=== PATIENT | male | born 1960 | race Caucasian/White ===

== ENCOUNTER 2016-07-12 14:30 | Outpatient (CLI) | payer MEDICARE, MEDICAID | END 2016-07-12 14:31 | disposition home or self-care (01) | DX: I10 Essential (primary) hypertension (principal); I69.354 Hemiplegia and hemiparesis following cerebral infarction affecting left non-dominant side; R56.1 Post traumatic seizures ==

== ENCOUNTER 2016-12-29 08:01 | Outpatient (CLI) | payer MEDICARE, MEDICAID ==
[2016-12-29 13:57] LABS: CHOLESTEROL 194 mg/dL; HDL CHOLESTEROL 48 mg/dL; LDL/HDL RATIO 2.7 (<3.6); TRIGLYCERIDES 75 mg/dL; VLDL CHOLESTEROL 15 mg/dL
[2016-12-29 14:02] LABS: HEMOGLOBIN A1C 0.51 g/dL
== END 2016-12-29 08:02 | disposition home or self-care (01) ==
LOC: LAB.N 08:01
PROVIDERS: ATTEND Psychiatry & Neurology Neurology
DX: I69.354 Hemiplegia and hemiparesis following cerebral infarction affecting left non-dominant side (principal); R56.1 Post traumatic seizures; R73.09 Other abnormal glucose
CPT/HCPCS: 36415; 80061; 80177; 83036

== ENCOUNTER 2017-05-02 08:00 | Outpatient (CLI) | payer MEDICARE, MEDICAID ==
[2017-05-02 13:00] LABS: HB2 TOTAL 12.8 g/dL; HEMOGLOBIN A1C 0.55 g/dL; HEMOGLOBIN A1C % 6.1 % (4.6-6.2)
[2017-05-02 13:09] LABS: ALBUMIN 3.9 g/dL (3.2-5.5); ALBUMIN/GLOBULIN RATIO 1.1 (1.0-2.2); ALKALINE PHOSPHATASE 72 IU/L (42-121); ALT ALANINE AMINOTRANSFERASE 30 IU/L (10-60); AST ASPARTATE AMINOTRANSFERASE 27 IU/L (10-42); BILIRUBIN,TOTAL 0.3 mg/dL (0.2-1.0); BUN - BLOOD UREA NITROGEN 20 mg/dL (6-20); CALCIUM 9.2 mg/dL (8.5-10.3); CARBON DIOXIDE - CO2 28 mmol/L (21-32); CHLORIDE 100 mmol/L (101-111); CHOLESTEROL 147 mg/dL; CREATININE 0.9 mg/dL (0.6-1.2); GFR - MDRD 88 (>89); GLUCOSE 87 mg/dL (70-100); HDL CHOLESTEROL 49 mg/dL; LDL CHOLESTEROL,CALCULATED 86 mg/dL; LDL/HDL RATIO 1.8 (<3.6); SODIUM 138 mmol/L (135-145); TOTAL PROTEIN 7.5 g/dL (6.7-8.2); VLDL CHOLESTEROL 12 mg/dL
== END 2017-05-02 08:01 | disposition home or self-care (01) ==
LOC: LAB.N 08:00
PROVIDERS: ATTEND Internal Medicine
DX: I10 Essential (primary) hypertension (principal); R73.09 Other abnormal glucose; E78.4 Other hyperlipidemia
CPT/HCPCS: 36415; 80053; 80061; 83036

== ENCOUNTER 2017-10-24 08:16 | Outpatient (CLI) | payer MEDICARE, MEDICAID ==
[2017-10-24 12:48] LABS: CALCIUM 9.2 mg/dL (8.5-10.3); CREATININE 1.1 mg/dL (0.6-1.2)
[2017-10-24 13:10] LABS: HB2 TOTAL 12.8 g/dL; HEMOGLOBIN A1C 0.52 g/dL; HEMOGLOBIN A1C % 5.9 % (4.6-6.2)
== END 2017-10-24 08:17 | disposition home or self-care (01) ==
LOC: LAB.N 08:16
PROVIDERS: ATTEND Internal Medicine
DX: I10 Essential (primary) hypertension (principal); R73.02 Impaired glucose tolerance (oral)
CPT/HCPCS: 36415; 80048; 83036

== ENCOUNTER 2018-04-22 08:50 | Emergency (ER) | payer MEDICARE, MEDICAID ==
[2018-04-22 09:03] VITALS: BP 138/97
--- NOTE | 2018-04-22 09:18 | ED Physician Documentation ---
PD HPI SKIN - Stated complaint Stated Complaint: SWOLLEN HAND - Chief complaint Chief Complaint: Wound - History obtained from History obtained from: Patient - History of Present Illness Timing - onset: How many weeks ago (1) Timing - duration: Weeks (1) Timing - details: Gradual onset Pain level max: 0 Pain level now: 0 Location: Other (hands) Quality / character: Swelling, Other (Rash). 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 Patient denies any pain, itching, numbness, fever. Patient had been on trampoline for his eczema. A week ago he was started on Clobeta Terazole 0.05% twice a day.He stated his PABLITO sent him here to make sure that there is no infection going on from his rash. Patient denies any exposure to allergen such as gloves, new food, lotion, soap.Denies any insect or animal bites. Review of Systems Ten Systems: 10 systems reviewed and negative Constitutional: denies: Fever, Chills, Myalgias Eyes: reports: Loss of vision (Left-sided chronic) Throat: denies: Sore throat Cardiac: denies: Chest pain / pressure Respiratory: denies: Dyspnea, Cough GI: denies: Abdominal Pain Skin: reports: Rash. denies: Bite / sting Musculoskeletal: reports: Extremity swelling. denies: Extremity pain, Joint pain, Joint swelling Neurologic: reports: Focal weakness (Chronic left-sided weakness from CVA), Difficulty speaking (Mildly slurred, chronic from CVA). denies: Generalized weakness PD PAST MEDICAL HISTORY - Past Medical History Cardiovascular: Hypertension Respiratory: None Endocrine/Autoimmune: None GI: None : None HEENT: Chronic vision loss Psych: Anxiety Musculoskeletal: Osteoarthritis Derm: None - Past Surgical History Past Surgical History: No Neuro: Craniotomy - Present Medications Home Medications: Ambulatory Orders Medication Instructions Recorded Confirmed Acetaminophen [Pain Reliever] 650 mg PO Q8HR PRN 08/25/12 04/22/18 Amlodipine Besylate 10 mg PO BID 08/25/12 04/22/18 Baclofen 10 mg PO TID 08/25/12 04/22/18 Cholecalciferol (Vitamin D3) 1,000 mg PO DAILY 08/25/12 04/22/18 [Vitamin D-3] Docusate Sodium 250 mg PO DAILY 08/25/12 04/22/18 Doxepin [SINEquan] 30 mg PO HS 08/25/12 04/22/18 Lisinopril 40 mg PO DAILY 08/25/12 04/22/18 Metoprolol Succinate 100 mg PO BID 08/25/12 04/22/18 Omeprazole [PriLOSEC] 20 mg PO DAILY 08/25/12 04/22/18 Phenytoin [Dilantin] 200 mg PO QAM 08/25/12 04/22/18 Phenytoin [Dilantin] 300 mg PO QPM 08/25/12 03/17/15 Potassium 10 meq PO BID 08/25/12 04/22/18 hydroCHLOROthiazide [Hydrodiuril] 25 mg PO DAILY 08/25/12 04/22/18 Sertraline [Zoloft] 150 mg PO DAILY 12/11/12 04/22/18 hydrOXYzine PAMOATE [Vistaril] 25 mg PO Q6H PRN #20 capsule 07/14/13 04/22/18 levETIRAcetam [Keppra] 750 mg PO BID 03/17/15 04/22/18 Clobetasol Propionate 15 gm TP 04/22/18 Triamcinolone 0.1% Oint [Kenalog 15 gm TOP 04/22/18 04/22/18 0.1% Oint] - Allergies Allergies/Adverse Reactions: Allergies Allergy/AdvReac Type Severity Reaction Status Date / Time ceftriaxone sodium * Allergy Intermediate Hives Verified 03/20/15 09:53 [From Rocephin] - Social History Does the pt smoke?: No Smoking Status: Never smoker Does the pt drink ETOH?: No Does the pt have substance abuse?: No - Immunizations Immunizations are current?: Yes - POLST Patient has POLST: Yes POLST Status: Full Code PD ED PE NORMAL - Vitals Vital signs reviewed: Yes - General General: Alert and oriented X 3, No acute distress, Well developed/nourished - HEENT HEENT: EOMI, Moist mucous membranes, Pharynx benign - Neck Neck: Supple, no meningeal sign - Cardiac Cardiac: RRR, No murmur - Respiratory Respiratory: Clear bilaterally - Abdomen Abdomen: Normal bowel sounds, Soft, Non tender, Non distended - Back Back: No CVA TTP - Derm Derm: Normal color, Warm and dry, Other (Both hands with maculopapular rash, nonvesicular, nontender, nonpruritic. Rash located more on the dorsal area and not on the palmar area.No other similar rash noted on patient's body) - Extremities Extremities: No deformity - Neuro Neuro: Alert and oriented X 3, Other (Mild dysarthria but able to comprehend patient. Left-sided weakness.) - Psych Psych: Normal mood, Normal affect Results - Vitals Vitals: Vital Signs - 24 hr 04/22/18 08:59 Temperature 36.8 C Heart Rate 64 Respiratory 16 Rate Blood Pressure 138/97 H O2 Saturation 97 Oxygen O2 Source Room air - Labs Labs: Laboratory Tests 04/22/18 04/22/18 04/22/18 09:30 09:30 09:30 WBC 6.2 RBC 4.51 L Hgb 11.8 L Hct 36.4 L MCV 80.8 MCH 26.1 L MCHC 32.3 RDW 16.7 H Plt Count 257 MPV 7.4 Neut # (Auto) 4.5 Lymph # (Auto) 1.0 L [place] # (Auto) 0.5 Eos # (Auto) 0.1 Baso # (Auto) 0.0 Absolute Nucleated RBC 0.00 Nucleated RBC % 0.1 ESR 57 H Sodium 137 Potassium 3.6 Chloride 101 Carbon Dioxide 30 Anion Gap 6.0 BUN 18 Creatinine 0.8 Estimated GFR (MDRD) 100 Glucose 97 Calcium 9.2 Total Bilirubin 0.4 AST 21 ALT 22 Alkaline Phosphatase 81 C-React Prot High Sens Total Protein 7.7 Albumin 4.1 Globulin 3.6 Albumin/Globulin Ratio 1.1 Lipase 31 04/22/18 09:30 WBC RBC Hgb Hct MCV MCH MCHC RDW Plt Count MPV Neut # (Auto) Lymph # (Auto) [place] # (Auto) Eos # (Auto) Baso # (Auto) Absolute Nucleated RBC Nucleated RBC % ESR Sodium Potassium Chloride Carbon Dioxide Anion Gap BUN Creatinine Estimated GFR (MDRD) Glucose Calcium Total Bilirubin AST ALT Alkaline Phosphatase C-React Prot High Sens 7.4 Total Protein Albumin Globulin Albumin/Globulin Ratio Lipase PD MEDICAL DECISION MAKING - ED course Complexity details: reviewed results, re-evaluated patient, considered differential (Eczema, reaction from steroid cream, dermatitis, MRSA.), d/w patient ED course: 1055 patient in no acute distress and nontoxic appearing. Tolerated food and took his medications for this morning. He was inform of test results including x-ray. He was instructed to stop the cream medication that he is on and to get a dermatology consult to reevaluate the rash on his hands.NURSING HOME form filled. Departure - Departure Disposition: 01 Home, Self Care Clinical Impression: Rash and nonspecific skin eruption, Eczema of both hands Condition: Stable Instructions: ED Dermatitis Non Specific Rash, ED Dermatitis Atopic Eczema Comments: Stop Stop applying the steroid cream on your hands. Call your primary doctor for reevaluation and referral to a project surveyor. Culture of your skin rash had been sent to the labs. You will be called if the bacteria is growing in it. If worse return to the emergency room.
[2018-04-22 09:38] LABS: BASOPHILS % (AUTO) 0.6 %; EOSINOPHILS # (AUTO) 0.1 10^3/uL (0.0-0.7); EOSINOPHILS % (AUTO) 2.3 %; HGB - HEMOGLOBIN 11.8 g/dL (14.0-18.0); LYMPHOCYTES % (AUTO) 15.9 %; MEAN CORPUSCULAR HEMOGLOBIN 26.1 pg (27.0-31.0); MEAN CORPUSCULAR HGB CONC 32.3 g/dL (32.0-36.0); MEAN CORPUSCULAR VOLUME 80.8 fL (80.0-94.0); MEAN PLATELET VOLUME 7.4 fL (7.4-11.4); MONOCYTES # (AUTO) 0.5 10^3/uL (0.0-1.0); NEUTROPHILS # (AUTO) 4.5 10^3/uL (1.5-6.6); NEUTROPHILS % (AUTO) 73.2 %; PLT - PLATELET COUNT 257 10^3/uL (130-450); RED BLOOD COUNT 4.51 10^6/uL (4.70-6.10); RED CELL DISTRIBUTION WIDTH 16.7 % (12.0-15.0); WHITE BLOOD COUNT 6.2 x10^3/uL (4.8-10.8)
[2018-04-22 10:07] LABS: ALBUMIN 4.1 g/dL (3.2-5.5); ALBUMIN/GLOBULIN RATIO 1.1 (1.0-2.2); BILIRUBIN,TOTAL 0.4 mg/dL (0.2-1.0); CALCIUM 9.2 mg/dL (8.5-10.3); CREATININE 0.8 mg/dL (0.6-1.2); TOTAL PROTEIN 7.7 g/dL (6.7-8.2)
--- NOTE | 2018-04-22 10:31 | XRAY Report ---
Reason: swollen Procedure Date: 04/22/2018 Accession Number: [id number] / [id number] Procedure: XR - Hand 3 View BILAT CPT Code: FULL RESULT: EXAMS: 1. Right Hand Radiography 2. Left Hand Radiography EXAM DATE: 04/22/2018 09:58 AM. CLINICAL HISTORY: Swollen. COMPARISON: None. TECHNIQUE: 3 views each hand. FINDINGS: Right: Bones: Normal. No fractures or bone lesions. Joints: Normal. No subluxations. Soft Tissues: Normal. No soft tissue swelling. Left: Bones: Normal. No fractures or bone lesions. Joints: Normal. No subluxations. Soft Tissues: Normal. No soft tissue swelling. IMPRESSION: No fracture or significant degenerative changes or periarticular erosions. RADIA
[2018-04-22] MEDS ORDERED: PROMETHAZINE 25 MG/1 ML VIAL IM STA (10:56)
[2018-04-22] MEDS ORDERED: LORazepam 2 MG/ML VIAL IVP STA (10:56)
[2018-04-22] MEDS ORDERED: THIAMINE IV STA ×5 (10:57)
[2018-04-22] MEDS ORDERED: [UNRECOGNIZED DRUG - OTHER] IV STA ×5 (10:57)
[2018-04-22] MEDS ORDERED: FOLIC ACID IV STA ×5 (10:57)
[2018-04-22] MEDS ORDERED: MAGNESIUM SULFATE IV STA ×5 (10:57)
== END 2018-04-22 11:13 | disposition home or self-care (01) ==
LOC: ED 08:50
DX: R21 Rash and other nonspecific skin eruption (principal); L30.9 Dermatitis, unspecified; I10 Essential (primary) hypertension; I69.954 Hemiplegia and hemiparesis following unspecified cerebrovascular disease affecting left non-dominant side
CPT/HCPCS: 36415; 73130; 80053; 83690; 85025; 85651; 86141; 99283; J3411

== ENCOUNTER 2018-06-08 07:41 | Outpatient (CLI) | payer MEDICARE, MEDICAID ==
[2018-06-08 13:20] LABS: ALBUMIN 3.9 g/dL (3.2-5.5); ALKALINE PHOSPHATASE 76 IU/L (42-121); ALT ALANINE AMINOTRANSFERASE 25 IU/L (10-60); AST ASPARTATE AMINOTRANSFERASE 25 IU/L (10-42); BILIRUBIN,TOTAL 0.5 mg/dL (0.2-1.0); BUN - BLOOD UREA NITROGEN 16 mg/dL (6-20); CALCIUM 9.3 mg/dL (8.5-10.3); CARBON DIOXIDE - CO2 33 mmol/L (21-32); CHLORIDE 99 mmol/L (101-111); CHOL/HDL RATIO 2.9 (<5.0); CHOLESTEROL 157 mg/dL; CREATININE 0.8 mg/dL (0.6-1.2); GFR - MDRD 100 (>89); GLUCOSE 93 mg/dL (70-100); HDL CHOLESTEROL 55 mg/dL; LDL CHOLESTEROL,CALCULATED 88 mg/dL; LDL/HDL RATIO 1.6 (<3.6); SODIUM 138 mmol/L (135-145); TOTAL PROTEIN 7.7 g/dL (6.7-8.2); VLDL CHOLESTEROL 14 mg/dL
[2018-06-08 13:27] LABS: THYROID STIMULATING HORMONE 2.51 uIU/mL (0.34-5.60)
[2018-06-08 13:38] LABS: FOLATE 15.74 ng/mL (5.90 - >24.8)
[2018-06-08 19:50] LABS: BASOPHILS % (AUTO) 0.5 %; EOSINOPHILS # (AUTO) 0.1 10^3/uL (0.0-0.7); EOSINOPHILS % (AUTO) 2.2 %; HGB - HEMOGLOBIN 12.1 g/dL (14.0-18.0); MEAN CORPUSCULAR HEMOGLOBIN 27.1 pg (27.0-31.0); MEAN CORPUSCULAR HGB CONC 32.3 g/dL (32.0-36.0); MEAN CORPUSCULAR VOLUME 83.7 fL (80.0-94.0); MONOCYTES # (AUTO) 0.4 10^3/uL (0.0-1.0); MONOCYTES % (AUTO) 9.3 %; NEUTROPHILS # (AUTO) 3.2 10^3/uL (1.5-6.6); PLT - PLATELET COUNT 234 10^3/uL (130-450); RED BLOOD COUNT 4.45 10^6/uL (4.70-6.10); RED CELL DISTRIBUTION WIDTH 17.5 % (12.0-15.0); WHITE BLOOD COUNT 4.7 x10^3/uL (4.8-10.8)
== END 2018-06-08 23:59 | disposition home or self-care (01) ==
LOC: LAB.N 07:41
PROVIDERS: ATTEND Nurse Practitioner
DX: I10 Essential (primary) hypertension (principal); E55.9 Vitamin D deficiency, unspecified; R53.83 Other fatigue
CPT/HCPCS: 36415; 80053; 80061; 82306; 82607; 82746; 83721; 84443; 85025

== ENCOUNTER 2018-06-09 14:34 | Outpatient (CLI) | payer MEDICARE, MEDICAID ==
[2018-06-09 20:34] LABS: % IRON SATURATION 7 % (20-50); IRON 27 ug/dL (45-182); TOTAL IRON BINDING CAPACITY 370 ug/dL (250-450); TRANSFERRIN 264 mg/dL (180-329)
== END 2018-06-09 23:59 | disposition home or self-care (01) ==
LOC: LAB.N 14:34
PROVIDERS: ATTEND Nurse Practitioner
DX: D64.9 Anemia, unspecified (principal); D72.819 Decreased white blood cell count, unspecified
CPT/HCPCS: 36415; 82728; 83540; 84466

== ENCOUNTER 2018-06-25 15:54 | Emergency (ER) | payer MEDICARE, MEDICAID ==
[2018-06-25 16:01] VITALS: BP 135/81
--- NOTE | 2018-06-25 16:10 | ED Physician Documentation ---
PD HPI SKIN - Stated complaint Stated Complaint: RASH - Chief complaint Chief Complaint: General - History obtained from History obtained from: Patient - History of Present Illness Timing - onset: How many days ago (5-6) Timing - duration: Days (5-6) Timing - details: Gradual onset (initially on legs with spotty red rash, which has increased and is now bodywide.) Location: Bodywide (he has had the red spotty rash develop on legs then spread bodywide. Concurrently is having some increased swelling of prior psoriatic/eczema area of hands, and also redness/weeping of left hand skin.) Quality / character: Painful, Burning Associated symptoms: No: Fever Contributing factors: Exposed to medication (started new iron tablet this past week, and he is not sure if the leg rash started prior to the new med or just after starting it. He also was Rx Baclofen as new medication 2 weeks ago.) Similar symptoms before: Has not had sx before (not had the spotty red rash in the past, but has had psoriasis of the hands previously/recurrently.) Review of Systems Constitutional: denies: Fever, Chills Nose: denies: Rhinorrhea / runny nose, Congestion Throat: denies: Sore throat Respiratory: denies: Cough GI: denies: Nausea, Vomiting, Diarrhea Skin: reports: Lesions (psoriasis of hands particularly, recurrent) Musculoskeletal: reports: Back pain (chronic) Neurologic: denies: Generalized weakness, Near syncope PD PAST MEDICAL HISTORY - Past Medical History Cardiovascular: Hypertension Respiratory: None Neuro: CVA Endocrine/Autoimmune: None GI: None : None HEENT: Chronic vision loss Psych: Anxiety Musculoskeletal: Osteoarthritis Derm: None - Past Surgical History Past Surgical History: No Neuro: Craniotomy - Present Medications Home Medications: Ambulatory Orders Medication Instructions Recorded Confirmed Acetaminophen [Pain Reliever] 650 mg PO Q8HR PRN 08/25/12 04/22/18 Amlodipine Besylate 10 mg PO BID 08/25/12 04/22/18 Baclofen 10 mg PO TID 08/25/12 06/25/18 Cholecalciferol (Vitamin D3) 1,000 mg PO DAILY 08/25/12 04/22/18 [Vitamin D-3] Docusate Sodium 250 mg PO DAILY 08/25/12 04/22/18 Doxepin [SINEquan] 30 mg PO HS 08/25/12 04/22/18 Lisinopril 40 mg PO DAILY 08/25/12 04/22/18 Metoprolol Succinate 100 mg PO BID 08/25/12 04/22/18 Omeprazole [PriLOSEC] 20 mg PO DAILY 08/25/12 04/22/18 Potassium 10 meq PO BID 08/25/12 04/22/18 hydroCHLOROthiazide [Hydrodiuril] 25 mg PO DAILY 08/25/12 04/22/18 Sertraline [Zoloft] 150 mg PO DAILY 12/11/12 04/22/18 hydrOXYzine PAMOATE [Vistaril] 25 mg PO Q6H PRN #20 capsule 07/14/13 04/22/18 levETIRAcetam [Keppra] 750 mg PO BID 03/17/15 04/22/18 Clobetasol Propionate 15 gm TP 04/22/18 Triamcinolone 0.1% Oint [Kenalog 15 gm TOP 04/22/18 04/22/18 0.1% Oint] Betamethasone Valerate 1 applic TP BID #15 cream..g. 06/25/18 Calcium Carbonate [Antacid] 200 mg PO 06/25/18 06/25/18 Dexamethasone [Decadron] 4 mg PO DAILY #5 tablet 06/25/18 Doxycycline Hyclate 100 mg PO BID #14 capsule 06/25/18 Ferrous Gluconate [Iron] 240 mg PO 06/25/18 06/25/18 Mupirocin 1 applic TP TID #15 g 06/25/18 - Allergies Allergies/Adverse Reactions: Allergies Allergy/AdvReac Type Severity Reaction Status Date / Time ceftriaxone sodium * Allergy Intermediate Hives Verified 03/20/15 09:53 [From Rocephin] - Social History Does the pt smoke?: No Smoking Status: Never smoker Does the pt drink ETOH?: No Does the pt have substance abuse?: No - Immunizations Immunizations are current?: Yes - POLST Patient has POLST: Yes POLST Status: Full Code PD ED PE NORMAL - Vitals Vital signs reviewed: Yes - General General: Alert and oriented X 3, No acute distress, Well developed/nourished - HEENT HEENT: Pharynx benign - Neck Neck: Supple, no meningeal sign, No adenopathy - Cardiac Cardiac: RRR, No murmur - Respiratory Respiratory: Clear bilaterally - Abdomen Abdomen: Soft, Non tender - Derm Derm: Normal color, Warm and dry, Other (both hands with some thickened skin with demarcated edges, mostly dorsal hand/wrist c/w eczema/psoriasis changes. Left hand dorsally also with some uniform redness, swelling and clear weeping of stretched area of skin c/w cellulitic infection. No purulence. Then there is red spotty rash diffusely, without induration nor vesicles. These are most concentrated on legs and leads to confluent redness on anterior lower legs. ) - Neuro Neuro: Alert and oriented X 3, No motor deficit, Normal speech Results - Vitals Vitals: Oxygen O2 Source Room air - Labs Labs: Laboratory Tests 06/25/18 06/25/18 06/25/18 16:58 16:58 16:58 WBC 11.0 H RBC 4.65 L Hgb 12.3 L Hct 38.2 L MCV 82.1 MCH 26.3 L MCHC 32.1 RDW 17.7 H Plt Count 241 MPV 7.4 Neut # (Auto) 8.9 H Lymph # (Auto) 0.9 L [place] # (Auto) 0.8 Eos # (Auto) 0.3 Baso # (Auto) 0.0 Absolute Nucleated RBC 0.01 Nucleated RBC % 0.1 ESR 44 H Sodium 134 L Potassium 3.6 Chloride 97 L Carbon Dioxide 27 Anion Gap 10.0 BUN 21 H Creatinine 0.9 Estimated GFR (MDRD) 88 L Glucose 128 H Calcium 9.4 Total Bilirubin 0.3 AST 22 ALT 22 Alkaline Phosphatase 80 Total Protein 8.0 Albumin 4.0 Globulin 4.0 Albumin/Globulin Ratio 1.0 Lipase 36 PD MEDICAL DECISION MAKING - ED course Complexity details: reviewed results, considered differential (thickened skin of hands, mostly right c/w some eczema/psoriasis as he has had previously. but there is left hand swelling and red c/w cellulitis as well, presume secondary. Then with spotty red rash diffusely, particularly clustered/confluent on legs. Almost appearing like vasculitis, but without induration/firmness, though ESR is elevated (granted, is nonspecific), and also appearing c/w drug allergy. So I think he has 2 processes, a drug allergy/allergic reaction, and then some cellulitis in area of eczema of left hand. ), d/w patient Departure - Departure Disposition: Home, Self Care Clinical Impression: Cellulitis of hand Allergic reaction Qualifiers: Encounter type: initial encounter Qualified Code(s): T78.40XA - Allergy, unspecified, initial encounter Eczema Qualifiers: Eczema type: unspecified Qualified Code(s): L30.9 - Dermatitis, unspecified Condition: Stable Record reviewed to determine appropriate education?: Yes Prescriptions: Betamethasone Valerate 1 applic TP BID #15 cream..g. Dexamethasone [Decadron] 4 mg PO DAILY #5 tablet Doxycycline Hyclate 100 mg PO BID #14 capsule Mupirocin 1 applic TP TID #15 g Comments: I don't really think the iron tablets are causing a reaction like this but given the timing of them recently I would hold your iron tablets for now. The other recent medicine was the baclofen from just 2 weeks ago and so I would hold that one for now as well. We always think of medications as possible causes for allergic reactions like this. You can use some betamethasone steroid on the hand eczema or psoriasis rash. However the general rash looks mild allergic reaction and then on your left hand looks like an infection imposed on it. Would have you take Decadron steroid orally for 5 days. use mupirocin antibiotic ointment on the weeping part of the left hand twice daily and take doxycycline oral antibiotic twice daily for a week. Follow-up with your primary care in the next several days, call tomorrow for an appoin tment. Your platelet count and blood count are okay. An inflammation marker called the ESR is elevated so I think this is more of an immune reaction. Discharge Date/Time: 06/25/18 18:15
[2018-06-25] MEDS ORDERED: A & D OINTMENT 5 GM PACKET TOP STA (16:39)
[2018-06-25] MEDS ORDERED: MUPIROCIN 2% OINT 1 GM TOP STA (16:40)
[2018-06-25] MEDS ORDERED: DEXAMETHASONE 10 MG/ML VIAL PO STA (16:40)
[2018-06-25] MEDS ORDERED: DOXYCYCLINE 100 MG TABLET PO STA (16:40)
[2018-06-25] MEDS ORDERED: diphenhydrAMINE 25 MG CAPSULE PO STA (16:41)
[2018-06-25 17:16] LABS: BASOPHILS % (AUTO) 0.2 %; EOSINOPHILS # (AUTO) 0.3 10^3/uL (0.0-0.7); HGB - HEMOGLOBIN 12.3 g/dL (14.0-18.0); LYMPHOCYTES # (AUTO) 0.9 10^3/uL (1.5-3.5); LYMPHOCYTES % (AUTO) 8.1 %; MEAN CORPUSCULAR HEMOGLOBIN 26.3 pg (27.0-31.0); MEAN CORPUSCULAR HGB CONC 32.1 g/dL (32.0-36.0); MEAN CORPUSCULAR VOLUME 82.1 fL (80.0-94.0); MEAN PLATELET VOLUME 7.4 fL (7.4-11.4); MONOCYTES # (AUTO) 0.8 10^3/uL (0.0-1.0); MONOCYTES % (AUTO) 7.3 %; NEUTROPHILS # (AUTO) 8.9 10^3/uL (1.5-6.6); NEUTROPHILS % (AUTO) 81.4 %; PLT - PLATELET COUNT 241 10^3/uL (130-450); RED BLOOD COUNT 4.65 10^6/uL (4.70-6.10); RED CELL DISTRIBUTION WIDTH 17.7 % (12.0-15.0)
[2018-06-25 17:26] LABS: BILIRUBIN,TOTAL 0.3 mg/dL (0.2-1.0); CALCIUM 9.4 mg/dL (8.5-10.3); CREATININE 0.9 mg/dL (0.6-1.2)
== END 2018-06-25 18:15 | disposition home or self-care (01) ==
LOC: ED 15:54
DX: L03.114 Cellulitis of left upper limb (principal); L30.9 Dermatitis, unspecified; L27.0 Generalized skin eruption due to drugs and medicaments taken internally; T50.905A Adverse effect of unspecified drugs, medicaments and biological substances, initial encounter; I10 Essential (primary) hypertension
CPT/HCPCS: 36415; 80053; 83690; 85025; 85651; 99283; A9270

== ENCOUNTER 2019-03-30 10:16 | Outpatient (CLI) | payer MEDICARE, MEDICAID ==
[2019-03-30 12:05] LABS: BASOPHILS % (AUTO) 0.4 %; EOSINOPHILS # (AUTO) 0.1 10^3/uL (0.0-0.7); EOSINOPHILS % (AUTO) 2.2 %; HGB - HEMOGLOBIN 14.6 g/dL (14.0-18.0); LYMPHOCYTES # (AUTO) 0.8 10^3/uL (1.5-3.5); LYMPHOCYTES % (AUTO) 16.5 %; MEAN CORPUSCULAR HEMOGLOBIN 33.6 pg (27.0-31.0); MEAN CORPUSCULAR HGB CONC 33.6 g/dL (32.0-36.0); MEAN CORPUSCULAR VOLUME 100.2 fL (80.0-94.0); MEAN PLATELET VOLUME 9.6 fL (7.4-11.4); MONOCYTES # (AUTO) 0.3 10^3/uL (0.0-1.0); MONOCYTES % (AUTO) 7.3 %; NEUTROPHILS # (AUTO) 3.3 10^3/uL (1.5-6.6); NEUTROPHILS % (AUTO) 73.4 %; PLT - PLATELET COUNT 153 10^3/uL (130-450); RED BLOOD COUNT 4.34 10^6/uL (4.70-6.10); RED CELL DISTRIBUTION WIDTH 13.4 % (12.0-15.0); WHITE BLOOD COUNT 4.5 x10^3/uL (4.8-10.8)
[2019-03-30 12:21] LABS: CALCIUM 9.4 mg/dL (8.5-10.3); CREATININE 0.9 mg/dL (0.6-1.2)
[2019-03-30 13:45] LABS: ALBUMIN/GLOBULIN RATIO 1.3 (1.0-2.2); BILIRUBIN,TOTAL 0.6 mg/dL (0.2-1.0); TOTAL PROTEIN 7.2 g/dL (6.7-8.2)
== END 2019-03-30 23:59 | disposition home or self-care (01) ==
LOC: LAB.N 10:16
PROVIDERS: ATTEND Family Medicine
DX: E87.6 Hypokalemia (principal); D64.9 Anemia, unspecified
CPT/HCPCS: 36415; 80053; 85025

== ENCOUNTER 2020-03-20 11:18 | Outpatient (CLI) | payer OTHER | END 2020-03-20 11:19 | disposition critical access hospital (66) | LOC: EMS 11:18 | PROVIDERS: ATTEND Surgery | DX: M79.672 Pain in left foot (principal); S99.922A Unspecified injury of left foot, initial encounter; W20.1XXA Struck by object due to collapse of building, initial encounter; Y92.002 Bathroom of unspecified non-institutional (private) residence as the place of occurrence of the external cause | CPT/HCPCS: A0425; A0429 ==

== ENCOUNTER 2020-03-20 11:37 | Emergency (ER) | payer OTHER ==
--- NOTE | 2020-03-20 12:24 | ED Physician Documentation ---
PD HPI LOWER EXT INJURY - Stated complaint Stated Complaint: FOOT PX - Chief complaint Chief Complaint: Ext Problem - History obtained from History obtained from: Patient - History of Present Illness PD HPI LOW EXT INJURY LOCATION: Left, Foot Type of injury: Blunt / blow Where injury occurred: Home Timing - onset: Today Timing - duration: Minutes Timing - details: Abrupt onset, Still present Improved by: Rest, Immobilization Worsened by: Moving, Palpating Associated symptoms: Swelling, Discolored. No: Weakness, Numbness, Tingling Contributing factors: No: Anticoagulated Similar symptoms before: Has not had sx before Recently seen: Not recently seen - Additional information Additional information: 59-year-old male who is a resident at [facility] and has disability related to CVA with left sided deficit was in the shower today when he struck his left foot against the shower itself and he now has pain in the fifth digit and across the dorsum of the foot. He is not able to bear weight. Review of Systems Constitutional: denies: Fever Eyes: denies: Decreased vision Ears: denies: Ear pain Nose: denies: Congestion Cardiac: denies: Chest pain / pressure Respiratory: denies: Dyspnea, Cough GI: denies: Abdominal Pain, Nausea, Vomiting, Constipation, Diarrhea Skin: denies: Rash Musculoskeletal: reports: Extremity pain, Pain with weight bearing Neurologic: reports: Focal weakness (related to stroke). denies: Generalized weakness, Numbness PD PAST MEDICAL HISTORY - Past Medical History Cardiovascular: Hypertension Respiratory: None Neuro: CVA Endocrine/Autoimmune: None GI: None : None HEENT: Chronic vision loss Psych: Anxiety Musculoskeletal: Osteoarthritis Derm: None - Past Surgical History Past Surgical History: No Neuro: Craniotomy - Present Medications Home Medications: Ambulatory Orders Medication Instructions Recorded Confirmed Acetaminophen [Pain Reliever] 650 mg PO Q8HR PRN 08/25/12 04/22/18 Amlodipine Besylate 10 mg PO BID 08/25/12 04/22/18 Baclofen 10 mg PO TID 08/25/12 06/25/18 Cholecalciferol (Vitamin D3) 1,000 mg PO DAILY 08/25/12 04/22/18 [Vitamin D-3] Docusate Sodium 250 mg PO DAILY 08/25/12 04/22/18 Doxepin [SINEquan] 30 mg PO HS 08/25/12 04/22/18 Metoprolol Succinate 100 mg PO BID 08/25/12 04/22/18 Omeprazole [PriLOSEC] 20 mg PO DAILY 08/25/12 04/22/18 Potassium 10 meq PO BID 08/25/12 04/22/18 hydroCHLOROthiazide [Hydrodiuril] 25 mg PO DAILY 08/25/12 04/22/18 lisinopriL [Lisinopril] 40 mg PO DAILY 08/25/12 04/22/18 Sertraline [Zoloft] 150 mg PO DAILY 12/11/12 04/22/18 hydrOXYzine PAMOATE [Vistaril] 25 mg PO Q6H PRN #20 capsule 07/14/13 04/22/18 levETIRAcetam [Keppra] 750 mg PO BID 03/17/15 04/22/18 Clobetasol Propionate 15 gm TP 04/22/18 Triamcinolone 0.1% Oint [Kenalog 15 gm TOP 04/22/18 04/22/18 0.1% Oint] Betamethasone Valerate 1 applic TP BID #15 cream..g. 06/25/18 Calcium Carbonate [Antacid] 200 mg PO 06/25/18 06/25/18 Doxycycline Hyclate 100 mg PO BID #14 capsule 06/25/18 Ferrous Gluconate [Iron] 240 mg PO 06/25/18 06/25/18 Mupirocin 1 applic TP TID #15 g 06/25/18 dexAMETHasone [Decadron] 4 mg PO DAILY #5 tablet 06/25/18 - Allergies Allergies/Adverse Reactions: Allergies Allergy/AdvReac Type Severity Reaction Status Date / Time ceftriaxone sodium * Allergy Intermediate Hives Verified 03/20/20 11:45 [From Rocephin] - Social History Does the pt smoke?: No Smoking Status: Never smoker Does the pt drink ETOH?: No Does the pt have substance abuse?: No - Immunizations Immunizations are current?: Yes - POLST Patient has POLST: Yes POLST Status: Full Code PD ED PE NORMAL - General General: No acute distress, Well developed/nourished - HEENT HEENT: Atraumatic, PERRL, EOMI - Respiratory Respiratory: No respiratory distress - Derm Derm: Normal color, Warm and dry, No rash - Extremities Extremities: Other (There is tenderness to the dorsum of the left foot over the distal metatarsals and worst at the 5th. There is specific tenderness to the foot over the 5th MTP joint. ) - Neuro Neuro: Alert and oriented X 3, Normal speech Eye Opening: Spontaneous Motor: Obeys Commands Verbal: Oriented GCS Score: 15 - Psych Psych: Normal mood, Normal affect Results - Vitals Vitals: Vital Signs - 24 hr 03/20/20 03/20/20 11:36 13:31 Temperature 37.2 C Heart Rate 83 83 Respiratory 18 18 Rate Blood Pressure 117/82 H 138/90 H O2 Saturation 95 96 Oxygen O2 Source Room air - Rads (name of study) foot Radiology: Prelim report reviewed (Impression: Intra-articular fracture of the proximal aspect of the proximal phalanx of the fifth toe, with an acute appearance. Second through fifth metatarsal neck fractures, with a more chronic appearance. Please correlate with physical examination findings and patient history. If clinically ap), EMP read indepedently, See rad report PD MEDICAL DECISION MAKING - ED course Complexity details: reviewed old records, reviewed results, re-evaluated patient, considered differential, d/w patient ED course: 59 y/o male resident of [facility] has had a fall and has a broken foot. He is placed into a walking boot. Departure - Departure Disposition: 01 Home, Self Care Clinical Impression: Toe fracture, left Qualifiers: Encounter type: initial encounter Toe: lesser toe Fracture type: closed Phalanx: proximal Fracture alignment: nondisplaced Qualified Code(s): S92.515A - Nondisplaced fracture of proximal phalanx of left lesser toe(s), initial encounter for closed fracture Metatarsal fracture Qualifiers: Encounter type: initial encounter Metatarsal bone: unspecified metatarsal Fracture type: closed Fracture alignment: nondisplaced Laterality: left Qualified Code(s): S92.302A - Fracture of unspecified metatarsal bone(s), left foot, initial encounter for closed fracture Condition: Stable Instructions: ED Fx Foot Follow-Up: TIM ARAIZA ARNP [Physician No Access] - Discharge Date/Time: 03/20/20 15:25
--- NOTE | 2020-03-20 13:15 | XRAY Report ---
PROCEDURE: Foot 2 View LT INDICATIONS: 5TH DIGIT CONTUSION AND CAN'T BEAR WEIGHT TECHNIQUE: 2 views of the foot were acquired. COMPARISON: None FINDINGS: Bones: There is an apparent intra-articular fracture seen involving the proximal aspect of the proxi mal phalanx of the fifth toe. Fractures are also seen of the second through fifth metatarsal necks, w ith a subacute appearance. No dislocations. No suspicious bony lesions. Age-appropriate degenerative changes are seen. Soft tissues: No tibiotalar joint effusion. Achilles tendon appears normal. IMPRESSION: Intra-articular fracture of the proximal aspect of the proximal phalanx of the fifth toe, with an acu te appearance. Second through fifth metatarsal neck fractures, with a more chronic appearance. Please correlate with physical examination findings and patient history. If clinically appropriate, please consider a dedicated foot CT for further evaluation. Reviewed by: Victor Manuel Perez MD on 03/20/2020 12:14 PM [place] Approved by: Victor Manuel Perez MD on 03/20/2020 12:14 PM [facility] Station ID: [id number]
[2020-03-20 13:32] VITALS: BP 138/90
[2020-03-20] MEDS ORDERED: CARBIDOPA/LEVODOPA 25 MG/100 MG TABLET PO STA (15:03)
== END 2020-03-20 15:25 | disposition home or self-care (01) ==
LOC: EDUNIT# → ED 11:37
DX: S92.515A Nondisplaced fracture of proximal phalanx of left lesser toe(s), initial encounter for closed fracture (principal); W18.49XA Other slipping, tripping and stumbling without falling, initial encounter; Y93.F1 Activity, caregiving, bathing; Y92.121 Bathroom in nursing home as the place of occurrence of the external cause; I10 Essential (primary) hypertension
CPT/HCPCS: 73620; 99284; A9270

== ENCOUNTER 2020-04-04 06:50 | Outpatient (CLI) | payer OTHER | END 2020-04-04 06:51 | disposition critical access hospital (66) | LOC: EMS 06:50 | PROVIDERS: ATTEND Surgery | DX: M25.522 Pain in left elbow (principal) | CPT/HCPCS: A0425; A0429 ==

== ENCOUNTER 2020-04-04 07:06 | Emergency (ER) | payer OTHER ==
--- NOTE | 2020-04-04 07:14 | ED Physician Documentation ---
PD HPI UPPER EXT INJURY - Stated complaint Stated Complaint: FALL - History obtained from History obtained from: Patient - History of Present Illness Location: Left, Elbow Type of injury: Fall (he says he was getting up to go to the bathroom and stumbled. Did not have any lightheadedness, new weakness, nor dizziness. Fell to left arm and has pain in left elbow. Prior weakness left side from CVA.) Where injury occurred: Home ([place], where he lives in assisted living.) Timing - onset: How many hours ago (1), Today Timing - duration: Hours (1) Timing - details: Abrupt onset Improved by: Rest, Ice Worsened by: Moving, Palpating Associated symptoms: Weakness, Swelling. No: Numbness Contributing factors: No: Anticoagulated Similar symptoms before: Has not had sx before Review of Systems Constitutional: denies: Fever Nose: denies: Rhinorrhea / runny nose, Congestion Throat: denies: Sore throat Respiratory: denies: Cough GI: denies: Vomiting, Diarrhea Neurologic: reports: Focal weakness (ongoing left sided weakness from prior CVA) Psychiatric: reports: Depressed. denies: Suicidal PD PAST MEDICAL HISTORY - Past Medical History Cardiovascular: Hypertension Respiratory: None Neuro: CVA Endocrine/Autoimmune: None GI: None : None HEENT: Chronic vision loss Psych: Anxiety Musculoskeletal: Osteoarthritis Derm: None - Past Surgical History Past Surgical History: No Neuro: Craniotomy - Present Medications Home Medications: Ambulatory Orders Medication Instructions Recorded Confirmed Acetaminophen [Pain Reliever] 650 mg PO Q8HR PRN 08/25/12 04/22/18 Amlodipine Besylate 10 mg PO BID 08/25/12 04/22/18 Baclofen 10 mg PO TID 08/25/12 06/25/18 Cholecalciferol (Vitamin D3) 1,000 mg PO DAILY 08/25/12 04/22/18 [Vitamin D-3] Docusate Sodium 250 mg PO DAILY 08/25/12 04/22/18 Doxepin [SINEquan] 30 mg PO HS 08/25/12 04/22/18 Metoprolol Succinate 100 mg PO BID 08/25/12 04/22/18 Omeprazole [PriLOSEC] 20 mg PO DAILY 08/25/12 04/22/18 Potassium 10 meq PO BID 08/25/12 04/22/18 hydroCHLOROthiazide [Hydrodiuril] 25 mg PO DAILY 08/25/12 04/22/18 lisinopriL [Lisinopril] 40 mg PO DAILY 08/25/12 04/22/18 Sertraline [Zoloft] 150 mg PO DAILY 12/11/12 04/22/18 hydrOXYzine PAMOATE [Vistaril] 25 mg PO Q6H PRN #20 capsule 07/14/13 04/22/18 levETIRAcetam [Keppra] 750 mg PO BID 03/17/15 04/22/18 Clobetasol Propionate 15 gm TP 04/22/18 Triamcinolone 0.1% Oint [Kenalog 15 gm TOP 04/22/18 04/22/18 0.1% Oint] Betamethasone Valerate 1 applic TP BID #15 cream..g. 06/25/18 Calcium Carbonate [Antacid] 200 mg PO 06/25/18 06/25/18 Doxycycline Hyclate 100 mg PO BID #14 capsule 06/25/18 Ferrous Gluconate [Iron] 240 mg PO 06/25/18 06/25/18 Mupirocin 1 applic TP TID #15 g 06/25/18 dexAMETHasone [Decadron] 4 mg PO DAILY #5 tablet 06/25/18 HYDROcod/ACETAM 5/325 [[place] 5/325] 1 ea PO Q6H PRN #18 tablet 04/04/20 - Allergies Allergies/Adverse Reactions: Allergies Allergy/AdvReac Type Severity Reaction Status Date / Time ceftriaxone sodium * Allergy Intermediate Hives Verified 04/04/20 07:19 [From Rocephin] - Social History Does the pt smoke?: No Smoking Status: Never smoker Does the pt drink ETOH?: No Does the pt have substance abuse?: No - Immunizations Immunizations are current?: Yes - POLST Patient has POLST: Yes POLST Status: Full Code PD ED PE NORMAL - Vitals Vital signs reviewed: Yes - General General: Alert and oriented X 3, No acute distress, Well developed/nourished - HEENT HEENT: Atraumatic - Cardiac Cardiac: RRR, No murmur - Respiratory Respiratory: Clear bilaterally, Other (no chestwall tenderness) - Abdomen Abdomen: Soft, Non tender - Derm Derm: Normal color, Warm and dry - Extremities Extremities: Other (left elbow with pain on ROM, held at flexed position. Moderate to large effusion. No gross deformity. ) - Neuro Neuro: Alert and oriented X 3, No sensory deficit, Normal speech Results - Vitals Vitals: Vital Signs - 24 hr 04/04/20 04/04/20 04/04/20 07:15 08:17 10:06 Temperature 36.3 C L 36.8 C Heart Rate 63 62 55 L Respiratory 18 18 18 Rate Blood Pressure 126/85 H 136/92 H 155/80 H O2 Saturation 97 95 100 Oxygen O2 Source Room air - Rads (name of study) left elbow Radiology: Prelim report reviewed (proximal ulnar fracture, distracted, with effusion), See rad report Procedures - Splint (location) left elbow Splint applied by: Tech Type of splint: Fiberglass, Posterior Other: Patient tolerated well, No complications, Neurovascular intact, Sling provided PD MEDICAL DECISION MAKING - ED course Complexity details: reviewed results, re-evaluated patient (Patient has had a previous stroke and has a left foot recent fractures and uses a walker. This will make it more difficult for him not being able to use the left arm. Will contact Ortho regarding potential more timely intervention if surgery needed.), considered differential, d/w patient, d/w technology methodology consultant (Dr. Barrera - who will see patient in office next week. He did not feel surgical treatment needed urgently.) Departure - Departure Disposition: 01 Home, Self Care Clinical Impression: Fracture of left proximal ulna Qualifiers: Encounter type: initial encounter Fracture type: closed Fracture morphology: unspecified fracture morphology Qualified Code(s): S52.002A - Unspecified fracture of upper end of left ulna, initial encounter for closed fracture Fall from slip, trip, or stumble Qualifiers: Encounter type: initial encounter Qualified Code(s): W01.0XXA - Fall on same level from slipping, tripping and stumbling without subsequent striking against object, initial encounter Condition: Stable Record reviewed to determine appropriate education?: Yes Follow-Up: Gilles Barrera MD [Primary Care Provider] - Prescriptions: HYDROcod/ACETAM 5/325 [[place] 5/325] 1 ea PO Q6H PRN #18 tablet PRN Reason: Pain Comments: None for the elbow and have the arm in a sling. Is not clear at this point if this will need surgery so Dr. Allan wanted to give it some time for swelling to go down into next week. They will contact you for follow-up appointment. Continue usual medications. Add pain medicine if needed. Follow-up with orthopedics next week, call for an appointment. Discharge Date/Time: 04/04/20 10:06
--- NOTE | 2020-04-04 08:35 | XRAY Report ---
PROCEDURE: Elbow 3 View LT INDICATIONS: fall onto left elbow TECHNIQUE: 4 views of the elbow were acquired. COMPARISON: None. FINDINGS: Olecranon fracture with moderate displacement. Background elbow joint degenerative changes. Probable elbow joint effusion however suboptimal evaluation due to difficulties with patient position ing on the lateral view. IMPRESSION: Moderately displaced olecranon fracture Reviewed by: Brent Rosen MD on 04/04/2020 8:33 AM PST Approved by: Brent Rosen MD on 04/04/2020 8:33 AM PST Station ID: [id number]
[2020-04-04] MEDS ORDERED: KETOROLAC 30 MG/ML VIAL IM STA (09:14)
[2020-04-04] MEDS ORDERED: HYDROcod/ACETAM 5/325 MG TABLET PO STA (09:14)
[2020-04-04 10:09] VITALS: BP 155/80
== END 2020-04-04 10:06 | disposition home or self-care (01) ==
LOC: EDUNIT# → ED 07:06
DX: S52.002A Unspecified fracture of upper end of left ulna, initial encounter for closed fracture (principal); W01.0XXA Fall on same level from slipping, tripping and stumbling without subsequent striking against object, initial encounter; Y93.89 Activity, other specified; Y92.129 Unspecified place in nursing home as the place of occurrence of the external cause; I10 Essential (primary) hypertension
CPT/HCPCS: 29105; 73080; 96372; 99283; 99284; A9270

== ENCOUNTER 2020-04-05 10:24 | Outpatient (CLI) | payer OTHER | END 2020-04-05 10:25 | disposition home or self-care (01) | LOC: LAB.N 10:24 | PROVIDERS: ATTEND Orthopaedic Surgery | DX: Z01.812 Encounter for preprocedural laboratory examination (principal); Z20.828 Contact with and (suspected) exposure to other viral communicable diseases ==

== ENCOUNTER 2020-04-11 12:58 | Day surgery (SDC) | payer MEDICARE, OTHER ==
[~2020-04-11 12:58] MED LIST: ACETAMINOPHEN 1,000 MG/100 ML 100 ML IV ONE; CELECOXIB 100 MG CAPSULE PO ONE
[2020-04-11] MEDS ORDERED: DEXAMETHASONE 4 MG/ML VIAL IVP ONE (12:59)
[2020-04-11] MEDS ORDERED: CLINDAMYCIN 900 MG/50 ML 50 ML IV ONE (12:59)
[2020-04-11] MEDS ORDERED: LIDOCAINE-MPF 2% 5 ML VIAL IM ONE (12:59)
[2020-04-11] MEDS ORDERED: ePHEDrine 50 MG/ML VIAL IVP ONE (12:59)
[2020-04-11] MEDS ORDERED: MIDAZOLAM 2 MG/2 ML VIAL IVP ONE (12:59)
[2020-04-11] MEDS ORDERED: fentaNYL 100 MCG/2 ML VIAL IVP ONE (12:59)
[2020-04-11] MEDS ORDERED: BACITRACIN ZINC OINT 1 PACKET TOP ONE ×2 (12:59→15:15)
[2020-04-11] MEDS ORDERED: PROPOFOL 200 MG/20 ML VIAL IVP ONE (12:59)
[2020-04-11] MEDS ORDERED: ROPIVACAINE 0.5% PF 20 ML AMPULE EP ONE (12:59)
[2020-04-11] MEDS ORDERED: LACTATED RINGERS 1,000 ML IV ONE ×2 (13:38→16:44)
[2020-04-11] MEDS ORDERED: ePHEDrine 50 MG/ML VIAL IVP PRN (13:54)
[2020-04-11] MEDS ORDERED: MORPHINE 2 MG/ML CARPUJECT IVP PRN (13:54)
[2020-04-11] MEDS ORDERED: fentaNYL 100 MCG/2 ML VIAL IVP PRN (13:54)
[2020-04-11] MEDS ORDERED: NALOXONE 0.4 MG/ML VIAL IVP PRN (13:54)
[2020-04-11] MEDS ORDERED: HYDROmorphone 0.5 MG/0.5 ML SYRINGE IVP PRN (13:54)
[2020-04-11] MEDS ORDERED: ATROPINE ABBOJECT 1 MG/10 ML SYRINGE IVP PRN (13:54)
[2020-04-11] MEDS ORDERED: METOCLOPRAMIDE 10 MG/2 ML VIAL IVP PRN (13:54)
[2020-04-11] MEDS ORDERED: ONDANSETRON 4 MG/2 ML VIAL IVP PRN (13:54)
--- NOTE | 2020-04-11 13:54 | ANESTHESIA ---
Pre-Anesthesia VS, & Labs - Diagnosis left Olecranon FX - Procedure ORIF L Olecranon Vital Signs: Temp Pulse Resp BP Pulse Ox 36 C L 65 18 137/85 H 97 04/11/20 13:26 04/11/20 13:26 04/11/20 13:26 04/11/20 13:26 04/11/20 13:26 Height: 5 ft 10 in Weight (kg): 81 kg Body Mass Index: 25.6 BMI Classification: Overweight - NPO >8 hours - Lab Results Lab results reviewed: Yes Home Medications and Allergies Acetaminophen [Pain Reliever] 650 mg PO Q8HR PRN 08/25/12 Amlodipine Besylate 10 mg PO BID 08/25/12 Baclofen 10 mg PO TID 08/25/12 Cholecalciferol (Vitamin D3) [Vitamin D-3] 1,000 mg PO DAILY 08/25/12 Docusate Sodium 250 mg PO DAILY 08/25/12 Doxepin [SINEquan] 30 mg PO HS 08/25/12 Metoprolol Succinate 100 mg PO BID 08/25/12 Omeprazole [PriLOSEC] 20 mg PO DAILY 08/25/12 Potassium 10 meq PO BID 08/25/12 hydroCHLOROthiazide [Hydrodiuril] 25 mg PO DAILY 08/25/12 lisinopriL [Lisinopril] 40 mg PO DAILY 08/25/12 Sertraline [Zoloft] 150 mg PO DAILY 12/11/12 levETIRAcetam [Keppra] 750 mg PO BID 03/17/15 Clobetasol Propionate 15 gm TP ONCE 04/22/18 Triamcinolone 0.1% Oint [Kenalog 0.1% Oint] 15 gm TOP ONCE 04/22/18 Calcium Carbonate [Antacid] 200 mg PO PRN PRN 06/25/18 Ferrous Gluconate [Iron] 240 mg PO DAILY 06/25/18 Allergies/Adverse Reactions: Allergies Allergy/AdvReac Type Severity Reaction Status Date / Time ceftriaxone sodium * Allergy Intermediate Hives Verified 04/04/20 07:19 [From Rocephin] Anes History & Medical History - Anesthetic History Anesthesia Complications: reports: No previous complications Family history of Anesthesia Complications: Denies Family history of Malignant Hyperthermia: Denies - Medical History Cardiovascular: reports: Hypertension, High cholesterol Pulmonary: reports: None Gastrointestinal: reports: GERD (Denies) Urinary: reports: None Neuro: reports: CVA (Left sided weakness, walks with walker but drags foot) Musculoskeletal: reports: Osteoarthritis Endocrine/Autoimmune: reports: None Blood Disorders: reports: None Skin: reports: Psoriasis Smoking Status: Never smoker Psychosocial: reports: Depression, Anxiolytic - Surgical History Neurologic: Craniotomy Exam General: Alert, Oriented x3, Cooperative, No acute distress Dental: WNL Mouth Opening: Greater than 4 Fingerbreadths Neck Mobility: Normal Mallampati classification: I Thyromental Distance: 4-6 cm Respiratory: Lungs clear Cardiovascular: Regular rate Plan Anesthesia Type: General, Supraclavicular Block Consent for Procedure(s) Verified and Reviewed: Yes Code Status: Attempt Resuscitation ASA classification: 3-Severe systemic disease Is this case an emergency?: No (Discussed anesthesia plan, consent signed)
[2020-04-11] MEDS ORDERED: LACTATED RINGERS 1,000 ML IV SCH (14:00)
[2020-04-11] MEDS ORDERED: BUPIVACAINE 0.25% PF 30 ML VIAL SUBQ ONE ×2 (15:00→15:15)
[2020-04-11 15:38] LABS: C. PNEUMONIAE- RESP PCR PANEL NOT DETECTED
--- NOTE | 2020-04-11 16:25 | OPERATIVE REPORT ---
Operative Report - General Procedure Date: 04/11/20 Planned Procedure: Open reduction internal fixation left olecranon Pre-Op Diagnosis: Displaced left olecranon fracture Procedure Performed: Open reduction internal fixation left olecranon using a Lewis nephew locking olecranon plate Post Op Diagnosis: Same as preoperative diagnosis - Procedure Note Primary Surgeon: Gilles Barrera MD Secondary Surgeon: Shiraz Martinez MD Anesthesia Provider: Ana Cantu CRNA Anesthesia Technique: General ET tube, Regional block Estimated Blood Loss (mL): 15 Indications: 59-year-old gentleman with a history of left hemiplegia secondary to a cerebrovascular accident in the past. He has a fall history with a fracture to left foot that occurred approximately 2 weeks before the fall that led to a displaced olecranon fracture of left elbow. He does ambulate with a walker. He is being discharged to a long term. Findings: Transverse displaced left olecranon fracture without other elbow injury. Complications: None noted - Other Other Information/Narrative: The patient was placed supine on the operating room table with an arm extension table. A pneumatic tourniquet had been applied to the proximal left arm over cast padding and a U drape to secure the tourniquet from the prep. The left upper extremity was prepped and draped in a sterile manner in the usual fashion. A timeout procedure was performed by the entire operating room team and all were in agreement. The left arm was exsanguinated by elevation. The pneumatic tourniquet was elevated 200 mmHg. A curvilinear longitudinal incision was made about the left olecranon. The fracture was identified. The hematoma was removed with a curette and saline lavage. The fracture was reduced with a bone tenaculum to manipulate the proximal fragment. 2 K wires were then inserted to hold the reduction in place. The C arm image intensifier was used intermittently throughout the procedure for biplanar imaging. The [employer] olecranon plate was applied a shaft screw was inserted and then 2 screws through the olecranon were placed. One was a long intramedullary screw and the other was placed bicortically just below the subchondral bone. Additional shaft screws were inserted that were locking. One of the 2 olecranon screws was locking. 3 screws were placed in the proximal fragment. The C arm showed satisfactory alignment of the internal fixation and fracture. The elbow move fully with flexion and extension as well as rotation. There is no crepitus or sign of screw penetrating elbow joint. There is no motion at the fracture site. The wound was irrigated. The subcutaneous tissue was closed with 2-0 Vicryl. The skin was closed with a 3-0 subcuticular locking suture. Dermabond was applied. A well-padded long-arm fiberglass splint was applied with the elbow at about 90 degrees flexion. He received clindamycin 900 mg intravenously since he has an allergy to cephalosporin in the past. There was good return of circulation upon release of the tourniquet. The tourniquet was released prior to closure. A physician technical support assistant was utilized to help protect vital neurovascular structures and also to facilitate with reduction and alignment of fracture and plate fixationMs. C-arm image intensifier was used intermittently and final pictures were obtained
[2020-04-11] MEDS ORDERED: HYDROcod/ACETAM 5/325 MG TABLET PO PRN (16:31)
[2020-04-11] MEDS ORDERED: HYDROcod/ACETAM 10 MG/325 MG TABLET PO PRN (16:31)
[2020-04-11] MEDS ORDERED: KETOROLAC 15 MG/ML VIAL IVP ONE (16:31)
--- NOTE | 2020-04-11 17:19 | ANESTHESIA POST OP EVALUATION ---
Anesthesia Post Eval - Post Anesthesia Eval Vitals: Last Vital Signs Temp 37.4 C 04/11/20 17:07 Pulse 79 04/11/20 17:07 Resp 17 04/11/20 17:07 BP 142/91 H 04/11/20 17:07 Pulse Ox 94 04/11/20 17:07 CV Function Including HR & BP: positive: Stable Pain Control: positive: Satisfactory Nausea & Vomiting: positive: Negative Mental Status: positive: Baseline Respiratory Status: Airway Patent Hydration Status: Satisfactory (Awake, alert, taking PO. Denies pain or other complaints. Verbalizes is pleased with care.) Anesthesia Complications: positive: None
--- NOTE | 2020-04-11 17:21 | XRAY Report ---
PROCEDURE: OR C-Arm Procedure INDICATIONS: ORIF LEFT ELBOW TECHNIQUE: Single intraoperative view was obtained. COMPARISON: Elbow x-ray 04/04/2020. FINDINGS: Single intraoperative view of the elbow demonstrate ORIF of the proximal ulna and olecranon. There is good anatomic alignment and hardware appears intact. IMPRESSION: ORIF of the proximal ulna and olecranon. Reviewed by: Madeline Vickers MD on 04/11/2020 5:20 PM PST Approved by: Madeline Vickers MD on 04/11/2020 5:20 PM PST Station ID: [id number]
[2020-04-11 17:30] VITALS: BP 127/80
== END 2020-04-11 12:59 | disposition home or self-care (01) ==
LOC: SDS 12:58
PROVIDERS: ATTEND Orthopaedic Surgery
DX: S52.022A Displaced fracture of olecranon process without intraarticular extension of left ulna, initial encounter for closed fracture (principal); W19.XXXA Unspecified fall, initial encounter; Y92.009 Unspecified place in unspecified non-institutional (private) residence as the place of occurrence of the external cause; I69.952 Hemiplegia and hemiparesis following unspecified cerebrovascular disease affecting left dominant side; I10 Essential (primary) hypertension; K21.9 Gastro-esophageal reflux disease without esophagitis; G40.909 Epilepsy, unspecified, not intractable, without status epilepticus; F31.9 Bipolar disorder, unspecified; F41.9 Anxiety disorder, unspecified; D64.9 Anemia, unspecified; G47.00 Insomnia, unspecified; E78.5 Hyperlipidemia, unspecified; K59.00 Constipation, unspecified; Z91.81 History of falling; Z79.899 Other long term (current) drug therapy
CPT/HCPCS: 24685; 87631; A9270; C1713; J0131; J7120; 0202U

== ENCOUNTER 2020-04-22 06:30 | Outpatient (CLI) | payer MEDICARE, MEDICAID ==
[2020-04-22 07:42] LABS: ALBUMIN 3.4 g/dL (3.2-5.5); ALBUMIN/GLOBULIN RATIO 0.9 (1.0-2.2); BILIRUBIN,TOTAL 0.7 mg/dL (0.2-1.0); CALCIUM 9.1 mg/dL (8.5-10.3); CREATININE 0.8 mg/dL (0.6-1.2); POTASSIUM 3.2 mmol/L (3.5-5.0)
[2020-04-22 07:50] LABS: BASOPHILS % (AUTO) 0.3 %; EOSINOPHILS # (AUTO) 0.1 10^3/uL (0.0-0.7); EOSINOPHILS % (AUTO) 1.3 %; HCT - HEMATOCRIT 40.6 % (42.0-52.0); HGB - HEMOGLOBIN 13.7 g/dL (14.0-18.0); LYMPHOCYTES # (AUTO) 1.4 10^3/uL (1.5-3.5); LYMPHOCYTES % (AUTO) 21.1 %; MEAN CORPUSCULAR HEMOGLOBIN 32.8 pg (27.0-31.0); MEAN CORPUSCULAR HGB CONC 33.7 g/dL (32.0-36.0); MEAN CORPUSCULAR VOLUME 97.1 fL (80.0-94.0); MEAN PLATELET VOLUME 9.6 fL (7.4-11.4); MONOCYTES # (AUTO) 0.6 10^3/uL (0.0-1.0); MONOCYTES % (AUTO) 8.1 %; NEUTROPHILS # (AUTO) 4.7 10^3/uL (1.5-6.6); NEUTROPHILS % (AUTO) 68.8 %; PLT - PLATELET COUNT 208 10^3/uL (130-450); RED BLOOD COUNT 4.18 10^6/uL (4.70-6.10); WHITE BLOOD COUNT 6.8 x10^3/uL (4.8-10.8)
== END 2020-04-22 23:59 | disposition home or self-care (01) ==
LOC: LAB.R 06:30
PROVIDERS: ATTEND Family Medicine
DX: D64.9 Anemia, unspecified (principal); I10 Essential (primary) hypertension; R94.5 Abnormal results of liver function studies
CPT/HCPCS: 36415; 80053; 80076; 80177; 82728; 85025

== ENCOUNTER 2020-05-20 07:00 | Outpatient (CLI) | payer MEDICARE, MEDICAID ==
[2020-05-20 15:06] LABS: CALCIUM 9.9 mg/dL (8.5-10.3); CREATININE 0.9 mg/dL (0.6-1.2)
== END 2020-05-20 23:59 | disposition home or self-care (01) ==
LOC: LAB 07:00
DX: E87.6 Hypokalemia (principal)
CPT/HCPCS: 36415; 80048

== ENCOUNTER 2020-05-22 18:06 | Outpatient (CLI) | payer MEDICARE, MEDICAID ==
--- NOTE | 2020-05-22 16:39 | XRAY Report ---
PROCEDURE: Elbow 3 View LT INDICATIONS: FX OF PROXIMAL END OF L ULNA TECHNIQUE: 4 views of the elbow were acquired. COMPARISON: 04/04/2020 FINDINGS: Bones: Status post open reduction internal fixation of olecranon fracture. No evidence for hardware c omplication. Postoperative alignment is anatomic. There is a nondisplaced fracture of the coronoid pr ocess of the proximal ulna. Background degenerative changes of the left elbow. No suspicious bony le sions. Soft tissues: Small persistent elbow joint effusion. No suspicious soft tissue calcifications. IMPRESSION: Status post interval open reduction and internal fixation of left olecranon fracture without evidence for hardware complication. Reviewed by: Brad Tucker MD on 05/22/2020 4:38 PM PST Approved by: Brad Tucker MD on 05/22/2020 4:38 PM PST Station ID: [id number]
--- NOTE | 2020-05-22 17:01 | XRAY Report ---
PROCEDURE: Foot 3 View LT INDICATIONS: NONDISPLACED FRACTURE OF LEFT FOOT TECHNIQUE: 3 views of the foot were acquired. COMPARISON: 03/20/2020 FINDINGS: Bones: Diffuse osteopenia. There are healing fractures involving the head of the left second through fifth metatarsals with prominent callus formation at the fracture sites. Previously described intra- articular fracture involving the base of the left fifth toe proximal phalanx is not appreciated on to day's study. There are no reactive changes of fracture healing noted in the area. This may have repre sented summation artifact of overlapping structures. Prominent plantar calcaneal spur. Alignment is s table. No suspicious bony lesions. Soft tissues: No tibiotalar joint effusion. Achilles tendon appears normal. IMPRESSION: Healing distal left second through fifth metatarsal head fractures in stable alignment. Previously described intra-articular fracture at the base of the left fifth toe proximal phalanx is n ot appreciated. No reactive changes of subacute fracture healing noted. This may have represented sum mation artifact. Reviewed by: Brad Tucker MD on 05/22/2020 4:59 PM PST Approved by: Brad Tucker MD on 05/22/2020 4:59 PM PST Station ID: [id number]
== END 2020-05-22 23:59 | disposition home or self-care (01) ==
LOC: DI.N 18:06
PROVIDERS: ATTEND Orthopaedic Surgery
DX: S52.202D Unspecified fracture of shaft of left ulna, subsequent encounter for closed fracture with routine healing (principal); S92.352D Displaced fracture of fifth metatarsal bone, left foot, subsequent encounter for fracture with routine healing

== ENCOUNTER 2020-07-07 08:00 | Outpatient (CLI) | payer MEDICARE, MEDICAID ==
[2020-07-07 12:56] LABS: BASOPHILS % (AUTO) 0.4 %; EOSINOPHILS # (AUTO) 0.1 10^3/uL (0.0-0.7); HCT - HEMATOCRIT 44.6 % (42.0-52.0); HGB - HEMOGLOBIN 14.6 g/dL (14.0-18.0); LYMPHOCYTES # (AUTO) 1.1 10^3/uL (1.5-3.5); LYMPHOCYTES % (AUTO) 22.4 %; MEAN CORPUSCULAR HEMOGLOBIN 31.9 pg (27.0-31.0); MEAN CORPUSCULAR HGB CONC 32.7 g/dL (32.0-36.0); MEAN CORPUSCULAR VOLUME 97.4 fL (80.0-94.0); MEAN PLATELET VOLUME 9.4 fL (7.4-11.4); MONOCYTES # (AUTO) 0.5 10^3/uL (0.0-1.0); NEUTROPHILS # (AUTO) 3.3 10^3/uL (1.5-6.6); PLT - PLATELET COUNT 218 10^3/uL (130-450); RED BLOOD COUNT 4.58 10^6/uL (4.70-6.10); RED CELL DISTRIBUTION WIDTH 13.2 % (12.0-15.0); WHITE BLOOD COUNT 5.1 x10^3/uL (4.8-10.8)
[2020-07-07 14:03] LABS: % IRON SATURATION 24 % (20-50); ALBUMIN 3.8 g/dL (3.2-5.5); ALKALINE PHOSPHATASE 74 IU/L (42-121); ALT ALANINE AMINOTRANSFERASE 24 IU/L (10-60); AST ASPARTATE AMINOTRANSFERASE 22 IU/L (10-42); BILIRUBIN,TOTAL 0.5 mg/dL (0.2-1.0); BUN - BLOOD UREA NITROGEN 18 mg/dL (6-20); CALCIUM 9.4 mg/dL (8.5-10.3); CARBON DIOXIDE - CO2 32 mmol/L (21-32); CHLORIDE 95 mmol/L (101-111); CHOL/HDL RATIO 3.2 (<5.0); CHOLESTEROL 138 mg/dL; GFR - MDRD 77 (>89); GLUCOSE 82 mg/dL (70-100); HDL CHOLESTEROL 43 mg/dL; IRON 57 ug/dL (45-182); LDL CHOLESTEROL,CALCULATED 85 mg/dL; POTASSIUM 3.8 mmol/L (3.5-5.0); SODIUM 136 mmol/L (135-145); TOTAL IRON BINDING CAPACITY 235 ug/dL (250-450); TOTAL PROTEIN 7.6 g/dL (6.7-8.2); TRANSFERRIN 168 mg/dL (180-329); TRIGLYCERIDES 52 mg/dL; VLDL CHOLESTEROL 10 mg/dL
== END 2020-07-07 23:59 | disposition home or self-care (01) ==
LOC: LAB.WCP 08:00
PROVIDERS: ATTEND Family Medicine
DX: R94.5 Abnormal results of liver function studies (principal); E78.2 Mixed hyperlipidemia; D64.9 Anemia, unspecified; G40.909 Epilepsy, unspecified, not intractable, without status epilepticus
CPT/HCPCS: 36415; 80053; 80061; 80177; 81599; 82728; 83540; 83721; 84466; 85025

== ENCOUNTER 2020-09-17 05:48 | Outpatient (CLI) | payer MEDICARE, MEDICAID | END 2020-09-17 05:49 | disposition critical access hospital (66) | LOC: EMS 05:48 | DX: H53.8 Other visual disturbances (principal) | CPT/HCPCS: A0425; A0429 ==

== ENCOUNTER 2020-09-17 06:07 | Emergency (ER) | payer MEDICARE, MEDICAID ==
--- NOTE | 2020-09-17 06:21 | ED Physician Documentation ---
PD HPI FOCAL NEURO - Stated complaint Stated Complaint: L SIDE WEAKNESS - History obtained from History obtained from: Patient - Additional information Additional information: 59-year-old gentleman with history of stroke with left hemiparesis, seizures albeit not any recently, psoriasis presents with a week's worth of intermittent visual hallucinosis. He describes that at times he will see things move. He will note say an extension cord wiggling or feeling like his sheets are moving. No recent changes in medications. No headache. He is not a drinker. No auditory hallucinations. No SI or HI. Review of Systems Ten Systems: 10 systems reviewed and negative Constitutional: reports: Reviewed and negative Eyes: reports: Reviewed and negative Ears: reports: Reviewed and negative Nose: reports: Reviewed and negative PD PAST MEDICAL HISTORY - Past Medical History Cardiovascular: Hypertension, High cholesterol Respiratory: None Neuro: CVA (Left sided weakness, walks with walker but drags foot) Endocrine/Autoimmune: None GI: GERD (Denies) : None HEENT: Chronic vision loss Psych: Depression, Anxiety Musculoskeletal: Osteoarthritis Derm: Psoriasis - Past Surgical History Past Surgical History: No Neuro: Craniotomy - Present Medications Home Medications: Ambulatory Orders Medication Instructions Recorded Confirmed Acetaminophen [Pain Reliever] 650 mg PO Q8HR PRN 08/25/12 04/07/20 Amlodipine Besylate 10 mg PO BID 08/25/12 04/07/20 Baclofen 10 mg PO TID 08/25/12 04/07/20 Cholecalciferol (Vitamin D3) 1,000 mg PO DAILY 08/25/12 04/07/20 [Vitamin D-3] Docusate Sodium 250 mg PO DAILY 08/25/12 04/07/20 Doxepin [SINEquan] 30 mg PO HS 08/25/12 04/07/20 Metoprolol Succinate 100 mg PO BID 08/25/12 04/07/20 Omeprazole [PriLOSEC] 20 mg PO DAILY 08/25/12 04/07/20 Potassium 10 meq PO BID 08/25/12 04/07/20 hydroCHLOROthiazide [Hydrodiuril] 25 mg PO DAILY 08/25/12 04/07/20 lisinopriL [Lisinopril] 40 mg PO DAILY 08/25/12 04/07/20 Sertraline [Zoloft] 150 mg PO DAILY 12/11/12 04/07/20 hydrOXYzine PAMOATE [Vistaril] 25 mg PO Q6H PRN #20 capsule 07/14/13 04/07/20 levETIRAcetam [Keppra] 750 mg PO BID 03/17/15 04/07/20 Clobetasol Propionate 15 gm TP ONCE 04/22/18 04/07/20 Triamcinolone 0.1% Oint [Kenalog 15 gm TOP ONCE 04/22/18 04/07/20 0.1% Oint] Betamethasone Valerate 1 applic TP BID #15 cream..g. 06/25/18 04/07/20 Calcium Carbonate [Antacid] 200 mg PO PRN PRN 06/25/18 04/07/20 Doxycycline Hyclate 100 mg PO BID #14 capsule 06/25/18 04/07/20 Ferrous Gluconate [Iron] 240 mg PO DAILY 06/25/18 04/07/20 Mupirocin 1 applic TP TID #15 g 06/25/18 04/07/20 dexAMETHasone [Decadron] 4 mg PO DAILY #5 tablet 06/25/18 04/07/20 HYDROcod/ACETAM 5/325 [[place] 5/325] 1 ea PO Q6H PRN #18 tablet 04/04/20 04/07/20 Gabapentin [Neurontin] 100 mg PO TID #90 09/17/20 - Allergies Allergies/Adverse Reactions: Allergies Allergy/AdvReac Type Severity Reaction Status Date / Time ceftriaxone sodium * Allergy Intermediate Hives Verified 09/17/20 06:26 [From Rocephin] - Social History Does the pt smoke?: No Smoking Status: Never smoker Does the pt drink ETOH?: No Does the pt have substance abuse?: No - Immunizations Immunizations are current?: Yes - POLST Patient has POLST: Yes POLST Status: Full Code PD ED PE NORMAL - Vitals Vital signs reviewed: Yes - General General: Alert and oriented X 3, No acute distress - HEENT HEENT: PERRL, EOMI - Neck Neck: Supple, no meningeal sign, No bony TTP - Cardiac Cardiac: RRR, No murmur - Respiratory Respiratory: No respiratory distress, Clear bilaterally - Abdomen Abdomen: Normal bowel sounds, Soft, Non tender - Back Back: No CVA TTP, No spinal TTP - Derm Derm: Normal color, Warm and dry - Neuro Neuro: Alert and oriented X 3, Normal speech, Other (Mild right eye ptosis of unclear acuity. He does not notice it. He is weak in the left arm more than left leg of chronic acuity due to prior stroke.) Eye Opening: Spontaneous Motor: Obeys Commands Verbal: Oriented GCS Score: 15 Results - Vitals Vitals: Vital Signs - 24 hr 09/17/20 06:23 Temperature 36.1 C L Heart Rate 51 L Respiratory 17 Rate Blood Pressure 122/83 H O2 Saturation 97 Oxygen O2 Source Room air - Labs Labs: Laboratory Tests 09/17/20 09/17/20 06:46 06:46 WBC 5.9 RBC 4.79 Hgb 14.8 Hct 44.7 MCV 93.3 MCH 30.9 MCHC 33.1 RDW 12.8 Plt Count 171 MPV 9.3 Neut # (Auto) 4.0 Lymph # (Auto) 1.2 L [place] # (Auto) 0.6 Eos # (Auto) 0.1 Baso # (Auto) 0.0 Absolute Nucleated RBC 0.00 Nucleated RBC % 0.0 Sodium 144 Potassium 4.0 Chloride 104 Carbon Dioxide 34 H Anion Gap 6.0 BUN 19 Creatinine 1.1 Estimated GFR (MDRD) 69 L Glucose 100 Calcium 9.8 Phosphorus 3.8 Magnesium 2.1 Total Bilirubin 0.6 AST 21 ALT 26 Alkaline Phosphatase 82 Total Protein 7.8 Albumin 4.1 Globulin 3.7 Albumin/Globulin Ratio 1.1 Lipase 29 - Rads (name of study) ct Head Radiology: Prelim report reviewed, EMP read contemporaneously (Worsening of exvacuodilatation and cystic encephalomalacia in the right parietal region more pronounced than it was 6 years ago. Stable right temporal encephalomalacia. Craniectomy changes.) PD MEDICAL DECISION MAKING - ED course ED course: 59-year-old gentleman with prior stroke with left-sided paresis and homonymous hemianopsia presents with a weeks worth of visual hallucinations which are "nonformed" for the most part. Differential diagnosis includes Fawad Bonett syndrome, new onset psychosis, medication side effect, withdrawal. He gives no history of medication changes or alcohol use. Given his history of seizures I am hesitant to start antipsychotics, we will trial some low-dose gabapentin. He is to follow-up with his neurologist. I tried calling the twice, there was no answer. Departure - Departure Disposition: 01 Home, Self Care Clinical Impression: Visual hallucination Condition: Good Record reviewed to determine appropriate education?: Yes Prescriptions: Gabapentin [Neurontin] 100 mg PO TID #90 Comments: You were seen today for visual hallucinations. This could be from Fawad Alston syndrome, occipital seizures are less likely but also possible. Prescribing low-dose gabapentin for the symptoms. You should follow-up with your neurologist, next available appointment. Return if worse.
--- OUTSIDE RECORDS SUMMARY | 2020-09-17 06:53 | EXTERNAL MEDICAL SUMMARY RPT | Continuity of Care Document ---
:1960 Demographics Phone Unavailable Preferred Language Unknown Marital Status Unknown Religion Affiliation Unknown Race Unknown Ethnic Group Unknown Author Organization [facility] Address [address] [place] [address] Phone Allergies Encounters Medications Problems Results
[2020-09-17 06:59] LABS: BASOPHILS % (AUTO) 0.3 %; EOSINOPHILS # (AUTO) 0.1 10^3/uL (0.0-0.7); EOSINOPHILS % (AUTO) 1.5 %; HCT - HEMATOCRIT 44.7 % (42.0-52.0); HGB - HEMOGLOBIN 14.8 g/dL (14.0-18.0); LYMPHOCYTES # (AUTO) 1.2 10^3/uL (1.5-3.5); LYMPHOCYTES % (AUTO) 20.3 %; MEAN CORPUSCULAR HEMOGLOBIN 30.9 pg (27.0-31.0); MEAN CORPUSCULAR HGB CONC 33.1 g/dL (32.0-36.0); MEAN CORPUSCULAR VOLUME 93.3 fL (80.0-94.0); MEAN PLATELET VOLUME 9.3 fL (7.4-11.4); MONOCYTES # (AUTO) 0.6 10^3/uL (0.0-1.0); MONOCYTES % (AUTO) 10.2 %; NEUTROPHILS % (AUTO) 67.5 %; PLT - PLATELET COUNT 171 10^3/uL (130-450); RED BLOOD COUNT 4.79 10^6/uL (4.70-6.10); RED CELL DISTRIBUTION WIDTH 12.8 % (12.0-15.0); WHITE BLOOD COUNT 5.9 x10^3/uL (4.8-10.8)
[2020-09-17 07:02] LABS: ALBUMIN 4.1 g/dL (3.2-5.5); ALBUMIN/GLOBULIN RATIO 1.1 (1.0-2.2); BILIRUBIN,TOTAL 0.6 mg/dL (0.2-1.0); CALCIUM 9.8 mg/dL (8.5-10.3); CREATININE 1.1 mg/dL (0.6-1.2); MAGNESIUM 2.1 mg/dL (1.7-2.8); PHOSPHORUS 3.8 mg/dL (2.5-4.6); TOTAL PROTEIN 7.8 g/dL (6.7-8.2)
[2020-09-17] MEDS ORDERED: GABAPENTIN 100 MG CAPSULE PO STA (07:25)
--- NOTE | 2020-09-17 08:20 | CT Report ---
PROCEDURE: HEAD WO INDICATIONS: acute visual hallucinosis TECHNIQUE: Noncontrast 4.5 mm thick angled axial sections acquired from the foramen magnum to the vertex. For r adiation dose reduction, the following was used: automated exposure control, adjustment of mA and/or kV according to patient size. COMPARISON: CT brain 03/20/2015 FINDINGS: Image quality: Motion is present as well as metallic artifact overlying the right temporal parietal l obe limiting areas of fine detail evaluation. CSF spaces: Basal cisterns are patent. No extra-axial fluid collections. Ventricles are normal in size and shape. Brain: No midline shift. No intracranial masses or hemorrhage. Colon-white matter interface is norm al. Right temporoparietal encephalomalacia is present. There has been progressive ex vacuo dilation o f the posterior horn of the right lateral ventricle likely secondary to involving encephalomalacia. Skull and face: Postsurgical right craniotomy changes are present. Sinuses: Visualized sinuses and mastoids are clear. IMPRESSION: 1. No acute intracranial process. It is noted that portions of the exam contained significant motion which limits evaluation. 2. Previous infarction with subsequent encephalomalacia in the right temporal parietal lobe. The above findings are concordant with preliminary report. Reviewed by: Madeline Vickers MD on 09/17/2020 8:19 AM PDT Approved by: Madeline Vickers MD on 09/17/2020 8:19 AM PDT Station ID: [id number]
[2020-09-17 08:49] VITALS: BP 140/96
== END 2020-09-17 08:54 | disposition home or self-care (01) ==
LOC: EDUNIT# → ED 06:07
DX: R44.1 Visual hallucinations (principal); I69.354 Hemiplegia and hemiparesis following cerebral infarction affecting left non-dominant side; H53.469 Homonymous bilateral field defects, unspecified side; I10 Essential (primary) hypertension
CPT/HCPCS: 36415; 70450; 80053; 83690; 83735; 84100; 85025; 99284; A9270

== ENCOUNTER 2020-09-19 08:00 | Outpatient (CLI) | payer MEDICARE, MEDICAID ==
[2020-09-19 12:08] LABS: BASOPHILS % (AUTO) 0.2 %; EOSINOPHILS # (AUTO) 0.2 10^3/uL (0.0-0.7); EOSINOPHILS % (AUTO) 2.3 %; HCT - HEMATOCRIT 46.7 % (42.0-52.0); HGB - HEMOGLOBIN 15.3 g/dL (14.0-18.0); LYMPHOCYTES # (AUTO) 1.2 10^3/uL (1.5-3.5); MEAN CORPUSCULAR HGB CONC 32.8 g/dL (32.0-36.0); MEAN CORPUSCULAR VOLUME 94.7 fL (80.0-94.0); MEAN PLATELET VOLUME 9.6 fL (7.4-11.4); MONOCYTES # (AUTO) 0.6 10^3/uL (0.0-1.0); MONOCYTES % (AUTO) 9.8 %; NEUTROPHILS # (AUTO) 4.5 10^3/uL (1.5-6.6); NEUTROPHILS % (AUTO) 69.4 %; PLT - PLATELET COUNT 179 10^3/uL (130-450); RED BLOOD COUNT 4.93 10^6/uL (4.70-6.10); RED CELL DISTRIBUTION WIDTH 12.8 % (12.0-15.0); WHITE BLOOD COUNT 6.4 x10^3/uL (4.8-10.8)
[2020-09-19 12:27] LABS: ALBUMIN 4.1 g/dL (3.2-5.5); ALBUMIN/GLOBULIN RATIO 0.9 (1.0-2.2); ALKALINE PHOSPHATASE 85 IU/L (42-121); ALT ALANINE AMINOTRANSFERASE 28 IU/L (10-60); AST ASPARTATE AMINOTRANSFERASE 25 IU/L (10-42); BILIRUBIN,TOTAL 0.6 mg/dL (0.2-1.0); BUN - BLOOD UREA NITROGEN 22 mg/dL (6-20); CALCIUM 9.5 mg/dL (8.5-10.3); CARBON DIOXIDE - CO2 29 mmol/L (21-32); CHLORIDE 101 mmol/L (101-111); CHOL/HDL RATIO 3.3 (<5.0); CHOLESTEROL 173 mg/dL; CREATININE 0.8 mg/dL (0.6-1.2); GFR - MDRD 100 (>89); GLUCOSE 91 mg/dL (70-100); HDL CHOLESTEROL 53 mg/dL; LDL CHOLESTEROL,CALCULATED 107 mg/dL; SODIUM 139 mmol/L (135-145); TOTAL PROTEIN 8.5 g/dL (6.7-8.2); TRIGLYCERIDES 64 mg/dL; VLDL CHOLESTEROL 13 mg/dL
== END 2020-09-19 23:59 | disposition home or self-care (01) ==
LOC: LAB.WCP 08:00
PROVIDERS: ATTEND Family Medicine
DX: I10 Essential (primary) hypertension (principal)
CPT/HCPCS: 36415; 80053; 80061; 83721; 85025

== ENCOUNTER 2020-10-09 07:33 | Outpatient (CLI) | payer MEDICARE, MEDICAID | END 2020-10-09 07:34 | disposition critical access hospital (66) | LOC: EMS 07:33 | DX: R44.1 Visual hallucinations (principal); R20.2 Paresthesia of skin | CPT/HCPCS: A0425; A0429 ==

== ENCOUNTER 2020-10-09 07:51 | Emergency (ER) | payer MEDICARE, MEDICAID ==
[2020-10-09 08:07] VITALS: BP 132/85
--- NOTE | 2020-10-09 08:49 | ED Physician Documentation ---
History of Present Illness - Stated complaint Stated Complaint: TINGLING IN R HAND/HALLUCINATIONS - Chief complaint Chief Complaint: General - History obtained from History obtained from: Patient - Additonal information Additional information: Patient is brought to the emergency department by EMS for chief complaint of ongoing hallucinations/visual phenomena. Patient was seen here in later August for the same thing with a full work-up including labs and head CT which were unremarkable for acute findings. The patient states that the symptoms are more or less the same. He had been started on gabapentin at the time of his last visit and this does not seem to have affected his symptoms. Patient states that the phenomena come and go. He mostly Notices the appearance of movement or wavering in certain parts of his vision when he looks at various objects. He states it is hard when he looks at the floor, because the floor wavers and the patient does not feel safe getting up out of bed Because he is afraid he will fall. Patient states that sometimes at night, he thinks he is to use both a good the way does, and sometimes he sees creatures when he looks at his watch. However, all of the other incidences involve more of a movement sensation. The patient denies any worsening of his vision otherwise. No report from medics of change in behavior at the assisted living facility. No new medications other than the gabapentin which was started a few weeks ago. Patient denies auditory hallucinations or tactile hallucinations. No new weakness. The patient does note an intermittent sensation of numbness/tingling in his right hand/arm which is Dependent on position and change relieved by change of position. No fevers or chills. No dysuria. No nausea or vomiting. Patient is status post stroke and craniotomy about 10 years ago. He has lived in various assisted living facility since. No other complaints at this time. Review of Systems Ten Systems: 10 systems reviewed and negative Constitutional: reports: Reviewed and negative Eyes: reports: Reviewed and negative Ears: reports: Reviewed and negative Nose: reports: Reviewed and negative Throat: reports: Reviewed and negative Cardiac: reports: Reviewed and negative Respiratory: reports: Reviewed and negative GI: reports: Reviewed and negative : reports: Reviewed and negative Skin: reports: Reviewed and negative Musculoskeletal: reports: Reviewed and negative Neurologic: reports: Reviewed and negative Psychiatric: reports: Hallucinations Endocrine: reports: Reviewed and negative Immunocompromised: reports: Reviewed and negative PD PAST MEDICAL HISTORY - Past Medical History Past Medical History: Yes Cardiovascular: Hypertension, High cholesterol Respiratory: None Neuro: CVA Endocrine/Autoimmune: None GI: GERD : None HEENT: Chronic vision loss Psych: Depression, Anxiety Musculoskeletal: Osteoarthritis Derm: Psoriasis - Past Surgical History Past Surgical History: No Neuro: Craniotomy - Present Medications Home Medications: Ambulatory Orders Medication Instructions Recorded Confirmed Acetaminophen [Pain Reliever] 650 mg PO Q8HR PRN 08/25/12 10/09/20 Amlodipine Besylate 10 mg PO DAILY 08/25/12 10/09/20 Cholecalciferol (Vitamin D3) 2,000 unit PO DAILY 08/25/12 10/09/20 [Vitamin D-3] Docusate Sodium 250 mg PO DAILY 08/25/12 10/09/20 Metoprolol Succinate 200 mg PO BID 08/25/12 10/09/20 Omeprazole [PriLOSEC] 20 mg PO DAILY 08/25/12 10/09/20 Potassium 10 meq PO BID 08/25/12 10/09/20 hydroCHLOROthiazide [Hydrodiuril] 25 mg PO DAILY 08/25/12 10/09/20 lisinopriL [Lisinopril] 40 mg PO DAILY 08/25/12 10/09/20 Sertraline [Zoloft] 100 mg PO DAILY 12/11/12 10/09/20 hydrOXYzine PAMOATE [Vistaril] 25 mg PO Q6H PRN #20 capsule 07/14/13 10/09/20 levETIRAcetam [Keppra] 750 mg PO BID 03/17/15 10/09/20 Clobetasol Propionate 15 gm TP ONCE PRN 04/22/18 10/09/20 Calcium Carbonate [Antacid] 200 mg PO PRN PRN 06/25/18 10/09/20 Ferrous Gluconate [Iron] 240 mg PO DAILY 06/25/18 10/09/20 Folic Acid 1 mg PO DAILY 09/17/20 10/09/20 Magnesium 250 mg PO HS 09/17/20 10/09/20 Pravastatin [Pravachol] 40 mg PO HS 09/17/20 10/09/20 Donepezil [Aricept] 5 mg PO DAILY #30 tablet 10/09/20 - Allergies Allergies/Adverse Reactions: Allergies Allergy/AdvReac Type Severity Reaction Status Date / Time ceftriaxone sodium * Allergy Intermediate Hives Verified 10/09/20 08:03 [From Rocephin] - Social History Does the pt smoke?: No Smoking Status: Never smoker Does the pt drink ETOH?: No Does the pt have substance abuse?: No - Immunizations Immunizations are current?: Yes - POLST Patient has POLST: Yes POLST Status: Full Code PD ED PE NORMAL - Vitals Vital signs reviewed: Yes - General General: Alert and oriented X 3, No acute distress - HEENT HEENT: Atraumatic, PERRL, EOMI, Moist mucous membranes - Neck Neck: Supple, no meningeal sign - Cardiac Cardiac: RRR, No murmur, Strong equal pulses - Respiratory Respiratory: No respiratory distress, Clear bilaterally - Abdomen Abdomen: Soft, Non tender, Non distended - Derm Derm: Normal color, Warm and dry, No rash - Extremities Extremities: No deformity, No edema - Neuro Neuro: Alert and oriented X 3, Other (Chronic left-sided deficits, existing. Right facial droop which is existing.) - Psych Psych: Normal mood, Normal affect Results - Vitals Vitals: Vital Signs - 24 hr 10/09/20 10/09/20 07:57 08:06 Temperature 36.2 C L Heart Rate 47 L 47 L Respiratory 18 16 Rate Blood Pressure 138/100 H 132/85 H O2 Saturation 95 95 Oxygen O2 Source Room air PD MEDICAL DECISION MAKING - ED course Complexity details: reviewed old records, considered differential, d/w patient ED course: I reviewed the patient's history and records, and I did not feel that further work-up would provide any additional benefit today, given the ongoing and unchanged nature of pt's symptoms. I discussed with the patient that he really needs to see neurology, and patient states that he thinks his has made him an appointment but he is not sure when it is. I also feel this patient would benefit from visit with ophthalmology just to be sure there is not a retinal process potentially going on. We have discussed that potentially low-dose donepezil would be effective for his symptoms, but given his extensive list of other medications, I would like to try this by itself, rather than in addition To the gabapentin. Patient is agreeable to this plan. We have discussed the need for follow-up with primary care, as well as neurology and ophthalmology. We have discussed the usual indications for return. Departure - Departure Disposition: 01 Home, Self Care Clinical Impression: Hallucinations, Other visual distortions and entoptic phenomena Condition: Stable Follow-Up: Usman Osborne MD [Provider Admit Priv/Credential] - Miky Obrien MD [Provider Admit Priv/Credential] - Prescriptions: Donepezil [Aricept] 5 mg PO DAILY #30 tablet Comments: It is hard to say if your symptoms are due to a problem with the nerves of your eyes themselves, or if you are having actual hallucinations. The first option seems more likely. Since the symptoms are causing you distress, the main objective until You can see your neurologist is to help control your symptoms little better. Since the gabapentin, at least the current dose, does not seem to be providing adequate control, we will have you stop that and take the donepezil, which is being prescribed, and stag. It is very important that you make sure you have a follow-up appointment with neurology. It would also likely be helpful to see an intellectual property legal assistant to make sure that there is not a primary eye problem that is causing the wavering and movement sensation in your vision. Some options are listed below for potential follow-up.
== END 2020-10-09 09:50 | disposition home or self-care (01) ==
LOC: EDUNIT# → ED 07:51
DX: H53.10 Unspecified subjective visual disturbances (principal); I10 Essential (primary) hypertension
CPT/HCPCS: 99283

== ENCOUNTER 2021-04-12 15:24 | Outpatient (CLI) | payer MEDICARE, MEDICAID | END 2021-04-12 15:25 | disposition EMS.NT | LOC: EMS 15:24 | DX: R11.10 Vomiting, unspecified (principal); R19.7 Diarrhea, unspecified ==

== ENCOUNTER 2021-08-10 16:29 | Outpatient (CLI) | payer MEDICARE, MEDICAID | END 2021-08-10 16:30 | disposition critical access hospital (66) | LOC: EMS 16:29 | DX: R07.9 Chest pain, unspecified (principal); Z59.2 Discord with neighbors, lodgers and landlord | CPT/HCPCS: A0425; A0429 ==

== ENCOUNTER 2021-08-10 16:47 | Emergency (ER) | payer MEDICARE, MEDICAID ==
--- NOTE | 2021-08-10 17:05 | ED Physician Documentation ---
History of Present Illness - Stated complaint Stated Complaint: CP - History obtained from History obtained from: Patient, EMS - History of Present Illness Timing: Today Pain level max: 0 Pain level now: 0 - Additonal information Additional information: Patient is a 60-year-old male who lives [facility]. He states that he does not get along with his roommate and wants to move to a different room and will come home. He states he feels anxious. He does not have any chest pain or shortness of breath. No palpitations. He states that he used to live at a different facility and likes that facility better. He is not suicidal or homicidal. He states that he wants a different place to live. Nothing makes it better or worse. Review of Systems Ten Systems: 10 systems reviewed and negative Constitutional: denies: Fever, Chills Ears: denies: Ear pain Nose: denies: Rhinorrhea / runny nose, Congestion Throat: denies: Sore throat Cardiac: denies: Chest pain / pressure Respiratory: denies: Cough GI: denies: Nausea, Vomiting, Diarrhea Skin: denies: Rash Musculoskeletal: denies: Neck pain, Back pain Neurologic: denies: Headache Psychiatric: reports: Anxiety. denies: Depressed, Suicidal, Homicidal, Hallucinations, Delusions, Insomnia PD PAST MEDICAL HISTORY - Past Medical History Cardiovascular: Hypertension, High cholesterol Respiratory: None Neuro: CVA Endocrine/Autoimmune: None GI: GERD : None HEENT: Chronic vision loss Psych: Depression, Anxiety Musculoskeletal: Osteoarthritis Derm: Psoriasis - Past Surgical History Past Surgical History: No Neuro: Craniotomy - Present Medications Home Medications: Ambulatory Orders Medication Instructions Recorded Confirmed Acetaminophen [Pain Reliever] 650 mg PO Q8HR PRN 08/25/12 10/09/20 Amlodipine Besylate 10 mg PO DAILY 08/25/12 10/09/20 Cholecalciferol (Vitamin D3) 2,000 unit PO DAILY 08/25/12 10/09/20 [Vitamin D-3] Docusate Sodium 250 mg PO DAILY 08/25/12 10/09/20 Metoprolol Succinate 200 mg PO BID 08/25/12 10/09/20 Omeprazole [PriLOSEC] 20 mg PO DAILY 08/25/12 10/09/20 Potassium 10 meq PO BID 08/25/12 10/09/20 hydroCHLOROthiazide [Hydrodiuril] 25 mg PO DAILY 08/25/12 10/09/20 lisinopriL [Lisinopril] 40 mg PO DAILY 08/25/12 10/09/20 Sertraline [Zoloft] 100 mg PO DAILY 12/11/12 10/09/20 hydrOXYzine PAMOATE [Vistaril] 25 mg PO Q6H PRN #20 capsule 07/14/13 10/09/20 levETIRAcetam [Keppra] 750 mg PO BID 03/17/15 10/09/20 Clobetasol Propionate 15 gm TP ONCE PRN 04/22/18 10/09/20 Calcium Carbonate [Antacid] 200 mg PO PRN PRN 06/25/18 10/09/20 Ferrous Gluconate [Iron] 240 mg PO DAILY 06/25/18 10/09/20 Folic Acid 1 mg PO DAILY 09/17/20 10/09/20 Magnesium 250 mg PO HS 09/17/20 10/09/20 Pravastatin [Pravachol] 40 mg PO HS 09/17/20 10/09/20 Donepezil [Aricept] 5 mg PO DAILY #30 tablet 10/09/20 - Allergies Allergies/Adverse Reactions: Allergies Allergy/AdvReac Type Severity Reaction Status Date / Time ceftriaxone sodium * Allergy Intermediate Hives Verified 10/09/20 08:03 [From Rocephin] - Social History Does the pt smoke?: No Smoking Status: Never smoker Does the pt drink ETOH?: No Does the pt have substance abuse?: No - Immunizations Immunizations are current?: Yes - POLST Patient has POLST: Yes POLST Status: Full Code PD ED PE NORMAL - Vitals Vital signs reviewed: Yes - General General: Alert and oriented X 3, No acute distress, Well developed/nourished - HEENT HEENT: PERRL, Moist mucous membranes - Neck Neck: Supple, no meningeal sign - Cardiac Cardiac: RRR - Respiratory Respiratory: No respiratory distress, Clear bilaterally - Abdomen Abdomen: Soft, Non tender, Non distended - Derm Derm: Warm and dry - Extremities Extremities: No edema, No calf tenderness / cord - Neuro Neuro: Alert and oriented X 3 - Psych Psych: Normal mood, Normal affect Results - Vitals Vitals: Vital Signs - 24 hr 08/10/21 08/10/21 16:47 17:22 Temperature 36.6 C 36.7 C Heart Rate 100 75 Respiratory 18 18 Rate Blood Pressure 118/74 130/78 O2 Saturation 96 96 Oxygen O2 Source Room air - EKG (time done) 1654 Rate: Rate (enter#) (57) Rhythm: NSR [place]: Normal Intervals: Normal [place] QRS: Normal Ischemia: Normal ST segments PD MEDICAL DECISION MAKING - ED course Complexity details: reviewed results, re-evaluated patient, considered differential, d/w patient ED course: No emergency medical condition at this time. No acute findings on EKG. No indication for blood work. No chest pain. No shortness of breath. Informed t he patient that if he would like to go to a different room in the facility he needs to discuss that with the facility. Patient will be discharged to follow- up with his doctor. Patient counseled regarding signs and symptoms for which I believe and urgent re-evaluation would be necessary. Patient with good understanding of and agreement to plan and is comfortable going home at this time This document was made in part using voice recognition software. While efforts are made to proofread this document, sound alike and grammatical errors may occur. Departure - Departure Disposition: 01 Home, Self Care Clinical Impression: Anxiety Condition: Good Instructions: ED Stress React Follow-Up: your,doctor in 1 week [Other] Comments: You can discuss with your doctor finding alternative living arrangements. We do not have the ability to place you in a different living arrangement from the emergency department. Please follow-up with your doctor for further care. Discharge Date/Time: 08/10/21 17:54
[2021-08-10] MEDS ORDERED: LORazepam 0.5 MG TABLET PO STA (17:30)
[2021-08-10 17:46] VITALS: BP 130/78
== END 2021-08-10 17:54 | disposition home or self-care (01) ==
LOC: EDUNIT# → ED 16:47
DX: F41.9 Anxiety disorder, unspecified (principal); I10 Essential (primary) hypertension
CPT/HCPCS: 36415; 93005; 99283; A9270

== ENCOUNTER 2021-08-12 12:00 | Emergency (ER) | payer MEDICARE, MEDICAID ==
--- NOTE | 2021-08-12 13:00 | ED Physician Documentation ---
PD HPI MHE - Stated complaint Stated Complaint: ANXIETY - Chief complaint Chief Complaint: MHE - History obtained from History obtained from: Patient, Friend - Additional information Additional information: 60-year-old gentleman presents by private vehicle accompanied by a friend. He is currently in a SNF and having a lot of anxiety. Has a history of previous CVA and head bleed with craniotomy. He states that his anxiety revolves around a roommate and they are not getting along well. He was seen here 2 days ago for this and was also seen at urgent care. He was started on hydroxyzine but unc lear if he is getting it at the assisted living facility. No SI or HI. Review of Systems Ten Systems: 10 systems reviewed and negative Constitutional: reports: Reviewed and negative Ears: reports: Reviewed and negative PD PAST MEDICAL HISTORY - Past Medical History Cardiovascular: Hypertension, High cholesterol Respiratory: None Neuro: CVA Endocrine/Autoimmune: None GI: GERD : None HEENT: Chronic vision loss Psych: Depression, Anxiety Musculoskeletal: Osteoarthritis Derm: Psoriasis - Past Surgical History Past Surgical History: No Neuro: Craniotomy - Present Medications Home Medications: Ambulatory Orders Medication Instructions Recorded Confirmed Acetaminophen [Pain Reliever] 650 mg PO Q8HR PRN 08/25/12 10/09/20 Amlodipine Besylate 10 mg PO DAILY 08/25/12 10/09/20 Cholecalciferol (Vitamin D3) 2,000 unit PO DAILY 08/25/12 10/09/20 [Vitamin D-3] Docusate Sodium 250 mg PO DAILY 08/25/12 10/09/20 Metoprolol Succinate 200 mg PO BID 08/25/12 10/09/20 Omeprazole [PriLOSEC] 20 mg PO DAILY 08/25/12 10/09/20 Potassium 10 meq PO BID 08/25/12 10/09/20 hydroCHLOROthiazide [Hydrodiuril] 25 mg PO DAILY 08/25/12 10/09/20 lisinopriL [Lisinopril] 40 mg PO DAILY 08/25/12 10/09/20 Sertraline [Zoloft] 100 mg PO DAILY 12/11/12 10/09/20 hydrOXYzine PAMOATE [Vistaril] 25 mg PO Q6H PRN #20 capsule 07/14/13 10/09/20 levETIRAcetam [Keppra] 750 mg PO BID 03/17/15 10/09/20 Clobetasol Propionate 15 gm TP ONCE PRN 04/22/18 10/09/20 Calcium Carbonate [Antacid] 200 mg PO PRN PRN 06/25/18 10/09/20 Ferrous Gluconate [Iron] 240 mg PO DAILY 06/25/18 10/09/20 Folic Acid 1 mg PO DAILY 09/17/20 10/09/20 Magnesium 250 mg PO HS 09/17/20 10/09/20 Pravastatin [Pravachol] 40 mg PO HS 09/17/20 10/09/20 Donepezil [Aricept] 5 mg PO DAILY #30 tablet 10/09/20 LORazepam [Ativan] 1 mg PO TID PRN #20 tablet 08/12/21 - Allergies Allergies/Adverse Reactions: Allergies Allergy/AdvReac Type Severity Reaction Status Date / Time ceftriaxone sodium * Allergy Intermediate Hives Verified 10/09/20 08:03 [From Rocephin] - Social History Does the pt smoke?: No Smoking Status: Never smoker Does the pt drink ETOH?: No Does the pt have substance abuse?: No - Immunizations Immunizations are current?: Yes - POLST Patient has POLST: Yes POLST Status: Full Code PD ED PE NORMAL - Vitals Vital signs reviewed: Yes - General General: Alert and oriented X 3, No acute distress - HEENT HEENT: PERRL, EOMI, Other (Sequela of prior right craniotomy) - Neck Neck: Supple, no meningeal sign, No bony TTP - Cardiac Cardiac: RRR, No murmur - Respiratory Respiratory: No respiratory distress, Clear bilaterally - Abdomen Abdomen: Soft, Non tender - Back Back: No CVA TTP, No spinal TTP - Derm Derm: Normal color, Warm and dry - Extremities Extremities: No edema, No calf tenderness / cord - Neuro Neuro: Alert and oriented X 3, Normal speech Results - Vitals Vitals: Vital Signs - 24 hr 08/12/21 08/12/21 12:05 16:15 Temperature 36.1 C L Heart Rate 56 L 80 Respiratory 18 16 Rate Blood Pressure 120/74 122/68 O2 Saturation 97 100 Oxygen O2 Source Room air - Labs Labs: Laboratory Tests 08/12/21 08/12/21 08/12/21 13:04 13:06 13:18 WBC 5.7 RBC 4.66 L Hgb 15.2 Hct 44.5 MCV 95.5 H MCH 32.6 H MCHC 34.2 RDW 13.8 Plt Count 166 MPV 9.2 Neut # (Auto) 4.1 Lymph # (Auto) 0.9 L Mcmullen # (Auto) 0.5 Eos # (Auto) 0.2 Baso # (Auto) 0.0 Absolute Nucleated RBC 0.00 Nucleated RBC % 0.0 Sodium Potassium Chloride Carbon Dioxide Anion Gap BUN Creatinine Estimated GFR (MDRD) Glucose Calcium Total Bilirubin AST ALT Alkaline Phosphatase Total Protein Albumin Globulin Albumin/Globulin Ratio Lipase TSH Urine Color YELLOW Urine Clarity CLEAR Urine pH 6.0 Ur Specific [place] >=1.030 H Urine Protein NEGATIVE Urine Glucose (UA) NEGATIVE Urine Ketones NEGATIVE Urine Occult Blood NEGATIVE Urine Nitrite NEGATIVE Urine Bilirubin NEGATIVE Urine Urobilinogen 0.2 (NORMAL) Ur Leukocyte Esterase NEGATIVE Ur Microscopic Review NOT INDICATED Urine Culture Comments NOT INDICATED Salicylates Urine Opiates Screen NEGATIVE Ur Oxycodone Screen NEGATIVE Urine Methadone Screen NEGATIVE Ur Propoxyphene Screen NEGATIVE Acetaminophen Ur Barbiturates Screen NEGATIVE Ur Tricyclics Screen POSITIVE H Ur Phencyclidine Scrn NEGATIVE Ur Amphetamine Screen NEGATIVE U Methamphetamines Scrn NEGATIVE U Benzodiazepines Scrn NEGATIVE Urine Cocaine Screen NEGATIVE U Cannabinoids Screen NEGATIVE Ethyl Alcohol SARS-CoV-2 (PCR) DETECTED A 08/12/21 08/12/21 13:18 13:18 WBC RBC Hgb Hct MCV MCH MCHC RDW Plt Count MPV Neut # (Auto) Lymph # (Auto) [place] # (Auto) Eos # (Auto) Baso # (Auto) Absolute Nucleated RBC Nucleated RBC % Sodium 138 Potassium 3.1 L Chloride 98 L Carbon Dioxide 31 Anion Gap 9.0 BUN 29 H Creatinine 0.9 Estimated GFR (MDRD) 87 L Glucose 99 Calcium 9.5 Total Bilirubin 0.5 AST 23 ALT 34 Alkaline Phosphatase 67 Total Protein 7.4 Albumin 3.9 Globulin 3.5 Albumin/Globulin Ratio 1.1 Lipase 35 TSH 1.67 Urine Color Urine Clarity Urine pH Ur Specific [place] Urine Protein Urine Glucose (UA) Urine Ketones Urine Occult Blood Urine Nitrite Urine Bilirubin Urine Urobilinogen Ur Leukocyte Esterase Ur Microscopic Review Urine Culture Comments Salicylates < 6.0 Urine Opiates Screen Ur Oxycodone Screen Urine Methadone Screen Ur Propoxyphene Screen Acetaminophen < 10 L Ur Barbiturates Screen Ur Tricyclics Screen Ur Phencyclidine Scrn Ur Amphetamine Screen U Methamphetamines Scrn U Benzodiazepines Scrn Urine Cocaine Screen U Cannabinoids Screen Ethyl Alcohol < 5.0 SARS-CoV-2 (PCR) PD MEDICAL DECISION MAKING - ED course ED course: 60-year-old gentleman presents with a friend for voluntary mental health evaluation related to anxiety related to his living situation. Seen by social work, does not fit medical criteria for necessity for inpatient admission. He and his are agreeable to a prescription for Ativan. They were given the patient paper prescription for this since the pharmacy was not in the database to E prescribe to. He comes referred from his facility with a high rate of COVID and he is positive as well, asymptomatic. Departure - Departure Disposition: 01 Home, Self Care Clinical Impression: Anxiety Condition: Good Instructions: ED Stress React Prescriptions: LORazepam [Ativan] 1 mg PO TID PRN #20 tablet PRN Reason: Anxiety Comments: You are positive for COVID today, need to quarantine for the next 10 days. Return for new or worsening symptoms. Discharge Date/Time: 08/12/21 16:16
[2021-08-12 13:22] LABS: BASOPHILS % (AUTO) 0.2 %; EOSINOPHILS # (AUTO) 0.2 10^3/uL (0.0-0.7); HCT - HEMATOCRIT 44.5 % (42.0-52.0); HGB - HEMOGLOBIN 15.2 g/dL (14.0-18.0); LYMPHOCYTES # (AUTO) 0.9 10^3/uL (1.5-3.5); LYMPHOCYTES % (AUTO) 16.5 %; MEAN CORPUSCULAR HEMOGLOBIN 32.6 pg (27.0-31.0); MEAN CORPUSCULAR HGB CONC 34.2 g/dL (32.0-36.0); MEAN CORPUSCULAR VOLUME 95.5 fL (80.0-94.0); MEAN PLATELET VOLUME 9.2 fL (7.4-11.4); MONOCYTES # (AUTO) 0.5 10^3/uL (0.0-1.0); MONOCYTES % (AUTO) 8.3 %; NEUTROPHILS # (AUTO) 4.1 10^3/uL (1.5-6.6); NEUTROPHILS % (AUTO) 71.3 %; PLT - PLATELET COUNT 166 10^3/uL (130-450); RED BLOOD COUNT 4.66 10^6/uL (4.70-6.10); RED CELL DISTRIBUTION WIDTH 13.8 % (12.0-15.0); WHITE BLOOD COUNT 5.7 x10^3/uL (4.8-10.8)
[2021-08-12 13:25] LABS: BILIRUBIN,URINE NEGATIVE (NEGATIVE); GLUCOSE, URINE (UA) NEGATIVE (NEGATIVE); KETONES,URINE (UA) NEGATIVE (NEGATIVE); LEUKOCYTE ESTERASE, URINE NEGATIVE (NEGATIVE); MUDS CUTOFF CONCENTRATIONS CUTOFF CONC BELOW:; NITRITE,URINE NEGATIVE (NEGATIVE); OCCULT BLOOD,URINE NEGATIVE (NEGATIVE); PROTEIN,URINE NEGATIVE (NEGATIVE); UROBILINOGEN,URINE 0.2 (NORMAL) E.U./dL (NORMAL)
[2021-08-12 13:27] LABS: CLARITY,URINE CLEAR (CLEAR)
[2021-08-12 13:36] LABS: AMPHETAMINE SCREEN,URINE NEGATIVE (NEGATIVE); BARBITURATE SCREEN,UR NEGATIVE (NEGATIVE); BENZODIAZEPINES SCREEN, URINE NEGATIVE (NEGATIVE); COCAINE SCREEN URINE NEGATIVE (NEGATIVE); METHADONE SCREEN, URINE NEGATIVE (NEGATIVE); METHAMPHETAMINES SCREEN, URINE NEGATIVE (NEGATIVE); OPIATE SCREEN, URINE NEGATIVE (NEGATIVE); OXYCODONE SCREEN, URINE NEGATIVE (NEGATIVE); PROPOXYPHENE SCREEN, URINE NEGATIVE (NEGATIVE); THC CANNABINOID SCREEN, URINE NEGATIVE (NEGATIVE); TRICYCLIC ANTIDEPRESSANT,URINE POSITIVE (NEGATIVE)
[2021-08-12 13:39] LABS: ACETAMINOPHEN < 10 ug/mL (10-30); ALBUMIN 3.9 g/dL (3.2-5.5); ALBUMIN/GLOBULIN RATIO 1.1 (1.0-2.2); ALKALINE PHOSPHATASE 67 IU/L (42-121); ALT ALANINE AMINOTRANSFERASE 34 IU/L (10-60); AST ASPARTATE AMINOTRANSFERASE 23 IU/L (10-42); BILIRUBIN,TOTAL 0.5 mg/dL (0.2-1.0); BUN - BLOOD UREA NITROGEN 29 mg/dL (6-20); CALCIUM 9.5 mg/dL (8.5-10.3); CARBON DIOXIDE - CO2 31 mmol/L (21-32); CHLORIDE 98 mmol/L (101-111); CREATININE 0.9 mg/dL (0.6-1.2); ETOH - ETHANOL < 5.0 mg/dL; GFR - MDRD 87 (>89); GLUCOSE 99 mg/dL (70-100); LIPASE 35 U/L (22-51); POTASSIUM 3.1 mmol/L (3.5-5.0); SALICYLATE < 6.0 mg/dL; SODIUM 138 mmol/L (135-145); TOTAL PROTEIN 7.4 g/dL (6.7-8.2)
[2021-08-12] MEDS ORDERED: LORazepam 1 MG TABLET PO STA (16:00)
[2021-08-12 16:17] VITALS: BP 122/68
== END 2021-08-12 16:16 | disposition home or self-care (01) ==
LOC: ED 12:00
DX: U07.1 COVID-19 (principal); F41.9 Anxiety disorder, unspecified; I10 Essential (primary) hypertension
CPT/HCPCS: 36415; 80053; 80306; 80307; 81003; 83690; 84443; 85025; 87635; 99283; G0480; J8499; 80320; 80329; 81001; 87086

== ENCOUNTER 2021-09-15 10:44 | Outpatient (CLI) | payer MEDICARE, MEDICAID | END 2021-09-15 10:45 | disposition critical access hospital (66) | LOC: EMS 10:44 | DX: S99.912A Unspecified injury of left ankle, initial encounter (principal); X50.1XXA Overexertion from prolonged static or awkward postures, initial encounter; W18.39XA Other fall on same level, initial encounter; Y93.01 Activity, walking, marching and hiking; Y92.098 Other place in other non-institutional residence as the place of occurrence of the external cause | CPT/HCPCS: A0425; A0427 ==

== ENCOUNTER 2021-09-15 11:03 | Emergency (ER) | payer MEDICARE, MEDICAID ==
[2021-09-15 11:14] VITALS: BP 106/72
[2021-09-15] MEDS ORDERED: ONDANSETRON 4 MG/2 ML VIAL IVP STA (12:22)
[2021-09-15] MEDS ORDERED: KETOROLAC 30 MG/ML VIAL IVP STA (12:22)
[2021-09-15] MEDS ORDERED: HYDROmorphone 1 MG/ML CARPUJECT IVP STA (12:22)
--- NOTE | 2021-09-15 13:04 | XRAY Report ---
PROCEDURE: Ankle 3 View LT INDICATIONS: fracture deformity TECHNIQUE: 4 views of the ankle were acquired. COMPARISON: None FINDINGS: Bones: There is a fracture and lateral dislocation of the left ankle with fractures through the media l malleolus and lateral malleolus. There is lateral dislocation of the talus relative to the distal t ibia. Alignment of the midfoot osseous structures is maintained. No suspicious bony lesions. Small p lantar calcaneal enthesophyte. Soft tissues: No tibiotalar joint effusion. Achilles tendon appears normal. IMPRESSION: Fracture with lateral dislocation of the left ankle involving the medial and lateral mal leolus with lateral displacement of talus relative to the distal tibia. Reviewed by: Brad Tucker MD on 09/15/2021 1:02 PM PDT Approved by: Brad Tucker MD on 09/15/2021 1:02 PM PDT Station ID: [id number]
--- NOTE | 2021-09-15 13:14 | ED Physician Documentation ---
PD HPI LOWER EXT INJURY - Stated complaint Stated Complaint: LT FT/ANKLE INJURY - Chief complaint Chief Complaint: Trauma Ext - History obtained from History obtained from: Patient - History of Present Illness PD HPI LOW EXT INJURY LOCATION: Left, Ankle Type of injury: Fall Where injury occurred: A house / apartment Timing - onset: Today Timing - duration: Minutes Timing - details: Abrupt onset, Still present Improved by: Rest, Immobilization Worsened by: Moving, Palpating Associated symptoms: Weakness (pre-existing), Numbness, Swelling Contributing factors: No: Anticoagulated Similar symptoms before: Diagnosis (foot fracture) Recently seen: Not recently seen - Additional information Additional information: 60-year-old male is a resident of [facility] and he has a left hemiparesis but is able to ambulate. He was ambulating today when he tripped and injured his left ankle he has a fracture deformity on arrival.Patient indicates that he has not recently been ill otherwise. Review of Systems Constitutional: denies: Fever Nose: denies: Congestion Cardiac: denies: Chest pain / pressure Respiratory: denies: Cough GI: reports: Diarrhea. denies: Vomiting Musculoskeletal: reports: Extremity pain, Extremity swelling, Other (Unable to bear weight). denies: Neck pain Neurologic: denies: Generalized weakness, Focal weakness, Numbness PD PAST MEDICAL HISTORY - Past Medical History Past Medical History: Yes Cardiovascular: Hypertension, High cholesterol Respiratory: None Neuro: CVA Endocrine/Autoimmune: None GI: GERD : None HEENT: Chronic vision loss Psych: Depression, Anxiety Musculoskeletal: Osteoarthritis Derm: Psoriasis - Past Surgical History Past Surgical History: No Neuro: Craniotomy - Present Medications Home Medications: Ambulatory Orders Medication Instructions Recorded Confirmed Acetaminophen [Pain Reliever] 650 mg PO Q8HR PRN 08/25/12 10/09/20 Amlodipine Besylate 10 mg PO DAILY 08/25/12 10/09/20 Cholecalciferol (Vitamin D3) 2,000 unit PO DAILY 08/25/12 10/09/20 [Vitamin D-3] Docusate Sodium 250 mg PO DAILY 08/25/12 10/09/20 Metoprolol Succinate 200 mg PO BID 08/25/12 10/09/20 Omeprazole [PriLOSEC] 20 mg PO DAILY 08/25/12 10/09/20 Potassium 10 meq PO BID 08/25/12 10/09/20 hydroCHLOROthiazide [Hydrodiuril] 25 mg PO DAILY 08/25/12 10/09/20 lisinopriL [Lisinopril] 40 mg PO DAILY 08/25/12 10/09/20 Sertraline [Zoloft] 100 mg PO DAILY 12/11/12 10/09/20 hydrOXYzine PAMOATE [Vistaril] 25 mg PO Q6H PRN #20 capsule 07/14/13 10/09/20 levETIRAcetam [Keppra] 750 mg PO BID 03/17/15 10/09/20 Clobetasol Propionate 15 gm TP ONCE PRN 04/22/18 10/09/20 Calcium Carbonate [Antacid] 200 mg PO PRN PRN 06/25/18 10/09/20 Ferrous Gluconate [Iron] 240 mg PO DAILY 06/25/18 10/09/20 Folic Acid 1 mg PO DAILY 09/17/20 10/09/20 Magnesium 250 mg PO HS 09/17/20 10/09/20 Pravastatin [Pravachol] 40 mg PO HS 09/17/20 10/09/20 Donepezil [Aricept] 5 mg PO DAILY #30 tablet 10/09/20 LORazepam [Ativan] 1 mg PO TID PRN #20 tablet 08/12/21 HYDROcod/ACETAM 5/325 [Reading 5/325] 1 - 2 tablet PO Q6H PRN #14 tablet 09/15/21 - Allergies Allergies/Adverse Reactions: Allergies Allergy/AdvReac Type Severity Reaction Status Date / Time ceftriaxone sodium * Allergy Intermediate Hives Verified 09/15/21 11:09 [From [facility]] - Social History Does the pt smoke?: No Smoking Status: Never smoker Does the pt drink ETOH?: No Does the pt have substance abuse?: No - Immunizations Immunizations are current?: Yes - POLST Patient has POLST: Yes POLST Status: Full Code PD ED PE NORMAL - Vitals Vital signs reviewed: Yes (Normal) - General General: Alert and oriented X 3, No acute distress, Well developed/nourished - HEENT HEENT: Atraumatic, PERRL, EOMI - Respiratory Respiratory: No respiratory distress - Derm Derm: Normal color, Warm and dry, No rash - Extremities Extremities: Other (The left arm is contracted consistent with a prior CVA. The left lower extremity shows a fracture dislocation deformity. The ankle is painful to reduce and causes flexion at the hip on the left side. The patient is unable able to localize the pain.) - Neuro Neuro: Alert and oriented X 3, Other (There is evidence of a left hemiparesis with contraction of the left upper extremity. Speech is mildly dysarthric.) Eye Opening: Spontaneous Motor: Obeys Commands Verbal: Oriented GCS Score: 15 - Psych Psych: Normal mood, Normal affect Results - Vitals Vitals: Vital Signs - 24 hr 09/15/21 11:09 Temperature 36.5 C Heart Rate 46 L Respiratory 16 Rate Blood Pressure 106/72 O2 Saturation 94 Oxygen O2 Source Room air - Rads (name of study) ankle Radiology: Prelim report reviewed (Impression fracture with lateral dislocation of the left ankle involving the medial and lateral malleolus with lateral displacement of the talus relative to the distal tibia.), EMP read indepedently, See rad report Post reduction Radiology: Prelim report reviewed (Impression: Interval reduction of earlier noted trimalleolar ankle fracture/dislocation with improved ankle alignment.) Procedures - Splint (location) left ankle Splint applied by: Physician, Nurse Type of splint: Fiberglass, Posterior, Stirrup Other: Patient tolerated well, No complications, Good alignment, Other (will need wheelchair) PD MEDICAL DECISION MAKING - ED course Complexity details: reviewed old records, reviewed results, re-evaluated patient, considered differential, d/w patient, d/w franchise consultant (Tomasan by phone not adult secondary education instructor recommends splinting and followup. ) ED course: 60-year-old male with a fracture dislocation of his left ankle presents to the emergency department with significant muscle spasm in the left thigh causing contraction of the flexor hip flexor with any manipulation of the ankle. The patient was administered Toradol and Dilaudid intravenously with some improvement in his pain. The ankle was straightened and splinted with a poste rior and stirrup splint with the assistance of 2 RN's holding the leg still. The splint hardened well and following this a post reduction film showed good alignment. The patient had improvement in his pain as well as the muscle spasm in his hip. Departure - Departure Disposition: 01 Home, Self Care Clinical Impression: Fracture dislocation of ankle Qualifiers: Encounter type: initial encounter Fracture type: closed Laterality: left Qualified Code(s): S82.892A - Other fracture of left lower leg, initial encounter for closed fracture Condition: Stable Instructions: ED Fx Ankle General Follow-Up: Franci Farias DO [Primary Care Provider] - Gilles Barrera MD [Provider Admit Priv/Credential] - Prescriptions: HYDROcod/ACETAM 5/325 [Reading 5/325] 1 - 2 tablet PO Q6H PRN #14 tablet PRN Reason: Pain Comments: Reagan, today it looks like you have a fracture dislocation of your left ankle. We have reduced the dislocation and put it into a splint. A follow-up with Dr. Noble is recommended this week. Call his office to set up an appointment.
--- NOTE | 2021-09-15 14:05 | XRAY Report ---
PROCEDURE: Ankle 3 View LT INDICATIONS: post reduction TECHNIQUE: 3 views of the ankle were acquired. COMPARISON: Earlier study from the same day. FINDINGS: Bones: There is interval reduction of earlier noted trimalleolar fracture and dislocation with signif icantly improved ankle alignment. No new fracture or dislocation is seen. Soft tissues: Diffuse ankle soft tissue swelling is seen. No tibiotalar joint effusion. Achilles te ndon appears normal. IMPRESSION: Interval reduction of earlier noted trimalleolar ankle fracture/dislocation with improve d ankle alignment. Reviewed by: Valeriano Lugo MD on 09/15/2021 2:03 PM PDT Approved by: Valeriano Lugo MD on 09/15/2021 2:03 PM PDT Station ID: [id number]
== END 2021-09-15 16:13 | disposition home or self-care (01) ==
LOC: EDUNIT# → ED 11:03
DX: S82.892A Other fracture of left lower leg, initial encounter for closed fracture (principal); W01.0XXA Fall on same level from slipping, tripping and stumbling without subsequent striking against object, initial encounter; Y92.099 Unspecified place in other non-institutional residence as the place of occurrence of the external cause; I10 Essential (primary) hypertension
CPT/HCPCS: 29515; 73610; 96374; 96375; 99283; 99284; J1170

== ENCOUNTER 2021-09-22 12:44 | Outpatient (CLI) | payer MEDICARE, MEDICAID ==
--- NOTE | 2021-09-22 16:58 | XRAY Report ---
PROCEDURE: Ankle 3 View LT INDICATIONS: ANKLE FX TECHNIQUE: 3 views of the ankle were acquired. COMPARISON: 3 views of the left ankle dated 09/15/2021 FINDINGS: Bones: Lateral and medial talar fractures are redemonstrated. Fracture fragments are in unchanged alessia tomic alignment when compared with the study dated 09/15/2021. No new fractures or suspicious bony les ions. Callus is difficult to characterize given overlying cast material. Soft tissues: No tibiotalar joint effusion. Achilles tendon appears normal. IMPRESSION: Stable distal fibular and tibial fractures. Reviewed by: Lakisha Solo MD on 09/22/2021 4:57 PM PDT Approved by: Lakisha Solo MD on 09/22/2021 4:57 PM PDT Station ID: [id number]
== END 2021-09-22 23:59 | disposition home or self-care (01) ==
LOC: DI.WOS 12:44
PROVIDERS: ATTEND Orthopaedic Surgery
DX: S92.142D Displaced dome fracture of left talus, subsequent encounter for fracture with routine healing (principal); S92.192D Other fracture of left talus, subsequent encounter for fracture with routine healing

== ENCOUNTER 2021-09-23 10:19 | Day surgery (SDC) | payer MEDICARE, MEDICAID ==
[~2021-09-23 10:19] MED LIST changes: -ACETAMINOPHEN 1,000 MG/100 ML 100 ML IV ONE; +ACETAMINOPHEN 500 MG TABLET PO ONE; +CEFAZOLIN SODIUM IN 0.9 % NACL 2 GM/50 ML BAG IV ONE
[2021-09-23] MEDS ORDERED: fentaNYL 100 MCG/2 ML VIAL ONE ×3 (11:10→15:33)
[2021-09-23] MEDS ORDERED: MIDAZOLAM 2 MG/2 ML VIAL ONE (11:10)
[2021-09-23] MEDS ORDERED: BUPIVACAINE 0.5% PF 30 ML VIAL ONE (11:12)
[2021-09-23] MEDS ORDERED: LACTATED RINGERS 1,000 ML IV ONE (11:13)
[2021-09-23] MEDS ORDERED: LIDOCAINE 2%-EPI 1:100000 20 ML MDV ONE (11:34)
[2021-09-23] MEDS ORDERED: BUPIVACAINE 0.25% PF 10 ML VIAL ONE (11:34)
[2021-09-23] MEDS ORDERED: BUPIVACAINE 0.25% PF 10 ML VIAL SUBQ ONE ×2 (12:42)
[2021-09-23] MEDS ORDERED: LIDOCAINE 2%-EPI 1:100000 20 ML MDV SUBQ ONE ×2 (12:42)
[2021-09-23] MEDS ORDERED: ePHEDrine 50 MG/ML VIAL IVP PRN (13:18)
[2021-09-23] MEDS ORDERED: ONDANSETRON 4 MG/2 ML VIAL IVP PRN (13:18)
[2021-09-23] MEDS ORDERED: ATROPINE ABBOJECT 1 MG/10 ML SYRINGE IVP PRN (13:18)
[2021-09-23] MEDS ORDERED: NALOXONE 0.4 MG/ML VIAL IVP PRN (13:18)
[2021-09-23] MEDS ORDERED: HYDROmorphone 0.5 MG/0.5 ML SYRINGE IVP PRN (13:18)
[2021-09-23] MEDS ORDERED: fentaNYL 100 MCG/2 ML VIAL IVP PRN (13:18)
[2021-09-23] MEDS ORDERED: MORPHINE 2 MG/ML CARPUJECT IVP PRN (13:18)
--- NOTE | 2021-09-23 13:18 | ANESTHESIA ---
Pre-Anesthesia VS, & Labs - Diagnosis L ankle fracture - Procedure ORIF L ankle Vital Signs: Temp Pulse Resp BP Pulse Ox 36.3 C L 53 L 15 121/83 H 100 09/23/21 10:58 09/23/21 10:58 09/23/21 10:58 09/23/21 10:58 09/23/21 10:58 Height: 5 ft 10 in Weight (kg): 90.72 kg Body Mass Index: 28.7 BMI Classification: Overweight - NPO >8 hours Home Medications and Allergies Home Medications: Ambulatory Orders Amlodipine Besylate [Norvasc] 10 mg PO DAILY 09/23/21 Doxepin [SINEquan] 30 mg PO HS 09/23/21 Acetaminophen [Pain Reliever] 650 mg PO Q8HR PRN 08/25/12 Amlodipine Besylate 10 mg PO DAILY 08/25/12 Cholecalciferol (Vitamin D3) [Vitamin D-3] 2,000 unit PO DAILY 08/25/12 Docusate Sodium 250 mg PO DAILY 08/25/12 Metoprolol Succinate 200 mg PO BID 08/25/12 Omeprazole [PriLOSEC] 20 mg PO DAILY 08/25/12 Potassium 10 meq PO BID 08/25/12 hydroCHLOROthiazide [Hydrodiuril] 25 mg PO DAILY 08/25/12 lisinopriL [Lisinopril] 40 mg PO DAILY 08/25/12 Sertraline [Zoloft] 100 mg PO DAILY 12/11/12 levETIRAcetam [Keppra] 750 mg PO BID 03/17/15 Clobetasol Propionate 15 gm TP ONCE PRN 04/22/18 Calcium Carbonate [Antacid] 200 mg PO PRN PRN 06/25/18 Ferrous Gluconate [Iron] 240 mg PO DAILY 06/25/18 Folic Acid 1 mg PO DAILY 09/17/20 Magnesium 250 mg PO HS 09/17/20 Pravastatin [Pravachol] 40 mg PO HS 09/17/20 Amlodipine Besylate [Norvasc] 10 mg PO DAILY 09/23/21 Doxepin [SINEquan] 30 mg PO HS 09/23/21 Allergies/Adverse Reactions: Allergies Allergy/AdvReac Type Severity Reaction Status Date / Time ceftriaxone sodium * Allergy Intermediate Hives Verified 09/23/21 11:21 [From Rocephin] Anes History & Medical History - Anesthetic History Anesthesia Complications: reports: No previous complications Family history of Anesthesia Complications: Denies Family history of Malignant Hyperthermia: Denies - Medical History Cardiovascular: reports: Hypertension, High cholesterol Pulmonary: reports: None Gastrointestinal: reports: GERD Urinary: reports: None Neuro: reports: CVA Musculoskeletal: reports: Osteoarthritis Endocrine/Autoimmune: reports: None Blood Disorders: reports: None Skin: reports: Psoriasis, Other (2nd degree open wound behind L knee/lower thigh due to casting rubbing skin) Smoking Status: Never smoker - Surgical History Neurologic: reports: Craniotomy Exam General: Alert, Oriented x3, Cooperative Dental: WNL Mouth Openin Fingerbreadth Neck Mobility: Normal Mallampati classification: II Respiratory: Lungs clear Cardiovascular: Regular rate Plan Anesthesia Type: General Consent for Procedure(s) Verified and Reviewed: Yes Code Status: Attempt Resuscitation ASA classification: 3-Severe systemic disease Is this case an emergency?: No
[2021-09-23] MEDS ORDERED: LACTATED RINGERS 1,000 ML IV SCH (14:00)
--- NOTE | 2021-09-23 15:35 | OPERATIVE REPORT ---
Operative Report - General Procedure Date: 09/23/21 Planned Procedure: Open reduction internal fixation bimalleolar fracture dislocation left ankle Pre-Op Diagnosis: Closed, displaced bimalleolar ankle fracture dislocation and left hemipares Procedure Performed: Open reduction internal fixation lateral malleolus and fibula with fibula lock Arthrex Fibular nail with proximal and distal fixation; open reduction internal fixation medial malleolus with two 50 mm Arthrex cannulated screws Post Op Diagnosis: Same as preoperative diagnosis - Procedure Note Primary Surgeon: Gilles Barrera MD Secondary Surgeon: Meagan SANTANA, Ghulam SANTANA Anesthesia Provider: Katie Mckenzie CRNA Anesthesia Technique: General ET tube Estimated Blood Loss (mL): 100 Indications: This is a 60-year-old gentleman who lives in assisted living. He has had a previous stroke in the past that resulted in left hemiparesis and abnormal gait, walker dependent. He has a history of falls. I have taken care of a displaced olecranon fracture in the past that required open reduction internal fixation. He has a recent fall from standing height that led to a bimalleolar fracture dislocation. This was a closed injury and required reduction in the emergency room, splinting and delayed open reduction internal fixation left ankle. His fibular fracture is a Ross B with a transverse medial malleolar fracture at and just slightly above the joint line. I did not see a definite posterior malleolar fracture. Because of the fracture, I was unable to assess if he had any active dorsi flexion of his left ankle. He certainly has osteopenia most likely associated from disuse and paralysis of left lower leg. He does ambulate with some difficulty. Findings: The ankle mortise was very unstable. The talus wanted to dislocate. The fibular fracture was unstable. The bone quality was certainly not optimal, soft bone from disuse. The medial malleolus was comminuted. Complications: None - Other Other Information/Narrative: The patient was brought to the operating room, given a general endotracheal anesthetic. He is placed in a supine position with a bump beneath the left buttock and a foam ramp underneath the left leg. The left leg and left lower extremity was prepped and draped in sterile manner usual fashion. The C arm was covered with a sterile drape. A timeout procedure was performed by the entire operating room team and all were in agreement. An attempt to do a closed fibular rodding was attempted. This was accomplished by making a 1-1/2 cm incision below the tip of the lateral malleolus. The fracture was reduced with a bump and internal rotation of the left ankle. The guidepin was difficult to pass and after several attempts at not getting the guidepin to pass across the fracture, it was elected to open the fracture of the fibula. A longitudinal incision was extended and the fracture was identified. The fracture was stabilized with the bone clamp. The intramedullary K wire was then inserted from the tip of the lateral malleolus. Proximal and distal reaming with a drill was was performed after verifying with the C arm that the guidepin was intramedullary on both views. The fibular canal was small and just large enough to accept the 3.0 mm fibular nail which was inserted from distal to proximal using the guide. Once the justus was countersunk, the proximal fins were deployed. Distal locking screws were inserted, 2 horizontal and 1 vertical. I attempted to pass 2 tight ropes across the syndesmosis, bone was soft and oneOf the Endobutton was retracted to the syndesmosis. The other Endobutton had good fixation. The ankle mortise stability was markedly improved. The tourniquet had been applied when the incision was made to expose the fibular fracture. A second incision was made over the medial malleolus. This was a longitudinal incision. The fracture of the medial malleolus was identified, fracture opened and cleaned with a curette as well as irrigation. A medial arthrotomy was made and an [place] was inserted to expose the joint and anatomically try to reduce the comminuted fracture. The fracture was held in place with K wires and then to cannulated screws were inserted, both 50 mm in length. This seemed to provide good stability to the medial malleolus fracture and to the ankle mortise. The tourniquet was deflated after 87 minutes. The subcutaneous tissue was closed with 3-0 Monocryl. The skin was closed standstill mat. Xeroform, gauze, cast padding and a well-padded posterior splint to hold the ankle in neutral dorsiflexion was applied. The patient tolerated the procedure well. He did receive 2 g of Ancef intravenously. A physician assistants were utilized to help with exposure, reduction, wound closure and splint application.
[2021-09-23] MEDS ORDERED: LACTATED RINGERS 200 ML IV ONE (15:51)
[2021-09-23] MEDS ORDERED: oxyCODONE 5 MG TABLET PO PRN (16:06)
--- NOTE | 2021-09-23 16:45 | ANESTHESIA POST OP EVALUATION ---
Anesthesia Post Eval - Post Anesthesia Eval Vitals: Last Vital Signs Temp 36.6 C 09/23/21 16:15 Pulse 69 09/23/21 16:30 Resp 16 09/23/21 16:30 BP 146/89 H 09/23/21 16:30 Pulse Ox 92 09/23/21 16:30 CV Function Including HR & BP: Stable Pain Control: Satisfactory Nausea & Vomiting: Negative Mental Status: Baseline Respiratory Status: Airway Patent Hydration Status: Satisfactory Anesthesia Complications: None
[2021-09-23 17:37] VITALS: BP 137/78
--- NOTE | 2021-09-24 08:36 | XRAY Report ---
PROCEDURE: OR C-Arm Procedure INDICATIONS: ORIF LEFT ANKLE TECHNIQUE: 2 intraoperative fluoroscopic images of left ankle were obtained. COMPARISON: Ankle radiograph dated 09/22/2021 and 09/15/2021 FINDINGS: Intraoperative fluoroscopic images shows ORIF of medial malleolus and distal fibular shaft/lateral ma lleolus. Total fluoroscopy time is 1 minute 43 seconds. IMPRESSION: Fluoroscopy guidance was provided intraoperatively for ORIF of left ankle. Reviewed by: Valeriano Lugo MD on 09/24/2021 8:35 AM PDT Approved by: Valeriano Lugo MD on 09/24/2021 8:35 AM PDT Station ID: [id number]
== END 2021-09-23 18:10 | disposition home or self-care (01) ==
LOC: SDS 10:19 → MS3 16:26 → SDS 18:10
PROVIDERS: ATTEND Orthopaedic Surgery
DX: S82.842A Displaced bimalleolar fracture of left lower leg, initial encounter for closed fracture (principal); I69.952 Hemiplegia and hemiparesis following unspecified cerebrovascular disease affecting left dominant side; I69.398 Other sequelae of cerebral infarction; R26.89 Other abnormalities of gait and mobility; M85.88 Other specified disorders of bone density and structure, other site
CPT/HCPCS: 27814; A9270; C1713; J0690; J7120

== ENCOUNTER 2021-09-24 13:20 | Emergency (ER) | payer MEDICARE, MEDICAID ==
[2021-09-24 13:36] VITALS: BP 107/70
--- NOTE | 2021-09-24 16:02 | ED Physician Documentation ---
History of Present Illness - Stated complaint Stated Complaint: POST SURG FT PX - Chief complaint Chief Complaint: Ext Problem - History obtained from History obtained from: Patient - History of Present Illness Timing: Today Pain level max: 0 Pain level now: 0 - Additonal information Additional information: Patient is a 60-year-old male who presents to the emergency department stating he had surgery on has left ankle few days ago and noticed blood on the bandage today. Came in to be checked. He also has foot pain. Nothing makes it better or worse. No fevers. No chills Review of Systems Constitutional: denies: Fever, Chills Respiratory: denies: Cough GI: denies: Nausea, Vomiting, Diarrhea Skin: denies: Rash Musculoskeletal: denies: Neck pain, Back pain Neurologic: denies: Headache PD PAST MEDICAL HISTORY - Past Medical History Cardiovascular: Hypertension, High cholesterol Respiratory: None Neuro: CVA Endocrine/Autoimmune: None GI: GERD : None HEENT: Chronic vision loss Psych: Depression, Anxiety Musculoskeletal: Osteoarthritis Derm: Psoriasis, Other (2nd degree open wound behind L knee/lower thigh due to casting rubbing skin) - Past Surgical History Past Surgical History: No Neuro: Craniotomy - Present Medications Home Medications: Ambulatory Orders Medication Instructions Recorded Confirmed Acetaminophen [Pain Reliever] 650 mg PO Q8HR PRN 08/25/12 09/23/21 Amlodipine Besylate 10 mg PO DAILY 08/25/12 09/23/21 Cholecalciferol (Vitamin D3) 2,000 unit PO DAILY 08/25/12 09/23/21 [Vitamin D-3] Docusate Sodium 250 mg PO DAILY 08/25/12 09/23/21 Metoprolol Succinate 200 mg PO BID 08/25/12 09/23/21 Omeprazole [PriLOSEC] 20 mg PO DAILY 08/25/12 09/23/21 Potassium 10 meq PO BID 08/25/12 09/23/21 hydroCHLOROthiazide [Hydrodiuril] 25 mg PO DAILY 08/25/12 09/23/21 lisinopriL [Lisinopril] 40 mg PO DAILY 08/25/12 09/23/21 Sertraline [Zoloft] 100 mg PO DAILY 12/11/12 09/23/21 hydrOXYzine PAMOATE [Vistaril] 25 mg PO Q6H PRN #20 capsule 07/14/13 09/23/21 levETIRAcetam [Keppra] 750 mg PO BID 03/17/15 09/23/21 Clobetasol Propionate 15 gm TP ONCE PRN 04/22/18 09/23/21 Calcium Carbonate [Antacid] 200 mg PO PRN PRN 06/25/18 09/23/21 Ferrous Gluconate [Iron] 240 mg PO DAILY 06/25/18 09/23/21 Folic Acid 1 mg PO DAILY 09/17/20 09/23/21 Magnesium 250 mg PO HS 09/17/20 09/23/21 Pravastatin [Pravachol] 40 mg PO HS 09/17/20 09/23/21 Donepezil [Aricept] 5 mg PO DAILY #30 tablet 10/09/20 09/23/21 LORazepam [Ativan] 1 mg PO TID PRN #20 tablet 08/12/21 09/23/21 HYDROcod/ACETAM 5/325 [Evans 5/325] 1 - 2 tablet PO Q6H PRN #14 tablet 09/15/21 09/23/21 Amlodipine Besylate [Norvasc] 10 mg PO DAILY 09/23/21 09/23/21 Doxepin [SINEquan] 30 mg PO HS 09/23/21 09/23/21 - Allergies Allergies/Adverse Reactions: Allergies Allergy/AdvReac Type Severity Reaction Status Date / Time ceftriaxone sodium * Allergy Intermediate Hives Verified 09/24/21 13:32 [From Rocephin] - Social History Does the pt smoke?: No Smoking Status: Never smoker Does the pt drink ETOH?: No Does the pt have substance abuse?: No - Immunizations Immunizations are current?: Yes - POLST Patient has POLST: Yes POLST Status: Full Code PD ED PE NORMAL - Vitals Vital signs reviewed: Yes - General General: Alert and oriented X 3, No acute distress - HEENT HEENT: Moist mucous membranes - Derm Derm: Warm and dry - Extremities Extremities: Other (Small amount of dried blood on the dressing to the left ankle, medial aspect. No foul smell. No evidence of infection. Neurovascular intact) - Neuro Neuro: Alert and oriented X 3 - Psych Psych: Normal mood, Normal affect Results - Vitals Vitals: Vital Signs - 24 hr 09/24/21 13:29 Temperature 37.0 C Heart Rate 58 L Respiratory 14 Rate Blood Pressure 107/70 O2 Saturation 95 Oxygen O2 Source Room air PD MEDICAL DECISION MAKING - ED course Complexity details: reviewed old records, considered differential, d/w patient ED course: The bandages rewrapped. The patient will follow-up with orthopedics for further care. No emergency medical condition. Patient counseled regarding signs and symptoms for which I believe and urgent re-evaluation would be necessary. Patient with good understanding of and agreement to plan and is comfortable going home at this time This document was made in part using voice recognition software. While efforts are made to proofread this document, sound alike and grammatical errors may occur. Departure - Departure Disposition: 01 Home, Self Care Clinical Impression: Encounter for postoperative wound check Condition: Good Instructions: ED Wound Care Follow-Up: Allyson Solomon ARNP [Primary Care Provider] - [facility] [Provider Group] - Within 1 week Comments: Keep the dressing clean. Follow-up with orthopedics for further care. Return if you worsen. Discharge Date/Time: 09/24/21 17:18
[2021-09-24] MEDS: HYDROcod/ACETAM 5/325 MG TABLET PO STA (16:11)
== END 2021-09-24 17:18 | disposition home or self-care (01) ==
LOC: EDUNIT# → ED 13:20
DX: Z48.01 Encounter for change or removal of surgical wound dressing (principal)
CPT/HCPCS: 99282; A9270

== ENCOUNTER 2021-10-06 11:56 | Outpatient (CLI) | payer MEDICARE, MEDICAID | END 2021-10-06 11:57 | disposition critical access hospital (66) | LOC: EMS 11:56 | DX: M25.562 Pain in left knee (principal) | CPT/HCPCS: A0425; A0429 ==

== ENCOUNTER 2021-10-06 12:16 | Emergency (ER) | payer MEDICARE, MEDICAID ==
--- NOTE | 2021-10-06 13:31 | ED Physician Documentation ---
History of Present Illness - Stated complaint Stated Complaint: L KNEE PAIN - Chief complaint Chief Complaint: Ext Problem - History obtained from History obtained from: Patient - Additonal information Additional information: Patient is brought to the emergency department by EMS for chief complaint of left knee pain when being moved in the Lashaun lift. Patient has a history of a CVA previously and requires assistance with transfer, due to left hemiplegia. He states he does not have anyone from physical therapy working with him that will come home, and that he likes to keep his left knee flexed because it is uncomfortable to straighten it over months, the leg has become increasingly tight and it does not feel good to try to straighten it out. When staff was moving in with a Lashaun lift today, his leg dangled and it caused a sudden sharp pain in the soft tissues of his knee. Patient cannot really pinpoint where he states that in "his meniscus". Patient denies any popping or clicking. The patient states that his knee only hurts if he moves it but just sitting in the bed, it does not hurt. According to medics, staff advised the patient not to come to the emergency department because they felt that this was a chronic issue, and there was no identifiable trigger. Patient however did want to be evaluated and sent they have come here. Review of Systems Ten Systems: 10 systems reviewed and negative Constitutional: reports: Reviewed and negative Eyes: reports: Reviewed and negative Ears: reports: Reviewed and negative Nose: reports: Reviewed and negative Throat: reports: Reviewed and negative Cardiac: reports: Reviewed and negative Respiratory: reports: Reviewed and negative GI: reports: Reviewed and negative : reports: Reviewed and negative Skin: reports: Reviewed and negative Musculoskeletal: reports: Joint pain Neurologic: reports: Reviewed and negative Psychiatric: reports: Reviewed and negative Endocrine: reports: Reviewed and negative Immunocompromised: reports: Reviewed and negative PD PAST MEDICAL HISTORY - Past Medical History Past Medical History: Yes Cardiovascular: Hypertension, High cholesterol Respiratory: None Neuro: CVA Endocrine/Autoimmune: None GI: GERD : None HEENT: Chronic vision loss Psych: Depression, Anxiety Musculoskeletal: Osteoarthritis Derm: Psoriasis, Other - Past Surgical History Past Surgical History: No Neuro: Craniotomy - Present Medications Home Medications: Ambulatory Orders Medication Instructions Recorded Confirmed Acetaminophen [Pain Reliever] 650 mg PO Q8HR PRN 08/25/12 09/23/21 Amlodipine Besylate 10 mg PO DAILY 08/25/12 09/23/21 Cholecalciferol (Vitamin D3) 2,000 unit PO DAILY 08/25/12 09/23/21 [Vitamin D-3] Docusate Sodium 250 mg PO DAILY 08/25/12 09/23/21 Metoprolol Succinate 200 mg PO BID 08/25/12 09/23/21 Omeprazole [PriLOSEC] 20 mg PO DAILY 08/25/12 09/23/21 Potassium 10 meq PO BID 08/25/12 09/23/21 hydroCHLOROthiazide [Hydrodiuril] 25 mg PO DAILY 08/25/12 09/23/21 lisinopriL [Lisinopril] 40 mg PO DAILY 08/25/12 09/23/21 Sertraline [Zoloft] 100 mg PO DAILY 12/11/12 09/23/21 hydrOXYzine PAMOATE [Vistaril] 25 mg PO Q6H PRN #20 capsule 07/14/13 09/23/21 levETIRAcetam [Keppra] 750 mg PO BID 03/17/15 09/23/21 Clobetasol Propionate 15 gm TP ONCE PRN 04/22/18 09/23/21 Calcium Carbonate [Antacid] 200 mg PO PRN PRN 06/25/18 09/23/21 Ferrous Gluconate [Iron] 240 mg PO DAILY 06/25/18 09/23/21 Folic Acid 1 mg PO DAILY 09/17/20 09/23/21 Magnesium 250 mg PO HS 09/17/20 09/23/21 Pravastatin [Pravachol] 40 mg PO HS 09/17/20 09/23/21 Donepezil [Aricept] 5 mg PO DAILY #30 tablet 10/09/20 09/23/21 LORazepam [Ativan] 1 mg PO TID PRN #20 tablet 08/12/21 09/23/21 HYDROcod/ACETAM 5/325 [[place] 5/325] 1 - 2 tablet PO Q6H PRN #14 tablet 09/15/21 09/23/21 Amlodipine Besylate [Norvasc] 10 mg PO DAILY 09/23/21 09/23/21 Doxepin [SINEquan] 30 mg PO HS 09/23/21 09/23/21 - Allergies Allergies/Adverse Reactions: Allergies Allergy/AdvReac Type Severity Reaction Status Date / Time ceftriaxone sodium * Allergy Intermediate Hives Verified 10/06/21 12:31 [From Rocephin] - Social History Does the pt smoke?: No Smoking Status: Never smoker Does the pt drink ETOH?: No Does the pt have substance abuse?: No - Immunizations Immunizations are current?: Yes - POLST Patient has POLST: Yes POLST Status: Full Code PD ED PE NORMAL - Vitals Vital signs reviewed: Yes - General General: Alert and oriented X 3, No acute distress - HEENT HEENT: Atraumatic, PERRL, EOMI, Moist mucous membranes - Neck Neck: Supple, no meningeal sign, No bony TTP, No adenopathy, Thyroid normal, No JVD, No bruit, C-Spine cleared by NEXUS criteria, Other - Cardiac Cardiac: Strong equal pulses - Respiratory Respiratory: No respiratory distress - Derm Derm: Normal color, Warm and dry, No rash - Extremities Extremities: No deformity, No edema, Other (No tenderness palpation of left knee. The patient cannot fully extend his leg, and falls about 15 degrees short. He complains of pain when his leg is straightened. No popping or clicking.) - Neuro Neuro: Alert and oriented X 3 - Psych Psych: Normal mood, Normal affect Results - Vitals Vitals: Vital Signs - 24 hr 10/06/21 10/06/21 12:26 15:25 Temperature 37.1 C 37.2 C Heart Rate 56 L 60 Respiratory 16 17 Rate Blood Pressure 110/74 122/75 O2 Saturation 95 99 Oxygen O2 Source Room air - Rads (name of study) Left knee x-ray series Radiology: Final report received, EMP read indepedently, See rad report (Degenerative joint disease, no fracture) PD MEDICAL DECISION MAKING - ED course Complexity details: reviewed results, re-evaluated patient, considered differential, d/w patient ED course: X-ray series was unremarkable for acute changes. The patient has chronic DJD and is advised that he needs to follow-up with his doctor about this. I have also advised him is very important that immobilizes the knee and should also talk to his doctor about physical therapy. I suspect that when the leg is dangling when the Lashaun lift is being used, the contracted tissues are the source of the pain. We have discussed management of the symptoms at home and the usual indications for return. Departure - Departure Disposition: 01 Home, Self Care Clinical Impression: Knee pain, left Qualifiers: Chronicity: acute Qualified Code(s): M25.562 - Pain in left knee Condition: Stable Instructions: Stroke Arm Care Comments: Your knee x-ray does not show any acute findings. It is very important that you regularly straighten your knee out all the way in order to avoid developing contractures, or severe tightening of the muscles and tendons in the back your knee. Please talk to your doctor about having physical therapy and Occupational Therapy work with you on this. Most likely, when you are moved by Lashaun lift, your leg hangs down a little and this causes some traction on your leg where your tendons are starting to become shortened. This is temporary and does not represent a serious injury or a meniscal issue. Once again, it is very important that you do range of motion with your knee, including full straightening, in order to keep your knee flexible and avoid some of the pain that you are having. Please follow-up with your doctor for further evaluation. Discharge Date/Time: 10/06/21 15:45
--- NOTE | 2021-10-06 14:22 | XRAY Report ---
PROCEDURE: Knee 3 View LT INDICATIONS: L knee pain TECHNIQUE: 3 views of the left knee(s) were acquired. COMPARISON: None. FINDINGS: Bones: No fractures or dislocations. No suspicious bony lesions. Moderate medial compartment joint space loss. Soft tissues: No joint effusion. No suspicious soft tissue calcifications. IMPRESSION: Moderate medial compartment joint space loss. No evidence acute bony abnormality of the left knee. If clinical suspicion and/or symptoms persist, further assessment with repeat plain films or advanced imaging (e.g., CT, MRI, or bone scan) may be helpful for further assessment. Reviewed by: John Forrester MD on 10/06/2021 2:20 PM PDT Approved by: John Forrester MD on 10/06/2021 2:20 PM PDT Station ID: [id number]
[2021-10-06 15:26] VITALS: BP 122/75
== END 2021-10-06 15:45 | disposition home or self-care (01) ==
LOC: EDBD → EDUNIT# → ED 12:16
DX: M25.562 Pain in left knee (principal); I10 Essential (primary) hypertension
CPT/HCPCS: 99282; 99283

== ENCOUNTER 2021-10-06 15:44 | Outpatient (CLI) | payer MEDICARE, MEDICAID | END 2021-10-06 15:45 | disposition home or self-care (01) | LOC: EMS 15:44 | PROVIDERS: ATTEND Emergency Medicine | DX: I69.354 Hemiplegia and hemiparesis following cerebral infarction affecting left non-dominant side (principal); M25.569 Pain in unspecified knee | CPT/HCPCS: A0425; A0428 ==

== ENCOUNTER 2021-10-08 12:42 | Outpatient (CLI) | payer MEDICARE, MEDICAID | END 2021-10-08 12:43 | disposition critical access hospital (66) | LOC: EMS 12:42 | DX: M25.562 Pain in left knee (principal); L08.9 Local infection of the skin and subcutaneous tissue, unspecified | CPT/HCPCS: A0425; A0429 ==

== ENCOUNTER 2021-10-08 13:00 | Emergency (ER) | payer MEDICARE, MEDICAID ==
[2021-10-08] MEDS ORDERED: LIDOCAINE 1%-EPI 1:100000 20 ML MDV SUBQ STA (13:22)
--- NOTE | 2021-10-08 13:22 | ED Physician Documentation ---
History of Present Illness - Stated complaint Stated Complaint: KNEE PX - Chief complaint Chief Complaint: Wound - Additonal information Additional information: 60-year-old male with history of CVA with residual left-sided weakness presents by EMS from his half-way facility for abscesses on the back of his knee. Patient states that they have been present for approximately 1 week, gradual getting worse. He was sent in by his half-way facility for antibiotics and requested home health for wound care. Patient denies fevers, chills, any other complaints at this time. Review of Systems Constitutional: denies: Fever, Chills, Myalgias, Fatigue, Weight Loss, Sweats, Reviewed and negative, Other Eyes: denies: Loss of vision, Decreased vision, Photophobia, Discharge, Irritation, Reviewed and negative, Other Ears: denies: Loss of hearing, Ear pain, Drainage/discharge, Tinnitus/ringing, Foreign body, Reviewed and negative, Other Nose: denies: Rhinorrhea / runny nose, Congestion, Epistaxis, Sinus pressure / pain, Foreign Body, Reviewed and negative, Other Throat: denies: Dental pain / toothache, Oral lesions / sores, Sore throat, Swollen tonsils, Swallowed foreign body, Reviewed and negative, Other Cardiac: denies: Chest pain / pressure, Palpitations, Pedal edema, Calf pain, Reviewed and negative, Other Respiratory: denies: Dyspnea, Cough, Hemoptysis, Wheezing, Reviewed and negative, Other GI: denies: Abdominal Pain, Abdominal Swelling, Nausea, Vomiting, Constipation, Diarrhea, Hematemesis, Bloody / black stool, Reviewed and negative, Other : denies: Dysuria, Frequency, Hesitancy, Unable to Void, Incontinent, Hematuria, Discharge, LMP, Vaginal bleeding, Irregular menses, Missed period, Now EGA, Control, Hysterectomy, Testicular pain, Testicular mass, [place] Problem, Reviewed and negative, Other Skin: reports: Other (abscess x2, R posterior knee) Neurologic: denies: Generalized weakness, Focal weakness, Numbness, Difficulty speaking, Near syncope, Syncope, Seizure, Confused, Altered mental status, Unresponsive, Headache, Head injury, LOC, Reviewed and negative, Other PD PAST MEDICAL HISTORY - Past Medical History Cardiovascular: Hypertension, High cholesterol Respiratory: None Neuro: CVA Endocrine/Autoimmune: None GI: GERD : None HEENT: Chronic vision loss Psych: Depression, Anxiety Musculoskeletal: Osteoarthritis Derm: Psoriasis, Other - Past Surgical History Past Surgical History: No Neuro: Craniotomy - Present Medications Home Medications: Ambulatory Orders Medication Instructions Recorded Confirmed Acetaminophen [Pain Reliever] 650 mg PO Q8HR PRN 08/25/12 09/23/21 Amlodipine Besylate 10 mg PO DAILY 08/25/12 09/23/21 Cholecalciferol (Vitamin D3) 2,000 unit PO DAILY 08/25/12 09/23/21 [Vitamin D-3] Docusate Sodium 250 mg PO DAILY 08/25/12 09/23/21 Metoprolol Succinate 200 mg PO BID 08/25/12 09/23/21 Omeprazole [PriLOSEC] 20 mg PO DAILY 08/25/12 09/23/21 Potassium 10 meq PO BID 08/25/12 09/23/21 hydroCHLOROthiazide [Hydrodiuril] 25 mg PO DAILY 08/25/12 09/23/21 lisinopriL [Lisinopril] 40 mg PO DAILY 08/25/12 09/23/21 Sertraline [Zoloft] 100 mg PO DAILY 12/11/12 09/23/21 hydrOXYzine PAMOATE [Vistaril] 25 mg PO Q6H PRN #20 capsule 07/14/13 09/23/21 levETIRAcetam [Keppra] 750 mg PO BID 03/17/15 09/23/21 Clobetasol Propionate 15 gm TP ONCE PRN 04/22/18 09/23/21 Calcium Carbonate [Antacid] 200 mg PO PRN PRN 06/25/18 09/23/21 Ferrous Gluconate [Iron] 240 mg PO DAILY 06/25/18 09/23/21 Folic Acid 1 mg PO DAILY 09/17/20 09/23/21 Magnesium 250 mg PO HS 09/17/20 09/23/21 Pravastatin [Pravachol] 40 mg PO HS 09/17/20 09/23/21 Donepezil [Aricept] 5 mg PO DAILY #30 tablet 10/09/20 09/23/21 LORazepam [Ativan] 1 mg PO TID PRN #20 tablet 08/12/21 09/23/21 HYDROcod/ACETAM 5/325 [[place] 5/325] 1 - 2 tablet PO Q6H PRN #14 tablet 09/15/21 09/23/21 Amlodipine Besylate [Norvasc] 10 mg PO DAILY 09/23/21 09/23/21 Doxepin [SINEquan] 30 mg PO HS 09/23/21 09/23/21 Doxycycline Hyclate 100 mg PO BID #14 tab.sr 10/08/21 cephALEXin [Keflex] 500 mg PO Q6H #28 cap 10/08/21 - Allergies Allergies/Adverse Reactions: Allergies Allergy/AdvReac Type Severity Reaction Status Date / Time ceftriaxone sodium * Allergy Intermediate Hives Verified 10/06/21 12:31 [From Rocephin] - Social History Does the pt smoke?: No Smoking Status: Never smoker Does the pt drink ETOH?: No Does the pt have substance abuse?: No - Immunizations Immunizations are current?: Yes - POLST Patient has POLST: Yes POLST Status: Full Code PD ED PE NORMAL - Vitals Vital signs reviewed: Yes - General General: Alert and oriented X 3, No acute distress, Other (appears chronically unwell) - HEENT HEENT: Atraumatic, PERRL, EOMI - Neck Neck: Supple, no meningeal sign, No bony TTP, No JVD, No bruit, C-Spine cleared by NEXUS criteria - Cardiac Cardiac: RRR, No murmur - Respiratory Respiratory: No respiratory distress, Clear bilaterally - Abdomen Abdomen: Soft, Non tender - Back Back: No CVA TTP, No spinal TTP - Derm Derm: Other (abscess x2 on posterior knee, fluctuance present) - Extremities Extremities: Normal ROM s pain (No pain with ROM, no knee swelling), Other (Bandage on LLE with clean, dry dressing) - Neuro Neuro: Alert and oriented X 3, 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, Other (Chronic L sided weakness) - Psych Psych: Normal mood, Normal affect Results - Vitals Vitals: Vital Signs - 24 hr 10/08/21 13:18 Temperature 36.9 C Heart Rate 67 Respiratory 18 Rate Blood Pressure 110/65 O2 Saturation 99 Oxygen O2 Source Room air Procedures - Abscess I&D (location) Knee, Right Preparation: Confirmed with ultrasound, Lidocaine 1%, With epi Incision: Incised with scalpel, Purulent drainage, Loculations broken, Irrigated, Packed Other: Pt tolerated well, Dressing applied, Antibiotic prescribed Knee, rigth Preparation: Confirmed with ultrasound, Lidocaine 1%, With epi Incision: Incised with scalpel, Purulent drainage, Loculations broken, Irrigated, Packed Other: Pt tolerated well, Dressing applied, Antibiotic prescribed PD MEDICAL DECISION MAKING - ED course ED course: Patient presenting for evaluation of abscesses on the back of his leg. These were incised and drained per procedure notes. Wounds were packed, patient was given a dose of IV antibiotics in the emergency department. Of note, patient's record shows an allergy to Rocephin, stating that the reaction was hives, however patient did not know that he had this reaction. Patient received a dose of IV Rocephin in the department without any issue whatsoever. Patient will be discharged on Keflex and doxycycline to cover for MRSA since he is a nursing facility resident. Wound management instructions sent with patient's discharge paperwork. Social work was able to reach out to the patient's primary care physician in order to arrange for home health care. Patient discharged back to his facility in stable condition. Departure - Departure Disposition: 01 Home, Self Care Clinical Impression: Abscess Condition: Good Instructions: ED Abscess IandD Prescriptions: Doxycycline Hyclate 100 mg PO BID #14 tab.sr cephALEXin [Keflex] 500 mg PO Q6H #28 cap Comments: TAKE ALL ANTIBIOTICS PRESCRIBED. CHANGE DRESSINGS ON LEG AT LEAST ONCE DAILY, PREFERABLY TWICE. REMOVE 1CM OF PACKING DAILY, REPLACE WITH CLEAN, DRY GAUZE. RETURN IN 48 HOURS IF NO IMPROVEMENT WITH ORAL ANTIBIOTICS.
[2021-10-08] MEDS: oxyCODONE/ACET 5/325 Prepack 4 PO STA ×2 (13:36→14:04)
[2021-10-08] MEDS ORDERED: oxyCODONE 5 MG TABLET PO STA (13:59)
[2021-10-08] MEDS ORDERED: cefTRIAXone 1 GM in SODIUM CHLORIDE 0.9% MINIBAG 100 ML IV STA (14:53)
[2021-10-08] MEDS ORDERED: VANCOMYCIN INJ 2 GM in SODIUM CHLORIDE 0.9% 500 ML IV STA (14:53)
[2021-10-08] MEDS ORDERED: IBUPROFEN 400 MG TABLET PO STA (16:34)
[2021-10-08 19:22] VITALS: BP 119/63
== END 2021-10-08 19:21 | disposition home or self-care (01) ==
LOC: EDUNIT# → ED 13:00
DX: L02.419 Cutaneous abscess of limb, unspecified (principal); I10 Essential (primary) hypertension
CPT/HCPCS: 10061; 96365; 96366; 96367; 99284; A9270; J3370

== ENCOUNTER 2021-10-10 14:00 | Outpatient (CLI) | payer MEDICARE, MEDICAID | END 2021-10-10 14:01 | disposition EMS.NT | LOC: EMS 14:00 | DX: Z03.89 Encounter for observation for other suspected diseases and conditions ruled out (principal) ==

== ENCOUNTER 2021-10-12 21:16 | Outpatient (CLI) | payer MEDICARE, MEDICAID | END 2021-10-12 21:17 | disposition critical access hospital (66) | LOC: EMS 21:16 | DX: M79.672 Pain in left foot (principal) | CPT/HCPCS: A0425; A0429 ==

== ENCOUNTER 2021-10-12 21:33 | Emergency (ER) | payer MEDICARE, MEDICAID ==
--- NOTE | 2021-10-12 22:14 | ED Physician Documentation ---
History of Present Illness - Stated complaint Stated Complaint: L FOOT PX - Chief complaint Chief Complaint: Ext Problem - History obtained from History obtained from: Patient - History of Present Illness Timing: Today - Additonal information Additional information: 60-year-old Reagan Louis has had a CVA with left hemiparesis and is in a custodial. He is at [facility]. He had a fall and fracture dislocation of his left ankle back in August and he has had a surgical repair of this and has an appointment to see Dr. Ambrosio tomorrow. He was seen in the emergency department here 4 days ago for an abscess behind his knee. This was lanced and drained and he was put on keflex and doxy. His wound is improving but today he went to urgent care to get the dressing changed as this service is not currently available at [facility]. This evening he has pain to his foot an leg. Review of Systems Constitutional: denies: Fever Ears: denies: Ear pain Throat: denies: Sore throat Respiratory: denies: Cough GI: denies: Diarrhea Musculoskeletal: reports: Extremity pain. denies: Neck pain, Back pain Neurologic: reports: Focal weakness (similar to always), Difficulty speaking (similar to always). denies: Generalized weakness PD PAST MEDICAL HISTORY - Past Medical History Past Medical History: Yes Cardiovascular: Hypertension, High cholesterol Respiratory: None Neuro: CVA Endocrine/Autoimmune: None GI: GERD : None HEENT: Chronic vision loss Psych: Depression, Anxiety Musculoskeletal: Osteoarthritis Derm: Psoriasis, Other - Past Surgical History Past Surgical History: Yes Neuro: Craniotomy - Present Medications Home Medications: Ambulatory Orders Medication Instructions Recorded Confirmed Acetaminophen [Pain Reliever] 650 mg PO Q8HR PRN 08/25/12 09/23/21 Amlodipine Besylate 10 mg PO DAILY 08/25/12 09/23/21 Cholecalciferol (Vitamin D3) 2,000 unit PO DAILY 08/25/12 09/23/21 [Vitamin D-3] Docusate Sodium 250 mg PO DAILY 08/25/12 09/23/21 Metoprolol Succinate 200 mg PO BID 08/25/12 09/23/21 Omeprazole [PriLOSEC] 20 mg PO DAILY 08/25/12 09/23/21 Potassium 10 meq PO BID 08/25/12 09/23/21 hydroCHLOROthiazide [Hydrodiuril] 25 mg PO DAILY 08/25/12 09/23/21 lisinopriL [Lisinopril] 40 mg PO DAILY 08/25/12 09/23/21 Sertraline [Zoloft] 100 mg PO DAILY 12/11/12 09/23/21 hydrOXYzine PAMOATE [Vistaril] 25 mg PO Q6H PRN #20 capsule 07/14/13 09/23/21 levETIRAcetam [Keppra] 750 mg PO BID 03/17/15 09/23/21 Clobetasol Propionate 15 gm TP ONCE PRN 04/22/18 09/23/21 Calcium Carbonate [Antacid] 200 mg PO PRN PRN 06/25/18 09/23/21 Ferrous Gluconate [Iron] 240 mg PO DAILY 06/25/18 09/23/21 Folic Acid 1 mg PO DAILY 09/17/20 09/23/21 Magnesium 250 mg PO HS 09/17/20 09/23/21 Pravastatin [Pravachol] 40 mg PO HS 09/17/20 09/23/21 Donepezil [Aricept] 5 mg PO DAILY #30 tablet 10/09/20 09/23/21 LORazepam [Ativan] 1 mg PO TID PRN #20 tablet 08/12/21 09/23/21 HYDROcod/ACETAM 5/325 [[place] 5/325] 1 - 2 tablet PO Q6H PRN #14 tablet 09/15/21 09/23/21 Amlodipine Besylate [Norvasc] 10 mg PO DAILY 09/23/21 09/23/21 Doxepin [SINEquan] 30 mg PO HS 09/23/21 09/23/21 Doxycycline Hyclate 100 mg PO BID #14 tab.sr 10/08/21 cephALEXin [Keflex] 500 mg PO Q6H #28 cap 10/08/21 - Allergies Allergies/Adverse Reactions: Allergies Allergy/AdvReac Type Severity Reaction Status Date / Time ceftriaxone sodium * Allergy Intermediate Hives Verified 10/12/21 21:44 [From Rocephin] - Social History Does the pt smoke?: No Smoking Status: Never smoker Does the pt drink ETOH?: No Does the pt have substance abuse?: No - Immunizations Immunizations are current?: Yes - POLST Patient has POLST: Yes POLST Status: Full Code PD ED PE NORMAL - Vitals Vital signs reviewed: Yes (hypertensive ) - General General: Alert and oriented X 3, No acute distress, Well developed/nourished - Respiratory Respiratory: No respiratory distress - Derm Derm: Normal color, Warm and dry, No rash - Extremities Extremities: Other (The bandaging to the left knee is constricting and is removed with relief of symptoms. The wounds from the abcess appear to be healing well. The splint is taken down and the surgical site appears to be healing well without signs of infection. 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 Eye Opening: Spontaneous Motor: Obeys Commands Verbal: Oriented GCS Score: 15 - Psych Psych: Normal mood, Normal affect Results - Vitals Vitals: Vital Signs - 24 hr 10/12/21 10/12/21 10/12/21 21:41 22:24 22:38 Temperature 37.1 C Heart Rate 63 97 97 Respiratory 16 17 Rate Blood Pressure 134/89 H 117/87 H O2 Saturation 97 97 Oxygen O2 Source Room air PD MEDICAL DECISION MAKING - ED course Complexity details: reviewed old records, reviewed results, re-evaluated patient, considered differential, d/w patient ED course: 60-year-old male with a recent fracture dislocation of his ankle has had surgery to the ankle and he has had his foot in a splint and he has had some abscess drained to the back of his knee. Today he began to have some pain to his foot and this became intolerable and the patient was brought to the hospital. He has been found to have a tight dressing at the knee this was removed with resolution of the patient's pain. His splint was taken down and replaced for evaluation of his wounds which look to be healing well without signs of infection. He has appointment to see Dr. Wilson tomorrow. Departure - Departure Disposition: 01 Home, Self Care Clinical Impression: Change or removal of wound dressing Condition: Stable Instructions: ED Bandage Change Follow-Up: Gilles Barrera MD [Provider Admit Priv/Credential] - Comments: Reagan today it looks like the dressing to the posterior part of your knee where the abscess was drained was a bit tight. We have replaced this and the underlying wound looks to be healing well. Follow-up with Dr. Barrera tomorrow as planned. Discharge Date/Time: 10/12/21 22:56
[2021-10-12 22:26] VITALS: BP 117/87
== END 2021-10-12 22:56 | disposition home or self-care (01) ==
LOC: EDUNIT# → ED 21:33
DX: Z48.01 Encounter for change or removal of surgical wound dressing (principal)
CPT/HCPCS: 99281; 99283

== ENCOUNTER 2021-10-14 17:36 | Emergency (ER) | payer MEDICARE, MEDICAID ==
--- NOTE | 2021-10-14 18:21 | ED Physician Documentation ---
PD HPI WOUND RECHECK - Stated complaint Stated Complaint: WOUND CHANGE - Chief complaint Chief Complaint: Wound - Histroy obtained from History obtained from: Patient - History of Present Illness Location: Left Lower Extremity (had abscess left popliteal that opened spontaneously with palpation and had purulence expressed in ER 2 days ago. Was to get dressing change. Went to Walk In and deferred back to ER for dressing change today.) Associated symptoms: No: Redness (he states redness and swelling have decreased well. No drainage the past day or so.), Drainage Recently seen: Emergency Dept Review of Systems Constitutional: denies: Fever, Chills Neurologic: reports: Focal weakness (prior CVA with left arm/leg weakness and wears ankle splint regularly for foot drop.) PD PAST MEDICAL HISTORY - Past Medical History Cardiovascular: Hypertension, High cholesterol Respiratory: None Neuro: CVA Endocrine/Autoimmune: None GI: GERD : None HEENT: Chronic vision loss Psych: Depression, Anxiety Musculoskeletal: Osteoarthritis Derm: Psoriasis, Other - Past Surgical History Past Surgical History: Yes Neuro: Craniotomy - Present Medications Home Medications: Ambulatory Orders Medication Instructions Recorded Confirmed Acetaminophen [Pain Reliever] 650 mg PO Q8HR PRN 08/25/12 09/23/21 Amlodipine Besylate 10 mg PO DAILY 08/25/12 09/23/21 Cholecalciferol (Vitamin D3) 2,000 unit PO DAILY 08/25/12 09/23/21 [Vitamin D-3] Docusate Sodium 250 mg PO DAILY 08/25/12 09/23/21 Metoprolol Succinate 200 mg PO BID 08/25/12 09/23/21 Omeprazole [PriLOSEC] 20 mg PO DAILY 08/25/12 09/23/21 Potassium 10 meq PO BID 08/25/12 09/23/21 hydroCHLOROthiazide [Hydrodiuril] 25 mg PO DAILY 08/25/12 09/23/21 lisinopriL [Lisinopril] 40 mg PO DAILY 08/25/12 09/23/21 Sertraline [Zoloft] 100 mg PO DAILY 12/11/12 09/23/21 hydrOXYzine PAMOATE [Vistaril] 25 mg PO Q6H PRN #20 capsule 07/14/13 09/23/21 levETIRAcetam [Keppra] 750 mg PO BID 03/17/15 09/23/21 Clobetasol Propionate 15 gm TP ONCE PRN 04/22/18 09/23/21 Calcium Carbonate [Antacid] 200 mg PO PRN PRN 06/25/18 09/23/21 Ferrous Gluconate [Iron] 240 mg PO DAILY 06/25/18 09/23/21 Folic Acid 1 mg PO DAILY 09/17/20 09/23/21 Magnesium 250 mg PO HS 09/17/20 09/23/21 Pravastatin [Pravachol] 40 mg PO HS 09/17/20 09/23/21 Donepezil [Aricept] 5 mg PO DAILY #30 tablet 10/09/20 09/23/21 LORazepam [Ativan] 1 mg PO TID PRN #20 tablet 08/12/21 09/23/21 HYDROcod/ACETAM 5/325 [[place] 5/325] 1 - 2 tablet PO Q6H PRN #14 tablet 09/15/21 09/23/21 Amlodipine Besylate [Norvasc] 10 mg PO DAILY 09/23/21 09/23/21 Doxepin [SINEquan] 30 mg PO HS 09/23/21 09/23/21 Doxycycline Hyclate 100 mg PO BID #14 tab.sr 10/08/21 cephALEXin [Keflex] 500 mg PO Q6H #28 cap 10/08/21 - Allergies Allergies/Adverse Reactions: Allergies Allergy/AdvReac Type Severity Reaction Status Date / Time ceftriaxone sodium * Allergy Intermediate Hives Verified 10/14/21 18:02 [From Rocephin] - Social History Does the pt smoke?: No Smoking Status: Never smoker Does the pt drink ETOH?: No Does the pt have substance abuse?: No - Immunizations Immunizations are current?: Yes - POLST Patient has POLST: Yes POLST Status: Full Code PD ED PE NORMAL - Vitals Vital signs reviewed: Yes - General General: Alert and oriented X 3, No acute distress, Well developed/nourished - Derm Derm: Normal color, Warm and dry - Extremities Extremities: Other (prior I&D popliteal area, without redness nor fluctuance. The small drainage hole is healing. No discharge with palpation. Ankle splints noted bilaterally. ) Results - Vitals Vitals: Vital Signs - 24 hr 10/14/21 10/14/21 17:58 18:59 Temperature 36.4 C L 36.9 C Heart Rate 78 56 L Respiratory 14 18 Rate Blood Pressure 148/84 H 113/66 O2 Saturation 98 97 Oxygen O2 Source Room air PD MEDICAL DECISION MAKING - ED course Complexity details: reviewed old records (prior I&D popliteal area, without redness nor fluctuance. The small drainage hole is healing. No discharge with palpation. ), considered differential (here for dressing change. deferred by Walk In. Wound is healing well. Not sure why could not be dressing change at Walk In. Has PMD appt in 2 days so next can be there. ), d/w patient Departure - Departure Disposition: 01 Home, Self Care Clinical Impression: Dressing change or removal, nonsurgical wound Condition: Stable Record reviewed to determine appropriate education?: Yes Follow-Up: Allyson Solomon ARNP [Primary Care Provider] - Comments: The wound appears good at this point. You could just leave the dressing we applied tonight on until your follow-up on Tuesday. Recheck if problems. Discharge Date/Time: 10/14/21 18:59
[2021-10-14] MEDS ORDERED: BACITRACIN ZINC OINT 1 PACKET TOP STA (18:45)
[2021-10-14 18:59] VITALS: BP 113/66
== END 2021-10-14 18:59 | disposition home or self-care (01) ==
LOC: ED 17:36
DX: Z48.00 Encounter for change or removal of nonsurgical wound dressing (principal); I10 Essential (primary) hypertension
CPT/HCPCS: 99281

== ENCOUNTER 2021-11-10 08:00 | Outpatient (CLI) | payer MEDICARE, MEDICAID ==
--- NOTE | 2021-11-11 09:28 | XRAY Report ---
PROCEDURE: Ankle 3 View LT INDICATIONS: ANKLE ORIF TECHNIQUE: 3 views of the ankle were acquired. COMPARISON: 09/22/2021 FINDINGS: Bones: Plate/screw fixation of bimalleolar fracture. There is appropriate interval progress toward he aling. Ankle mortise alignment is maintained. Soft tissues: Soft tissue swelling persists. IMPRESSION: Plate/screw fixation for bimalleolar fracture with evidence of healing. Reviewed by: Bakari Badillo MD on 11/11/2021 9:27 AM PDT Approved by: Bakari Badillo MD on 11/11/2021 9:27 AM PDT Station ID: [id number]
== END 2021-11-10 23:59 | disposition home or self-care (01) ==
LOC: DI.WOS 08:00
PROVIDERS: ATTEND Orthopaedic Surgery
DX: S82.842D Displaced bimalleolar fracture of left lower leg, subsequent encounter for closed fracture with routine healing (principal)

== ENCOUNTER 2022-03-15 07:53 | Outpatient (CLI) | payer MEDICARE, MEDICAID ==
[2022-03-15 12:26] LABS: BASOPHILS % (AUTO) 0.4 %; EOSINOPHILS # (AUTO) 0.1 10^3/uL (0.0-0.7); EOSINOPHILS % (AUTO) 1.7 %; HCT - HEMATOCRIT 44.1 % (42.0-52.0); HGB - HEMOGLOBIN 14.5 g/dL (14.0-18.0); LYMPHOCYTES # (AUTO) 0.9 10^3/uL (1.5-3.5); LYMPHOCYTES % (AUTO) 16.9 %; MEAN CORPUSCULAR HEMOGLOBIN 31.1 pg (27.0-31.0); MEAN CORPUSCULAR HGB CONC 32.9 g/dL (32.0-36.0); MEAN CORPUSCULAR VOLUME 94.6 fL (80.0-94.0); MEAN PLATELET VOLUME 9.6 fL (7.4-11.4); MONOCYTES # (AUTO) 0.3 10^3/uL (0.0-1.0); MONOCYTES % (AUTO) 4.8 %; NEUTROPHILS # (AUTO) 4.1 10^3/uL (1.5-6.6); PLT - PLATELET COUNT 155 10^3/uL (130-450); RED BLOOD COUNT 4.66 10^6/uL (4.70-6.10); RED CELL DISTRIBUTION WIDTH 14.2 % (12.0-15.0); WHITE BLOOD COUNT 5.4 x10^3/uL (4.8-10.8)
[2022-03-15 12:40] LABS: ALKALINE PHOSPHATASE 79 IU/L (42-121); ALT ALANINE AMINOTRANSFERASE 46 IU/L (10-60); AST ASPARTATE AMINOTRANSFERASE 38 IU/L (10-42); BILIRUBIN,TOTAL 0.8 mg/dL (0.2-1.0); BUN - BLOOD UREA NITROGEN 23 mg/dL (6-20); CALCIUM 9.8 mg/dL (8.5-10.3); CARBON DIOXIDE - CO2 35 mmol/L (21-32); CHLORIDE 99 mmol/L (101-111); CHOL/HDL RATIO 2.9 (<5.0); CHOLESTEROL 146 mg/dL; GFR - MDRD 76 (>89); GLUCOSE 104 mg/dL (70-100); HDL CHOLESTEROL 51 mg/dL; LDL CHOLESTEROL,CALCULATED 86 mg/dL; LDL/HDL RATIO 1.7 (<3.6); POTASSIUM 3.6 mmol/L (3.5-5.0); SODIUM 142 mmol/L (135-145); TOTAL PROTEIN 8.1 g/dL (6.7-8.2); TRIGLYCERIDES 45 mg/dL; VLDL CHOLESTEROL 9 mg/dL
[2022-03-15 12:47] LABS: THYROID STIMULATING HORMONE 2.85 uIU/mL (0.34-5.60)
== END 2022-03-15 07:54 | disposition home or self-care (01) ==
LOC: LAB.N 07:53
PROVIDERS: ATTEND Nurse Practitioner Family
DX: I10 Essential (primary) hypertension (principal); E78.2 Mixed hyperlipidemia; G40.909 Epilepsy, unspecified, not intractable, without status epilepticus; Z79.899 Other long term (current) drug therapy
CPT/HCPCS: 36415; 80053; 80061; 80175; 83721; 84443; 85025

== ENCOUNTER 2022-05-20 07:25 | Outpatient (CLI) | payer MEDICARE, MEDICAID | END 2022-05-20 07:26 | disposition home or self-care (01) | LOC: LAB.N 07:25 | PROVIDERS: ATTEND Nurse Practitioner Family | DX: G40.909 Epilepsy, unspecified, not intractable, without status epilepticus (principal) | CPT/HCPCS: 36415; 80177 ==

== ENCOUNTER 2022-10-27 12:01 | Outpatient (CLI) | payer MEDICARE, MEDICAID | END 2022-10-27 23:59 | disposition critical access hospital (66) | LOC: EMS 12:01 | DX: M79.662 Pain in left lower leg (principal); R53.1 Weakness | CPT/HCPCS: A0425; A0429 ==

== ENCOUNTER 2022-10-27 12:18 | Emergency (ER) | payer MEDICARE, MEDICAID ==
[2022-10-27 12:37] VITALS: BP 96/68
--- NOTE | 2022-10-27 13:18 | XRAY Report ---
PROCEDURE: Ankle 3 View LT INDICATIONS: Ankle pain, fall TECHNIQUE: 3 views of the ankle were acquired. COMPARISON: 12/08/2021 FINDINGS: Bones: Expected appearance of medial and lateral malleolar hardware. No evidence of hardware failure or loosening. Diffuse osteopenia. No identifiable fractures. No dislocations. Ankle mortise is kendy lly aligned. No suspicious bony lesions. Soft tissues: No tibiotalar joint effusion. Achilles tendon appears normal. Ankle edema. IMPRESSION: No acute bony abnormality. If there remains a high clinical concern for fracture, consider cross-sect ional imaging now. If pain persists, consider repeat x-ray in 10-14 days or cross-sectional imaging. Reviewed by: John Forrester MD on 10/27/2022 1:17 PM PDT Approved by: John Forrester MD on 10/27/2022 1:17 PM PDT Station ID: [id number]
--- NOTE | 2022-10-27 13:42 | ED Physician Documentation ---
History of Present Illness - Stated complaint Stated Complaint: L LEG PX - Chief complaint Chief Complaint: Trauma Ext - Additonal information Additional information: Patient 61-year-old male coming to the emergency department chief complaint left ankle pain. Slipped and fell while it would be coffee bathroom. Needed assistance getting back into his wheelchair. He is ordinarily wheelchair-bound. He did slip and fall injuring his ankle 1 week ago. Reports pain is worse after fall today. Denies any new leg swelling but does report bruising. Denies head trauma or loss of consciousness. Review of Systems Constitutional: denies: Fever Eyes: denies: Loss of vision Ears: denies: Loss of hearing Nose: denies: Rhinorrhea / runny nose Throat: denies: Dental pain / toothache Cardiac: denies: Chest pain / pressure Respiratory: denies: Dyspnea GI: denies: Abdominal Pain : denies: Dysuria Skin: denies: Rash Musculoskeletal: denies: Neck pain Neurologic: denies: Generalized weakness Psychiatric: denies: Depressed PD PAST MEDICAL HISTORY - Past Medical History Past Medical History: Yes Cardiovascular: Hypertension, High cholesterol, Angina Respiratory: None Neuro: CVA, Seizure disorder, Other Endocrine/Autoimmune: None GI: GERD : None HEENT: Chronic vision loss Psych: Depression, Anxiety Musculoskeletal: Osteoarthritis, Hemiplegia Derm: Psoriasis, Other - Past Surgical History Past Surgical History: Yes Neuro: Craniotomy - Present Medications Home Medications: Ambulatory Orders Medication Instructions Recorded Confirmed Acetaminophen [Pain Reliever] 650 mg PO Q8HR PRN 08/25/12 09/23/21 Amlodipine Besylate 10 mg PO DAILY 08/25/12 09/23/21 Cholecalciferol (Vitamin D3) 2,000 unit PO DAILY 08/25/12 09/23/21 [Vitamin D-3] Docusate Sodium 250 mg PO DAILY 08/25/12 09/23/21 Metoprolol Succinate 200 mg PO BID 08/25/12 09/23/21 Omeprazole [PriLOSEC] 20 mg PO DAILY 08/25/12 09/23/21 Potassium 10 meq PO BID 08/25/12 09/23/21 hydroCHLOROthiazide [Hydrodiuril] 25 mg PO DAILY 08/25/12 09/23/21 lisinopriL [Lisinopril] 40 mg PO DAILY 08/25/12 09/23/21 Sertraline [Zoloft] 100 mg PO DAILY 12/11/12 09/23/21 hydrOXYzine PAMOATE [Vistaril] 25 mg PO Q6H PRN #20 capsule 07/14/13 09/23/21 levETIRAcetam [Keppra] 750 mg PO BID 03/17/15 09/23/21 Clobetasol Propionate 15 gm TP ONCE PRN 04/22/18 09/23/21 Calcium Carbonate [Antacid] 200 mg PO PRN PRN 06/25/18 09/23/21 Ferrous Gluconate [Iron] 240 mg PO DAILY 06/25/18 09/23/21 Folic Acid 1 mg PO DAILY 09/17/20 09/23/21 Magnesium 250 mg PO HS 09/17/20 09/23/21 Pravastatin [Pravachol] 40 mg PO HS 09/17/20 09/23/21 Donepezil [Aricept] 5 mg PO DAILY #30 tablet 10/09/20 09/23/21 LORazepam [Ativan] 1 mg PO TID PRN #20 tablet 08/12/21 09/23/21 HYDROcod/ACETAM 5/325 [[place] 5/325] 1 - 2 tablet PO Q6H PRN #14 tablet 09/15/21 09/23/21 Amlodipine Besylate [Norvasc] 10 mg PO DAILY 09/23/21 09/23/21 Doxepin [SINEquan] 30 mg PO HS 09/23/21 09/23/21 Doxycycline Hyclate 100 mg PO BID #14 tab.sr 10/08/21 cephALEXin [Keflex] 500 mg PO Q6H #28 cap 10/08/21 - Allergies Allergies/Adverse Reactions: Allergies Allergy/AdvReac Type Severity Reaction Status Date / Time ceftriaxone sodium * Allergy Intermediate Hives Verified 10/27/22 12:28 [From Rocephin] - Social History Does the pt smoke?: No Smoking Status: Never smoker Does the pt drink ETOH?: No Does the pt have substance abuse?: No - Immunizations Immunizations are current?: Yes - POLST Patient has POLST: Yes POLST Status: Full Code PD ED PE NORMAL - General General: Alert and oriented X 3, No acute distress, Well developed/nourished, Other - HEENT HEENT: Atraumatic, PERRL, EOMI, Ears normal, Moist mucous membranes, Pharynx be nign - Neck Neck: Supple, no meningeal sign, No bony TTP, No adenopathy, No JVD, No bruit, C-Spine cleared by NEXUS criteria - Cardiac Cardiac: RRR, No murmur, No gallop, No rub - Respiratory Respiratory: No respiratory distress - Abdomen Abdomen: Normal bowel sounds - Male Male : Deferred - Rectal Rectal: Deferred - Back Back: No CVA TTP - Derm Derm: Normal color - Extremities Extremities: Other (Tenderness to palpation of the medial malleolus.) - Neuro Neuro: Alert and oriented X 3, No sensory deficit, Normal speech. No: extension educator 2-12 intact (Right-sided facial droop consistent with no neurologic deficits) Results - Vitals Vitals: Vital Signs - 24 hr 10/27/22 12:28 Temperature 36.6 C Heart Rate 50 L Respiratory 16 Rate Blood Pressure 96/68 O2 Saturation 94 Oxygen O2 Source Room air PD Medical Decision Making - ED course Complexity details: reviewed results, re-evaluated patient, d/w patient ED course: Patient 61-year-old male presenting to the emergency department with left ankle pain. This is after fall that occurred 1 week ago as well as fall that occurred earlier today. No reported head trauma or use of blood thinners. No loss of consciousness. Some tenderness to palpation noted as well as mild ecchymosis at the lateral malleolus. No edema or leg swelling noted. X-rays negative for acute fracture. DVT is considered in the differential although this is far less likely as there is clear history of trauma. Will discharge for follow-up with primary care. Clear return precautions given. Departure - Departure Disposition: 01 Home, Self Care Clinical Impression: Ankle injury Qualifiers: Encounter type: subsequent encounter Laterality: left Qualified Code(s): S99.912D - Unspecified injury of left ankle, subsequent encounter Instructions: ED Sprain Ankle W X Ray Comments: [facility] The x-rays of your ankle today did not show any acute fracture. I like he can to continue to place ice packs and keep the injured ankle elevated at home is much as possible. Please make a follow-up appoint with your primary care doctor. If it anytime you have new or worsening symptoms please not hesitate to return.
[2022-10-27] MEDS ORDERED: HYDROcod/ACETAM 5/325 MG TABLET PO STA (13:47)
== END 2022-10-27 16:20 | disposition home or self-care (01) ==
LOC: EDUNIT# → ED 12:18
DX: S99.912D Unspecified injury of left ankle, subsequent encounter (principal); W01.0XXD Fall on same level from slipping, tripping and stumbling without subsequent striking against object, subsequent encounter
CPT/HCPCS: 73610; 99283; A9270

== ENCOUNTER 2022-12-03 11:56 | Outpatient (CLI) | payer MEDICARE, MEDICAID | END 2022-12-03 23:59 | disposition short-term general hospital (02) | LOC: EMS 11:56 | DX: S00.81XA Abrasion of other part of head, initial encounter (principal); R51.9 Headache, unspecified; S60.512A Abrasion of left hand, initial encounter; S60.511A Abrasion of right hand, initial encounter; W05.0XXA Fall from non-moving wheelchair, initial encounter; Y92.098 Other place in other non-institutional residence as the place of occurrence of the external cause | CPT/HCPCS: A0425; A0429 ==

== ENCOUNTER 2023-04-15 07:45 | Outpatient (CLI) | payer MEDICARE, MEDICAID ==
[2023-04-15 12:35] LABS: BASOPHILS % (AUTO) 0.2 %; EOSINOPHILS # (AUTO) 0.1 10^3/uL (0.0-0.7); EOSINOPHILS % (AUTO) 1.7 %; HGB - HEMOGLOBIN 12.9 g/dL (14.0-18.0); LYMPHOCYTES # (AUTO) 1.1 10^3/uL (1.5-3.5); LYMPHOCYTES % (AUTO) 23.6 %; MEAN CORPUSCULAR HEMOGLOBIN 29.1 pg (27.0-31.0); MEAN CORPUSCULAR HGB CONC 31.5 g/dL (32.0-36.0); MEAN CORPUSCULAR VOLUME 92.3 fL (80.0-94.0); MEAN PLATELET VOLUME 10.1 fL (7.4-11.4); MONOCYTES # (AUTO) 0.5 10^3/uL (0.0-1.0); MONOCYTES % (AUTO) 10.8 %; NEUTROPHILS % (AUTO) 63.5 %; PLT - PLATELET COUNT 158 10^3/uL (130-450); RED BLOOD COUNT 4.44 10^6/uL (4.70-6.10); WHITE BLOOD COUNT 4.7 x10^3/uL (4.8-10.8)
[2023-04-15 13:30] LABS: ALBUMIN 3.6 g/dL (3.2-5.5); ALBUMIN/GLOBULIN RATIO 0.9 (1.0-2.2); BILIRUBIN,TOTAL 0.4 mg/dL (0.2-1.0); CALCIUM 9.4 mg/dL (8.5-10.3); CREATININE 0.8 mg/dL (0.6-1.3); POTASSIUM 3.4 mmol/L (3.5-4.5); TOTAL PROTEIN 7.4 g/dL (6.4-8.9)
[2023-04-15 13:35] LABS: ESTIMATED AVERAGE GLUCOSE 123 mg/dL (70-100); HEMOGLOBIN A1c% 5.9 % (4.27-6.07)
[2023-04-15 13:37] LABS: THYROID STIMULATING HORMONE 2.4 uIU/mL (0.34-5.60)
[2023-04-15 13:44] LABS: FERRITIN 21.1 ng/mL (23.9-336.2)
[2023-04-15 14:11] LABS: BILIRUBIN,URINE NEGATIVE (NEGATIVE); GLUCOSE, URINE (UA) NEGATIVE (NEGATIVE); KETONES,URINE (UA) NEGATIVE (NEGATIVE); LEUKOCYTE ESTERASE, URINE NEGATIVE (NEGATIVE); NITRITE,URINE NEGATIVE (NEGATIVE); OCCULT BLOOD,URINE NEGATIVE (NEGATIVE); PROTEIN,URINE NEGATIVE (NEGATIVE); UROBILINOGEN,URINE 0.2 (NORMAL) E.U./dL (NORMAL)
[2023-04-15 14:12] LABS: CLARITY,URINE CLOUDY (CLEAR)
[2023-04-15 14:53] LABS: RBC,URINE 0-5 /HPF (0-5); SQUAMOUS EPITHELIAL CELL,UR NONE SEEN (<= Few); WBC,URINE 0-3 /HPF (0-3)
[2023-04-15 14:54] LABS: BACTERIA,URINE Few /HPF (None Seen)
[2023-04-15 14:55] LABS: AMORPHOUS SEDIMENT,UR Moderate /LPF
== END 2023-04-15 07:46 | disposition home or self-care (01) ==
LOC: LAB.N 07:45
PROVIDERS: ATTEND Nurse Practitioner Family
DX: F91.8 Other conduct disorders (principal); Z79.899 Other long term (current) drug therapy; F32.A Depression, unspecified
CPT/HCPCS: 36415; 80053; 81001; 82607; 82728; 82746; 83036; 83540; 84443; 84466; 85025; 87086

== ENCOUNTER 2023-04-23 10:32 | Outpatient (CLI) | payer MEDICARE, MEDICAID | END 2023-04-23 10:33 | disposition critical access hospital (66) | LOC: EMS 10:32 | DX: S00.31XA Abrasion of nose, initial encounter (principal); W19.XXXA Unspecified fall, initial encounter; Y92.092 Bedroom in other non-institutional residence as the place of occurrence of the external cause; R11.2 Nausea with vomiting, unspecified; I69.354 Hemiplegia and hemiparesis following cerebral infarction affecting left non-dominant side | CPT/HCPCS: A0425; A0427 ==

== ENCOUNTER 2023-04-23 10:49 | Emergency (ER) | payer MEDICARE, MEDICAID ==
[2023-04-23] MEDS ORDERED: SODIUM CHLORIDE 0.9% 1,000 ML IV STA (11:18)
[2023-04-23] MEDS ORDERED: levETIRAcetam 500 MG/5 ML VIAL IVP STA (11:18)
--- NOTE | 2023-04-23 11:19 | ED Physician Documentation ---
History of Present Illness - Stated complaint Stated Complaint: FALL/SZ - Chief complaint Chief Complaint: General - History obtained from History obtained from: Patient, EMS - History of Present Illness Timing: Today - Additonal information Additional information: Developed gastroenteritis last night with vomiting and diarrhea after eating at a restaurant did not take his Keppra had a seizure this morning. Review of Systems Constitutional: denies: Fever Eyes: denies: Decreased vision Ears: denies: Ear pain Nose: denies: Congestion Throat: denies: Sore throat Respiratory: denies: Cough GI: reports: Nausea, Vomiting, Diarrhea : denies: Dysuria, Frequency Skin: denies: Rash Musculoskeletal: denies: Neck pain, Back pain, Joint pain Neurologic: reports: Focal weakness (to the left side as previousl), Difficulty speaking (similar to always), Seizure. denies: Generalized weakness PD PAST MEDICAL HISTORY - Past Medical History Cardiovascular: Hypertension, High cholesterol, Angina Respiratory: None Neuro: CVA, Seizure disorder, Other Endocrine/Autoimmune: None GI: GERD : None HEENT: Chronic vision loss Psych: Depression, Anxiety Musculoskeletal: Osteoarthritis, Hemiplegia Derm: Psoriasis, Other - Past Surgical History Past Surgical History: Yes Neuro: Craniotomy - Present Medications Home Medications: Ambulatory Orders Medication Instructions Recorded Confirmed Acetaminophen [Pain Reliever] 650 mg PO Q8HR PRN 08/25/12 04/23/23 Cholecalciferol (Vitamin D3) 2,000 unit PO DAILY 08/25/12 04/23/23 [Vitamin D-3] Docusate Sodium 250 mg PO DAILY 08/25/12 04/23/23 Metoprolol Succinate 200 mg PO BID 08/25/12 04/23/23 Omeprazole [PriLOSEC] 20 mg PO DAILY 08/25/12 04/23/23 Potassium 10 meq PO BID 08/25/12 04/23/23 hydroCHLOROthiazide [Hydrodiuril] 25 mg PO DAILY 08/25/12 04/23/23 lisinopriL [Lisinopril] 40 mg PO DAILY 08/25/12 04/23/23 Sertraline [Zoloft] 100 mg PO DAILY 12/11/12 04/23/23 hydrOXYzine PAMOATE [Vistaril] 25 mg PO Q6H PRN #20 capsule 07/14/13 04/23/23 levETIRAcetam [Keppra] 750 mg PO BID 03/17/15 04/23/23 Clobetasol Propionate 15 gm TP ONCE PRN 04/22/18 04/23/23 Calcium Carbonate [Antacid] 200 mg PO PRN PRN 06/25/18 04/23/23 Folic Acid 1 mg PO DAILY 09/17/20 04/23/23 Magnesium 250 mg PO HS 09/17/20 04/23/23 Pravastatin [Pravachol] 40 mg PO HS 09/17/20 04/23/23 Donepezil [Aricept] 5 mg PO DAILY #30 tablet 10/09/20 04/23/23 LORazepam [Ativan] 1 mg PO TID PRN #20 tablet 08/12/21 04/23/23 Amlodipine Besylate [Norvasc] 10 mg PO DAILY 09/23/21 04/23/23 Doxepin [SINEquan] 30 mg PO HS 09/23/21 04/23/23 Ondansetron Odt [Zofran] 4 mg TL Q6H PRN #10 tablet 04/23/23 - Allergies Allergies/Adverse Reactions: Allergies Allergy/AdvReac Type Severity Reaction Status Date / Time ceftriaxone sodium * Allergy Intermediate Hives Verified 04/23/23 11:19 [From Rocephin] - Social History Does the pt smoke?: No Smoking Status: Never smoker Does the pt drink ETOH?: No Does the pt have substance abuse?: No - Immunizations Immunizations are current?: Yes - POLST Patient has POLST: Yes POLST Status: Full Code PD ED PE NORMAL - Vitals Vital signs reviewed: Yes - General General: Alert and oriented X 3, No acute distress, Well developed/nourished, Other (some dysarthria is normal for the patient ) - HEENT HEENT: PERRL, EOMI, Other (There is abrasion to the face. ) - Neck Neck: Supple, no meningeal sign, No bony TTP - Cardiac Cardiac: RRR, No murmur - Respiratory Respiratory: No respiratory distress, Clear bilaterally - Abdomen Abdomen: Soft, Non tender - Derm Derm: Normal color, Warm and dry, No rash - Neuro Neuro: Alert and oriented X 3, Other (dysarthric speech, L abe as previously. Denies change in prior stroke symptoms ) Eye Opening: Spontaneous Motor: Obeys Commands Verbal: Oriented GCS Score: 15 Results - Vitals Vitals: Vital Signs - 24 hr 04/23/23 04/23/23 04/23/23 11:13 13:50 13:54 Temperature 36.5 C 36.5 C Heart Rate 78 78 80 Respiratory 16 20 17 Rate Blood Pressure 125/88 H 141/88 H 141/88 H O2 Saturation 92 90 L 92 04/23/23 15:23 Temperature Heart Rate 20 L Respiratory 17 Rate Blood Pressure 154/89 H O2 Saturation 100 Oxygen O2 Source Room air - Labs Labs: Laboratory Tests 04/23/23 04/23/23 11:37 11:41 WBC 10.1 RBC 4.88 Hgb 14.0 Hct 44.4 MCV 91.0 MCH 28.7 MCHC 31.5 L RDW 13.9 Plt Count 158 MPV 9.2 Neut # (Auto) 9.6 H Lymph # (Auto) 0.1 L Clinch # (Auto) 0.3 Eos # (Auto) 0.0 Baso # (Auto) 0.0 Absolute Nucleated RBC 0.00 Nucleated RBC % 0.0 Sodium 140 Potassium 3.3 L Chloride 103 Carbon Dioxide 31 Anion Gap 6.0 BUN 30 H Creatinine 1.0 Estimated GFR (MDRD) 76 L Glucose 156 H Calcium 9.1 Total Bilirubin 0.5 AST 20 ALT 20 Alkaline Phosphatase 79 Total Protein 7.9 Albumin 3.8 Globulin 4.1 Albumin/Globulin Ratio 0.9 L Lipase 111 H PD Medical Decision Making - ED course Complexity details: considered differential, d/w patient, d/w family Reviewed Lab Results: We reviewed a complete blood count showing a normal white blood cell count normal hemoglobin hematocrit and platelets chemistries showed a low potassium at 3.3. BUN was elevated at 30, similar to what he has had previously. glucose elevated 156, liver functions normal. Lipase mildly elevated at 111. I interpreted these studies to indicate the patient has a potassium deficiency likely related to his diarrhea and vomiting. ED course: 62-year-old Reagan Louis presented to the emergency department after having vomiting and diarrhea overnight developed hypokalemia and had potassium replaced. He did have seizure this morning and was told last night when he developed vomiting and diarrhea to hold his Keppra. He was confused by this. But he did it. Today we have administered Keppra and potassium as well as intravenous fluids. The patient is transported back to home place. Departure - Departure Disposition: 01 Home, Self Care Clinical Impression: Seizure, Gastroenteritis, Hypokalemia Condition: Stable Instructions: ED Gastroenteritis Vs Food Poison, ED Seizure Recurrent Follow-Up: Andrea Covington MD [Primary Care Provider] - Prescriptions: Ondansetron Odt [Zofran] 4 mg TL Q6H PRN #10 tablet PRN Reason: Nausea / Vomiting Comments: Reagan today it looks like you have a gastroenteritis related to some food you had yesterday and you did have a seizure when you did not take your medication. We have given you a dose of your medication here today and we have hydrated you I have E scribed some medication for nausea to the [facility] in [place]. Discharge Date/Time: 04/23/23 15:39
[2023-04-23 11:43] LABS: BASOPHILS % (AUTO) 0.1 %; HCT - HEMATOCRIT 44.4 % (42.0-52.0); LYMPHOCYTES # (AUTO) 0.1 10^3/uL (1.5-3.5); LYMPHOCYTES % (AUTO) 1.3 %; MEAN CORPUSCULAR HEMOGLOBIN 28.7 pg (27.0-31.0); MEAN CORPUSCULAR HGB CONC 31.5 g/dL (32.0-36.0); MEAN PLATELET VOLUME 9.2 fL (7.4-11.4); MONOCYTES # (AUTO) 0.3 10^3/uL (0.0-1.0); MONOCYTES % (AUTO) 2.8 %; NEUTROPHILS # (AUTO) 9.6 10^3/uL (1.5-6.6); NEUTROPHILS % (AUTO) 95.5 %; PLT - PLATELET COUNT 158 10^3/uL (130-450); RED BLOOD COUNT 4.88 10^6/uL (4.70-6.10); RED CELL DISTRIBUTION WIDTH 13.9 % (12.0-15.0); WHITE BLOOD COUNT 10.1 x10^3/uL (4.8-10.8)
[2023-04-23 11:56] LABS: ALBUMIN 3.8 g/dL (3.2-5.5); ALBUMIN/GLOBULIN RATIO 0.9 (1.0-2.2); BILIRUBIN,TOTAL 0.5 mg/dL (0.2-1.0); CALCIUM 9.1 mg/dL (8.5-10.3); POTASSIUM 3.3 mmol/L (3.5-4.5); TOTAL PROTEIN 7.9 g/dL (6.4-8.9)
[2023-04-23] MEDS ORDERED: POTASSIUM CHLORIDE 20 MEQ TABLET PO STA (13:17)
[2023-04-23 15:28] VITALS: BP 154/89; O2SAT 100
== END 2023-04-23 15:39 | disposition home or self-care (01) ==
LOC: EDUNIT# → ED 10:49
DX: R56.9 Unspecified convulsions (principal); K52.9 Noninfective gastroenteritis and colitis, unspecified; E87.6 Hypokalemia; T42.6X6A Underdosing of other antiepileptic and sedative-hypnotic drugs, initial encounter; Z91.128 Patient's intentional underdosing of medication regimen for other reason
CPT/HCPCS: 36415; 80053; 83690; 85025; 96361; 96374; 99283; 99284; A9270

== ENCOUNTER 2023-04-23 15:38 | Outpatient (CLI) | payer MEDICARE, MEDICAID | END 2023-04-23 15:39 | disposition home or self-care (01) | LOC: EMS 15:38 | PROVIDERS: ATTEND Emergency Medicine | DX: G40.909 Epilepsy, unspecified, not intractable, without status epilepticus (principal); I69.354 Hemiplegia and hemiparesis following cerebral infarction affecting left non-dominant side; R41.0 Disorientation, unspecified; Z74.01 Bed confinement status | CPT/HCPCS: A0425; A0429 ==

== ENCOUNTER 2023-08-31 13:20 | Outpatient (CLI) | payer MEDICARE, MEDICAID ==
[2023-08-31 17:50] LABS: ALBUMIN 3.7 g/dL (3.2-5.5); BILIRUBIN,TOTAL 0.3 mg/dL (0.2-1.0); CALCIUM 9.7 mg/dL (8.5-10.3); POTASSIUM 3.2 mmol/L (3.5-4.5); TOTAL PROTEIN 7.3 g/dL (6.4-8.9)
[2023-08-31 17:57] LABS: BASOPHILS % (AUTO) 0.4 %; EOSINOPHILS # (AUTO) 0.1 10^3/uL (0.0-0.7); EOSINOPHILS % (AUTO) 1.6 %; HCT - HEMATOCRIT 38.5 % (42.0-52.0); HGB - HEMOGLOBIN 12.4 g/dL (14.0-18.0); LYMPHOCYTES # (AUTO) 1.3 10^3/uL (1.5-3.5); LYMPHOCYTES % (AUTO) 23.1 %; MEAN CORPUSCULAR HEMOGLOBIN 29.5 pg (27.0-31.0); MEAN CORPUSCULAR HGB CONC 32.2 g/dL (32.0-36.0); MEAN CORPUSCULAR VOLUME 91.4 fL (80.0-94.0); MONOCYTES # (AUTO) 0.5 10^3/uL (0.0-1.0); MONOCYTES % (AUTO) 9.7 %; NEUTROPHILS # (AUTO) 3.6 10^3/uL (1.5-6.6); PLT - PLATELET COUNT 168 10^3/uL (130-450); RED BLOOD COUNT 4.21 10^6/uL (4.70-6.10); WHITE BLOOD COUNT 5.5 x10^3/uL (4.8-10.8)
== END 2023-08-31 13:21 | disposition home or self-care (01) ==
LOC: LAB.N 13:20
PROVIDERS: ATTEND Family Medicine
DX: K92.1 Melena (principal); R12 Heartburn; I69.359 Hemiplegia and hemiparesis following cerebral infarction affecting unspecified side; Z86.79 Personal history of other diseases of the circulatory system; I10 Essential (primary) hypertension; R56.1 Post traumatic seizures
CPT/HCPCS: 36415; 80053; 85025

== ENCOUNTER 2023-09-21 15:50 | Outpatient (CLI) | payer MEDICARE, MEDICAID | END 2023-09-21 23:59 | disposition critical access hospital (66) | LOC: EMS 15:50 | DX: R53.1 Weakness (principal); M54.50 Low back pain, unspecified; M25.561 Pain in right knee; M25.562 Pain in left knee | CPT/HCPCS: A0425; A0429 ==

== ENCOUNTER 2023-09-21 16:08 | Emergency (ER) | payer MEDICARE, MEDICAID ==
[2023-09-21 16:25] VITALS: O2SAT 95
--- NOTE | 2023-09-21 16:28 | ED Physician Documentation ---
History of Present Illness - Stated complaint Stated Complaint: GEN WEAKNESS - Chief complaint Chief Complaint: General - History obtained from History obtained from: Patient - Additonal information Additional information: This is a very nice 62-year-old gentleman who has a history of hypertension, seizure disorder and has had a prior CVA with left-sided deficits who presents after he was not able to get up off the toilet while using the bathroom at [employer]. 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 He used the bathroom and then could not get himself up off the toilet thus EMS was called. He states he felt fine today other than a mild cough that he has had for a ew days, no other cold sx, no cp or dyspnea, no gi/gu sx. He has not had a fever. Denies any injuries today. He states he has not been sleeping well recently because his housemates at [facility] stay up all night and watch TV very loudly and he feels exhausted from not getting much sleep. He also states he is very embarrassed that he couldn't get up from the toilet but didn't know what else to do other than ask for help. Review of Systems Constitutional: reports: Fatigue. denies: Fever, Chills, Myalgias Eyes: reports: Reviewed and negative Ears: reports: Reviewed and negative Nose: reports: Reviewed and negative Throat: reports: Reviewed and negative Cardiac: reports: Reviewed and negative Respiratory: reports: Cough. denies: Dyspnea, Hemoptysis, Wheezing GI: reports: Reviewed and negative : reports: Reviewed and negative Skin: reports: Reviewed and negative Musculoskeletal: reports: Reviewed and negative Neurologic: reports: Generalized weakness PD PAST MEDICAL HISTORY - Past Medical History Past Medical History: Yes Cardiovascular: Hypertension, High cholesterol, Angina Respiratory: None Neuro: CVA, Seizure disorder, Other Endocrine/Autoimmune: None GI: GERD : None HEENT: Chronic vision loss Psych: Depression, Anxiety Musculoskeletal: Osteoarthritis, Hemiplegia Derm: Psoriasis, Other - Past Surgical History Past Surgical History: Yes Neuro: Craniotomy - Present Medications Home Medications: Ambulatory Orders Medication Instructions Recorded Confirmed Acetaminophen [Pain Reliever] 650 mg PO Q8HR PRN 08/25/12 04/23/23 Cholecalciferol (Vitamin D3) 2,000 unit PO DAILY 08/25/12 04/23/23 [Vitamin D-3] Docusate Sodium 250 mg PO DAILY 08/25/12 04/23/23 Metoprolol Succinate 200 mg PO BID 08/25/12 04/23/23 Omeprazole [PriLOSEC] 20 mg PO DAILY 08/25/12 04/23/23 Potassium 10 meq PO BID 08/25/12 04/23/23 hydroCHLOROthiazide [Hydrodiuril] 25 mg PO DAILY 08/25/12 04/23/23 lisinopriL [Lisinopril] 40 mg PO DAILY 08/25/12 04/23/23 Sertraline [Zoloft] 100 mg PO DAILY 12/11/12 04/23/23 hydrOXYzine PAMOATE [Vistaril] 25 mg PO Q6H PRN #20 capsule 07/14/13 04/23/23 levETIRAcetam [Keppra] 750 mg PO BID 03/17/15 04/23/23 Clobetasol Propionate 15 gm TP ONCE PRN 04/22/18 04/23/23 Calcium Carbonate [Antacid] 200 mg PO PRN PRN 06/25/18 04/23/23 Folic Acid 1 mg PO DAILY 09/17/20 04/23/23 Magnesium 250 mg PO HS 09/17/20 04/23/23 Pravastatin [Pravachol] 40 mg PO HS 09/17/20 04/23/23 Donepezil [Aricept] 5 mg PO DAILY #30 tablet 10/09/20 04/23/23 LORazepam [Ativan] 1 mg PO TID PRN #20 tablet 08/12/21 04/23/23 Amlodipine Besylate [Norvasc] 10 mg PO DAILY 09/23/21 04/23/23 Doxepin [SINEquan] 30 mg PO HS 09/23/21 04/23/23 Ondansetron Odt [Zofran] 4 mg TL Q6H PRN #10 tablet 04/23/23 - Allergies Allergies/Adverse Reactions: Allergies Allergy/AdvReac Type Severity Reaction Status Date / Time ceftriaxone sodium * Allergy Intermediate Hives Verified 09/21/23 16:22 [From Rocephin] - Social History Does the pt smoke?: No Smoking Status: Never smoker Does the pt drink ETOH?: No Does the pt have substance abuse?: No - Immunizations Immunizations are current?: Yes - POLST Patient has POLST: Yes POLST Status: Full Code PD ED PE NORMAL - Vitals Vital signs reviewed: Yes - General General: Alert and oriented X 3, No acute distress, Well developed/nourished - HEENT HEENT: Atraumatic, Moist mucous membranes - Cardiac Cardiac: RRR, No murmur - Respiratory Respiratory: No respiratory distress, Clear bilaterally - Abdomen Abdomen: Normal bowel sounds, Soft, Non tender, Non distended - Derm Derm: Normal color, Warm and dry - Neuro Neuro: Alert and oriented X 3, Other (chronic left sided weakness and speech changes. no acute neurologic changes. ) Motor: Obeys Commands Verbal: Oriented - Psych Psych: Normal mood, Normal affect Results - Vitals Vitals: Vital Signs - 24 hr 09/21/23 09/21/23 09/21/23 16:15 18:20 19:00 Temperature 36.0 C L 36.1 C L Heart Rate 48 L 52 L 55 L Respiratory 18 18 18 Rate Blood Pressure 126/86 H 141/85 H 137/88 H O2 Saturation 95 95 95 09/21/23 19:02 Temperature 36.1 C L Heart Rate 55 L Respiratory 18 Rate Blood Pressure 137/88 H O2 Saturation 95 Oxygen O2 Source Room air - EKG (time done) No standard instances EKG releavant findings:: EKG personally interpreted by author of this note. Relevant findings are: Rate: Rate (enter#) (46) Rhythm: Sinus bradycardia Intervals: Normal [place] QRS: Normal Ischemia: Normal ST segments, Non specific changes Compare to prior EKG: Other (twi v3, increased bradycardia no other acute findings compared to last EKG) Computer interpretation: Agree with computer - Labs Labs: Laboratory Tests 09/21/23 09/21/23 09/21/23 16:22 16:22 16:40 WBC 3.8 L RBC 4.32 L Hgb 12.5 L Hct 39.3 L MCV 91.0 MCH 28.9 MCHC 31.8 L RDW 14.0 Plt Count 148 MPV 9.2 Neut # (Auto) 2.2 Lymph # (Auto) 0.7 L [place] # (Auto) 0.7 Eos # (Auto) 0.1 Baso # (Auto) 0.0 Absolute Nucleated RBC 0.00 Nucleated RBC % 0.0 Sodium 138 Potassium 2.8 L Chloride 100 L Carbon Dioxide 33 H Anion Gap 5.0 L BUN 17 Creatinine 1.0 Estimated GFR (MDRD) 76 L Glucose 99 Calcium 9.8 Total Bilirubin 0.4 AST 19 ALT 18 Alkaline Phosphatase 76 Total Protein 7.6 Albumin 3.9 Globulin 3.7 Albumin/Globulin Ratio 1.1 Lipase 32 Urine Color YELLOW Urine Clarity HAZY Urine pH 6.5 Ur Specific [place] 1.020 Urine Protein TRACE Urine Glucose (UA) NEGATIVE Urine Ketones NEGATIVE Urine Occult Blood SMALL H Urine Nitrite NEGATIVE Urine Bilirubin NEGATIVE Urine Urobilinogen 0.2 (NORMAL) Ur Leukocyte Esterase NEGATIVE Urine RBC 6-10 H Urine WBC 0-3 Ur Squamous Epith Cells FEW Squamous Urine Bacteria Few Ur Microscopic Review INDICATED Urine Culture Comments NOT INDICATED PD Medical Decision Making - ED course Complexity details: reviewed old records, reviewed results, re-evaluated patient, considered differential, d/w patient ED course: 62-year-old male with past medical history as listed above presented after being unable to get up off the toilet at a coffee shop today. He is otherwise in his usual state of health today. He denies any acute concerns other than a mild cough that has had for a few days but no difficulty breathing. It sounds as though this is primarily a mechanical issue as patient did not have the strength to push himself up off the toilet. He had no injuries, and he had no focal neurodeficits, no loss of consciousness, and no other acute physical exam findings. On his workup today, his EKG shows sinus bradycardia which is baseline for him, no acute ischemic changes, his labs are largely stable other than a potassium low at 2.8. He was given 40 mill equivalents of oral potassium. His lungs are clear and he is oxygenating 100% on room air therefore did not pursue an x-ray and I suspect this is mild viral URI or allergies causing his cough. The patient is at baseline state of health therefore stable for discharge home to home place. Will arrange for transportation. I reviewed return precautions if any new or worsening symptoms. Departure - Departure Disposition: 01 Home, Self Care Clinical Impression: Hypokalemia, Weakness Condition: Good Instructions: Hypokalemia Dc Comments: Congratulations on being named a volunteer of the year! 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 Today your workup was reassuring, your potassium was a little bit low and we did give you some oral potassium, and your heart rate runs on the low side but otherwise workup was reassuring. Please continue plans for your colonoscopy next week. Forms: PCP List Discharge Date/Time: 09/21/23 19:03
[2023-09-21 16:32] LABS: BASOPHILS % (AUTO) 0.3 %; EOSINOPHILS # (AUTO) 0.1 10^3/uL (0.0-0.7); EOSINOPHILS % (AUTO) 3.4 %; HCT - HEMATOCRIT 39.3 % (42.0-52.0); HGB - HEMOGLOBIN 12.5 g/dL (14.0-18.0); LYMPHOCYTES # (AUTO) 0.7 10^3/uL (1.5-3.5); LYMPHOCYTES % (AUTO) 19.3 %; MEAN CORPUSCULAR HEMOGLOBIN 28.9 pg (27.0-31.0); MEAN CORPUSCULAR HGB CONC 31.8 g/dL (32.0-36.0); MEAN PLATELET VOLUME 9.2 fL (7.4-11.4); MONOCYTES # (AUTO) 0.7 10^3/uL (0.0-1.0); MONOCYTES % (AUTO) 18.2 %; NEUTROPHILS # (AUTO) 2.2 10^3/uL (1.5-6.6); NEUTROPHILS % (AUTO) 58.5 %; PLT - PLATELET COUNT 148 10^3/uL (130-450); RED BLOOD COUNT 4.32 10^6/uL (4.70-6.10); WHITE BLOOD COUNT 3.8 x10^3/uL (4.8-10.8)
[2023-09-21 16:51] LABS: BILIRUBIN,URINE NEGATIVE (NEGATIVE); GLUCOSE, URINE (UA) NEGATIVE (NEGATIVE); KETONES,URINE (UA) NEGATIVE (NEGATIVE); LEUKOCYTE ESTERASE, URINE NEGATIVE (NEGATIVE); NITRITE,URINE NEGATIVE (NEGATIVE); OCCULT BLOOD,URINE SMALL (NEGATIVE); PH,URINE 6.5 PH (5.0-7.5); PROTEIN,URINE TRACE mg/dL (NEGATIVE); UROBILINOGEN,URINE 0.2 (NORMAL) E.U./dL (NORMAL)
[2023-09-21 16:54] LABS: ALBUMIN 3.9 g/dL (3.2-5.5); ALBUMIN/GLOBULIN RATIO 1.1 (1.0-2.2); BILIRUBIN,TOTAL 0.4 mg/dL (0.2-1.0); CALCIUM 9.8 mg/dL (8.5-10.3); POTASSIUM 2.8 mmol/L (3.5-4.5); TOTAL PROTEIN 7.6 g/dL (6.4-8.9)
[2023-09-21 17:00] LABS: CLARITY,URINE HAZY (CLEAR)
[2023-09-21 17:03] LABS: SQUAMOUS EPITHELIAL CELL,UR FEW Squamous (<= Few); WBC,URINE 0-3 /HPF (0-3)
[2023-09-21 17:04] LABS: BACTERIA,URINE Few /HPF (None Seen)
[2023-09-21] MEDS: POTASSIUM CHLORIDE 20 MEQ/15 ML UDC PO STA ×2 (17:52→17:53)
[2023-09-21] MEDS: POTASSIUM CHLOR 10 MEQ/100 ML 10 MEQ/100 ML BAG IV ONE (18:12)
[2023-09-21 19:11] VITALS: BP 137/88
== END 2023-09-21 19:03 | disposition home or self-care (01) ==
LOC: EDUNIT# → ED 16:08
DX: R53.1 Weakness (principal); E87.6 Hypokalemia; I10 Essential (primary) hypertension; E78.00 Pure hypercholesterolemia, unspecified; Z79.899 Other long term (current) drug therapy
CPT/HCPCS: 36415; 80053; 81001; 83690; 85025; 93005; 99284; A9270; 81003; 87086

== ENCOUNTER 2023-09-21 19:05 | Outpatient (CLI) | payer MEDICARE, MEDICAID | END 2023-09-21 23:59 | disposition home or self-care (01) | LOC: EMS 19:05 | PROVIDERS: ATTEND Emergency Medicine | DX: I69.354 Hemiplegia and hemiparesis following cerebral infarction affecting left non-dominant side (principal); R79.89 Other specified abnormal findings of blood chemistry; Z99.3 Dependence on wheelchair | CPT/HCPCS: A0425; A0428 ==

== ENCOUNTER 2023-10-18 00:39 | Outpatient (CLI) | payer MEDICARE, MEDICAID | END 2023-10-18 00:40 | disposition critical access hospital (66) | LOC: EMS 00:39 | DX: R07.1 Chest pain on breathing (principal); R07.81 Pleurodynia | CPT/HCPCS: A0425; A0429 ==

== ENCOUNTER 2023-10-18 00:55 | Inpatient (IN) | payer MEDICARE, MEDICAID ==
--- NOTE | 2023-10-18 01:47 | XRAY Report ---
PROCEDURE: Chest 1V INDICATIONS: CP TECHNIQUE: One view of the chest was acquired. COMPARISON: None. FINDINGS: Surgical changes and devices: None. Lungs and pleura: No pleural effusions or pneumothorax. For inspiratory effort with suggestion of mi ld pulmonary vascular congestion. No definite focal infiltrate. Bibasilar scarring/atelectasis is see n.. Mediastinum: Mediastinal contours appear normal. Heart size is enlarged. Bones and chest wall: No suspicious bony lesions. Overlying soft tissues appear unremarkable. IMPRESSION: Cardiomegaly and mild congestion with bibasilar linear scarring/atelectasis. No definite focal infilt rate. No significant pleural effusion or pneumothorax. Reviewed by: Valeriano Pepe MD on 10/18/2023 1:46 AM PDT Approved by: Valreiano Pepe MD on 10/18/2023 1:46 AM PDT Station ID: [id number]
[2023-10-18 01:48] LABS: BASOPHILS % (AUTO) 0.2 %; EOSINOPHILS % (AUTO) 0.1 %; HCT - HEMATOCRIT 42.5 % (42.0-52.0); HGB - HEMOGLOBIN 13.7 g/dL (14.0-18.0); LYMPHOCYTES # (AUTO) 0.8 10^3/uL (1.5-3.5); LYMPHOCYTES % (AUTO) 6.6 %; MEAN CORPUSCULAR HEMOGLOBIN 28.7 pg (27.0-31.0); MEAN CORPUSCULAR HGB CONC 32.2 g/dL (32.0-36.0); MEAN CORPUSCULAR VOLUME 89.1 fL (80.0-94.0); MEAN PLATELET VOLUME 10.1 fL (7.4-11.4); MONOCYTES # (AUTO) 1.3 10^3/uL (0.0-1.0); MONOCYTES % (AUTO) 10.4 %; NEUTROPHILS # (AUTO) 10.4 10^3/uL (1.5-6.6); NEUTROPHILS % (AUTO) 82.2 %; PLT - PLATELET COUNT 169 10^3/uL (130-450); RED BLOOD COUNT 4.77 10^6/uL (4.70-6.10); RED CELL DISTRIBUTION WIDTH 14.3 % (12.0-15.0); WHITE BLOOD COUNT 12.7 x10^3/uL (4.8-10.8)
[2023-10-18] MEDS: ACETAMINOPHEN 325 MG TABLET PO STA (01:51)
[2023-10-18 02:42] LABS: ALBUMIN 3.6 g/dL (3.2-5.5); ALBUMIN/GLOBULIN RATIO 0.9 (1.0-2.2); ALKALINE PHOSPHATASE 76 IU/L (42-121); ALT ALANINE AMINOTRANSFERASE 16 IU/L (10-60); AST ASPARTATE AMINOTRANSFERASE 18 IU/L (10-42); BILIRUBIN,TOTAL 0.8 mg/dL (0.2-1.0); BUN - BLOOD UREA NITROGEN 17 mg/dL (6-20); CALCIUM 9.3 mg/dL (8.5-10.3); CARBON DIOXIDE - CO2 32 mmol/L (21-32); CHLORIDE 98 mmol/L (101-111); CREATININE 0.9 mg/dL (0.6-1.3); GFR - MDRD 86 (>89); GLUCOSE 164 mg/dL (74-104); SODIUM 137 mmol/L (135-145); TOTAL PROTEIN 7.6 g/dL (6.4-8.9)
[2023-10-18 02:47] LABS: LIPASE < 10 U/L (11-82)
--- NOTE | 2023-10-18 03:03 | ED Physician Documentation ---
History of Present Illness - Stated complaint Stated Complaint: ABD/RIB PX - Chief complaint Chief Complaint: Abd Pain - History obtained from History obtained from: Patient - Additonal information Additional information: Patient is a 62-year-old male with a history of prior CVA with residual left- sided deficits, seizure disorder on Keppra presenting for evaluation of right- sided rib pain as well as abdominal pain which started yesterday. Patient states that he is living at [facility] and they have been using a [employer] lift with him and placing a tight belt around his chest. He states that there is a bruise to his chest. He does not take a blood thinner. He also reports having pain in the upper abdomen. No nausea or vomiting. Review of Systems Constitutional: denies: Fever Cardiac: reports: Chest pain / pressure Respiratory: denies: Dyspnea GI: reports: Abdominal Pain. denies: Vomiting : denies: Dysuria PD PAST MEDICAL HISTORY - Past Medical History Cardiovascular: Hypertension, High cholesterol, Angina Respiratory: None Neuro: CVA, Seizure disorder, Other Endocrine/Autoimmune: None GI: GERD : None HEENT: Chronic vision loss Psych: Depression, Anxiety Musculoskeletal: Osteoarthritis, Hemiplegia Derm: Psoriasis, Other - Past Surgical History Past Surgical History: Yes Neuro: Craniotomy - Present Medications Home Medications: Ambulatory Orders Medication Instructions Recorded Confirmed Acetaminophen [Pain Reliever] 650 mg PO Q8HR PRN 08/25/12 10/18/23 Cholecalciferol (Vitamin D3) 2,000 unit PO DAILY 08/25/12 04/23/23 [Vitamin D-3] Docusate Sodium 250 mg PO DAILY 08/25/12 10/18/23 Metoprolol Succinate 100 mg PO BID 08/25/12 10/18/23 Omeprazole [PriLOSEC] 20 mg PO DAILY 08/25/12 10/18/23 Potassium 10 meq PO BID 08/25/12 10/18/23 hydroCHLOROthiazide [Hydrodiuril] 25 mg PO DAILY 08/25/12 10/18/23 lisinopriL [Lisinopril] 40 mg PO DAILY 08/25/12 10/18/23 Sertraline [Zoloft] 100 mg PO DAILY 12/11/12 10/18/23 hydrOXYzine PAMOATE [Vistaril] 25 mg PO Q6H PRN #20 capsule 07/14/13 10/18/23 levETIRAcetam [Keppra] 750 mg PO BID 03/17/15 10/18/23 Clobetasol Propionate 15 gm TP ONCE PRN 04/22/18 10/18/23 Calcium Carbonate [Antacid] 200 mg PO PRN PRN 06/25/18 04/23/23 Folic Acid 1 mg PO DAILY 09/17/20 10/18/23 Magnesium 250 mg PO HS 09/17/20 10/18/23 Pravastatin [Pravachol] 40 mg PO HS 09/17/20 10/18/23 Donepezil [Aricept] 5 mg PO DAILY #30 tablet 10/09/20 10/18/23 LORazepam [Ativan] 1 mg PO TID PRN #20 tablet 08/12/21 10/18/23 Amlodipine Besylate [Norvasc] 10 mg PO DAILY 09/23/21 10/18/23 Doxepin [SINEquan] 30 mg PO HS 09/23/21 10/18/23 Ondansetron Odt [Zofran] 4 mg TL Q6H PRN #10 tablet 04/23/23 10/18/23 clonazePAM [Clonazepam] 0.25 mg PO BID 10/18/23 10/18/23 - Allergies Allergies/Adverse Reactions: Allergies Allergy/AdvReac Type Severity Reaction Status Date / Time ceftriaxone sodium * Allergy Intermediate Hives Verified 09/21/23 16:22 [From Rocephin] - Social History Does the pt smoke?: No Smoking Status: Never smoker Does the pt drink ETOH?: No Does the pt have substance abuse?: No - Immunizations Immunizations are current?: Yes - POLST Patient has POLST: Yes POLST Status: Full Code PD ED PE NORMAL - General General: Alert and oriented X 3, No acute distress, Well developed/nourished - HEENT HEENT: Atraumatic - Neck Neck: Supple, no meningeal sign - Cardiac Cardiac: RRR, Strong equal pulses, Other (Right-sided chest wall tenderness, yellowed bruise, no crepitus) - Respiratory Respiratory: No respiratory distress, Clear bilaterally - Abdomen Abdomen: Normal bowel sounds, Soft, Non distended, Other (Right upper quadrant tenderness) - Derm Derm: Warm and dry - Neuro Neuro: No: No motor deficit (Left-sided deficits from prior stroke) Results - Vitals Vitals: Vital Signs - 24 hr 10/18/23 10/18/23 10/18/23 01:08 01:33 03:10 Temperature 36.5 C Heart Rate 89 92 83 Respiratory 20 18 18 Rate Blood Pressure 154/83 H 134/86 H 136/81 H O2 Saturation 94 92 94 10/18/23 10/18/23 10/18/23 04:08 05:26 06:12 Temperature Heart Rate 81 88 88 Respiratory 18 16 16 Rate Blood Pressure 138/84 H 147/88 H 134/84 H O2 Saturation 94 95 96 Oxygen O2 Source Room air - EKG (time done) 01:25 EKG releavant findings:: EKG personally interpreted by author of this note. Relevant findings are: Rate 87, normal sinus rhythm, no STEMI, QTc 457 - Labs Labs: Laboratory Tests 10/18/23 10/18/23 01:44 02:14 WBC 12.7 H RBC 4.77 Hgb 13.7 L Hct 42.5 MCV 89.1 MCH 28.7 MCHC 32.2 RDW 14.3 Plt Count 169 MPV 10.1 Neut # (Auto) 10.4 H Lymph # (Auto) 0.8 L [place] # (Auto) 1.3 H Eos # (Auto) 0.0 Baso # (Auto) 0.0 Absolute Nucleated RBC 0.00 Nucleated RBC % 0.0 Sodium 137 Potassium 3.0 L Chloride 98 L Carbon Dioxide 32 Anion Gap 7.0 BUN 17 Creatinine 0.9 Estimated GFR (MDRD) 86 L Glucose 164 H Calcium 9.3 Total Bilirubin 0.8 AST 18 ALT 16 Alkaline Phosphatase 76 Total Protein 7.6 Albumin 3.6 Globulin 4.0 Albumin/Globulin Ratio 0.9 L Lipase < 10 L PD Medical Decision Making - ED course Complexity details: reviewed results, re-evaluated patient, d/w patient ED course: Patient is a 62-year-old male with a history of stroke with residual left-sided deficits presenting for evaluation of right-sided chest wall pain as well as right upper quadrant abdominal pain. EKG reviewed and nonischemic. Patient has chest wall tenderness and area of bruising and history and exam do not suggest presentation consistent with ACS. CBC and chemistries were reviewed. Potassium of 3.0. WBC of 12.8. IV replacement ordered. Chest x-ray which I reviewed is negative for pneumothorax. No obvious rib fractures. CT scan of the abdomen pelvis was obtained showing a very distended gallbladder with concerns for cholecystitis in addition to right fifth and sixth rib fractures. Discussed with on-call general surgeon who requested ultrasound when tech is present in the morning. Pain improved with IV morphine.Ultrasound showing wall thickness of 7.8 mm. Pt care signed over to Dr. Patel at shift change. Pending surgery re- evaluation for final disposition. 0517 - Reviewed presentation and findings on imaging with Dr. Colvin (Gen Surgery) including findings of rib fractures as well as concerns for cholecystitis. He recommends that we get an ultrasound to better evaluate the gallbladder and ultrasound should be here at 6:00 this morning. He recommends holding off on antibiotics at this time until we are certain whether patient has cholecystitis. He will also be in early this morning to evaluate the patient. 0610 - Dr. Colvin here to see patient. 0655 - Discussed preliminary ultrasound results with Dr. Colvin including wall thickness of 7.8 mm. He will review the images and come to see the patient again. Departure - Departure Disposition: ED Place in Observation Clinical Impression: Gallbladder dilatation, Leukocytosis, Hypokalemia Multiple rib fractures Qualifiers: Encounter type: initial encounter Fracture type: closed Laterality: right Qualified Code(s): S22.41XA - Multiple fractures of ribs, right side, initial encounter for closed fracture Condition: Good Discharge Date/Time: 10/18/23 08:01
[2023-10-18] MEDS ORDERED: iohexoL-300 100 ML VIAL ONE (03:10)
[2023-10-18] MEDS: iohexoL-300 100 ML VIAL IVP ONE (03:34)
[2023-10-18] MEDS: MORPHINE 2 MG/ML CARPUJECT IVP STA (04:57)
[2023-10-18] MEDS: POTASSIUM CHLOR 10 MEQ/100 ML 10 MEQ/100 ML BAG IV SCH (06:10)
[2023-10-18] MEDS ORDERED: hydrOXYzine PAMOATE 25 MG CAPSULE PO PRN (07:30)
--- NOTE | 2023-10-18 07:42 | HISTORY & PHYSICAL EXAMINATION ---
HPI - Admitted From Admitted from: ED - History of Present Illness Pain/Problem Location Description: RUQ pain Severity at the worst: reports: Moderate Pain Quality: reports: Sharp, Aching Context-Pain started w/: reports: Movement, Palpation Timing: reports: Abrupt onset Duration: reports: Days: (2) Improved with: reports: Nothing Worsened by: reports: Exertion HPI Comment/Other: Reagan is a 62 year old male who lives at an assisted living facility. About 5 days ago he suffered right chest wall injury from a patient lift device. The pain was sharp and located in the right rib cage. The pain continued and then he developed more discomfort under the rib cage in his abdomen. This pain is sharp, constant, worse with movement but not associated with nausea, vomiting or bloating. He is anorexic. He came to the ED and was found to have two right chest wall rib fractures on CT scan (5,6) along with a distended gallbladder. US confirmed the presence of gallstones with one in particular that is likely causing obstruction of the neck of the gallbladder. He is admitted to the surgery service to manage his rib fractures and suspected early cholecystitis. PMH/PSH - Past Medical History Cardiovascular: positive: Hypertension, High cholesterol, Angina Respiratory: positive: None Neuro: positive: CVA, Seizure disorder, Other Endocrine/Autoimmune: positive: None GI: positive: GERD : positive: None HEENT: positive: Chronic vision loss Psych: positive: Depression, Anxiety Musculoskeletal: positive: Osteoarthritis, Hemiplegia Derm: positive: Psoriasis, Other MRSA Hx?: Yes - Past Surgical History Neuro: positive: Craniotomy Social & Family Hx - Social History Does the pt smoke?: No Smoking Status: Never smoker Does the pt drink ETOH?: No Does the pt have substance abuse?: No - POLST Patient has POLST: Yes POLST Status: Full Code Meds/Allgy - Home Medications Home Medications: Ambulatory Orders Medication Instructions Recorded Confirmed Acetaminophen [Pain Reliever] 650 mg PO Q8HR PRN 08/25/12 10/18/23 Cholecalciferol (Vitamin D3) 2,000 unit PO DAILY 08/25/12 04/23/23 [Vitamin D-3] Docusate Sodium 250 mg PO DAILY 08/25/12 10/18/23 Metoprolol Succinate 100 mg PO BID 08/25/12 10/18/23 Omeprazole [PriLOSEC] 20 mg PO DAILY 08/25/12 10/18/23 Potassium 10 meq PO BID 08/25/12 10/18/23 hydroCHLOROthiazide [Hydrodiuril] 25 mg PO DAILY 08/25/12 10/18/23 lisinopriL [Lisinopril] 40 mg PO DAILY 08/25/12 10/18/23 Sertraline [Zoloft] 100 mg PO DAILY 12/11/12 10/18/23 hydrOXYzine PAMOATE [Vistaril] 25 mg PO Q6H PRN #20 capsule 07/14/13 10/18/23 levETIRAcetam [Keppra] 750 mg PO BID 03/17/15 10/18/23 Clobetasol Propionate 15 gm TP ONCE PRN 04/22/18 10/18/23 Calcium Carbonate [Antacid] 200 mg PO PRN PRN 06/25/18 04/23/23 Folic Acid 1 mg PO DAILY 09/17/20 10/18/23 Magnesium 250 mg PO HS 09/17/20 10/18/23 Pravastatin [Pravachol] 40 mg PO HS 09/17/20 10/18/23 Donepezil [Aricept] 5 mg PO DAILY #30 tablet 10/09/20 10/18/23 LORazepam [Ativan] 1 mg PO TID PRN #20 tablet 08/12/21 10/18/23 Amlodipine Besylate [Norvasc] 10 mg PO DAILY 09/23/21 10/18/23 Doxepin [SINEquan] 30 mg PO HS 09/23/21 10/18/23 Ondansetron Odt [Zofran] 4 mg TL Q6H PRN #10 tablet 04/23/23 10/18/23 clonazePAM [Clonazepam] 0.25 mg PO BID 10/18/23 10/18/23 - Allergies Allergies/Adverse Reactions: Allergies Allergy/AdvReac Type Severity Reaction Status Date / Time ceftriaxone sodium * Allergy Intermediate Hives Verified 09/21/23 16:22 [From Rocephin] Review of Systems - Gastrointestinal Gastrointestinal: reports: Abdominal pain - Musculoskeletal Musculoskeletal: reports: Other (Chest wall pain) Exam - Vital Signs Vital Signs: Vital Signs x48h Temp Pulse Resp BP Pulse Ox 10/18/23 06:12 88 16 134/84 H 96 10/18/23 05:26 88 16 147/88 H 95 10/18/23 04:08 81 18 138/84 H 94 10/18/23 03:10 83 18 136/81 H 94 10/18/23 01:33 92 18 134/86 H 92 10/18/23 01:08 97.7 F 89 20 154/83 H 94 - Physical Exam General Appearance: positive: Mild distress Eyes Bilateral: positive: Normal inspection, PERRL, EOMI ENT: positive: ENT inspection nml, Pharynx nml Neck: positive: Nml inspection, Thyroid nml, No JVD, Trachea midline Respiratory: positive: No respiratory distress, Breath sounds nml, Other (Tender right lateral chest wall) Cardiovascular: positive: Regular rate & rhythm, No murmur Peripheral Pulses: positive: 2+ Abdomen: positive: Nml bowel sounds, No distention, Other (RUQ tenderness to palpation) Skin: positive: Color nml, No rash Extremities: positive: Non-tender Neurologic/Psychiatric: positive: Weakness (Left 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) Results - Lab Results Fish Bones: 10/18/23 01:44 10/18/23 02:14 Other Lab Results: Lab Results x24hrs 10/18/23 10/18/23 Range/Units 02:14 01:44 WBC 12.7 H (4.8-10.8) x10^3/uL RBC 4.77 (4.70-6.10) 10^6/uL Hgb 13.7 L (14.0-18.0) g/dL Hct 42.5 (42.0-52.0) % MCV 89.1 (80.0-94.0) fL MCH 28.7 (27.0-31.0) pg MCHC 32.2 (32.0-36.0) g/dL RDW 14.3 (12.0-15.0) % Plt Count 169 (130-450) 10^3/uL MPV 10.1 (7.4-11.4) fL Neut # (Auto) 10.4 H (1.5-6.6) 10^3/uL Lymph # (Auto) 0.8 L (1.5-3.5) 10^3/uL [place] # (Auto) 1.3 H (0.0-1.0) 10^3/uL Eos # (Auto) 0.0 (0.0-0.7) 10^3/uL Baso # (Auto) 0.0 (0.0-0.1) 10^3/uL Absolute Nucleated RBC 0.00 x10^3/uL Nucleated RBC % 0.0 /100WBC Sodium 137 (135-145) mmol/L Potassium 3.0 L (3.5-4.5) mmol/L Chloride 98 L (101-111) mmol/L Carbon Dioxide 32 (21-32) mmol/L Anion Gap 7.0 (6-13) BUN 17 (6-20) mg/dL Creatinine 0.9 (0.6-1.3) mg/dL Estimated GFR (MDRD) 86 L (>89) Glucose 164 H (74-104) mg/dL Calcium 9.3 (8.5-10.3) mg/dL Total Bilirubin 0.8 (0.2-1.0) mg/dL AST 18 (10-42) IU/L ALT 16 (10-60) IU/L Alkaline Phosphatase 76 (42-121) IU/L Total Protein 7.6 (6.4-8.9) g/dL Albumin 3.6 (3.2-5.5) g/dL Globulin 4.0 (2.1-4.2) g/dL Albumin/Globulin Ratio 0.9 L (1.0-2.2) Lipase < 10 L (11-82) U/L - Diagnostic Imaging Results Diagnostic Imaging Results: positive: See rad report Diagnostic Imaging Results Comments: CT Abd/Pelvis - right 5,6 rib fracture; distended gallbladder, gallstones US RUQ - distended gallbladder, gallstones, GB wall thickening CXR - no pleural effusion; Cardiomegaly Impression/Plan - Problem List Problem List: Assessment: 1) Early acute cholecystitis with cholelithiasis - no clinical or lab evidence of liver dysfunction or choledocholithiasis 2) Fracture ribs 5,6 - non-displaced 3) Cardiomegaly 4) History CV[facility] from [facility] Plan: 1) Admit to surgery service to manage rib fractures and cholecystitis. 2) IV Zosyn and analgesics for the gallbladder inflammation 3) VTEP 4) Medical Hospitalist Consult to assist in management of his multiple medical issues. 5) Cholecystectomy to be offered once he has been evaluated by the Medical [facility] Team Tyler Colvin MD, [facility] General Surgery Service
--- NOTE | 2023-10-18 08:12 | Ultrasound Report ---
PROCEDURE: Abdomen Limited INDICATIONS: RUQ pain/ abnormal CT TECHNIQUE: Real-time focused scanning was performed of the abdomen, with image documentation. COMPARISONS: None. FINDINGS: Liver: Liver is normal in size and increased in echogenicity. Gallbladder: Gallstones are present including a 2 cm gallstone at the neck. The gallbladder is disten ded. Gallbladder wall is thickened measuring up to 7.8 mm. Pericholecystic free fluid is present. Biliary ducts: Intrahepatic bile ducts are non-dilated. Extrahepatic bile duct caliber measures 3.9 mm. Normal is 6-7 mm or less in diameter, or 10 mm or less post-cholecystectomy. Right renal simpl e cyst measuring 1.5 cm. Pancreas: Visualized portions of the pancreas are sonographically normal. Right kidney: Normal in size and echotexture. Right kidney measures 12.9 cm long. No hydronephrosis or nephrolithiasis. No solid masses. No complex renal cystic lesions which require follow-up. Miscellaneous: No free abdominal fluid. IMPRESSION: 1.Distended gallbladder with a 2 cm stone at the neck. Gallbladder wall thickening is present with pe richolecystic fluid. Findings are concerning for acute cholecystitis. 2.Hepatic steatosis. Reviewed by: Pancho Craft MD on 10/18/2023 8:10 AM PDT Approved by: Pancho Craft MD on 10/18/2023 8:10 AM PDT Station ID: [id number]
[2023-10-18] MEDS: LACTATED RINGERS 1,000 ML IV SCH (08:31)
--- NOTE | 2023-10-18 08:43 | CT Report ---
PROCEDURE: Abdomen/Pelvis W INDICATIONS: upper abd pain CONTRAST: Omni 300, 100mls TECHNIQUE: After the administration of intravenous contrast, a CT scan of the abdomen and pelvis was performed. Images were recorded and evaluated at appropriate window settings. Reformats: coronal and sagittal. F or radiation dose reduction, the following was used: automated exposure control, adjustment of mA and /or kV according to patient size. COMPARISON: None. FINDINGS: Image quality: Diagnostic. Lower chest: Bibasilar dependent atelectasis. Cardiomegaly. Liver: No solid mass. Gallbladder: Gallbladder is distended with surrounding inflammation. Layering gallstones are present. Biliary tree: No intrahepatic or extrahepatic dilation, accounting for age. Spleen: No splenomegaly. Pancreas: No pancreatic ductal dilation. Adrenals: No adrenal nodule. Kidneys and ureters: No hydronephrosis. No renal cystic lesion which requires follow up. No solid mas s. Stomach, bowel and peritoneum: Likely reactive wall thickening of the duodenum secondary to adjacent inflammation from the gallbladder. No gastric or small bowel dilation. Wall thickening of the colon i n the hepatic flexure, likely reactive secondary to inflammation from the adjacent gallbladder.. No p athologic free fluid. Few scattered diverticula without evidence of acute diverticulitis. Lymph nodes: Precaval lymph node measuring 2.2 x 3.3 cm (2/62). Vessels: No infrarenal aortic aneurysm. Atherosclerotic vascular calcifications. 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 Patent portal vein. PELVIS Reproductive organs: Unremarkable. Bladder: No abnormal wall thickening, accounting for underdistention. Pelvic lymph nodes: No pelvic adenopathy by size criteria. Bones: No aggressive osseous abnormality. Minimally displaced acute appearing fracture of the anterol ateral right sixth rib. Nondisplaced fracture of the medial and lateral aspect of the right fifth rib with nonunion. Degenerative changes of the spine. Other: No significant ventral or inguinal hernia. IMPRESSION: 1.Gallbladder distention with gallstones and significant surrounding fat stranding, concerning for ac kaibab cholecystitis. Wall thickening of the adjacent duodenum and colon, likely reactive in etiology fr om gallbladder inflammation. 2.Indeterminate precaval lymph node measuring 2.2 x 3.3 cm, can be further evaluated with a follow-up CT scan after appropriate treatment of acute cholecystitis. 3.Cardiomegaly. 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 Findings are concordant with preliminary interpretation provided by [facility]. Reviewed by: Pancho Craft MD on 10/18/2023 8:42 AM PDT Approved by: Pancho Craft MD on 10/18/2023 8:42 AM PDT Station ID: [id number]
--- NOTE | 2023-10-18 08:47 | CONSULTATION NOTE ---
Referring Provider Name of Referring Provider:: Dr. Tyler Colvin Consult Date: 10/18/23 Chief Complaint - Chief Complaint Chief Complaint: Abdominal pain History of Present Illness - History of Present Illness HPI Comment/Other: Patient is a 62-year-old male with a past medical history of CVA, craniotomy, seizure disorder, hypertension, hyperlipidemia who presented to the ED due to co mplaints of abdominal pain and chest wall pain. Patient suffered a right chest wall injury from a patient lift device approximately 5 days ago. Pain has progressively involved and he is a lot more discomfort under the right rib cage. CT abdomen/pelvis performed which revealed evidence of gallbladder distention with gallstones concerning for acute cholecystitis. There are also 2 chest wall rib fractures on CT scan at 5 and 6. Patient was admitted to general surgery and there is a tentative plan for a laparoscopic cholecystectomy. He was evaluated preoperatively for risk assessment. Patient denies any chest pain or shortness of breath. He has resided in assisted living facility [facility]. 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 He is also on Keppra for seizure prophylaxis and denies any seizures while on his medication. History - Past Medical History Cardiovascular: reports: Hypertension, High cholesterol, Angina Respiratory: reports: None Neuro: reports: CVA, Seizure disorder, Other Endocrine/Autoimmune: reports: None GI: reports: GERD : reports: None HEENT: reports: Chronic vision loss Psych: reports: Depression, Anxiety Musculoskeletal: reports: Osteoarthritis, Hemiplegia Derm: reports: Psoriasis, Other MRSA Hx?: Yes - Past Surgical History Neuro: reports: Craniotomy - POLST Patient has POLST: Yes POLST Status: Full Code Meds/Allgy - Home Medications Home Medications: Ambulatory Orders Medication Instructions Recorded Confirmed Acetaminophen [Pain Reliever] 650 mg PO Q8HR PRN 08/25/12 10/18/23 Cholecalciferol (Vitamin D3) 2,000 unit PO DAILY 08/25/12 04/23/23 [Vitamin D-3] Docusate Sodium 250 mg PO DAILY 08/25/12 10/18/23 Metoprolol Succinate 100 mg PO BID 08/25/12 10/18/23 Omeprazole [PriLOSEC] 20 mg PO DAILY 08/25/12 10/18/23 Potassium 10 meq PO BID 08/25/12 10/18/23 hydroCHLOROthiazide [Hydrodiuril] 25 mg PO DAILY 08/25/12 10/18/23 lisinopriL [Lisinopril] 40 mg PO DAILY 08/25/12 10/18/23 Sertraline [Zoloft] 100 mg PO DAILY 12/11/12 10/18/23 hydrOXYzine PAMOATE [Vistaril] 25 mg PO Q6H PRN #20 capsule 07/14/13 10/18/23 levETIRAcetam [Keppra] 750 mg PO BID 03/17/15 10/18/23 Clobetasol Propionate 15 gm TP ONCE PRN 04/22/18 10/18/23 Calcium Carbonate [Antacid] 200 mg PO PRN PRN 06/25/18 04/23/23 Folic Acid 1 mg PO DAILY 09/17/20 10/18/23 Magnesium 250 mg PO HS 09/17/20 10/18/23 Pravastatin [Pravachol] 40 mg PO HS 09/17/20 10/18/23 Donepezil [Aricept] 5 mg PO DAILY #30 tablet 10/09/20 10/18/23 LORazepam [Ativan] 1 mg PO TID PRN #20 tablet 08/12/21 10/18/23 Amlodipine Besylate [Norvasc] 10 mg PO DAILY 09/23/21 10/18/23 Doxepin [SINEquan] 30 mg PO HS 09/23/21 10/18/23 Ondansetron Odt [Zofran] 4 mg TL Q6H PRN #10 tablet 04/23/23 10/18/23 clonazePAM [Clonazepam] 0.25 mg PO BID 10/18/23 10/18/23 - Allergies Allergies/Adverse Reactions: Allergies Allergy/AdvReac Type Severity Reaction Status Date / Time ceftriaxone sodium * Allergy Intermediate Hives Verified 09/21/23 16:22 [From Pietro] Review of Systems - Constitutional Constitutional: denies: Fever, Chills - Cardiovascular Cariovascular: denies: Irregular heart rate, Palpitations, Chest pain - Respiratory Respiratory: denies: Cough, Sputum production, Wheezing - Gastrointestinal Gastrointestinal: reports: Abdominal pain. denies: Abdominal distention - Neurological Neurological: reports: Focal weakness - All Other Systems All Other Systems: reports: Reviewed and negative Exam - Vital Signs Reviewed Vital Signs: Yes Vital Signs: Vital Signs x48h Temp Pulse Pulse Resp BP BP Pulse Ox 10/18/23 08:11 36.6 C 90 16 132/85 H 93 10/18/23 08:00 37.0 C 80 20 135/79 H 97 10/18/23 06:12 88 16 134/84 H 96 10/18/23 05:26 88 16 147/88 H 95 10/18/23 04:08 81 18 138/84 H 94 10/18/23 03:10 83 18 136/81 H 94 10/18/23 01:33 92 18 134/86 H 92 10/18/23 01:08 36.5 C 89 20 154/83 H 94 - Physical Exam General Appearance: positive: No acute distress, Alert Respiratory: positive: No respiratory distress, Breath sounds nml. negative: Chest non-tender Cardiovascular: positive: Regular rate & rhythm, No murmur, No gallop Abdomen: positive: No organomegaly, Nml bowel sounds, No distention, Tenderness Neurologic/Psychiatric: positive: Weakness (Left sided residual U/L extremity weakness) Conclusion/Plan - Problem List (1) Gallbladder dilatation Conclusion/Plan: --CT scan showing possible evidence of acute cholecystitis. He is currently on IV Zosyn. --Based on RCRI scoring patient is a class II risk. 6% 30-day risk of , UT, or cardiac arrest. --Based on NSQIP risk assessment, patient is above average. 6.4% risk of serious complication. --Unfortunately no prior TTE in the chart. EKG was reviewed and is nonischemic. --Patient is medically optimized pending potassium supplementation. No contraindications to surgery at this time. (2) Multiple rib fractures Conclusion/Plan: --Analgesia available. He is not in any respiratory distress. Qualifiers: Encounter type: initial encounter Fracture type: closed Laterality: right Qualified Code(s): S22.41XA - Multiple fractures of ribs, right side, initial encounter for closed fracture (3) CVA (cerebral vascular accident) Conclusion/Plan: --Reports a history of CVA 10 years ago with a craniotomy. Patient has residual left-sided weakness in his upper and lower extremities. He is wheelchair and walker dependent at baseline. He lives at home place. (4) Seizure Conclusion/Plan: --As above. Will continue oral Keppra. (5) HLD (hyperlipidemia) Conclusion/Plan: --On statins at home for prior history of CVA. Continue postoperatively. (6) HTN (hypertension) Conclusion/Plan: --Continue home lisinopril, metoprolol, amlodipine. (7) Hypokalemia Conclusion/Plan: --Replacing potassium. Recheck ordered at noon. - Lab Results Lab results reviewed: Yes Fish Bones: 10/18/23 01:44 10/18/23 02:14 - Diagnostic Imaging Results Diagnostic Imaging Results: positive: Final report reviewed - EKG Results EKG Interpreted Independently: Yes EKG Comparison: Old EKG unavailable
[2023-10-18] MEDS: lisinopriL 20 MG TABLET PO SCH (10:23)
[2023-10-18] MEDS: SERTRALINE 50 MG TABLET PO SCH (10:23)
[2023-10-18] MEDS: amLODIPine 5 MG TABLET PO SCH (10:24)
[2023-10-18] MEDS: levETIRAcetam 250 MG TABLET PO SCH (10:24)
[2023-10-18] MEDS: DONEPEZIL 5 MG TABLET PO SCH (10:25)
[2023-10-18] MEDS: METOPROLOL TARTRATE 50 MG TABLET PO SCH (10:25)
[2023-10-18] MEDS: FOLIC ACID 1 MG TABLET PO SCH (10:25)
[2023-10-18] MEDS: clonazePAM 0.5 MG TABLET PO SCH (10:25)
[2023-10-18] MEDS: hydroCHLOROthiazide 25 MG TABLET PO SCH (10:25)
[2023-10-18] MEDS: POTASSIUM CHLORIDE 10 MEQ CAPSULE PO SCH (10:25)
[2023-10-18] MEDS: SODIUM CHLORIDE FLUSH 0.9% 10 ML SYRINGE IVP SCH (10:28)
[2023-10-18] MEDS: PIPERACILLIN/TAZOBACTAM 3.375 GM in SODIUM CHLORIDE 0.9% MINIBAG 100 ML IV SCH (10:36)
[2023-10-18] MEDS: HEPARIN 5,000 UNIT/ML VIAL SUBQ SCH (10:36)
[2023-10-18] MEDS: ACETAMINOPHEN 325 MG TABLET PO PRN (11:00)
--- NOTE | 2023-10-18 12:25 | PROVIDER PROGRESS NOTE ---
Progress Note General Surgery Pre-op Note Reagan is a 62 year old man with clinical, lab, and image findings consistent with early acute cholecystitis. It is my recommendation that Reagan undergo laparoscopic cholecystectomy, possible open cholecystectomy. Labs: K 3.0 being corrected pre-op Consent: Reagan has been counseled for the procedure, it's indications, risks, benefits and expected outcome. We specifically discussed risks associated with anesthesia, bleeding, infection, injury to surrounding structures which may require additional surgery, and the possible need for conversion to an open procedure. We also discussed the possible need for a blood transfusion with its risks and benefits. Reagan understands the content of our discussion and requests that we proceed with the procedure as outlined. Tyler Colvin MD, FACS General Surgery Service
--- NOTE | 2023-10-18 13:20 | ANESTHESIA ---
Pre-Anesthesia VS, & Labs - Diagnosis CHOLECYSTITIS - Procedure LAP RICO Vital Signs: Temp Pulse Resp BP Pulse Ox O2 Flow Rate 36.6 C 90 16 132/85 H 93 10/18/23 08:11 10/18/23 08:11 10/18/23 08:11 10/18/23 10:25 10/18/23 08:11 Height: 5 ft 10 in Weight (kg): 98 kg Body Mass Index: 30.9 BMI Classification: Obese - NPO Other (Food >8hrs; Fluids within the last two hours. water with meds) - Lab Results Current Lab Results: Laboratory Tests 10/18/23 12:00: Potassium 3.4 L 10/18/23 02:14: Sodium 137, Potassium 3.0 L, Chloride 98 L, Carbon Dioxide 32, Anion Gap 7.0, BUN 17, Creatinine 0.9, Estimated GFR (MDRD) 86 L, Glucose 164 H, Calcium 9.3, Total Bilirubin 0.8, AST 18, ALT 16, Alkaline Phosphatase 76, Total Protein 7.6, Albumin 3.6, Globulin 4.0, Albumin/Globulin Ratio 0.9 L, Lipase < 10 L 10/18/23 01:44: WBC 12.7 H, RBC 4.77, Hgb 13.7 L, Hct 42.5, MCV 89.1, MCH 28.7, MCHC 32.2, RDW 14.3, Plt Count 169, MPV 10.1, Neut # (Auto) 10.4 H, Lymph # (Auto) 0.8 L, [place] # (Auto) 1.3 H, Eos # (Auto) 0.0, Baso # (Auto) 0.0, Absolute Nucleated RBC 0.00, Nucleated RBC % 0.0 Lab results reviewed: Yes Fish Bones: 10/18/23 01:44 10/18/23 12:00 Home Medications and Allergies Home Medications: Ambulatory Orders clonazePAM [Clonazepam] 0.25 mg PO BID 10/18/23 Active Medications Acetaminophen (Acetaminophen 325 Mg Tablet) 650 mg PO Q8HR PRN PRN Reason: NEEDED PER PROVIDER ORDERS Last Admin: 10/18/23 11:00 Dose: 650 mg Amlodipine Besylate (Amlodipine 5 Mg Tablet) 10 mg PO DAILY [facility] Last Admin: 10/18/23 10:24 Dose: 10 mg Clonazepam (Clonazepam 0.5 Mg Tablet) 0.25 mg PO BID [facility] Last Admin: 10/18/23 10:25 Dose: 0.25 mg Donepezil HCl (Donepezil 5 Mg Tablet) 5 mg PO DAILY [facility] Last Admin: 10/18/23 10:25 Dose: 5 mg Doxepin HCl (Doxepin 10 Mg Capsule) 30 mg PO HS [facility] Folic Acid (Folic Acid 1 Mg Tablet) 1 mg PO DAILY [facility] Last Admin: 10/18/23 10:25 Dose: 1 mg Heparin Sodium (Porcine) (Heparin 5,000 Unit/Ml Vial) 5,000 unit SUBQ BID [facility] Last Admin: 10/18/23 10:36 Dose: 5,000 unit Hydrochlorothiazide (Hydrochlorothiazide 25 Mg Tablet) 25 mg PO DAILY [facility] Last Admin: 10/18/23 10:25 Dose: 25 mg Hydromorphone HCl (Hydromorphone 0.5 Mg/0.5 Ml Syringe) 0.5 mg IVP Q2H PRN PRN Reason: Severe Pain (Level 7-10) Hydroxyzine Pamoate (Hydroxyzine Pamoate 25 Mg Capsule) 25 mg PO Q6H PRN PRN Reason: ITCHING Piperacillin Sod/Tazobactam (Sod 3.375 gm/ Sodium Chloride) 100 mls @ 200 mls/hr IV Q6H [facility] Last Infusion: 10/18/23 12:48 Dose: Infused Lactated Ringer's (Lr) 1,000 mls @ 125 mls/hr IV .Q8H [facility] Last Admin: 10/18/23 08:31 Dose: 125 mls/hr Levetiracetam (Levetiracetam 250 Mg Tablet) 750 mg PO BID [facility] Last Admin: 10/18/23 10:24 Dose: 750 mg Lisinopril (Lisinopril 20 Mg Tablet) 40 mg PO DAILY [facility] Last Admin: 10/18/23 10:23 Dose: 40 mg Lorazepam (Lorazepam 1 Mg Tablet) 1 mg PO TID PRN PRN Reason: Anxiety Metoprolol Tartrate (Metoprolol Tartrate 50 Mg Tablet) 100 mg PO BID [facility] Last Admin: 10/18/23 10:25 Dose: 100 mg Pantoprazole Sodium (Pantoprazole 40 Mg Tablet) 40 mg PO QDAC [facility] Potassium Chloride (Potassium Chloride 10 Meq Capsule) 10 meq PO BID [facility] Last Admin: 10/18/23 10:37 Dose: 10 meq Sertraline HCl (Sertraline 50 Mg Tablet) 100 mg PO DAILY [facility] Last Admin: 10/18/23 10:23 Dose: 100 mg Sodium Chloride (Sodium Chloride Flush 0.9% 10 Ml Syringe) 10 ml IVP PRN PRN PRN Reason: NEEDED PER PROVIDER ORDERS Sodium Chloride (Sodium Chloride Flush 0.9% 10 Ml Syringe) 10 ml IVP 0100,0900,1700 [facility] Last Admin: 10/18/23 10:28 Dose: Not Given Acetaminophen [Pain Reliever] 650 mg PO Q8HR PRN 08/25/12 Cholecalciferol (Vitamin D3) [Vitamin D-3] 2,000 unit PO DAILY 08/25/12 Docusate Sodium 250 mg PO DAILY 08/25/12 Metoprolol Succinate 100 mg PO BID 08/25/12 Omeprazole [PriLOSEC] 20 mg PO DAILY 08/25/12 Potassium 10 meq PO BID 08/25/12 hydroCHLOROthiazide [Hydrodiuril] 25 mg PO DAILY 08/25/12 lisinopriL [Lisinopril] 40 mg PO DAILY 08/25/12 Sertraline [Zoloft] 100 mg PO DAILY 12/11/12 levETIRAcetam [Keppra] 750 mg PO BID 03/17/15 Clobetasol Propionate 15 gm TP ONCE PRN 04/22/18 Calcium Carbonate [Antacid] 200 mg PO PRN PRN 06/25/18 Folic Acid 1 mg PO DAILY 09/17/20 Magnesium 250 mg PO HS 09/17/20 Pravastatin [Pravachol] 40 mg PO HS 09/17/20 Amlodipine Besylate [Norvasc] 10 mg PO DAILY 09/23/21 Doxepin [SINEquan] 30 mg PO HS 09/23/21 clonazePAM [Clonazepam] 0.25 mg PO BID 10/18/23 Allergies/Adverse Reactions: Allergies Allergy/AdvReac Type Severity Reaction Status Date / Time ceftriaxone sodium * Allergy Intermediate Hives Verified 09/21/23 16:22 [From Pietro] Anes History & Medical History - Anesthetic History Anesthesia Complications: reports: No previous complications Family history of Anesthesia Complications: Denies Family history of Malignant Hyperthermia: Denies - Medical History Cardiovascular: reports: Hypertension, High cholesterol, Angina Pulmonary: reports: None Gastrointestinal: reports: GERD Urinary: reports: None Neuro: reports: CVA, Seizure disorder, Other Musculoskeletal: reports: Osteoarthritis, Hemiplegia Endocrine/Autoimmune: reports: None Blood Disorders: reports: None Skin: reports: Psoriasis, Other Smoking Status: Never smoker Psychosocial: reports: No issues indicated History of Cancer?: No - Surgical History Neurologic: reports: Craniotomy Results - EKG Results EKG Comparison: Reviewed EKG Exam General: Alert, Oriented x3, Cooperative, No acute distress Dental: Loose/Frag, Poor dentition Mouth Openin Fingerbreadth (FB) Neck Mobility: Normal Mallampati classification: III Thyromental Distance: 4-6 cm Mental/Cognitive Status: Alert/Oriented X3, Normal for patient, Oriented to name, Oriented to date, Oriented to time Cognitive Status: Within normal limits Other Exam Comments:: Patient and patient bedside are limited in their ability to report medical history. Answered "I don't know" or "the nursing facility might know" to most of my questions. Provided what they knew to their ability. Plan Anesthesia Type: General Consent for Procedure(s) Verified and Reviewed: Yes Code Status: Attempt Resuscitation ASA classification: 3-Severe systemic disease Is this case an emergency?: No
[2023-10-18] MEDS ORDERED: LIDOCAINE 1%-EPI 1:100000 20 ML MDV ONE (13:21)
[2023-10-18] MEDS ORDERED: iohexoL-240 10 ML VIAL IVP ONE (13:22)
[2023-10-18] MEDS ORDERED: BUPIVACAINE 0.25% PF 30 ML VIAL ONE (13:22)
--- NOTE | 2023-10-18 14:47 | PHARMACY PROGRESS NOTE ---
- Best Possible Medication History Admit Date and Time: 10/18/2328 Processed by: Pharmacy Medications reviewed in ED?: No Medication History completed: Yes Patient Interview: Pt unable to participate Secondary Source(s): Insurance records, Facility MAR as ONLY source As the person ultimately responsible for medication therapy, providers are able to order a medication from an existing home medication list in [facility] via the "Reconcile Routine" prior to Confirmation of that medication by computer network support specialist. Such practice is discouraged except when the physician, in their clinical judgment, deems that a medical need exists for a medication without regard to previous use.
[2023-10-18] MEDS: LIDOCAINE 1%-EPI 1:100000 20 ML MDV SUBQ ONE ×2 (15:06)
[2023-10-18] MEDS: IOTHALAMATE MEGLUMINE 50 ML VIAL IVP ONE (15:06)
[2023-10-18] MEDS: BUPIVACAINE 0.25% PF 30 ML VIAL SUBQ ONE ×2 (15:07)
[2023-10-18] MEDS ORDERED: SUGAMMADEX 200 MG/2 ML VIAL IVP ONE (17:00)
[2023-10-18] MEDS ORDERED: ATROPINE ABBOJECT 1 MG/10 ML SYRINGE IVP PRN (17:02)
[2023-10-18] MEDS ORDERED: MORPHINE 2 MG/ML CARPUJECT IVP PRN (17:02)
[2023-10-18] MEDS ORDERED: fentaNYL 100 MCG/2 ML VIAL IVP PRN (17:02)
[2023-10-18] MEDS ORDERED: HYDROmorphone 0.5 MG/0.5 ML SYRINGE IVP PRN (17:02)
[2023-10-18] MEDS ORDERED: ONDANSETRON 4 MG/2 ML VIAL IVP PRN (17:02)
[2023-10-18] MEDS ORDERED: NALOXONE 0.4 MG/ML VIAL IVP PRN (17:02)
[2023-10-18] MEDS: LACTATED RINGERS 1,000 ML IV ONE (17:31)
[2023-10-18] MEDS ORDERED: LACTATED RINGERS 1,000 ML IV SCH (18:00)
--- NOTE | 2023-10-18 18:00 | OPERATIVE REPORT ---
Operative Report - General Admit Date: 10/18/23 - Other Other Information/Narrative: PROCEDURE DATE: 10/18/2023 PREOPERATIVE DIAGNOSIS: Reagan is a 62 year old male who has clinical, x-ray, and laboratory findings consistent with zcute cholecystitis. Reagan is being taken to the operating room for laparoscopic cholecystectomy, possible open cholecystectomy. POSTOPERATIVE DIAGNOSIS: Gangrenous cholecystitis NAME OF PROCEDURE: Laparoscopic cholecystectomy SURGEON: Tyler Colvin MD, FACS RN PROCEDURES SURGEON: None ANESTHESIA: General endotracheal. ESTIMATED BLOOD LOSS: 200 mL. DRAINS: Saw drain in sub-hepatic space SPECIMEN: Gallbladder/bile/stones COMPLICATIONS None FINDINGS: Ganfrene of the gallbladder to include the cystic duct adjacent ot the gallbladder. Severeral small abscess pockets were located between the gallbladder wall and liver bed and drained DESCRIPTION OF OPERATION FOLLOWS: After consent for the procedure was obtained, the patient was brought to the operating room where in the supine position, general endotracheal anesthesia was administered. A surgical time-out was performed indicating the patient and the procedure to be performed. The abdomen was prepped with alcohol-free chloroprep and draped in a sterile fashion. Pneumoperitoneum was achieved through a subumbilical incision using a Dasha cannula and an open technique. Under direct vision, a 10 mm non-cutting laparoscopic port was placed in the sub-xiphoid region and two 5 mm noncutting ports were placed in the right upper quadrant; one in the mid-clavicular line and one in the anterior axillary line. Each of the port sites were infiltrated with 1% Lidocaine with epinephrine in a 50/50 mix with 1/4% Marcaine mixture prior making the incisions. The patient was placed in the steep reverse Trendelenburg position and rolled to the left. Inspection of the right upper quadrant revealed the above noted findings. The omentum was carefully dissected off of the gallbladder and liver to expose the gallbladder. The gallbladder was distended, black, and with wall friability and required decompression with an 18 G spinal needle and a 20 ml syringe to obtain purchase with an endograsper. The gallbladder was grasped on the fundus and retracted superiorly and anteriorly. Adhesions between the gallbladder and omentum were gently teased off the anterior wall of the gallbladder and then the neck of the gallbladder was identified. The neck was grasped and retracted laterally. The cystic duct was identified as it coursed from the gallbladder toward the common duct. The cystic artery was similarly identified but it began to bleed as it was dissected out of the inflammatory tissue surrounding the gallbladder. The bleeding caused difficulty with visualization but the vessel was eventually controlled with a [place] endograsper. This permitted irrigation and suction of the area to permit hemoclip control of the vessel. The cystic duct was clipped on the viable portion using 2 hemoclips. The gallbladder was then removed from the liver bed using electrocautery and brought out through the subxiphoid port using an endo-catch device. Multiple small pericholecystic abscesses were encountered and drained with removal of the gallbladder. During the course of the gallbladder retraction, a small rent occurred in the fundus of the gallbladder and bile was spilled into the peritoneal cavity. A search was made for gallstones and all that were encountered in the abdominal cavity were removed. The bile was aspirated from the peritoneal cavity. Reinspection of the right upper quadrant revealed no evidence of bleeding or bile leakage from the previous dissection site. The right upper quadrant was irrigated with warm sterile saline. The irrigant was aspirated. A 19 F Saw drain was placed into the sub-hepatic space, brought out through the lateral port site, and secured to the skin with a 3-0 silk suture. A search was made for sponges, packs, instruments, and needles. None were found. The sponge, pack, instrument, and needle counts were relayed to me as being correct. The sub-xiphoid port site was closed with a 2-0 Vicryl under direct vision using an endo-close device. The pneumoperitoneum then was released. There was no evidence of bleeding from the laparoscopic port sleeve sites upon release of the pneumoperitoneum. The subumbilical incision was closed with 2-0 Vicryl for the linea alba. The skin of each of the port sites was closed with interrupted 4-0 Vicryl in a subcuticular fashion with Steri-Strips to reinforce the epidermis. Dressings were placed. The patient tolerated the procedure well and was brought to the recovery room with stable vital signs.
--- NOTE | 2023-10-18 18:30 | ANESTHESIA POST OP EVALUATION ---
Anesthesia Post Eval - Post Anesthesia Eval Vitals: Last Vital Signs Temp 36.3 C L 10/18/23 18:10 Pulse 86 10/18/23 18:10 Resp 21 10/18/23 18:10 BP 142/90 H 10/18/23 18:10 Pulse Ox 94 10/18/23 18:10 O2 Flow Rate CV Function Including HR & BP: Stable Pain Control: Satisfactory Nausea & Vomiting: Negative Mental Status: Baseline Respiratory Status: Airway Patent Hydration Status: Satisfactory Anesthesia Complications: None
[2023-10-18] MEDS ORDERED: NON FORMULARY MED (Magnesium [Magnesium] 250 MG Tablet) PO SCH (21:00)
[2023-10-18 22:33] LABS: HCT - HEMATOCRIT 40.4 % (42.0-52.0); HGB - HEMOGLOBIN 12.9 g/dL (14.0-18.0)
[2023-10-18] MEDS: DOXEPIN 10 MG CAPSULE PO SCH (22:47)
[2023-10-19] MEDS: HYDROmorphone 0.5 MG/0.5 ML SYRINGE IVP PRN (01:47)
[2023-10-19] MEDS: SODIUM CHLORIDE FLUSH 0.9% 10 ML SYRINGE IVP PRN (01:48)
[2023-10-19 06:11] LABS: BASOPHILS % (AUTO) 0.1 %; HCT - HEMATOCRIT 38.1 % (42.0-52.0); HGB - HEMOGLOBIN 12.3 g/dL (14.0-18.0); LYMPHOCYTES # (AUTO) 0.6 10^3/uL (1.5-3.5); LYMPHOCYTES % (AUTO) 3.4 %; MEAN CORPUSCULAR HEMOGLOBIN 28.9 pg (27.0-31.0); MEAN CORPUSCULAR HGB CONC 32.3 g/dL (32.0-36.0); MEAN CORPUSCULAR VOLUME 89.6 fL (80.0-94.0); MEAN PLATELET VOLUME 9.9 fL (7.4-11.4); MONOCYTES # (AUTO) 1.1 10^3/uL (0.0-1.0); MONOCYTES % (AUTO) 6.7 %; NEUTROPHILS # (AUTO) 14.5 10^3/uL (1.5-6.6); NEUTROPHILS % (AUTO) 89.1 %; PLT - PLATELET COUNT 178 10^3/uL (130-450); RED BLOOD COUNT 4.25 10^6/uL (4.70-6.10); RED CELL DISTRIBUTION WIDTH 14.5 % (12.0-15.0); WHITE BLOOD COUNT 16.3 x10^3/uL (4.8-10.8)
[2023-10-19 06:32] LABS: ALBUMIN 2.8 g/dL (3.2-5.5); ALBUMIN/GLOBULIN RATIO 0.9 (1.0-2.2); BILIRUBIN,TOTAL 2.9 mg/dL (0.2-1.0); CALCIUM 8.8 mg/dL (8.5-10.3); POTASSIUM 3.3 mmol/L (3.5-4.5)
[2023-10-19] MEDS: PANTOPRAZOLE 40 MG TABLET PO SCH (06:44)
--- NOTE | 2023-10-19 06:56 | PROVIDER PROGRESS NOTE ---
Subjective - General Admit Date: 10/18/23 Procedure Date: 10/18/23 Post Op Days: 1 Procedure Performed: Laparoscopic cholecystectomy with placement sub-hepatic drain - Review of Systems Wound/Incisions: positive: Dressing dry and intact, No drainage Drain Type: Saw Drain Output Description: Serosanguinous Approximate mls Output: 80 ml since surgery All Other Systems: positive: Reviewed and negative - Other Other Information/Narrative: Still with right chest pain with movement likely related to the two anterior rib fractures. Abdominal discomfot less than pre-op. Port site discomfort controlled with meds. No BM yet. No nausea or vomiting and progressing slowly with clears. Objective - Patient Data Vital Signs: Vital Signs x48h Temp Pulse Resp BP Pulse Ox O2 Flow Rate 10/19/23 06:25 97.9 F 97 18 108/64 93 1.5 10/19/23 00:30 98.1 F 95 18 130/74 93 1.5 Weight: Weight 10/17/23 10/18/23 10/19/23 23:59 23:59 23:59 Weight (kg) 98 kg Intake & Output: Intake and Output Totals x24h 10/17/23 10/18/23 10/19/23 23:59 23:59 23:59 Intake Total 2389.583 240 Output Total 220 460 Balance 2169.583 -220 - Lab Results Lab Results: 10/19/23 05:40 10/19/23 05:40 Other Lab Results: Lab Results x24hrs 10/19/23 10/19/23 10/18/23 Range/Units 05:40 05:40 22:29 WBC 16.3 H (4.8-10.8) x10^3/uL RBC 4.25 L (4.70-6.10) 10^6/uL Hgb 12.3 L 12.9 L (14.0-18.0) g/dL Hct 38.1 L 40.4 L (42.0-52.0) % MCV 89.6 (80.0-94.0) fL MCH 28.9 (27.0-31.0) pg MCHC 32.3 (32.0-36.0) g/dL RDW 14.5 (12.0-15.0) % Plt Count 178 (130-450) 10^3/uL MPV 9.9 (7.4-11.4) fL Neut # (Auto) 14.5 H (1.5-6.6) 10^3/uL Lymph # (Auto) 0.6 L (1.5-3.5) 10^3/uL [place] # (Auto) 1.1 H (0.0-1.0) 10^3/uL Eos # (Auto) 0.0 (0.0-0.7) 10^3/uL Baso # (Auto) 0.0 (0.0-0.1) 10^3/uL Absolute Nucleated RBC 0.00 x10^3/uL Nucleated RBC % 0.0 /100WBC Sodium 137 (135-145) mmol/L Potassium 3.3 L (3.5-4.5) mmol/L Chloride 102 (101-111) mmol/L Carbon Dioxide 26 (21-32) mmol/L Anion Gap 9.0 (6-13) BUN 21 H (6-20) mg/dL Creatinine 1.0 (0.6-1.3) mg/dL Estimated GFR (MDRD) 76 L (>89) Glucose 162 H (74-104) mg/dL Calcium 8.8 (8.5-10.3) mg/dL Total Bilirubin 2.9 H (0.2-1.0) mg/dL AST 100 H (10-42) IU/L ALT 124 H (10-60) IU/L Alkaline Phosphatase 145 H (42-121) IU/L Total Protein 6.0 L (6.4-8.9) g/dL Albumin 2.8 L (3.2-5.5) g/dL Globulin 3.2 (2.1-4.2) g/dL Albumin/Globulin Ratio 0.9 L (1.0-2.2) Blood Type Blood Type Recheck Antibody Screen Crossmatch IS Only 10/18/23 10/18/23 10/18/23 Range/Units 16:20 12:00 01:44 WBC (4.8-10.8) x10^3/uL RBC (4.70-6.10) 10^6/uL Hgb (14.0-18.0) g/dL Hct (42.0-52.0) % MCV (80.0-94.0) fL MCH (27.0-31.0) pg MCHC (32.0-36.0) g/dL RDW (12.0-15.0) % Plt Count (130-450) 10^3/uL MPV (7.4-11.4) fL Neut # (Auto) (1.5-6.6) 10^3/uL Lymph # (Auto) (1.5-3.5) 10^3/uL [place] # (Auto) (0.0-1.0) 10^3/uL Eos # (Auto) (0.0-0.7) 10^3/uL Baso # (Auto) (0.0-0.1) 10^3/uL Absolute Nucleated RBC x10^3/uL Nucleated RBC % /100WBC Sodium (135-145) mmol/L Potassium 3.4 L (3.5-4.5) mmol/L Chloride (101-111) mmol/L Carbon Dioxide (21-32) mmol/L Anion Gap (6-13) BUN (6-20) mg/dL Creatinine (0.6-1.3) mg/dL Estimated GFR (MDRD) (>89) Glucose (74-104) mg/dL Calcium (8.5-10.3) mg/dL Total Bilirubin (0.2-1.0) mg/dL AST (10-42) IU/L ALT (10-60) IU/L Alkaline Phosphatase (42-121) IU/L Total Protein (6.4-8.9) g/dL Albumin (3.2-5.5) g/dL Globulin (2.1-4.2) g/dL Albumin/Globulin Ratio (1.0-2.2) Blood Type A POSITIVE Blood Type Recheck A POSITIVE Antibody Screen NEGATIVE Crossmatch IS Only See Detail - Current Medications Current Medications: Current Medications Generic Name Dose Route Start Last Admin Trade Name Bluq PRN Reason Stop Dose Admin Acetaminophen 650 mg 10/18/23 07:30 10/18/23 11:00 Acetaminophen 325 Mg Tablet PO 650 mg Q8HR PRN Administration NEEDED PER PROVIDER ORDERS Amlodipine Besylate 10 mg 10/18/23 09:00 10/18/23 10:24 Amlodipine 5 Mg Tablet PO 10 mg DAILY ERNESTINA Administration Clonazepam 0.25 mg 10/18/23 09:00 10/18/23 20:21 Clonazepam 0.5 Mg Tablet PO 0.25 mg BID ERNESTINA Administration Donepezil HCl 5 mg 10/18/23 09:00 10/18/23 10:25 Donepezil 5 Mg Tablet PO 5 mg DAILY ERNESTINA Administration Doxepin HCl 30 mg 10/18/23 21:00 10/18/23 22:47 Doxepin 10 Mg Capsule PO Not Given HS ERNESTINA Folic Acid 1 mg 10/18/23 09:00 10/18/23 10:25 Folic Acid 1 Mg Tablet PO 1 mg DAILY ERNESTINA Administration Hydromorphone HCl 0.5 mg 10/18/23 07:34 10/19/23 01:47 Hydromorphone 0.5 Mg/0.5 Ml Syringe IVP 0.5 mg Q2H PRN Administration Severe Pain (Level 7-10) Piperacillin Sod/Tazobactam 100 mls @ 200 mls/hr 10/18/23 08:00 10/19/23 01:35 Sod 3.375 gm/ Sodium Chloride IV 200 mls/hr Q6H ERNESTINA Administration Levetiracetam 750 mg 10/18/23 09:00 10/18/23 20:21 Levetiracetam 250 Mg Tablet PO 750 mg BID ERNESTINA Administration Lisinopril 40 mg 10/18/23 09:00 10/18/23 10:23 Lisinopril 20 Mg Tablet PO 40 mg DAILY ERNESTINA Administration Metoprolol Tartrate 100 mg 10/18/23 09:00 10/18/23 20:20 Metoprolol Tartrate 50 Mg Tablet PO 100 mg BID ERNESTINA Administration Pantoprazole Sodium 40 mg 10/19/23 07:00 10/19/23 06:44 Pantoprazole 40 Mg Tablet PO 40 mg QDAC ERNESTINA Administration Potassium Chloride 10 meq 10/18/23 08:00 10/18/23 20:21 Potassium Chloride 10 Meq Capsule PO 10 meq BID ERNESTINA Administration Sertraline HCl 100 mg 10/18/23 09:00 10/18/23 10:23 Sertraline 50 Mg Tablet PO 100 mg DAILY ERNESTINA Administration Sodium Chloride 10 ml 10/18/23 07:28 10/19/23 01:48 Sodium Chloride Flush 0.9% 10 Ml Syringe IVP 10 ml PRN PRN Administration NEEDED PER PROVIDER ORDERS Sodium Chloride 10 ml 10/18/23 09:00 10/19/23 01:35 Sodium Chloride Flush 0.9% 10 Ml Syringe IVP 10 ml 0100,0900,1700 [facility] Administration - Physical Exam Wound/Incisions: positive: Healing well, Dressing dry and intact, No drainage General Appearance: positive: No acute distress, Alert Eyes Bilateral: positive: PERRL Neck: positive: Nml inspection, No JVD Respiratory: positive: No respiratory distress, Breath sounds nml, Other (Mild right lateral chest wall discomfort to palpation, no flail) Abdomen: positive: Non-tender, Nml bowel sounds, No distention Skin: positive: Color nml, No rash, Warm Neurologic/Psychiatric: positive: Oriented x3 Impression/Plan - Problem List Problem List: Assessment: 1) Gangrenous cholecystitis - POD #1 laparoscopic cholecystectomy with placement of sub-hepatic drain. No evidence of bile or purulence within drain. LFT's elevated today - not unexpected given the amount of liver that was involved in the dissection of the gangrenous gallbladder from the infected liver bed. Will need to monitor for several days for trending. 2) Two anterior right rib fractures - still with discomfort controlled with analgesia. No respiratory compromise at this time 3) Leukocytosis - related to the procedure and the gangrenous nature of the gallbladder. In addition, several small abscesses were identified between the necrotic posterior wall of the gallbladder and the liver which were drained during the procedure. 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 Can stop tomorrow if H&H remain stable Nicholas Colvin MD, [facility] General Surgery Service
[2023-10-19] MEDS: LACTATED RINGERS 1,000 ML IV SCH (08:21)
[2023-10-19] MEDS: hydroCHLOROthiazide 25 MG TABLET PO SCH (08:26)
[2023-10-19 10:10] LABS: HCT - HEMATOCRIT 38.4 % (42.0-52.0)
--- NOTE | 2023-10-19 11:59 | PROVIDER PROGRESS NOTE ---
Assessment/Plan - Problem List (1) Gallbladder dilatation Assessment/Plan: (1) Gallbladder dilatation Conclusion/Plan: --Underwent lap choly on 09/16. --Remains on IV Zosyn. --Discussed case with general surgery this AM. Monitoring liver enzymes. (2) Multiple rib fractures Conclusion/Plan: --Analgesia available. He is not in any respiratory distress. Qualifiers: Encounter type: initial encounter Fracture type: closed Laterality: right Qualified Code(s): S22.41XA - Multiple fractures of ribs, right side, initial encounter for closed fracture (3) CVA (cerebral vascular accident) Conclusion/Plan: --Reports a history of CVA 10 years ago with a craniotomy. Patient has residual left-sided weakness in his upper and lower extremities. He is wheelchair and walker dependent at baseline. He lives at home place. (4) Seizure Conclusion/Plan: --As above. Will continue oral Keppra. (5) HLD (hyperlipidemia) Conclusion/Plan: --On statins at home for prior history of CVA. Continue postoperatively. (6) HTN (hypertension) Conclusion/Plan: --Continue home lisinopril, metoprolol, amlodipine. (2) Multiple rib fractures Qualifiers: Encounter type: initial encounter Fracture type: closed Laterality: right Qualified Code(s): S22.41XA - Multiple fractures of ribs, right side, initial encounter for closed fracture - Current Meds Current Meds: Current Medications Generic Name Dose Route Start Last Admin Trade Name Freq PRN Reason Stop Dose Admin Acetaminophen 650 mg 10/18/23 07:30 10/18/23 11:00 Acetaminophen 325 Mg Tablet PO 650 mg Q8HR PRN Administration NEEDED PER PROVIDER ORDERS Amlodipine Besylate 10 mg 10/18/23 09:00 10/19/23 08:25 Amlodipine 5 Mg Tablet PO 10 mg DAILY ERNESTINA Administration Clonazepam 0.25 mg 10/18/23 09:00 10/19/23 08:33 Clonazepam 0.5 Mg Tablet PO 0.25 mg BID ERNESTINA Administration Donepezil HCl 5 mg 10/18/23 09:00 10/19/23 08:26 Donepezil 5 Mg Tablet PO 5 mg DAILY ERNESTINA Administration Doxepin HCl 30 mg 10/18/23 21:00 10/18/23 22:47 Doxepin 10 Mg Capsule PO Not Given HS ERNESTINA Folic Acid 1 mg 10/18/23 09:00 10/19/23 08:26 Folic Acid 1 Mg Tablet PO 1 mg DAILY ERNESTINA Administration Hydrochlorothiazide 12.5 mg 10/19/23 09:00 10/19/23 08:26 Hydrochlorothiazide 25 Mg Tablet PO 12.5 mg DAILY ERNESTINA Administration Hydromorphone HCl 0.5 mg 10/18/23 07:34 10/19/23 01:47 Hydromorphone 0.5 Mg/0.5 Ml Syringe IVP 0.5 mg Q2H PRN Administration Severe Pain (Level 7-10) Piperacillin Sod/Tazobactam 100 mls @ 200 mls/hr 10/18/23 08:00 10/19/23 11:14 Sod 3.375 gm/ Sodium Chloride IV Infused Q6H ERNESTINA Infusion Lactated Ringer's 1,000 mls @ 75 mls/hr 10/19/23 06:53 10/19/23 08:21 Lr IV 75 mls/hr .[id number] ERNESTINA Administration Levetiracetam 750 mg 10/18/23 09:00 10/19/23 08:25 Levetiracetam 250 Mg Tablet PO 750 mg BID ERNESTINA Administration Lisinopril 40 mg 10/18/23 09:00 10/19/23 08:25 Lisinopril 20 Mg Tablet PO 40 mg DAILY ERNESTINA Administration Metoprolol Tartrate 100 mg 10/18/23 09:00 10/19/23 08:32 Metoprolol Tartrate 50 Mg Tablet PO 100 mg BID ERNESTINA Administration Pantoprazole Sodium 40 mg 10/19/23 07:00 10/19/23 06:44 Pantoprazole 40 Mg Tablet PO 40 mg QDAC ERNESTINA Administration Potassium Chloride 10 meq 10/18/23 08:00 10/19/23 08:25 Potassium Chloride 10 Meq Capsule PO 10 meq BID ERNESTINA Administration Sertraline HCl 100 mg 10/18/23 09:00 10/19/23 08:25 Sertraline 50 Mg Tablet PO 100 mg DAILY ERNESTINA Administration Sodium Chloride 10 ml 10/18/23 07:28 10/19/23 01:48 Sodium Chloride Flush 0.9% 10 Ml Syringe IVP 10 ml PRN PRN Administration NEEDED PER PROVIDER ORDERS Sodium Chloride 10 ml 10/18/23 09:00 10/19/23 08:32 Sodium Chloride Flush 0.9% 10 Ml Syringe IVP Not Given 0100,0900,1700 ERNESTINA - Lab Result Fish Bone Diagrams: 10/19/23 10:00 10/19/23 05:40 - Additional Planning My Orders: My Active Orders 10/19/23 09:00 hydroCHLOROthiazide [Hydrodiuril] 12.5 mg PO DAILY 10/20/23 05:00 BMP - BASIC METABOLIC PANEL [CHEM] DAILYLAB CBC [CBC - COMP BLD CT W/AUTO DIFF] [HEME] DAILYLAB 10/21/23 05:00 BMP - BASIC METABOLIC PANEL [CHEM] DAILYLAB CBC [CBC - COMP BLD CT W/AUTO DIFF] [HEME] DAILYLAB 10/22/23 05:00 BMP - BASIC METABOLIC PANEL [CHEM] DAILYLAB CBC [CBC - COMP BLD CT W/AUTO DIFF] [HEME] DAILYLAB 10/23/23 05:00 BMP - BASIC METABOLIC PANEL [CHEM] DAILYLAB CBC [CBC - COMP BLD CT W/AUTO DIFF] [HEME] DAILYLAB Subjective - Subjective Patient Reports: Feeling Better, Resting Comfortably, No Complaints Objective Vital Signs: Vital Signs - 24 hr 10/18/23 10/18/23 10/18/23 17:25 17:30 17:35 Temperature 36.4 C L 36.4 C L 36.4 C L Heart Rate 78 79 84 Heart Rate [ Monitoring electrodes] Respiratory 18 26 H 24 Rate Blood Pressure 143/81 H 146/86 H 144/80 H Blood Pressure [Left Brachial artery] Blood Pressure [Right Brachial artery] O2 Saturation 98 100 100 If not protocol : Oxygen Flow, liters/minute 10/18/23 10/18/23 10/18/23 17:40 17:50 18:00 Temperature 36.4 C L 36.2 C L 36.2 C L Heart Rate 86 87 86 Heart Rate [ Monitoring electrodes] Respiratory 23 25 H 22 Rate Blood Pressure 140/82 H 139/78 H 130/82 H Blood Pressure [Left Brachial artery] Blood Pressure [Right Brachial artery] O2 Saturation 100 99 95 If not protocol : Oxygen Flow, liters/minute 10/18/23 10/18/23 10/18/23 18:10 18:37 19:07 Temperature 36.3 C L 36.6 C 36.7 C Heart Rate 86 Heart Rate [ 98 87 Monitoring electrodes] Respiratory 21 21 22 Rate Blood Pressure 142/90 H Blood Pressure 130/81 H 140/79 H [Left Brachial artery] Blood Pressure [Right Brachial artery] O2 Saturation 94 92 93 If not protocol 1 1.5 : Oxygen Flow, liters/minute 10/18/23 10/18/23 10/18/23 20:04 20:20 20:34 Temperature 36.5 C Heart Rate Heart Rate [ 102 H Monitoring electrodes] Respiratory 18 Rate Blood Pressure 118/71 Blood Pressure 128/74 [Left Brachial artery] Blood Pressure [Right Brachial artery] O2 Saturation 93 If not protocol 1.5 1.5 : Oxygen Flow, liters/minute 10/18/23 10/19/23 10/19/23 21:07 00:30 06:25 Temperature 36.6 C 36.7 C 36.6 C Heart Rate Heart Rate [ 96 95 97 Monitoring electrodes] Respiratory 18 18 18 Rate Blood Pressure Blood Pressure 123/74 130/74 108/64 [Left Brachial artery] Blood Pressure [Right Brachial artery] O2 Saturation 93 93 93 If not protocol 1.5 1.5 1.5 : Oxygen Flow, liters/minute 10/19/23 10/19/23 08:29 08:32 Temperature 36.7 C Heart Rate Heart Rate [ 99 Monitoring electrodes] Respiratory 16 Rate Blood Pressure 113/58 L Blood Pressure [Left Brachial artery] Blood Pressure 113/68 [Right Brachial artery] O2 Saturation 92 If not protocol : Oxygen Flow, liters/minute Oxygen O2 Source Room air I&O (Last 24 Hrs): Intake and Output Totals x24h 10/17/23 10/18/23 10/19/23 23:59 23:59 23:59 Intake Total 2389.583 1680 Output Total 220 500 Balance 2169.583 1180 General: Alert, Oriented x3, Cooperative, No acute distress Cardiovascular: Regular rate, Normal S1, Normal S2, No murmurs Respiratory: Chest non-tender, No respiratory distress, Breath sounds nml - Results Results: Laboratory Results WBC 16.3 x10^3/uL (4.8-10.8) H 10/19/23 05:40 RBC 4.25 10^6/uL (4.70-6.10) L 10/19/23 05:40 Hgb 12.0 g/dL (14.0-18.0) L 10/19/23 10:00 Hct 38.4 % (42.0-52.0) L 10/19/23 10:00 MCV 89.6 fL (80.0-94.0) 10/19/23 05:40 MCH 28.9 pg (27.0-31.0) 10/19/23 05:40 MCHC 32.3 g/dL (32.0-36.0) 10/19/23 05:40 RDW 14.5 % (12.0-15.0) 10/19/23 05:40 Plt Count 178 10^3/uL (130-450) 10/19/23 05:40 MPV 9.9 fL (7.4-11.4) 10/19/23 05:40 Neut # (Auto) 14.5 10^3/uL (1.5-6.6) H 10/19/23 05:40 Lymph # (Auto) 0.6 10^3/uL (1.5-3.5) L 10/19/23 05:40 [place] # (Auto) 1.1 10^3/uL (0.0-1.0) H 10/19/23 05:40 Eos # (Auto) 0.0 10^3/uL (0.0-0.7) 10/19/23 05:40 Baso # (Auto) 0.0 10^3/uL (0.0-0.1) 10/19/23 05:40 Absolute Nucleated RBC 0.00 x10^3/uL 10/19/23 05:40 Nucleated RBC % 0.0 /100WBC 10/19/23 05:40 Sodium 137 mmol/L (135-145) 10/19/23 05:40 Potassium 3.3 mmol/L (3.5-4.5) L 10/19/23 05:40 Chloride 102 mmol/L (101-111) 10/19/23 05:40 Carbon Dioxide 26 mmol/L (21-32) 10/19/23 05:40 Anion Gap 9.0 (6-13) 10/19/23 05:40 BUN 21 mg/dL (6-20) H 10/19/23 05:40 Creatinine 1.0 mg/dL (0.6-1.3) 10/19/23 05:40 Estimated GFR (MDRD) 76 (>89) L 10/19/23 05:40 Glucose 162 mg/dL (74-104) H 10/19/23 05:40 Calcium 8.8 mg/dL (8.5-10.3) 10/19/23 05:40 Total Bilirubin 2.9 mg/dL (0.2-1.0) H 10/19/23 05:40 AST 100 IU/L (10-42) H 10/19/23 05:40 ALT 124 IU/L (10-60) H 10/19/23 05:40 Alkaline Phosphatase 145 IU/L (42-121) H 10/19/23 05:40 Total Protein 6.0 g/dL (6.4-8.9) L 10/19/23 05:40 Albumin 2.8 g/dL (3.2-5.5) L 10/19/23 05:40 Globulin 3.2 g/dL (2.1-4.2) 10/19/23 05:40 Albumin/Globulin Ratio 0.9 (1.0-2.2) L 10/19/23 05:40 Lipase < 10 U/L (11-82) L 10/18/23 02:14 Blood Type A POSITIVE 10/18/23 16:20 Blood Type Recheck A POSITIVE 10/18/23 01:44 Antibody Screen NEGATIVE 10/18/23 16:20 Crossmatch IS Only See Detail 10/18/23 16:20
--- NOTE | 2023-10-19 14:05 | PROVIDER PROGRESS NOTE ---
Progress Note General Surgery Afternoon Progress Note Reagan appears comfortable. He complains of right rib pain. His abdominal port site discomfort is minimal. He has tolerated clear liquids today. He has passed several brown stools. His abdomen is soft. The port site dressings are dry. The bulb drain is pulling scant serosanguinous fluid. He has mild facial edema and slight erythema of the facial skin which is new. His H&H is stable at 12.2/38. Assessment: 1) S/P lap rosemary for gangrenous cholecystitis: Progressing well after surgery. No evidence of a bile leak into the drain and no evidence of post-op intra- abdominal hemorrhage 2) Facial edema: May be a reaction to the Zosyn. Plan: 1) Advance diet as tolerated 2) Decrease IV fluids as oral intake increases 3) Monitor LFT's daily. If there is progressive increase, MRI will be conside red 4) Discontinue Zosyn and start Cipro/Flagyl. Nicholas Colvin MD, FACS General Surgery Service
[2023-10-19] MEDS ORDERED: CIPROFLOXACIN 400 MG/200 ML 400 MG/200 ML BAG IV SCH (15:00)
[2023-10-19] MEDS: metroNIDAZOLE 500 MG/100 ML 500 MG/100 ML BAG IV SCH (15:00)
[2023-10-19] MEDS: AZTREONAM 1 GM in SODIUM CHLORIDE 0.9% MINIBAG 100 ML IV SCH (18:46)
[2023-10-19] MEDS: DOXEPIN 25 MG CAPSULE PO SCH (21:40)
[2023-10-19 22:27] LABS: HCT - HEMATOCRIT 34.4 % (42.0-52.0); HGB - HEMOGLOBIN 11.2 g/dL (14.0-18.0)
[2023-10-20 06:18] LABS: BILIRUBIN,DIRECT 0.47 mg/dL (0.03-0.18)
[2023-10-20 06:21] LABS: ALBUMIN 2.8 g/dL (3.2-5.5); ALBUMIN/GLOBULIN RATIO 0.9 (1.0-2.2); BILIRUBIN,TOTAL 0.9 mg/dL (0.2-1.0); CALCIUM 8.6 mg/dL (8.5-10.3); CREATININE 0.8 mg/dL (0.6-1.3); POTASSIUM 3.4 mmol/L (3.5-4.5)
[2023-10-20 06:30] LABS: BASOPHILS % (AUTO) 0.1 %; HCT - HEMATOCRIT 34.2 % (42.0-52.0); HGB - HEMOGLOBIN 11.1 g/dL (14.0-18.0); LYMPHOCYTES # (AUTO) 0.8 10^3/uL (1.5-3.5); LYMPHOCYTES % (AUTO) 7.9 %; MEAN CORPUSCULAR HEMOGLOBIN 29.5 pg (27.0-31.0); MEAN CORPUSCULAR HGB CONC 32.5 g/dL (32.0-36.0); MEAN PLATELET VOLUME 10.2 fL (7.4-11.4); MONOCYTES # (AUTO) 0.6 10^3/uL (0.0-1.0); MONOCYTES % (AUTO) 5.3 %; NEUTROPHILS % (AUTO) 86.2 %; PLT - PLATELET COUNT 188 10^3/uL (130-450); RED BLOOD COUNT 3.76 10^6/uL (4.70-6.10); RED CELL DISTRIBUTION WIDTH 14.9 % (12.0-15.0); WHITE BLOOD COUNT 10.5 x10^3/uL (4.8-10.8)
[2023-10-20] MEDS: POTASSIUM CHLORIDE 20 MEQ TABLET PO ONE (08:00)
--- NOTE | 2023-10-20 08:16 | PROVIDER PROGRESS NOTE ---
Progress Note General Surgery Post-op Progress Note Diagnosis - Gangrenous cholecystitis POD # 2 - Laparoscopic cholecystectomy with placement of a sub-hepatic drain S: Comfortable; Tolerating clear liquid diet; Passing stool and flatus from rectum; Port site pain under control; Right rib fracture pain persists but improved O: VSS, Afeb; AAO; Facial edema and erythema has resolved; Lungs are clear; Heart NSR; Abdomen is soft, not distended. Port sites are clean and dry; Bulb suction pulling serosanguinous fluid Labs: WBC decreased to 10.5 Hgb stable at 11.1 T. Bili 0.9 and other LFT's decreasing A: Progressing well after surgery. His facial edema has resolved and was likely due to an allergic reaction to Zosyn; His HALI is not pulling bile so there is no evidence of a cystic duct or hepatic bed bile leak; His LFT's are returning to normal and his total bili is normal. His H&H is stable. Recommendation: 1) Increase diet 2) Monitor HALI output today. Will remove if output remains low and serous 3) Advance diet 4) consult for disposition - he may require more help than is offered in his assisted living facility given the recent surgery and his paraplegia from his previous AVM bleed. 5) Continue IV antibiotics until discharge. Tyler Colvin MD, FACS General Surgery Service
--- NOTE | 2023-10-20 11:04 | PROVIDER PROGRESS NOTE ---
Assessment/Plan - Problem List (1) Gallbladder dilatation Assessment/Plan: (1) Gallbladder dilatation Conclusion/Plan: --Underwent lap choly on 09/16. --Remains on IV Zosyn. --Discussed case with general surgery this AM. Monitoring liver enzymes, they have been downtrending. (2) Multiple rib fractures Conclusion/Plan: --Analgesia available. He is not in any respiratory distress. Qualifiers: Encounter type: initial encounter Fracture type: closed Laterality: right Qualified Code(s): S22.41XA - Multiple fractures of ribs, right side, initial encounter for closed fracture (3) CVA (cerebral vascular accident) Conclusion/Plan: --Reports a history of CVA 10 years ago with a craniotomy. Patient has residual left-sided weakness in his upper and lower extremities. He is wheelchair and walker dependent at baseline. He lives at home place. (4) Seizure Conclusion/Plan: --As above. Will continue oral Keppra. Dispo: Anticipate DC in next 24-48 hours. He will return to his facility. (2) Multiple rib fractures Qualifiers: Encounter type: initial encounter Fracture type: closed Laterality: right Qualified Code(s): S22.41XA - Multiple fractures of ribs, right side, initial encounter for closed fracture - Current Meds Current Meds: Current Medications Generic Name Dose Route Start Last Admin Trade Name Bluq PRN Reason Stop Dose Admin Acetaminophen 650 mg 10/18/23 07:30 10/20/23 08:03 Acetaminophen 325 Mg Tablet PO 650 mg Q8HR PRN Administration NEEDED PER PROVIDER ORDERS Amlodipine Besylate 10 mg 10/18/23 09:00 10/20/23 07:59 Amlodipine 5 Mg Tablet PO 10 mg DAILY ERNESTINA Administration Clonazepam 0.25 mg 10/18/23 09:00 10/20/23 07:59 Clonazepam 0.5 Mg Tablet PO 0.25 mg BID ERNESTINA Administration Donepezil HCl 5 mg 10/18/23 09:00 10/20/23 07:59 Donepezil 5 Mg Tablet PO 5 mg DAILY ERNESTINA Administration Doxepin HCl 25 mg 10/19/23 21:00 10/19/23 21:40 Doxepin 25 Mg Capsule PO 25 mg QPM ERNESTINA Administration Folic Acid 1 mg 10/18/23 09:00 10/20/23 07:59 Folic Acid 1 Mg Tablet PO 1 mg DAILY ERNESTINA Administration Hydrochlorothiazide 12.5 mg 10/19/23 09:00 10/20/23 08:00 Hydrochlorothiazide 25 Mg Tablet PO 12.5 mg DAILY ERNESTINA Administration Hydromorphone HCl 0.5 mg 10/18/23 07:34 10/19/23 13:21 Hydromorphone 0.5 Mg/0.5 Ml Syringe IVP 0.5 mg Q2H PRN Administration Severe Pain (Level 7-10) Metronidazole 500 mg in 100 mls @ 100 mls/hr 10/19/23 15:00 10/20/23 06:55 Flagyl 500 Mg/100 Ml IV 100 mls/hr Q8H ERNESTINA Administration Aztreonam 1 gm/ Sodium 100 mls @ 200 mls/hr 10/19/23 18:00 10/20/23 07:20 Chloride IV Infused Q6HR ERNESTINA Infusion Levetiracetam 750 mg 10/18/23 09:00 10/20/23 08:00 Levetiracetam 250 Mg Tablet PO 750 mg BID ERNESTINA Administration Lisinopril 40 mg 10/18/23 09:00 10/20/23 08:01 Lisinopril 20 Mg Tablet PO 40 mg DAILY ERNESTINA Administration Metoprolol Tartrate 100 mg 10/18/23 09:00 10/20/23 08:00 Metoprolol Tartrate 50 Mg Tablet PO 100 mg BID ERNESTINA Administration Pantoprazole Sodium 40 mg 10/19/23 07:00 10/20/23 06:20 Pantoprazole 40 Mg Tablet PO 40 mg QDAC ERNESTINA Administration Potassium Chloride 10 meq 10/18/23 08:00 10/20/23 07:59 Potassium Chloride 10 Meq Capsule PO 10 meq BID ERNESTINA Administration Sertraline HCl 100 mg 10/18/23 09:00 10/20/23 07:59 Sertraline 50 Mg Tablet PO 100 mg DAILY ERNESTINA Administration Sodium Chloride 10 ml 10/18/23 07:28 10/19/23 01:48 Sodium Chloride Flush 0.9% 10 Ml Syringe IVP 10 ml PRN PRN Administration NEEDED PER PROVIDER ORDERS Sodium Chloride 10 ml 10/18/23 09:00 10/20/23 08:04 Sodium Chloride Flush 0.9% 10 Ml Syringe IVP Not Given 0100,0900,1700 ERNESTINA - Lab Result Fish Bone Diagrams: 10/20/23 05:25 10/20/23 05:25 - Additional Planning My Orders: My Active Orders 10/19/23 16:35 GI PROFILE STOOL PCR [REFLAB] Routine 10/21/23 05:00 BMP - BASIC METABOLIC PANEL [CHEM] DAILYLAB CBC [CBC - COMP BLD CT W/AUTO DIFF] [HEME] DAILYLAB LIVER PANEL [CHEM] DAILYLAB 10/22/23 05:00 BMP - BASIC METABOLIC PANEL [CHEM] DAILYLAB CBC [CBC - COMP BLD CT W/AUTO DIFF] [HEME] DAILYLAB LIVER PANEL [CHEM] DAILYLAB 10/23/23 05:00 BMP - BASIC METABOLIC PANEL [CHEM] DAILYLAB CBC [CBC - COMP BLD CT W/AUTO DIFF] [HEME] DAILYLAB LIVER PANEL [CHEM] DAILYLAB 10/24/23 05:00 LIVER PANEL [CHEM] DAILYLAB Subjective - Subjective Patient Reports: Resting Comfortably, Other (Tolerating diet, some abdominal pain.) Objective Vital Signs: Vital Signs - 24 hr 10/19/23 10/19/23 10/19/23 13:13 16:00 16:30 Temperature 36.7 C 37 C Heart Rate [ Brachial] Heart Rate [ 90 92 Monitoring electrodes] Respiratory 20 18 18 Rate Blood Pressure Blood Pressure 116/70 [Left Brachial artery] Blood Pressure 102/64 [Right Brachial artery] O2 Saturation 90 L 83 L 92 If not protocol 2 : Oxygen Flow, liters/minute 10/19/23 10/19/23 10/19/23 20:31 21:24 21:39 Temperature Heart Rate [ 85 Brachial] Heart Rate [ Monitoring electrodes] Respiratory Rate Blood Pressure 109/71 Blood Pressure [Left Brachial artery] Blood Pressure 109/71 [Right Brachial artery] O2 Saturation If not protocol 2 : Oxygen Flow, liters/minute 10/20/23 10/20/23 10/20/23 00:03 05:51 07:59 Temperature 36.8 C 36.5 C 36.8 C Heart Rate [ 86 77 74 Brachial] Heart Rate [ Monitoring electrodes] Respiratory 18 20 24 Rate Blood Pressure Blood Pressure [Left Brachial artery] Blood Pressure 120/74 110/66 115/68 [Right Brachial artery] O2 Saturation 93 93 93 If not protocol 2 2 2 : Oxygen Flow, liters/minute 10/20/23 08:00 Temperature Heart Rate [ Brachial] Heart Rate [ Monitoring electrodes] Respiratory Rate Blood Pressure 115/68 Blood Pressure [Left Brachial artery] Blood Pressure [Right Brachial artery] O2 Saturation If not protocol : Oxygen Flow, liters/minute Oxygen O2 Source Nasal cannula I&O (Last 24 Hrs): Intake and Output Totals x24h 10/18/23 10/19/23 10/20/23 23:59 23:59 23:59 Intake Total 2389.583 3626.670 1417 Output Total 220 1100 25 Balance 2169.583 2526.670 1392 General: Alert, Oriented x3, Cooperative, No acute distress Neuro: Alert, CN 2-12 Grossly Intact, Oriented Times 3 Cardiovascular: Regular rate, Normal S1, Normal S2, No murmurs Respiratory: Chest non-tender, No respiratory distress, Breath sounds nml Abdomen: Normal bowel sounds, Soft, No tenderness, No hepatospenomegaly, No masses - Results Results: Laboratory Results WBC 10.5 x10^3/uL (4.8-10.8) 10/20/23 05:25 RBC 3.76 10^6/uL (4.70-6.10) L 10/20/23 05:25 Hgb 11.1 g/dL (14.0-18.0) L 10/20/23 05:25 Hct 34.2 % (42.0-52.0) L 10/20/23 05:25 MCV 91.0 fL (80.0-94.0) 10/20/23 05:25 MCH 29.5 pg (27.0-31.0) 10/20/23 05:25 MCHC 32.5 g/dL (32.0-36.0) 10/20/23 05:25 RDW 14.9 % (12.0-15.0) 10/20/23 05:25 Plt Count 188 10^3/uL (130-450) 10/20/23 05:25 MPV 10.2 fL (7.4-11.4) 10/20/23 05:25 Neut # (Auto) 9.0 10^3/uL (1.5-6.6) H 10/20/23 05:25 Lymph # (Auto) 0.8 10^3/uL (1.5-3.5) L 10/20/23 05:25 [place] # (Auto) 0.6 10^3/uL (0.0-1.0) 10/20/23 05:25 Eos # (Auto) 0.0 10^3/uL (0.0-0.7) 10/20/23 05:25 Baso # (Auto) 0.0 10^3/uL (0.0-0.1) 10/20/23 05:25 Absolute Nucleated RBC 0.00 x10^3/uL 10/20/23 05:25 Nucleated RBC % 0.0 /100WBC 10/20/23 05:25 Sodium 138 mmol/L (135-145) 10/20/23 05:25 Potassium 3.4 mmol/L (3.5-4.5) L 10/20/23 05:25 Chloride 103 mmol/L (101-111) 10/20/23 05:25 Carbon Dioxide 33 mmol/L (21-32) H 10/20/23 05:25 Anion Gap 2.0 (6-13) L 10/20/23 05:25 BUN 22 mg/dL (6-20) H 10/20/23 05:25 Creatinine 0.8 mg/dL (0.6-1.3) 10/20/23 05:25 Estimated GFR (MDRD) 99 (>89) 10/20/23 05:25 Glucose 119 mg/dL (74-104) H 10/20/23 05:25 Calcium 8.6 mg/dL (8.5-10.3) 10/20/23 05:25 Total Bilirubin 0.9 mg/dL (0.2-1.0) 10/20/23 05:25 Direct Bilirubin 0.47 mg/dL (0.03-0.18) H 10/20/23 05:25 AST 70 IU/L (10-42) H 10/20/23 05:25 ALT 104 IU/L (10-60) H 10/20/23 05:25 Alkaline Phosphatase 141 IU/L (42-121) H 10/20/23 05:25 Total Protein 6.0 g/dL (6.4-8.9) L 10/20/23 05:25 Albumin 2.8 g/dL (3.2-5.5) L 10/20/23 05:25 Globulin 3.2 g/dL (2.1-4.2) 10/20/23 05:25 Albumin/Globulin Ratio 0.9 (1.0-2.2) L 10/20/23 05:25 Lipase < 10 U/L (11-82) L 10/18/23 02:14 Stl C. diff Tox B Gene NEGATIVE (NEGATIVE) 10/19/23 22:30 Blood Type A POSITIVE 10/18/23 16:20 Blood Type Recheck A POSITIVE 10/18/23 01:44 Antibody Screen NEGATIVE 10/18/23 16:20 Crossmatch IS Only See Detail 10/18/23 16:20
[2023-10-20] MEDS: LIDOCAINE PATCH 5% TOP PRN (14:14)
--- NOTE | 2023-10-20 17:00 | PROVIDER PROGRESS NOTE ---
Progress Note General Surgery Afternoon Progress Note S: Reagan continues to improve. He is tolerating a full liquid diet. He continues to have mild right chest wall discomfort. His abdominal pain has resolved. He is asking for the [employer] to read. O: VSS, afeb; Abdomen is soft and not tender. The port sites are clean and dry; The bulb suction is pulling scant serosanguinous fluid A: Progressing well P: Advance to general diet; Remove bulb drain tomorrow; Discharge to SNF per Medical Hospitalist Team and aids social worker; Stop Lidocaine patch tomorrow. CMP in am - may stop serial H&H. Nicholas Colvin MD, FACS General Surgery Service
[2023-10-21 06:28] LABS: BASOPHILS % (AUTO) 0.1 %; EOSINOPHILS % (AUTO) 0.5 %; HCT - HEMATOCRIT 34.8 % (42.0-52.0); HGB - HEMOGLOBIN 10.8 g/dL (14.0-18.0); LYMPHOCYTES # (AUTO) 1.4 10^3/uL (1.5-3.5); MEAN CORPUSCULAR HEMOGLOBIN 28.4 pg (27.0-31.0); MEAN CORPUSCULAR VOLUME 91.6 fL (80.0-94.0); MEAN PLATELET VOLUME 9.8 fL (7.4-11.4); MONOCYTES # (AUTO) 0.5 10^3/uL (0.0-1.0); MONOCYTES % (AUTO) 7.1 %; NEUTROPHILS # (AUTO) 5.5 10^3/uL (1.5-6.6); NEUTROPHILS % (AUTO) 72.7 %; PLT - PLATELET COUNT 174 10^3/uL (130-450); WHITE BLOOD COUNT 7.6 x10^3/uL (4.8-10.8)
[2023-10-21 06:36] LABS: ALBUMIN 2.7 g/dL (3.2-5.5); BILIRUBIN,DIRECT 0.25 mg/dL (0.03-0.18); BILIRUBIN,TOTAL 0.6 mg/dL (0.2-1.0); CALCIUM 8.6 mg/dL (8.5-10.3); CREATININE 0.7 mg/dL (0.6-1.3); POTASSIUM 3.3 mmol/L (3.5-4.5); TOTAL PROTEIN 5.8 g/dL (6.4-8.9)
--- NOTE | 2023-10-21 07:09 | PROVIDER PROGRESS NOTE ---
Progress Note Progress Note General Surgery Post-op Progress Note Diagnosis - Gangrenous cholecystitis POD # 3 - Laparoscopic cholecystectomy with placement of a sub-hepatic drain S: Comfortable; Tolerating full liquid diet; Passing stool and flatus from rectum; Port site pain under control; Right rib fracture pain persists but improved O: VSS, Afeb; AAO; Lungs are clear; Heart NSR; Abdomen is soft, not distended. Port sites are clean and dry; Bulb suction pulling minimal serosanguinous fluid - drain removed by me today Labs: WBC decreased to 7.6 Hgb stable at 10.8 T. Bili 0.6 and other LFT's have returned to near normal A: Excellent post-op course; Ready for discharge from a clinical standpoint Recommendation: 1) Regular diet 2) Remove bulb drain - done 3) Continue IV antibiotics until discharge 4) Discharge when strategy for home care confirmed. Tyler Colvin MD, FACS General Surgery Service
[2023-10-21] MEDS: LORazepam 1 MG TABLET PO PRN (09:03)
[2023-10-21] MEDS ORDERED: AZTREONAM 1 GM in SODIUM CHLORIDE 0.9% MINIBAG 100 ML IV SCH (10:16)
--- NOTE | 2023-10-21 12:24 | PROVIDER PROGRESS NOTE ---
Assessment/Plan - Problem List (1) Gallbladder dilatation Assessment/Plan: (1) Gallbladder dilatation Conclusion/Plan: --Underwent lap choly on 09/16. --Remains on IV Zosyn. --Discussed case with general surgery this AM. Monitoring liver enzymes, they have been downtrending. --Anticipate 1 more day of IV antibiotics given severity of gallbladder disease and to ensure resolution of elevated liver enzymes. He will need an MRCP if they uptrend. (2) Multiple rib fractures Conclusion/Plan: --Analgesia available. He is not in any respiratory distress. Qualifiers: Encounter type: initial encounter Fracture type: closed Laterality: right Qualified Code(s): S22.41XA - Multiple fractures of ribs, right side, initial encounter for closed fracture (3) CVA (cerebral vascular accident) Conclusion/Plan: --Reports a history of CVA 10 years ago with a craniotomy. Patient has residual left-sided weakness in his upper and lower extremities. He is wheelchair and walker dependent at baseline. He lives at home place. (4) Seizure Conclusion/Plan: --As above. Will continue oral Keppra. Dispo: Anticipate DC in next 24-48 hours. He would benefit from SNF. (2) Multiple rib fractures Qualifiers: Encounter type: initial encounter Fracture type: closed Laterality: right Qualified Code(s): S22.41XA - Multiple fractures of ribs, right side, initial encounter for closed fracture - Current Meds Current Meds: Current Medications Generic Name Dose Route Start Last Admin Trade Name Freq PRN Reason Stop Dose Admin Acetaminophen 650 mg 10/18/23 07:30 10/21/23 11:51 Acetaminophen 325 Mg Tablet PO 650 mg Q8HR PRN Administration NEEDED PER PROVIDER ORDERS Amlodipine Besylate 10 mg 10/18/23 09:00 10/21/23 09:04 Amlodipine 5 Mg Tablet PO 10 mg DAILY ERNESTINA Administration Clonazepam 0.25 mg 10/18/23 09:00 10/21/23 09:02 Clonazepam 0.5 Mg Tablet PO 0.25 mg BID ERNESTINA Administration Donepezil HCl 5 mg 10/18/23 09:00 10/21/23 09:03 Donepezil 5 Mg Tablet PO 5 mg DAILY ERNESTINA Administration Doxepin HCl 25 mg 10/19/23 21:00 10/20/23 21:05 Doxepin 25 Mg Capsule PO 25 mg QPM ERNESTINA Administration Folic Acid 1 mg 10/18/23 09:00 10/21/23 09:04 Folic Acid 1 Mg Tablet PO 1 mg DAILY ERNESTINA Administration Hydrochlorothiazide 12.5 mg 10/19/23 09:00 10/21/23 09:03 Hydrochlorothiazide 25 Mg Tablet PO 12.5 mg DAILY ERNESTINA Administration Hydromorphone HCl 0.5 mg 10/18/23 07:34 10/19/23 13:21 Hydromorphone 0.5 Mg/0.5 Ml Syringe IVP 0.5 mg Q2H PRN Administration Severe Pain (Level 7-10) Metronidazole 500 mg in 100 mls @ 100 mls/hr 10/19/23 15:00 10/21/23 09:05 Flagyl 500 Mg/100 Ml IV Infused Q8H ERNESTINA Infusion Levetiracetam 750 mg 10/18/23 09:00 10/21/23 09:02 Levetiracetam 250 Mg Tablet PO 750 mg BID ERNESTINA Administration Lidocaine 1 patch 10/20/23 13:47 10/21/23 09:01 Lidocaine Patch 5% TOP 10/22/23 08:00 1 patch DAILY PRN Administration Moderate Pain (Level 4-6) Lisinopril 40 mg 10/18/23 09:00 10/21/23 09:02 Lisinopril 20 Mg Tablet PO 40 mg DAILY ERNESTINA Administration Lorazepam 1 mg 10/18/23 07:30 10/21/23 09:03 Lorazepam 1 Mg Tablet PO 1 mg TID PRN Administration Anxiety Metoprolol Tartrate 100 mg 10/18/23 09:00 10/21/23 09:03 Metoprolol Tartrate 50 Mg Tablet PO 100 mg BID ERNESTINA Administration Pantoprazole Sodium 40 mg 10/19/23 07:00 10/21/23 06:53 Pantoprazole 40 Mg Tablet PO 40 mg QDAC ERNESTINA Administration Potassium Chloride 10 meq 10/18/23 08:00 10/21/23 09:01 Potassium Chloride 10 Meq Capsule PO 10 meq BID ERNESTINA Administration Sertraline HCl 100 mg 10/18/23 09:00 10/21/23 09:04 Sertraline 50 Mg Tablet PO 100 mg DAILY ERNESTINA Administration Sodium Chloride 10 ml 10/18/23 07:28 10/21/23 06:00 Sodium Chloride Flush 0.9% 10 Ml Syringe IVP 10 ml PRN PRN Administration NEEDED PER PROVIDER ORDERS Sodium Chloride 10 ml 10/18/23 09:00 10/21/23 09:04 Sodium Chloride Flush 0.9% 10 Ml Syringe IVP 10 ml 0100,0900,1700 ERNESTINA Administration - Lab Result Fish Bone Diagrams: 10/21/23 05:59 10/21/23 05:59 - Additional Planning My Orders: My Active Orders 10/20/23 13:47 Lidocaine Patch 5% [Lidoderm Patch] 1 patch TOP DAILY PRN 10/22/23 05:00 BMP - BASIC METABOLIC PANEL [CHEM] DAILYLAB CBC [CBC - COMP BLD CT W/AUTO DIFF] [HEME] DAILYLAB LIVER PANEL [CHEM] DAILYLAB 10/23/23 05:00 BMP - BASIC METABOLIC PANEL [CHEM] DAILYLAB CBC [CBC - COMP BLD CT W/AUTO DIFF] [HEME] DAILYLAB LIVER PANEL [CHEM] DAILYLAB 10/24/23 05:00 LIVER PANEL [CHEM] DAILYLAB Subjective - Subjective Patient Reports: Feeling Better, Resting Comfortably, No Complaints Objective Vital Signs: Vital Signs - 24 hr 10/20/23 10/20/23 10/20/23 16:00 21:05 22:00 Temperature 36.7 C Heart Rate [ 62 Brachial] Respiratory 20 Rate Blood Pressure 120/69 Blood Pressure 120/74 [Left Brachial artery] Blood Pressure [Right Brachial artery] O2 Saturation 92 If not protocol 2.5 : Oxygen Flow, liters/minute 10/20/23 10/21/23 10/21/23 23:34 08:00 09:03 Temperature 36.8 C 36.8 C Heart Rate [ 70 79 Brachial] Respiratory 17 20 Rate Blood Pressure 123/77 Blood Pressure [Left Brachial artery] Blood Pressure 124/73 123/77 [Right Brachial artery] O2 Saturation 94 95 If not protocol 2.5 2.5 : Oxygen Flow, liters/minute Oxygen O2 Source Nasal cannula I&O (Last 24 Hrs): Intake and Output Totals x24h 10/19/23 10/20/23 10/21/23 23:59 23:59 23:59 Intake Total 4477.670 2737 640 Output Total 1100 405 20 Balance 2526.670 2332 620 General: Alert, Oriented x3, Cooperative, No acute distress Cardiovascular: Regular rate, Normal S1, Normal S2, No murmurs Respiratory: Chest non-tender, No respiratory distress, Breath sounds nml Abdomen: Normal bowel sounds, Soft, No tenderness, No hepatospenomegaly, No masses - Results Results: Laboratory Results WBC 7.6 x10^3/uL (4.8-10.8) 10/21/23 05:59 RBC 3.80 10^6/uL (4.70-6.10) L 10/21/23 05:59 Hgb 10.8 g/dL (14.0-18.0) L 10/21/23 05:59 Hct 34.8 % (42.0-52.0) L 10/21/23 05:59 MCV 91.6 fL (80.0-94.0) 10/21/23 05:59 MCH 28.4 pg (27.0-31.0) 10/21/23 05:59 MCHC 31.0 g/dL (32.0-36.0) L 10/21/23 05:59 RDW 15.0 % (12.0-15.0) 10/21/23 05:59 Plt Count 174 10^3/uL (130-450) 10/21/23 05:59 MPV 9.8 fL (7.4-11.4) 10/21/23 05:59 Neut # (Auto) 5.5 10^3/uL (1.5-6.6) 10/21/23 05:59 Lymph # (Auto) 1.4 10^3/uL (1.5-3.5) L 10/21/23 05:59 [place] # (Auto) 0.5 10^3/uL (0.0-1.0) 10/21/23 05:59 Eos # (Auto) 0.0 10^3/uL (0.0-0.7) 10/21/23 05:59 Baso # (Auto) 0.0 10^3/uL (0.0-0.1) 10/21/23 05:59 Absolute Nucleated RBC 0.00 x10^3/uL 10/21/23 05:59 Nucleated RBC % 0.0 /100WBC 10/21/23 05:59 Sodium 139 mmol/L (135-145) 10/21/23 05:59 Potassium 3.3 mmol/L (3.5-4.5) L 10/21/23 05:59 Chloride 104 mmol/L (101-111) 10/21/23 05:59 Carbon Dioxide 33 mmol/L (21-32) H 10/21/23 05:59 Anion Gap 2.0 (6-13) L 10/21/23 05:59 BUN 18 mg/dL (6-20) 10/21/23 05:59 Creatinine 0.7 mg/dL (0.6-1.3) 10/21/23 05:59 Estimated GFR (MDRD) 115 (>89) 10/21/23 05:59 Glucose 110 mg/dL (74-104) H 10/21/23 05:59 Calcium 8.6 mg/dL (8.5-10.3) 10/21/23 05:59 Total Bilirubin 0.6 mg/dL (0.2-1.0) 10/21/23 05:59 Direct Bilirubin 0.25 mg/dL (0.03-0.18) H 10/21/23 05:59 AST 26 IU/L (10-42) 10/21/23 05:59 ALT 66 IU/L (10-60) H 10/21/23 05:59 Alkaline Phosphatase 114 IU/L (42-121) 10/21/23 05:59 Total Protein 5.8 g/dL (6.4-8.9) L 10/21/23 05:59 Albumin 2.7 g/dL (3.2-5.5) L 10/21/23 05:59 Globulin 3.1 g/dL (2.1-4.2) 10/21/23 05:59 Albumin/Globulin Ratio 0.9 (1.0-2.2) L 10/20/23 05:25 Lipase < 10 U/L (11-82) L 10/18/23 02:14 Stl C. diff Tox B Gene NEGATIVE (NEGATIVE) 10/19/23 22:30 Blood Type A POSITIVE 10/18/23 16:20 Blood Type Recheck A POSITIVE 10/18/23 01:44 Antibody Screen NEGATIVE 10/18/23 16:20 Crossmatch IS Only See Detail 10/18/23 16:20
[2023-10-21] MEDS: AZTREONAM 1 GM in SODIUM CHLORIDE 0.9% MINIBAG 100 ML IV SCH (17:14)
[2023-10-22 05:28] LABS: BASOPHILS % (AUTO) 0.1 %; EOSINOPHILS # (AUTO) 0.1 10^3/uL (0.0-0.7); EOSINOPHILS % (AUTO) 1.2 %; HCT - HEMATOCRIT 36.2 % (42.0-52.0); HGB - HEMOGLOBIN 11.4 g/dL (14.0-18.0); LYMPHOCYTES # (AUTO) 1.2 10^3/uL (1.5-3.5); LYMPHOCYTES % (AUTO) 13.2 %; MEAN CORPUSCULAR HGB CONC 31.5 g/dL (32.0-36.0); MEAN CORPUSCULAR VOLUME 92.1 fL (80.0-94.0); MEAN PLATELET VOLUME 9.6 fL (7.4-11.4); MONOCYTES # (AUTO) 0.6 10^3/uL (0.0-1.0); MONOCYTES % (AUTO) 6.2 %; NEUTROPHILS % (AUTO) 77.7 %; PLT - PLATELET COUNT 201 10^3/uL (130-450); RED BLOOD COUNT 3.93 10^6/uL (4.70-6.10); RED CELL DISTRIBUTION WIDTH 14.9 % (12.0-15.0)
[2023-10-22 05:54] LABS: ALBUMIN 2.8 g/dL (3.2-5.5); BILIRUBIN,DIRECT 0.15 mg/dL (0.03-0.18); BILIRUBIN,TOTAL 0.5 mg/dL (0.2-1.0); CALCIUM 8.9 mg/dL (8.5-10.3); CREATININE 0.6 mg/dL (0.6-1.3); POTASSIUM 3.5 mmol/L (3.5-4.5); TOTAL PROTEIN 6.2 g/dL (6.4-8.9)
[2023-10-22 11:10] LABS: ADENOVIRUS F 40/41 Not Detected (Not Detected); ASTROVIRUS Not Detected (Not Detected); C DIFFICILE TOXIN A/B Not Detected (Not Detected); CAMPYLOBACTER Not Detected (Not Detected); CRYPTOSPORIDIUM Not Detected (Not Detected); CYCLOSPORA CAYETANENSIS Not Detected (Not Detected); ENTAMOEBA HISTOLYTICA Not Detected (Not Detected); ENTEROAGGREGATIVE E COLI Not Detected (Not Detected); ENTEROPATHOGENIC E COLI Not Detected (Not Detected); ENTEROTOXIGENIC E COLI Not Detected (Not Detected); GIARDIA LAMBLIA Not Detected (Not Detected); NOROVIRUS GI/GII Not Detected (Not Detected); PLESIOMONAS SHIGELLOIDES Not Detected (Not Detected); ROTAVIRUS A Not Detected (Not Detected); SALMONELLA Not Detected (Not Detected); SAPOVIRUS Not Detected (Not Detected); SHIGA-TOXIN-PRODUCING E COLI Not Detected (Not Detected); SHIGELLA/ENTEROINVASIVE E COLI Not Detected (Not Detected); VIBRIO Not Detected (Not Detected); VIBRIO CHOLERAE Not Detected (Not Detected); YERSINIA ENTEROCOLITICA Not Detected (Not Detected)
--- NOTE | 2023-10-22 14:16 | PROVIDER PROGRESS NOTE ---
Assessment/Plan - Problem List (1) Gallbladder dilatation Assessment/Plan: (1) Gallbladder dilatation Conclusion/Plan: --Underwent lap choly on 09/16. --Completed course of antibiotics with IV Zosyn and Aztreonam. Will stop abx today. --Discussed case with general surgery this AM. Monitoring liver enzymes, they have been downtrending. (2) Multiple rib fractures Conclusion/Plan: --Analgesia available. He is not in any respiratory distress. Qualifiers: Encounter type: initial encounter Fracture type: closed Laterality: right Qualified Code(s): S22.41XA - Multiple fractures of ribs, right side, initial encounter for closed fracture (3) CVA (cerebral vascular accident) Conclusion/Plan: --Reports a history of CVA 10 years ago with a craniotomy. Patient has residual left-sided weakness in his upper and lower extremities. He is wheelchair and walker dependent at baseline. He lives at home place. (4) Seizure Conclusion/Plan: --As above. Will continue oral Keppra. Dispo: Anticipate DC in next 24-48 hours. He would benefit from SNF. (2) Multiple rib fractures Qualifiers: Encounter type: initial encounter Fracture type: closed Laterality: right Qualified Code(s): S22.41XA - Multiple fractures of ribs, right side, initial encounter for closed fracture Dispo: Medically stable. Pending placement. (2) Multiple rib fractures Qualifiers: Encounter type: initial encounter Fracture type: closed Laterality: right Qualified Code(s): S22.41XA - Multiple fractures of ribs, right side, initial encounter for closed fracture - Current Meds Current Meds: Current Medications Generic Name Dose Route Start Last Admin Trade Name Freq PRN Reason Stop Dose Admin Acetaminophen 650 mg 10/18/23 07:30 10/22/23 05:23 Acetaminophen 325 Mg Tablet PO 650 mg Q8HR PRN Administration NEEDED PER PROVIDER ORDERS Amlodipine Besylate 10 mg 10/18/23 09:00 10/22/23 09:34 Amlodipine 5 Mg Tablet PO 10 mg DAILY ERNESTINA Administration Clonazepam 0.25 mg 10/18/23 09:00 10/22/23 09:33 Clonazepam 0.5 Mg Tablet PO 0.25 mg BID ERNESTINA Administration Donepezil HCl 5 mg 10/18/23 09:00 06/29/24 09:35 Donepezil 5 Mg Tablet PO 5 mg DAILY ERNESTINA Administration Doxepin HCl 25 mg 10/19/23 21:00 10/21/23 21:00 Doxepin 25 Mg Capsule PO 25 mg QPM ERNESTINA Administration Folic Acid 1 mg 10/18/23 09:00 10/22/23 09:32 Folic Acid 1 Mg Tablet PO 1 mg DAILY ERNESTINA Administration Hydrochlorothiazide 12.5 mg 10/19/23 09:00 10/22/23 09:33 Hydrochlorothiazide 25 Mg Tablet PO 12.5 mg DAILY ERNESTINA Administration Hydromorphone HCl 0.5 mg 10/18/23 07:34 10/19/23 13:21 Hydromorphone 0.5 Mg/0.5 Ml Syringe IVP 0.5 mg Q2H PRN Administration Severe Pain (Level 7-10) Metronidazole 500 mg in 100 mls @ 100 mls/hr 10/19/23 15:00 10/22/23 08:05 Flagyl 500 Mg/100 Ml IV Infused Q8H ERNESTINA Infusion Levetiracetam 750 mg 10/18/23 09:00 10/22/23 09:33 Levetiracetam 250 Mg Tablet PO 750 mg BID ERNESTINA Administration Lisinopril 40 mg 10/18/23 09:00 10/22/23 09:32 Lisinopril 20 Mg Tablet PO 40 mg DAILY ERNESTINA Administration Lorazepam 1 mg 10/18/23 07:30 10/21/23 09:03 Lorazepam 1 Mg Tablet PO 1 mg TID PRN Administration Anxiety Metoprolol Tartrate 100 mg 10/18/23 09:00 10/22/23 09:33 Metoprolol Tartrate 50 Mg Tablet PO 100 mg BID ERNESTINA Administration Pantoprazole Sodium 40 mg 10/19/23 07:00 10/22/23 07:00 Pantoprazole 40 Mg Tablet PO 40 mg QDAC ERNESTINA Administration Potassium Chloride 10 meq 10/18/23 08:00 10/22/23 09:32 Potassium Chloride 10 Meq Capsule PO 10 meq BID ERNESTINA Administration Sertraline HCl 100 mg 10/18/23 09:00 10/22/23 09:34 Sertraline 50 Mg Tablet PO 100 mg DAILY ERNESTINA Administration Sodium Chloride 10 ml 10/18/23 07:28 10/21/23 06:00 Sodium Chloride Flush 0.9% 10 Ml Syringe IVP 10 ml PRN PRN Administration NEEDED PER PROVIDER ORDERS Sodium Chloride 10 ml 10/18/23 09:00 10/22/23 09:35 Sodium Chloride Flush 0.9% 10 Ml Syringe IVP 10 ml 0100,0900,1700 ERNESTINA Administration - Lab Result Fish Bone Diagrams: 10/22/23 05:08 10/22/23 05:08 - Additional Planning My Orders: My Active Orders 10/23/23 05:00 BMP - BASIC METABOLIC PANEL [CHEM] DAILYLAB CBC [CBC - COMP BLD CT W/AUTO DIFF] [HEME] DAILYLAB LIVER PANEL [CHEM] DAILYLAB 10/24/23 05:00 LIVER PANEL [CHEM] DAILYLAB Subjective - Subjective Patient Reports: Feeling Better, Resting Comfortably, No Complaints Objective Vital Signs: Vital Signs - 24 hr 10/21/23 10/21/23 10/21/23 15:28 19:46 20:59 Temperature 36.7 C Heart Rate [ 66 Brachial] Respiratory 24 Rate Blood Pressure 120/70 Blood Pressure 120/70 [Right Brachial artery] O2 Saturation 95 If not protocol 2 2 : Oxygen Flow, liters/minute 10/21/23 10/22/23 10/22/23 23:25 08:00 12:52 Temperature 37.2 C 36.6 C Heart Rate [ 74 74 Brachial] Respiratory 20 20 Rate Blood Pressure Blood Pressure 113/70 126/81 H [Right Brachial artery] O2 Saturation 94 96 If not protocol 2 2 2 : Oxygen Flow, liters/minute Oxygen O2 Source Nasal cannula I&O (Last 24 Hrs): Intake and Output Totals x24h 10/20/23 10/21/23 10/22/23 23:59 23:59 23:59 Intake Total 2737 1340 960 Output Total 405 170 550 Balance 2332 1170 410 General: Alert, Oriented x3, Cooperative, No acute distress Cardiovascular: Regular rate, Normal S1, Normal S2, No murmurs Respiratory: Chest non-tender, No respiratory distress, Breath sounds nml Abdomen: Normal bowel sounds, Soft, No tenderness, No hepatospenomegaly, No masses - Results Results: Laboratory Results WBC 9.0 x10^3/uL (4.8-10.8) 10/22/23 05:08 RBC 3.93 10^6/uL (4.70-6.10) L 10/22/23 05:08 Hgb 11.4 g/dL (14.0-18.0) L 10/22/23 05:08 Hct 36.2 % (42.0-52.0) L 10/22/23 05:08 MCV 92.1 fL (80.0-94.0) 10/22/23 05:08 MCH 29.0 pg (27.0-31.0) 10/22/23 05:08 MCHC 31.5 g/dL (32.0-36.0) L 10/22/23 05:08 RDW 14.9 % (12.0-15.0) 10/22/23 05:08 Plt Count 201 10^3/uL (130-450) 10/22/23 05:08 MPV 9.6 fL (7.4-11.4) 10/22/23 05:08 Neut # (Auto) 7.0 10^3/uL (1.5-6.6) H 10/22/23 05:08 Lymph # (Auto) 1.2 10^3/uL (1.5-3.5) L 10/22/23 05:08 [place] # (Auto) 0.6 10^3/uL (0.0-1.0) 10/22/23 05:08 Eos # (Auto) 0.1 10^3/uL (0.0-0.7) 10/22/23 05:08 Baso # (Auto) 0.0 10^3/uL (0.0-0.1) 10/22/23 05:08 Absolute Nucleated RBC 0.00 x10^3/uL 10/22/23 05:08 Nucleated RBC % 0.0 /100WBC 10/22/23 05:08 Sodium 138 mmol/L (135-145) 10/22/23 05:08 Potassium 3.5 mmol/L (3.5-4.5) 10/22/23 05:08 Chloride 103 mmol/L (101-111) 10/22/23 05:08 Carbon Dioxide 30 mmol/L (21-32) 10/22/23 05:08 Anion Gap 5.0 (6-13) L 10/22/23 05:08 BUN 18 mg/dL (6-20) 10/22/23 05:08 Creatinine 0.6 mg/dL (0.6-1.3) 10/22/23 05:08 Estimated GFR (MDRD) 137 (>89) 10/22/23 05:08 Glucose 126 mg/dL (74-104) H 10/22/23 05:08 Calcium 8.9 mg/dL (8.5-10.3) 10/22/23 05:08 Total Bilirubin 0.5 mg/dL (0.2-1.0) 10/22/23 05:08 Direct Bilirubin 0.15 mg/dL (0.03-0.18) 10/22/23 05:08 AST 17 IU/L (10-42) 10/22/23 05:08 ALT 50 IU/L (10-60) 10/22/23 05:08 Alkaline Phosphatase 119 IU/L (42-121) 10/22/23 05:08 Total Protein 6.2 g/dL (6.4-8.9) L 10/22/23 05:08 Albumin 2.8 g/dL (3.2-5.5) L 10/22/23 05:08 Globulin 3.4 g/dL (2.1-4.2) 10/22/23 05:08 Albumin/Globulin Ratio 0.9 (1.0-2.2) L 10/20/23 05:25 Lipase < 10 U/L (11-82) L 10/18/23 02:14 Stl C. cayetanensis PCR Not Detected (Not Detected) 10/21/23 13:15 Stool Rotavirus A PCR Not Detected (Not Detected) 10/21/23 13:15 Stl Adenov F 40/41 PCR Not Detected (Not Detected) 10/21/23 13:15 Stool Astrovirus (PCR) Not Detected (Not Detected) 10/21/23 13:15 Stool Campylobacter PCR Not Detected (Not Detected) 10/21/23 13:15 Stl C. diff Tox B Gene NEGATIVE (NEGATIVE) 10/19/23 22:30 Stl C. diff Tox A/B PCR Not Detected (Not Detected) 10/21/23 13:15 Stool Cryptosporidium PCR Not Detected (Not Detected) 10/21/23 13:15 Stl Sh Tox Pr E STEC PCR Not Detected (Not Detected) 10/21/23 13:15 Stool E coli O157 PCR Not applicable (Not Detected) 10/21/23 13:15 Stl Enterotoxigenic E PCR Not Detected (Not Detected) 10/21/23 13:15 Stool EPEC (PCR) Not Detected (Not Detected) 10/21/23 13:15 Stl E. histolytica PCR Not Detected (Not Detected) 10/21/23 13:15 Stool Giardia Lamblia PCR Not Detected (Not Detected) 10/21/23 13:15 Stl P. shigelloides PCR Not Detected (Not Detected) 10/21/23 13:15 Stool Salmonella PCR Not Detected (Not Detected) 10/21/23 13:15 Stool Sapovirus (PCR) Not Detected (Not Detected) 10/21/23 13:15 Stl Shigella/EIEC PCR Not Detected (Not Detected) 10/21/23 13:15 St Y.enterocolitica PCR Not Detected (Not Detected) 10/21/23 13:15 Stool Vibrio (PCR) Not Detected (Not Detected) 10/21/23 13:15 Stl Vibrio cholerae PCR Not Detected (Not Detected) 10/21/23 13:15 Stl Enteroaggr Ecoli PCR Not Detected (Not Detected) 10/21/23 13:15 Stl Norovirus GI/GII PCR Not Detected (Not Detected) 10/21/23 13:15 Blood Type A POSITIVE 10/18/23 16:20 Blood Type Recheck A POSITIVE 10/18/23 01:44 Antibody Screen NEGATIVE 10/18/23 16:20 Crossmatch IS Only See Detail 10/18/23 16:20
[2023-10-23 05:33] LABS: BASOPHILS % (AUTO) 0.1 %; EOSINOPHILS # (AUTO) 0.2 10^3/uL (0.0-0.7); EOSINOPHILS % (AUTO) 1.8 %; HCT - HEMATOCRIT 35.3 % (42.0-52.0); HGB - HEMOGLOBIN 11.2 g/dL (14.0-18.0); LYMPHOCYTES # (AUTO) 1.4 10^3/uL (1.5-3.5); LYMPHOCYTES % (AUTO) 16.1 %; MEAN CORPUSCULAR HEMOGLOBIN 29.2 pg (27.0-31.0); MEAN CORPUSCULAR HGB CONC 31.7 g/dL (32.0-36.0); MEAN CORPUSCULAR VOLUME 92.2 fL (80.0-94.0); MONOCYTES # (AUTO) 0.6 10^3/uL (0.0-1.0); MONOCYTES % (AUTO) 7.1 %; NEUTROPHILS # (AUTO) 6.2 10^3/uL (1.5-6.6); NEUTROPHILS % (AUTO) 73.3 %; PLT - PLATELET COUNT 189 10^3/uL (130-450); RED BLOOD COUNT 3.83 10^6/uL (4.70-6.10); RED CELL DISTRIBUTION WIDTH 15.2 % (12.0-15.0); WHITE BLOOD COUNT 8.5 x10^3/uL (4.8-10.8)
[2023-10-23 05:52] LABS: ALBUMIN 2.7 g/dL (3.2-5.5); BILIRUBIN,DIRECT 0.16 mg/dL (0.03-0.18); BILIRUBIN,TOTAL 0.5 mg/dL (0.2-1.0); CALCIUM 8.8 mg/dL (8.5-10.3); CREATININE 0.7 mg/dL (0.6-1.3); POTASSIUM 3.4 mmol/L (3.5-4.5)
--- NOTE | 2023-10-23 08:22 | PROVIDER PROGRESS NOTE ---
Progress Note General Surgery Note Patient is awaiting SNF referral and is expected to be discharged tomorrow. He will be contacted by our office in the next few days for a surgical follow-up appointment in 7-10 days. Tyler Colvin MD, [facility] General Surgery Service
--- NOTE | 2023-10-23 14:56 | PROVIDER PROGRESS NOTE ---
Assessment/Plan - Problem List (1) Gallbladder dilatation Assessment/Plan: (1) Gallbladder dilatation Conclusion/Plan: --Underwent lap choly on 09/16. --Completed course of antibiotics with IV Zosyn and Aztreonam. --Discussed case with general surgery this AM. Monitoring liver enzymes, they have been downtrending. (2) Multiple rib fractures Conclusion/Plan: --Analgesia available. He is not in any respiratory distress. Qualifiers: Encounter type: initial encounter Fracture type: closed Laterality: right Qualified Code(s): S22.41XA - Multiple fractures of ribs, right side, initial encounter for closed fracture (3) CVA (cerebral vascular accident) Conclusion/Plan: --Reports a history of CVA 10 years ago with a craniotomy. Patient has residual left-sided weakness in his upper and lower extremities. He is wheelchair and walker dependent at baseline. He lives at home place. (4) Seizure Conclusion/Plan: --As above. Will continue oral Keppra. Dispo: Anticipate DC in next 24-48 hours. He would benefit from SNF. (2) Multiple rib fractures Qualifiers: Encounter type: initial encounter Fracture type: closed Laterality: right Qualified Code(s): S22.41XA - Multiple fractures of ribs, right side, initial encounter for closed fracture Dispo: Medically stable. Pending placement. (2) Multiple rib fractures Qualifiers: Encounter type: initial encounter Fracture type: closed Laterality: right Qualified Code(s): S22.41XA - Multiple fractures of ribs, right side, initial encounter for closed fracture - Current Meds Current Meds: Current Medications Generic Name Dose Route Start Last Admin Trade Name Frechandni PRN Reason Stop Dose Admin Acetaminophen 650 mg 10/18/23 07:30 10/22/23 21:29 Acetaminophen 325 Mg Tablet PO 650 mg Q8HR PRN Administration NEEDED PER PROVIDER ORDERS Amlodipine Besylate 10 mg 10/18/23 09:00 10/23/23 08:35 Amlodipine 5 Mg Tablet PO 10 mg DAILY ERNESTINA Administration Clonazepam 0.25 mg 10/18/23 09:00 10/23/23 08:35 Clonazepam 0.5 Mg Tablet PO 0.25 mg BID ERNESTINA Administration Donepezil HCl 5 mg 10/18/23 09:00 10/23/23 08:35 Donepezil 5 Mg Tablet PO 5 mg DAILY ERNESTINA Administration Doxepin HCl 25 mg 10/19/23 21:00 10/22/23 21:31 Doxepin 25 Mg Capsule PO 25 mg QPM ERNESTINA Administration Folic Acid 1 mg 10/18/23 09:00 10/23/23 08:35 Folic Acid 1 Mg Tablet PO 1 mg DAILY ERNESTINA Administration Hydrochlorothiazide 12.5 mg 10/19/23 09:00 10/23/23 08:34 Hydrochlorothiazide 25 Mg Tablet PO 12.5 mg DAILY ERNESTINA Administration Hydromorphone HCl 0.5 mg 10/18/23 07:34 10/19/23 13:21 Hydromorphone 0.5 Mg/0.5 Ml Syringe IVP 0.5 mg Q2H PRN Administration Severe Pain (Level 7-10) Metronidazole 500 mg in 100 mls @ 100 mls/hr 10/19/23 15:00 10/23/23 14:47 Flagyl 500 Mg/100 Ml IV 100 mls/hr Q8H ERNESTINA Administration Levetiracetam 750 mg 10/18/23 09:00 10/23/23 08:34 Levetiracetam 250 Mg Tablet PO 750 mg BID ERNESTINA Administration Lisinopril 40 mg 10/18/23 09:00 10/23/23 08:35 Lisinopril 20 Mg Tablet PO 40 mg DAILY ERNESTINA Administration Lorazepam 1 mg 10/18/23 07:30 10/21/23 09:03 Lorazepam 1 Mg Tablet PO 1 mg TID PRN Administration Anxiety Metoprolol Tartrate 100 mg 10/18/23 09:00 10/23/23 08:33 Metoprolol Tartrate 50 Mg Tablet PO 100 mg BID ERNESTINA Administration Pantoprazole Sodium 40 mg 10/19/23 07:00 10/23/23 07:50 Pantoprazole 40 Mg Tablet PO 40 mg QDAC ERNESTINA Administration Potassium Chloride 10 meq 10/18/23 08:00 10/23/23 08:35 Potassium Chloride 10 Meq Capsule PO 10 meq BID ERNESTINA Administration Sertraline HCl 100 mg 10/18/23 09:00 10/23/23 08:34 Sertraline 50 Mg Tablet PO 100 mg DAILY ERNESTINA Administration Sodium Chloride 10 ml 10/18/23 07:28 10/21/23 06:00 Sodium Chloride Flush 0.9% 10 Ml Syringe IVP 10 ml PRN PRN Administration NEEDED PER PROVIDER ORDERS Sodium Chloride 10 ml 10/18/23 09:00 10/23/23 08:35 Sodium Chloride Flush 0.9% 10 Ml Syringe IVP 10 ml 0100,0900,1700 [facility] Administration - Lab Result Fish Bone Diagrams: 10/23/23 05:07 10/23/23 05:07 Subjective - Subjective Patient Reports: Feeling Better, Resting Comfortably, No Complaints Objective Vital Signs: Vital Signs - 24 hr 10/22/23 10/22/23 10/22/23 16:00 19:45 21:30 Temperature 36.7 C Heart Rate [ 64 Brachial] Respiratory 20 Rate Blood Pressure 129/79 Blood Pressure 118/68 [Right Brachial artery] O2 Saturation 92 If not protocol 2 2 : Oxygen Flow, liters/minute 10/22/23 10/23/23 10/23/23 23:37 07:46 08:40 Temperature 36.5 C 36.7 C Heart Rate [ 60 62 Brachial] Respiratory 20 20 Rate Blood Pressure Blood Pressure 113/70 127/81 H [Right Brachial artery] O2 Saturation 96 97 If not protocol 2 2 2 : Oxygen Flow, liters/minute Oxygen O2 Source Nasal cannula I&O (Last 24 Hrs): Intake and Output Totals x24h 10/21/23 10/22/23 10/23/23 23:59 23:59 23:59 Intake Total 1340 1750 550 Output Total 170 750 Balance 1170 1000 550 General: Alert, Oriented x3, Cooperative, No acute distress Cardiovascular: Regular rate, Normal S1, Normal S2, No murmurs Respiratory: Chest non-tender, No respiratory distress, Breath sounds nml Abdomen: Normal bowel sounds, Soft, No tenderness, No hepatospenomegaly, No masses - Results Results: Laboratory Results WBC 8.5 x10^3/uL (4.8-10.8) 10/23/23 05:07 RBC 3.83 10^6/uL (4.70-6.10) L 10/23/23 05:07 Hgb 11.2 g/dL (14.0-18.0) L 10/23/23 05:07 Hct 35.3 % (42.0-52.0) L 10/23/23 05:07 MCV 92.2 fL (80.0-94.0) 10/23/23 05:07 MCH 29.2 pg (27.0-31.0) 10/23/23 05:07 MCHC 31.7 g/dL (32.0-36.0) L 10/23/23 05:07 RDW 15.2 % (12.0-15.0) H 10/23/23 05:07 Plt Count 189 10^3/uL (130-450) 10/23/23 05:07 MPV 10.0 fL (7.4-11.4) 10/23/23 05:07 Neut # (Auto) 6.2 10^3/uL (1.5-6.6) 10/23/23 05:07 Lymph # (Auto) 1.4 10^3/uL (1.5-3.5) L 10/23/23 05:07 [place] # (Auto) 0.6 10^3/uL (0.0-1.0) 10/23/23 05:07 Eos # (Auto) 0.2 10^3/uL (0.0-0.7) 10/23/23 05:07 Baso # (Auto) 0.0 10^3/uL (0.0-0.1) 10/23/23 05:07 Absolute Nucleated RBC 0.00 x10^3/uL 10/23/23 05:07 Nucleated RBC % 0.0 /100WBC 10/23/23 05:07 Sodium 139 mmol/L (135-145) 10/23/23 05:07 Potassium 3.4 mmol/L (3.5-4.5) L 10/23/23 05:07 Chloride 105 mmol/L (101-111) 10/23/23 05:07 Carbon Dioxide 30 mmol/L (21-32) 10/23/23 05:07 Anion Gap 4.0 (6-13) L 10/23/23 05:07 BUN 22 mg/dL (6-20) H 10/23/23 05:07 Creatinine 0.7 mg/dL (0.6-1.3) 10/23/23 05:07 Estimated GFR (MDRD) 115 (>89) 10/23/23 05:07 Glucose 110 mg/dL (74-104) H 10/23/23 05:07 Calcium 8.8 mg/dL (8.5-10.3) 10/23/23 05:07 Total Bilirubin 0.5 mg/dL (0.2-1.0) 10/23/23 05:07 Direct Bilirubin 0.16 mg/dL (0.03-0.18) 10/23/23 05:07 AST 15 IU/L (10-42) 10/23/23 05:07 ALT 36 IU/L (10-60) 10/23/23 05:07 Alkaline Phosphatase 102 IU/L (42-121) 10/23/23 05:07 Total Protein 6.0 g/dL (6.4-8.9) L 10/23/23 05:07 Albumin 2.7 g/dL (3.2-5.5) L 10/23/23 05:07 Globulin 3.3 g/dL (2.1-4.2) 10/23/23 05:07 Albumin/Globulin Ratio 0.9 (1.0-2.2) L 10/20/23 05:25 Lipase < 10 U/L (11-82) L 10/18/23 02:14 Stl C. cayetanensis PCR Not Detected (Not Detected) 10/21/23 13:15 Stool Rotavirus A PCR Not Detected (Not Detected) 10/21/23 13:15 Stl Adenov F 40/41 PCR Not Detected (Not Detected) 10/21/23 13:15 Stool Astrovirus (PCR) Not Detected (Not Detected) 10/21/23 13:15 Stool Campylobacter PCR Not Detected (Not Detected) 10/21/23 13:15 Stl C. diff Tox B Gene NEGATIVE (NEGATIVE) 10/19/23 22:30 Stl C. diff Tox A/B PCR Not Detected (Not Detected) 10/21/23 13:15 Stool Cryptosporidium PCR Not Detected (Not Detected) 10/21/23 13:15 Stl Sh Tox Pr E STEC PCR Not Detected (Not Detected) 10/21/23 13:15 Stool E coli O157 PCR Not applicable (Not Detected) 10/21/23 13:15 Stl Enterotoxigenic E PCR Not Detected (Not Detected) 10/21/23 13:15 Stool EPEC (PCR) Not Detected (Not Detected) 10/21/23 13:15 Stl E. histolytica PCR Not Detected (Not Detected) 10/21/23 13:15 Stool Giardia Lamblia PCR Not Detected (Not Detected) 10/21/23 13:15 Stl P. shigelloides PCR Not Detected (Not Detected) 10/21/23 13:15 Stool Salmonella PCR Not Detected (Not Detected) 10/21/23 13:15 Stool Sapovirus (PCR) Not Detected (Not Detected) 10/21/23 13:15 Stl Shigella/EIEC PCR Not Detected (Not Detected) 10/21/23 13:15 St Y.enterocolitica PCR Not Detected (Not Detected) 10/21/23 13:15 Stool Vibrio (PCR) Not Detected (Not Detected) 10/21/23 13:15 Stl Vibrio cholerae PCR Not Detected (Not Detected) 10/21/23 13:15 Stl Enteroaggr Ecoli PCR Not Detected (Not Detected) 10/21/23 13:15 Stl Norovirus GI/GII PCR Not Detected (Not Detected) 10/21/23 13:15 Blood Type A POSITIVE 10/18/23 16:20 Blood Type Recheck A POSITIVE 10/18/23 01:44 Antibody Screen NEGATIVE 10/18/23 16:20 Crossmatch IS Only See Detail 10/18/23 16:20
--- NOTE | 2023-10-24 09:29 | PROVIDER PROGRESS NOTE ---
Subjective - Prog Note Date Prog Note Date: 10/24/23 - Subjective Subjective: appears well. tolerating diet Objective - Vital Signs/Intake & Output Vital Signs: Vital Signs x48h Temp Pulse Resp BP Pulse Ox 10/24/23 08:05 36.6 C 66 20 126/77 92 Intake & Output: Intake & Output 10/21/23 10/22/23 10/23/23 10/24/23 23:59 23:59 23:59 23:59 Intake Total 1340 1750 1380 200 Output Total 170 750 100 Balance 1170 1000 1380 100 - Objective General Appearance: positive: No acute distress, Alert Respiratory: positive: No respiratory distress Abdomen: positive: Non-tender, No distention, Other (no erythema) - Lab Results Fish Bones: 10/23/23 05:07 10/23/23 05:07 Assessment/Plan - Problem List (1) S/P cholecystectomy Impression: doing well. diet as tolerated. right lateral incision daily dressing change for a week ok to get incisions wet stable for d/c / transfer from surgery stand point.
--- NOTE | 2023-10-24 11:05 | Discharge Plan ---
"Discharge Plan for SNF / [facility] - Discharge Plan And Transition Orders Problem Reviewed?: Yes Disposition: 03 SNF DC/Xfer Condition: Good Allergies and Adverse Reactions: Allergies Allergy/AdvReac Type Severity Reaction Status Date / Time ceftriaxone sodium * Allergy Intermediate Hives Verified 09/21/23 16:22 [From Pietro] - SNF / [facility] Transition Orders Admit to (Facility): [facility] Medicare Certification Statement: I certify that Post Hospital snf care is medically necessary on a continuing basis for any of the conditions for which she/he is receiving care during hospitalization. Notify PCP of admission and forward orders to primary provider for signature. Weight on admission and: Weekly Call PCP immediately if weight increases by: 5 kg Other Notification Orders: Call PCP immediately if patient develops dyspnea, chest pain/tightness or edema. House Bowel Program: Yes Additional Bowel Program Orders: If no BM after 2 days, nurse may give M.O.M. 30ml PO PRN and/or ducolax Supp 1 SD and/or ZAHEER 250mg P.O., and/or senna 1-2 tabs PO. On day 3 nurse may give repeat above order until residents constipation is resolved. Annual Influenza Vaccine (between Dec 24 and July 23): Yes Two-step PPD per [facility] [id number] or approved exception documents: Yes Medication Orders: PLEASE REFER TO THE DISCHARGE MEDICATION LIST. - Diet Type: Geriatric Texture: Regular Liquids: Thin May have monthly special meal: Yes - Therapies | Activity Therapy: Evaluation | Treat if indicated: PT, OT Rehabilitation Potential: Maximize functional status Activity: Activity as Tolerated Assistance Devices: Wheelchair, Walker Follow Up: Follow up with PCP in 3-5 days."
--- NOTE | 2023-10-24 11:28 | DISCHARGE SUMMARY ---
"Discharge Summary Admit Date: 11/17/23 Discharge Date: 10/24/23 Discharging Provider: Chaim Paris Condition at Discharge: Good Discharge Disposition: [facility] DC/Xfer - HPI History of Present Illness: Patient is a 62-year-old male with a past medical history of CVA, craniotomy, seizure disorder, hypertension, hyperlipidemia who presented to the ED due to complaints of abdominal pain and chest wall pain. Patient suffered a right chest wall injury from a patient lift device approximately 5 days ago. Pain has progressively involved and he is a lot more discomfort under the right rib cage. CT abdomen/pelvis performed which revealed evidence of gallbladder distention with gallstones concerning for acute cholecystitis. There are also 2 chest wall rib fractures on CT scan at 5 and 6. Patient was admitted to general surgery and there is a tentative plan for a laparoscopic cholecystectomy. He was evaluated preoperatively for risk assessment. Patient denies any chest pain or shortness of breath. He has resided in assisted living facility [facility]. 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 He is also on Keppra for seizure prophylaxis and denies any seizures while on his medication. - CONSULTS | PROCEDURES Consultations: General surgery Procedures: Laparoscopic cholecystectomy - HOSPITAL COURSE Hospital Course: Patient is a 62-year-old male who presented to the ED due to complaints of chest wall pain due to a injury from a left device resulting in a rib fracture. Upon presentation he was noted to have a distended gallbladder concerning for acute cholecystitis on a CT abdomen/pelvis. Patient was admitted and underwent a laparoscopic cholecystectomy which was uncomplicated. He received 5 total days of IV antibiotics with Zosyn and aztreonam. Patient was eval by physical therapy and Occupational Therapy who had recommended correction facility. He was subsequently discharged to SNF. Hospital course was without complication. - ALLERGIES Allergies/Adverse Reactions: Allergies Allergy/AdvReac Type Severity Reaction Status Date / Time ceftriaxone sodium * Allergy Intermediate Hives Verified 09/21/23 16:22 [From Rocephin] - MEDICATIONS Home Medications: Ambulatory Orders Medication Instructions Recorded Confirmed Cholecalciferol (Vitamin D3) 2,000 unit PO DAILY 08/25/12 10/18/23 [Vitamin D3] Metoprolol Succinate 100 mg PO BID 08/25/12 10/18/23 Omeprazole [PriLOSEC] 20 mg PO DAILY 08/25/12 10/18/23 Potassium 20 meq PO HS 08/25/12 10/18/23 hydroCHLOROthiazide [Hydrodiuril] 12.5 mg PO DAILY 08/25/12 10/18/23 lisinopriL [Lisinopril] 40 mg PO DAILY 08/25/12 10/18/23 levETIRAcetam [Keppra] 750 mg PO BID 03/17/15 10/18/23 Clobetasol Propionate 15 gm TP ONCE PRN 04/22/18 10/18/23 Folic Acid 1 mg PO ONCE 09/17/20 10/18/23 Magnesium 250 mg PO HS 09/17/20 10/18/23 Pravastatin [Pravachol] 40 mg PO HS 09/17/20 10/18/23 Donepezil [Aricept] 5 mg PO DAILY #30 tablet 10/09/20 10/18/23 Amlodipine Besylate [Norvasc] 10 mg PO DAILY 09/23/21 10/18/23 Doxepin [SINEquan] 30 mg PO HS 09/23/21 10/18/23 Ondansetron Odt [Zofran Odt] 4 mg TL Q6H PRN #10 tablet 04/23/23 10/18/23 Cyanocobalamin (Vitamin B-12) 1,000 mcg PO DAILY 10/18/23 10/18/23 [Vitamin B-12] Docusate Sodium 100Mg Capsule 100 mg PO BID 10/18/23 10/18/23 [Colace 100Mg Capsule] Guaifenesin/Dextromethorphan 30 ml PO Q6H PRN 10/18/23 10/18/23 [Robitussin Cough-Chest Dm Liq] Ibuprofen 600 mg PO Q6H PRN 10/18/23 10/18/23 Melatonin 5 mg PO HS 10/18/23 10/18/23 Potassium Chloride [Klor-Con M10] 10 meq PO BIDWM 10/18/23 10/18/23 Sertraline HCl 100 mg PO DAILY 10/18/23 10/18/23 Tolnaftate [Athlete's Foot] 1 each TP BID 10/18/23 10/18/23 clonazePAM [Clonazepam] 0.25 mg PO BID 10/18/23 10/18/23 hydrOXYzine HCL [Hydroxyzine HCl] 25 mg PO Q4H PRN 10/18/23 10/18/23 - PHYSICAL EXAM AT DISCHARGE General Appearance: positive: No acute distress, Alert Respiratory: positive: No respiratory distress, Breath sounds nml. negative: Wheezes Cardiovascular: positive: Regular rate & rhythm, No murmur, No gallop - LABS Result Diagrams: 10/23/23 05:07 10/23/23 05:07 - FOLLOW UP Follow Up: Follow up with general surgery and PCP. - TIME SPENT Time Spent in Discharge (Minutes): 35"
[2023-10-24 14:04] VITALS: BP 114/72; O2SAT 95
[2023-10-24] MEDS: metroNIDAZOLE 250 MG TABLET PO SCH (14:04)
[2023-10-24] MEDS ORDERED: traZODone 50 MG TABLET PO SCH (21:00)
== END 2023-10-24 15:20 | DRG 445 ==
LOC: EDUNIT# → EDBD → ED 00:55 → MS2 07:28 → OBSVTOIN 10-19 07:53
PROVIDERS: ADMIT Surgery; ATTEND Family Medicine
PROC: 0FT44ZZ Resection of Gallbladder, Percutaneous Endoscopic Approach (ICD-10-PCS; principal; 2023-10-18 13:30)
DX: K80.00 Calculus of gallbladder with acute cholecystitis without obstruction (principal); I69.354 Hemiplegia and hemiparesis following cerebral infarction affecting left non-dominant side; S22.41XA Multiple fractures of ribs, right side, initial encounter for closed fracture; G40.909 Epilepsy, unspecified, not intractable, without status epilepticus; E78.00 Pure hypercholesterolemia, unspecified; I10 Essential (primary) hypertension; R60.0 Localized edema; Y84.8 Other medical procedures as the cause of abnormal reaction of the patient, or of later complication, without mention of misadventure at the time of the procedure; E87.6 Hypokalemia; D72.829 Elevated white blood cell count, unspecified; E66.9 Obesity, unspecified; Z68.30 Body mass index [BMI] 30.0-30.9, adult; Y92.099 Unspecified place in other non-institutional residence as the place of occurrence of the external cause; Z79.899 Other long term (current) drug therapy; Z98.890 Other specified postprocedural states
CPT/HCPCS: 36415; 47562; 71045; 74177; 76705; 80048; 80053; 80076; 83690; 84132; 85014; 85018; 85025; 86850; 86900; 86901; 86920; 87040; 87493; 87507; 93005; 96365; 96366; 96375; 97163; 97167; 99285; A9270; G0378; J1170; J3490; J7120; J8499; Q9967; Q9966

== ENCOUNTER 2023-10-24 15:29 | Outpatient (CLI) | payer MEDICARE, MEDICAID | END 2023-10-24 23:59 | LOC: EMS 15:29 | PROVIDERS: ATTEND Family Medicine | DX: I63.9 Cerebral infarction, unspecified (principal); S22.49XA Multiple fractures of ribs, unspecified side, initial encounter for closed fracture; Z74.01 Bed confinement status | CPT/HCPCS: A0425; A0428 ==

== ENCOUNTER 2023-11-02 08:00 | Outpatient (CLI) | payer MEDICARE, MEDICAID ==
[2023-11-02 16:44] LABS: BASOPHILS % (AUTO) 0.5 %; EOSINOPHILS # (AUTO) 0.1 10^3/uL (0.0-0.7); EOSINOPHILS % (AUTO) 1.6 %; HCT - HEMATOCRIT 37.7 % (42.0-52.0); HGB - HEMOGLOBIN 11.9 g/dL (14.0-18.0); LYMPHOCYTES # (AUTO) 1.2 10^3/uL (1.5-3.5); LYMPHOCYTES % (AUTO) 20.1 %; MEAN CORPUSCULAR HEMOGLOBIN 29.3 pg (27.0-31.0); MEAN CORPUSCULAR HGB CONC 31.6 g/dL (32.0-36.0); MEAN CORPUSCULAR VOLUME 92.9 fL (80.0-94.0); MEAN PLATELET VOLUME 9.5 fL (7.4-11.4); MONOCYTES # (AUTO) 0.5 10^3/uL (0.0-1.0); MONOCYTES % (AUTO) 8.3 %; NEUTROPHILS # (AUTO) 4.3 10^3/uL (1.5-6.6); NEUTROPHILS % (AUTO) 69.3 %; PLT - PLATELET COUNT 304 10^3/uL (130-450); RED BLOOD COUNT 4.06 10^6/uL (4.70-6.10); RED CELL DISTRIBUTION WIDTH 14.9 % (12.0-15.0); WHITE BLOOD COUNT 6.1 x10^3/uL (4.8-10.8)
[2023-11-02 17:02] LABS: CALCIUM 9.5 mg/dL (8.5-10.3); CREATININE 0.8 mg/dL (0.6-1.3); MAGNESIUM 1.7 mg/dL (1.7-2.3); POTASSIUM 3.4 mmol/L (3.5-4.5)
== END 2023-11-02 23:59 | disposition home or self-care (01) ==
LOC: LAB.R 08:00
PROVIDERS: ATTEND Registered Nurse
DX: E87.6 Hypokalemia (principal); Z13.228 Encounter for screening for other metabolic disorders; R79.9 Abnormal finding of blood chemistry, unspecified; E61.2 Magnesium deficiency; G40.909 Epilepsy, unspecified, not intractable, without status epilepticus; Z51.81 Encounter for therapeutic drug level monitoring
CPT/HCPCS: 80048; 80177; 83735; 85025

== ENCOUNTER 2023-11-09 08:00 | Outpatient (CLI) | payer MEDICARE, MEDICAID ==
[2023-11-09 16:39] LABS: CALCIUM 9.4 mg/dL (8.5-10.3); CREATININE 0.7 mg/dL (0.6-1.3); POTASSIUM 3.7 mmol/L (3.5-4.5)
== END 2023-11-09 23:59 | disposition home or self-care (01) ==
LOC: LAB.R 08:00
PROVIDERS: ATTEND Registered Nurse
DX: E87.6 Hypokalemia (principal)
CPT/HCPCS: 80048

== ENCOUNTER 2023-12-07 08:00 | Outpatient (CLI) | payer MEDICARE, MEDICAID | END 2023-12-07 23:59 | disposition home or self-care (01) | LOC: LAB.R 08:00 | PROVIDERS: ATTEND Family Medicine | DX: G40.909 Epilepsy, unspecified, not intractable, without status epilepticus (principal) | CPT/HCPCS: 80177 ==

== ENCOUNTER 2023-12-17 08:00 | Outpatient (CLI) | payer MEDICARE, MEDICAID ==
[2023-12-17 14:31] LABS: CALCIUM 9.1 mg/dL (8.5-10.3); CREATININE 0.7 mg/dL (0.6-1.3); POTASSIUM 3.8 mmol/L (3.5-4.5)
== END 2023-12-17 23:59 | disposition home or self-care (01) ==
LOC: LAB.R 08:00
PROVIDERS: ATTEND Family Medicine
DX: I10 Essential (primary) hypertension (principal)
CPT/HCPCS: 80048

== ENCOUNTER 2024-09-28 07:12 | Observation (INO) ==
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
[2024-09-28 07:43] LABS: BASOPHILS % (AUTO) 0.3 %; EOSINOPHILS # (AUTO) 0.2 10^3/uL (0.0-0.7); EOSINOPHILS % (AUTO) 2.4 %; HCT - HEMATOCRIT 21.8 % (42.0-52.0); LYMPHOCYTES # (AUTO) 1.5 10^3/uL (1.5-3.5); LYMPHOCYTES % (AUTO) 20.4 %; MEAN CORPUSCULAR HEMOGLOBIN 24.9 pg (27.0-31.0); MEAN CORPUSCULAR HGB CONC 29.4 g/dL (32.0-36.0); MEAN CORPUSCULAR VOLUME 84.8 fL (80.0-94.0); MEAN PLATELET VOLUME 9.8 fL (7.4-11.4); MONOCYTES # (AUTO) 0.6 10^3/uL (0.0-1.0); MONOCYTES % (AUTO) 7.7 %; NEUTROPHILS # (AUTO) 5.1 10^3/uL (1.5-6.6); NEUTROPHILS % (AUTO) 68.9 %; NRBC ABSOLUTE COUNT (AUTO) 0.02 x10^3/uL; NUCLEATED RED BLOOD CELLS AUTO 0.3 /100WBC; PLT - PLATELET COUNT 188 10^3/uL (130-450); RED BLOOD COUNT 2.57 10^6/uL (4.70-6.10); RED CELL DISTRIBUTION WIDTH 17.4 % (12.0-15.0); WHITE BLOOD COUNT 7.4 x10^3/uL (4.8-10.8)
[2024-09-28 07:47] LABS: HGB - HEMOGLOBIN 6.4 g/dL (14.0-18.0)
[2024-09-28 08:02] LABS: PARTIAL THROMBOPLASTIN TIME 26.4 secs (24.9-33.3)
[2024-09-28 08:06] LABS: INR 1.1 (0.8-1.2); PT - PROTHROMBIN TIME 12.7 secs (9.9-12.6)
[2024-09-28 08:08] LABS: BILIRUBIN,URINE NEGATIVE (NEGATIVE); GLUCOSE, URINE (UA) NEGATIVE (NEGATIVE); KETONES,URINE (UA) NEGATIVE (NEGATIVE); LEUKOCYTE ESTERASE, URINE NEGATIVE (NEGATIVE); NITRITE,URINE NEGATIVE (NEGATIVE); OCCULT BLOOD,URINE NEGATIVE (NEGATIVE); PROTEIN,URINE NEGATIVE (NEGATIVE); UROBILINOGEN,URINE 0.2 (NORMAL) E.U./dL (NORMAL)
[2024-09-28 08:11] LABS: CLARITY,URINE CLEAR (CLEAR)
--- OUTSIDE RECORDS SUMMARY | 2024-09-28 08:14 | EXTERNAL MEDICAL SUMMARY RPT | Continuity of Care Document ---
Author Organization [facility] Address [address] [address] Phone Problems date description facility 2024-07-06 11:00 Epilepsy, unspecifie d, not intractable, without status [facility]pticus [facility] 2024-07-16 08:49 Epilepsy, unspecifie d, not intractable, without status epilepticus [facility] 2024-07-16 08:50 Epilepsy, unspecifie d, not intractable, without status epilepticus [facility] 2024-09-22 21:12 [facility]okalemia [facility] 2024-09-22 21:12 Gastrointestinal hemorrhage, un specified [facility] 2024-09-25 10:54 [facility]okal[facility] 2024-09-25 14:16 Melena [facility] Results/Labs test date facility value unit notes Result panel 1 LEVETIRACETAM (KEPPRA) 2024-07-02 15:40 [facility] 29.1 ug/ml Performed at: [facility] [address] [id number] Collar Shaper Operator: Natacha Couch MD, Phone: [phone] Result panel 2 NUCLEATED RED BLOOD CELLS AUTO 2024-07-13 18:50 [facility] 0.0 /100wbc (missing) BASOPHILS # (AUTO) 2024-07-13 18:50 [facility] 0.0 10 3/ul (missing) NRBC ABSOLUTE COUNT (AUTO) 2024-07-13 18:50 [facility] 0.00 x10 3/ul (missing) BILIRUBIN,TOTAL 2024-07-13 18:50 [facility] 0.3 mg /dl As of October 2022 testing method has changed, this may include reference ranges. EOSINOPHILS # (AUTO) 2024-07-13 18:50 [facility] 0.5 10 3/ul (missing) MONOCYTES # (AUTO) 2024-07-13 18:50 [facility] 0.5 10 3/ul (missing) CREATININE 2024-07-13 18:50 [facility] 0.8 mg/dl As of October 2022 testing method has changed, this may include reference ranges. ALBUMIN/GLOBULIN RATIO 2024-07-13 18:50 [facility] 1.2 (missing) (missing) LYMPHOCYTES # (AUTO) 2024-07-13 18:50 [facility] 1.2 10 3/ul (missing) CHLORIDE 2024-07-13 18:50 [facility] 102 mmol/l As of October 2022 testing method has changed, this may include reference ranges. HGB - HEMOGLOBIN 2024-07-13 18:50 [facility] 11.1 g /dl (missing) GLUCOSE 2024-07-13 18:50 [facility] 138 mg/dl As of October 2022 testing method has changed, this may include reference ranges. SODIUM 2024-07-13 18:50 [facility] 139 mmol/l Unknown As of October 2022 testing method has changed, this may include reference ranges. LEVETIRACETAM (KEPPRA) 2024-07-13 18:50 [facility] 16.2 ug/ml Performed at: - [address] [id number] Collar Shaper Operator: Natacha Couch MD, Phone: [phone] RED CELL DISTRIBUTION WIDTH 2024-07-13 18:50 [facility] 16.6 % (missing) AST ASPARTATE AMINOTRANSFERASE 2024-07-13 18:50 [facility] 17 iu/l As of October 2022 testing method has changed, this may include reference ranges. BUN - BLOOD UREA NITROGEN 2024-07-13 18:50 [facility] 17 mg/dl As of Oct testing method has changed, this may include reference ranges. ALT ALANINE AMINOTRANSFERASE 2024-07-13 18:50 [facility] 19 iu/l As of October 2022 testing method has changed, this may include reference ranges. PLT - PLATELET COUNT 2024-07-13 18:50 [facility] 205 10 3/ul (missing) MEAN CORPUSCULAR HEMOGLOBIN 2024-07-13 18:50 [facility] 24.4 pg (missing) MEAN CORPUSCULAR HGB CONC 2024-07-13 18:50 [facility] 29.2 g/dl (missing) POTASSIUM 2024-07-13 18:50 [facility] 3.3 mmol/l As of October 2022 testing method has changed, this may include reference ranges. GLOBULIN 2024-07-13 18:50 [facility] 3.4 g/dl (missing) CARBON DIOXIDE - CO2 2024-07-13 18:50 [facility] 31 mmol/l As of October 2022 testing method has changed, this may include reference ranges. HCT - HEMATOCRIT 2024-07-13 18:50 [facility] 38.0 % (missing) ALBUMIN 2024-07-13 18:50 [facility] 4.0 g/dl As of October 2022 testing method has changed, this may include reference ranges. NEUTROPHILS # (AUTO) 2024-07-13 18:50 [facility] 4.1 10 3/ul (missing) RED BLOOD COUNT 2024-07-13 18:50 [facility] 4.54 10 6/ul (missing) ANION GAP 2024-07-13 18:50 [facility] 6.0 (missing ) (missing) WHITE BLOOD COUNT 2024-07-13 18:50 [facility] 6.4 x10 3/ul (missing) TOTAL PROTEIN 2024-07-13 18:50 [facility] 7.4 g/dl As of October 2022 testing method has changed, this may include reference ranges. MEAN CORPUSCULAR VOLUME 2024-07-13 18:50 [facility] 83.7 fl (missing) CALCIUM 2024-07-13 18:50 [facility] 9.3 mg/dl As of October 2022 testing method has changed, this may include reference ranges. MEAN PLATELET VOLUME 2024-07-13 18:50 [facility] 9.8 fl (missing) ALKALINE PHOSPHATASE 2024-07-13 18:50 [facility] 94 iu/l As of October 2022 testing method has changed, this may include reference ranges. GFR - MDRD 2024-07-13 18:50 [facility] 98 (in g) Social History date description facility
[2024-09-28 08:19] LABS: ALBUMIN 3.3 g/dL (3.2-5.5); ALBUMIN/GLOBULIN RATIO 1.4 (1.0-2.2); BILIRUBIN,TOTAL 0.2 mg/dL (0.2-1.0); CALCIUM 8.8 mg/dL (8.5-10.3); CREATININE 0.9 mg/dL (0.6-1.3); POTASSIUM 4.1 mmol/L (3.5-4.5); TOTAL PROTEIN 5.7 g/dL (6.4-8.9)
[2024-09-28] MEDS: PANTOPRAZOLE 40 MG VIAL IVP STA (08:26)
[2024-09-28] MEDS: SODIUM CHLORIDE 0.9% 1,000 ML IV STA (08:27)
[2024-09-28] MEDS ORDERED: SODIUM CHLORIDE FLUSH 0.9% 10 ML SYRINGE IVP PRN (09:03)
--- NOTE | 2024-09-28 09:21 | PHARMACY PROGRESS NOTE ---
Best Possible Medication History Admit Date and Time: 09/28/24 132252 Home Medications Medication Instructions Recorded Confirmed Type cholecalciferol (vitamin D3) 50 2,000 unit PO DAILY 09/28/24 History mcg (2,000 unit) capsule (Vitamin D3) hydrochlorothiazide 25 mg tablet 12.5 mg PO DAILY 07/0509/28/24 History lisinopril 40 mg tablet 40 mg PO DAILY 08/25/1210/17 History metoprolol succinate 100 mg 100 mg PO BID 08/25/1210/17 History tablet,extended release 24 hr omeprazole 20 mg capsule,delayed 20 mg PO DAILY 09/28/24 History release levetiracetam 250 mg tablet 750 mg PO BID 03/17/1510/17 History clobetasol 0.05 % topical ointment 15 g topical DAILY PRN PSORIASIS 04/22/18 09/28/24 History folic acid 1 mg tablet 1 mg PO MOWEFRSA 09/17/20 History pravastatin 40 mg tablet 40 mg PO HS 09/17/20 5 History donepezil 5 mg tablet 5 mg PO DAILY #30 tabs 10/0909/28/24 Rx amlodipine 10 mg tablet (Norvasc) 10 mg PO DAILY 09/2309/28/24 History ondansetron 4 mg disintegrating 4 mg translingual Q6H PRN Nausea / 04/23/23 09/28/24 Rx tablet Vomiting #10 tabs Melatonin 5 mg PO HS 10/18/23 09/28/24 History clonazepam 0.25 mg disintegrating 0.25 mg PO DAILY 09/28/24 History tablet cyanocobalamin (vitamin B-12) 1,000 mcg PO DAILY 10/1709/28/24 History 1,000 mcg capsule docusate sodium 100 mg capsule 100 mg PO BID 10/18/23 09/28/24 History (Stool Softener) sertraline 100 mg tablet 100 mg PO DAILY 10/18/2310/17 History bisacodyl 10 mg rectal suppository 10 mg CO DAILY PRN constipation 02/16/24 09/28/24 History (Dulcolax (bisacodyl)) mineral oil (Fleet Mineral Oil 118 ml CO DAILY PRN con stipation 02/16/24 09/28/24 History enema) polyethylene glycol 3350 17 17 g PO DAILY PRN constipa tion 02/16/24 09/28/24 History gram/dose oral powder (ClearLax) sennosides 8.6 mg capsule (senna) 17.2 mg PO DAILY PRN constipation 02/16/24 09/28/24 History doxepin 6 mg tablet 6 mg PO QPM 09/28/24 5 History magnesium oxide 400 mg PO QPM 09/28/2409/28 History potassium chloride 20 mEq 20 meq PO BID 09/28/2409/28 History tablet,extended release(part/cryst) Processed by: Nursing Medications reviewed in ED?: Yes Medication History completed: Yes Secondary Source(s): Facility MAR as ONLY source [facility] Statement: As the person ultimately responsible for medication therapy, providers are able to order a medication from an existing home medication list in [facility] via the "Reconcile Routine" prior to Confirmation of that medication by integrated logistics support manager. Such practice is discouraged except when the physician, in their clinical judgment, deems that a medical need exists for a medication without regard to previous use.
[2024-09-28] MEDS: PANTOPRAZOLE 40 MG VIAL IVP SCH (09:25)
[2024-09-28] MEDS: SODIUM CHLORIDE FLUSH 0.9% 10 ML SYRINGE IVP SCH (09:26)
--- NOTE | 2024-09-28 09:47 | HISTORY & PHYSICAL EXAMINATION ---
Chief Complaint Chief Complaint Chief Complaint: Dark stools History of Present Illness Admitted From Admitted From:: [facility] History Obtained From Records Reviewed: EMR History obtained from: Patient, patient's Exam Limitations: None History of Present Illness HPI Comment/Other: Patient is a 63-year-old male with a history of a chronic SMA dissection and aneurysm who presented for dark stools for about a week. He recently presented to the emergency room on 09/20 for dark stools from [facility]; at this time, he was sent home, given a referral for the general surgeon, who he actually did see on 09/25. They were planning on doing an outpatient EGD and colonoscopy on 10/03. However, he continued to have dark stools. He endorses some lightheadedness, dizziness. He is not on anticoauglation, antiplatelets, NSAIDs. He does not drink any alcohol. He denies any nausea, vomiting, abdominal pain. He has chronic weakness of his left side from a stroke about ten years ago. In the ER, patient was normotensive with blood pressure 117/73, heart rate was 66, he was afebrile, saturating 96% on room air. Lab work showed a hemoglobin of 6.4. About a week ago, it was 9.3. His BMP was largely unremarkable. CT abdomen/pelvis done 09/20 did show a SMA aneurysm and dissection, unchanged from 2023. The is already working on a vascular surgery referral. He was admitted for acute GI bleed. General surgery saw the patient, and plan is to go to the OR for endoscopy today. Meds/Allgy Home Medications Ambulatory Orders Medication Instructions Recorded Confirmed cholecalciferol (vitamin D3) 50 2,000 unit PO DAILY 09/28/24 mcg (2,000 unit) capsule (Vitamin D3) hydrochlorothiazide 25 mg tablet 12.5 mg PO DAILY 07/0509/28/24 lisinopril 40 mg tablet 40 mg PO DAILY 08/25/1210/17 metoprolol succinate 100 mg 100 mg PO BID 08/25/1210/17 tablet,extended release 24 hr omeprazole 20 mg capsule,delayed 20 mg PO DAILY 09/28/24 release levetiracetam 250 mg tablet 750 mg PO BID 03/17/1510/17 clobetasol 0.05 % topical ointment 15 g topical DAILY PRN PSORIASIS 04/22/18 09/28/24 folic acid 1 mg tablet 1 mg PO MOWEFRSA 09/17/20 pravastatin 40 mg tablet 40 mg PO HS 09/17/20 5 donepezil 5 mg tablet 5 mg PO DAILY #30 tabs 10/0909/28/24 amlodipine 10 mg tablet (Norvasc) 10 mg PO DAILY 09/2309/28/24 ondansetron 4 mg disintegrating 4 mg translingual Q6H PRN Nausea / 04/23/23 09/28/24 tablet Vomiting #10 tabs Melatonin 5 mg PO HS 10/18/23 09/28/24 clonazepam 0.25 mg disintegrating 0.25 mg PO DAILY 09/28/24 tablet cyanocobalamin (vitamin B-12) 1,000 mcg PO DAILY 10/1709/28/24 1,000 mcg capsule docusate sodium 100 mg capsule 100 mg PO BID 10/18/23 09/28/24 (Stool Softener) sertraline 100 mg tablet 100 mg PO DAILY 10/18/2310/17 bisacodyl 10 mg rectal suppository 10 mg MS DAILY PRN constipation 02/16/24 09/28/24 (Dulcolax (bisacodyl)) mineral oil (Fleet Mineral Oil 118 ml MS DAILY PRN con stipation 02/16/24 09/28/24 enema) polyethylene glycol 3350 17 17 g PO DAILY PRN constipa tion 02/16/24 09/28/24 gram/dose oral powder (ClearLax) sennosides 8.6 mg capsule (senna) 17.2 mg PO DAILY PRN constipation 02/16/24 09/28/24 doxepin 6 mg tablet 6 mg PO QPM 09/28/24 5 magnesium oxide 400 mg PO QPM 09/28/2409/28 potassium chloride 20 mEq 20 meq PO BID 09/28/2409/28 tablet,extended release(part/cryst) Allergies Allergies Allergy/AdvReac Type Severity Reaction Status Date / Time ceftriaxone sodium * (From Allergy Intermediate Hives Verified 09/28/24 07:35 Rocephin) PFSH Active Problems All Active Problems (Updated 09/28/24 @ 11:55 by Fani Martinez MD) Symptomatic anemia (Acute) Acute upper GI bleed (Acute) Anemia (Acute) GIB (gastrointestinal bleeding) (Acute) HTN (hypertension) (Acute) HLD (hyperlipidemia) (Acute) Seizure (Acute) CVA (cerebral vascular accident) (Acute) Leukocytosis (Acute) Multiple rib fractures (Acute) Hypokalemia (Acute) Fall from slip, trip, or stumble (Acute) Fracture of left proximal ulna (Acute) Metatarsal fracture (Acute) Toe fracture, left (Acute) Cellulitis of hand (Acute) Eczema (Acute) Allergic reaction (Acute) Eczema of both hands (Acute) Rash and nonspecific skin eruption (Acute) Weakness of left arm (Acute) Weakness (Acute) Head injury (Acute) Muscle spasm (Acute) Medical History Medical History (Updated 09/28/24 @ 11:55 by Fani Martinez MD) Depression Surgical History Surgical History S/P cholecystectomy Social History Social History Smoking Status: Never smoker Second hand tobacco smoke exposure: No Do you dip or chew tobacco?: No Do you vape?: No Patient requests smoking cessation consult: No Initiate information on smoking cessation: No Living arrangement: At home Living Condition: With spouse/s.o. Relationship: Level: Dependent Home Mobility Equipment: Wheelchair and Lift Do you feel safe in your home environment?: Yes Suffered physical, verbal, emotional, or financial abuse?: No History of Abuse: No Frequency: Occasional Substance Use: denies use POLST Patient has POLST: Yes POLST Status: Full Code Review of Systems Constitutional Reports: Fatigue, Weakness and Poor appetite; Denies: Fever, Chills or Malaise Eyes Denies: Pain, Irritation, Blurry vision, Vision loss, Diplopia or Eye discomfort Ears, nose, mouth, and throat Denies: Ear pain, Hearing loss, Tinnitus, Nose bleeds, Nasal discharge, Mouth lesions, Bleeding gums or Neck pain Cardiovascular Denies: Irregular heart rate, chest pain, palpitations, edema, Syncope or shortness of breath with exertion Respiratory Denies: Shortness of breath, Cough, Sputum production or Wheezing Gastrointestinal Reports: Blood in stool; Denies: Abdominal pain, Abdominal distention, Nausea, Vomiting, Heartburn, Diarrhea, Constipation or Bloating Genitourinary Denies: Painful urination, Urinary frequency or Urinary urgency Musculoskeletal Reports: Muscle weakness; Denies: Back pain, Neck pain, Extremity pain, Extremity swelling or Joint pain Integumentary/Breast Denies: Rash, Itching, Dryness, Redness or Skin pain Neurological Reports: Focal weakness; Denies: Headache, General weakness, Weakness in extremities, Numbness in extremities, Abnormal gait or Dizziness Psychiatric Denies: Depression, Anxiety, Mood swings or Panic attacks Endocrine Reports: Fatigue; Denies: Excessive urination or Excessive thirst Hematologic/Lymphatic Denies: Anemia, Easy bruising or Easy bleeding Allergic/Immunologic Denies: Hives, Tongue swelling, Facial swelling or Wheezing Exam Exam Vital Signs: Vital Signs x48h Temp Pulse Pulse Resp BP BP BP 09/28/24 11:38 98.6 F 18 127/75 09/28/24 11:13 98.1 F 73 18 130/71 09/28/24 09:26 97.9 F 69 18 121/62 09/28/24 08:43 97.3 F L 70 20 129/69 09/28/24 08:15 65 20 126/67 09/28/24 07:16 97.9 F 66 20 117/73 Pulse Ox 09/28/24 11:38 97 09/28/24 11:13 96 09/28/24 09:26 97 09/28/24 08:43 95 09/28/24 08:15 96 09/28/24 07:16 96 Constitutional normal general appearance, no apparent distress, average body habitus and no limitations [facility] normocephalic, head/scalp atraumatic and hearing grossly normal bilaterally Eyes PERRL, EOMs intact bilaterally and conjunctivae normal Neck/C-Spine visual inspection normal, trachea midline and cervical spine nontender Chest inspection of chest normal Respiratory breath sounds equal bilaterally, normal respiratory effort, clear to auscultation bilaterally, no wheezes, no rales and no retractions Cardiovascular normal heart rate noted, regular rhythm noted, no gallop, no rub and no murmur Gastrointestinal abdomen normal to inspection, abdomen soft to palpation, nontender to palpation and normoactive bowel sounds Genitourinary no CVA tenderness and bladder normal to palpation Extremities normal to inspection, normal to palpation, no tenderness and full ROM Left hand with chronic contracture, left arm 4-5 to extension and flexion. Left lower extremity 4-5 to flexion extension. Right lower extremity right upper extremity 5 out of 5 in strength. Neurology no movement abnormality noted and no focal motor deficit noted Psychiatry mental status grossly normal, oriented x3, thought process normal, cooperative and affect normal Skin skin color normal, no rash, no lesions and no wounds Conclusion/Plan Problem List (1) Acute upper GI bleed: Plan: Patient presents with steadily declining hemoglobin, today it was 6.4. Also having dark stools. Continue n.p.o., IV fluids, Protonix 40 mg IV twice daily. Continue monitor H&H every 8 hours. Transfuse for hemoglobin less than 7. General Surgery consulted: Plan for EGD later today. Continue to advise against NSAID use. Patient does not drink alcohol. Not on any anticoagulation or antiplatelet medications. (2) Symptomatic anemia: Plan: Management as above. (3) HTN (hypertension): Plan: Hold antihypertensives at this time including lisinopril, amlodipine as patient has borderline low blood pressure. Metoprolol resumed to avoid withdrawal, tachycardia. Qualifiers: Hypertension type: unspecified Qualified Code(s): I10 - Essential (primary) hypertension (4) HLD (hyperlipidemia): Plan: Continue statin. Qualifiers: Hyperlipidemia type: unspecified Qualified Code(s): E78.5 - Hyperlipidemia, unspecified (5) Seizure: Plan: Continue Keppra. (6) CVA (cerebral vascular accident): Plan: Patient had a CVA about 10 years ago with resultant hemicraniectomy. Unclear if it was hemorrhagic. However, patient is not on a aspirin 81 mg daily, so there is likelihood of this. Deficits are at baseline, patient presents with left hand contracture, left- sided weakness. Continue to monitor. Qualifiers: CVA mechanism: unspecified Qualified Code(s): I63.9 - Cerebral infarction, unspecified (7) Depression: Plan: Continue doxepin, sertraline. Qualifiers: Depression Type: unspecified Qualified Code(s): F32.A - Depression, unspecified Lab Results Lab results reviewed: Yes 09/28/24 07:32 09/28/24 07:32 Diagnostic Imaging Results Diagnostic Imaging Results: positive Final report reviewed Core Measures Anticipated LOS I expect patient to be DC'd or transferred within 96 hours.: Yes Issues Hospital Issues and Management Plan: None anticipated. DVT/VTE - Prophylaxis VTE/DVT Device ordered at admit?: Yes VTE/DVT Prophylaxis med ordered at admit?: No Not Ordered - Medical Reason: Contraindicated
[2024-09-28] MEDS ORDERED: ONDANSETRON ODT 4 MG TABLET TL PRN (11:41)
--- NOTE | 2024-09-28 11:43 | ANESTHESIA PROCEDURE NOTE ---
Pre-Anesthesia VS, & Labs Diagnosis Surgical Diagnosis:: Anemia Procedure Procedure: EGD Vitals Vital Signs: Temp Pulse Resp BP Pulse Ox 36.7 C 73 18 130/71 96 09/28/24 11:13 09/28/24 11:13 09/28/24 11:13 09/28/24 11:13 09/28/24 11:13 NPO NPO: >8 hours Lab Results Current Lab Results: Laboratory Tests 09/28/24 07:32: WBC 7.4, RBC 2.57 L, Hgb 6.4 L*, Hct 21.8 L, MCV 84.8, MCH 24.9 L, MCHC 29.4 L, RDW 17.4 H, Plt Count 188, MPV 9.8, Neut # (Auto) 5.1, Lymph # (Auto) 1.5, [place] # (Auto) 0.6, Eos # (Auto) 0.2, Baso # (Auto) 0.0, Absolute Nucleated RBC 0.02, Nucleated RBC % 0.3, PT 12.7 H, INR 1.1, APTT 26.4, Sodium 141, Potassium 4.1, Chloride 106, Carbon Dioxide 32, Anion Gap 3.0 L, BUN 33 H, Creatinine 0.9, Estimated GFR (MDRD) 86 L, Glucose 113 H, Calcium 8.8, Total Bilirubin 0.2, AST 11, ALT 13, Alkaline Phosphatase 59, Total Protein 5.7 L, Albumin 3.3, Globulin 2.4, Albumin/Globulin Ratio 1.4, Lipase 17, Blood Type A POSITIVE, Antibody Screen NEGATIVE, Crossmatch IS Only See Detail Lab results reviewed: Yes 09/28/24 07:32 09/28/24 07:32 Meds/Allgy Home Medications Ambulatory Orders Medication Instructions Recorded Confirmed cholecalciferol (vitamin D3) 50 2,000 unit PO DAILY 09/28/24 mcg (2,000 unit) capsule (Vitamin D3) hydrochlorothiazide 25 mg tablet 12.5 mg PO DAILY 07/0509/28/24 lisinopril 40 mg tablet 40 mg PO DAILY 08/25/1210/17 metoprolol succinate 100 mg 100 mg PO BID 08/25/1210/17 tablet,extended release 24 hr omeprazole 20 mg capsule,delayed 20 mg PO DAILY 09/28/24 release levetiracetam 250 mg tablet 750 mg PO BID 03/17/1510/17 clobetasol 0.05 % topical ointment 15 g topical DAILY PRN PSORIASIS 04/22/18 09/28/24 folic acid 1 mg tablet 1 mg PO MOWEFRSA 09/17/20 pravastatin 40 mg tablet 40 mg PO HS 09/17/20 5 donepezil 5 mg tablet 5 mg PO DAILY #30 tabs 10/0909/28/24 amlodipine 10 mg tablet (Norvasc) 10 mg PO DAILY 09/2309/28/24 ondansetron 4 mg disintegrating 4 mg translingual Q6H PRN Nausea / 04/23/23 09/28/24 tablet Vomiting #10 tabs Melatonin 5 mg PO HS 10/18/23 09/28/24 clonazepam 0.25 mg disintegrating 0.25 mg PO DAILY 09/28/24 tablet cyanocobalamin (vitamin B-12) 1,000 mcg PO DAILY 10/1709/28/24 1,000 mcg capsule docusate sodium 100 mg capsule 100 mg PO BID 10/18/23 09/28/24 (Stool Softener) sertraline 100 mg tablet 100 mg PO DAILY 10/18/2310/17 bisacodyl 10 mg rectal suppository 10 mg [place] DAILY PRN constipation 02/16/24 09/28/24 (Dulcolax (bisacodyl)) mineral oil (Fleet Mineral Oil 118 ml [place] DAILY PRN con stipation 02/16/24 09/28/24 enema) polyethylene glycol 3350 17 17 g PO DAILY PRN constipa tion 02/16/24 09/28/24 gram/dose oral powder (ClearLax) sennosides 8.6 mg capsule (senna) 17.2 mg PO DAILY PRN constipation 02/16/24 09/28/24 doxepin 6 mg tablet 6 mg PO QPM 09/28/24 5 magnesium oxide 400 mg PO QPM 09/28/2409/28 potassium chloride 20 mEq 20 meq PO BID 09/28/2409/28 tablet,extended release(part/cryst) Allergies Allergies Allergy/AdvReac Type Severity Reaction Status Date / Time ceftriaxone sodium * (From Allergy Intermediate Hives Verified 09/28/24 07:35 Rocephin) PFSH Active Problems All Active Problems Symptomatic anemia (Acute) Acute upper GI bleed (Acute) Anemia (Acute) GIB (gastrointestinal bleeding) (Acute) HTN (hypertension) (Acute) HLD (hyperlipidemia) (Acute) Seizure (Acute) CVA (cerebral vascular accident) (Acute) Leukocytosis (Acute) Multiple rib fractures (Acute) Hypokalemia (Acute) Fall from slip, trip, or stumble (Acute) Fracture of left proximal ulna (Acute) Metatarsal fracture (Acute) Toe fracture, left (Acute) Cellulitis of hand (Acute) Eczema (Acute) Allergic reaction (Acute) Eczema of both hands (Acute) Rash and nonspecific skin eruption (Acute) Weakness of left arm (Acute) Weakness (Acute) Head injury (Acute) Muscle spasm (Acute) Surgical History Surgical History S/P cholecystectomy Social History Social History Smoking Status: Never smoker Second hand tobacco smoke exposure: No Do you dip or chew tobacco?: No Do you vape?: No Patient requests smoking cessation consult: No Initiate information on smoking cessation: No Living arrangement: At home Living Condition: With spouse/s.o. Relationship: Level: Dependent Home Mobility Equipment: Wheelchair and Lift Do you feel safe in your home environment?: Yes Suffered physical, verbal, emotional, or financial abuse?: No History of Abuse: No Frequency: Occasional Substance Use: denies use POLST Patient has POLST: Yes POLST Status: Full Code Anesthesia Exam (Expanded) Exam General: Alert, Oriented x3 and Cooperative Dental: Poor dentition Mouth Opening: Greater than 4 Fingerbreadths Neck Mobility: Normal Mallampati classification: II Thyromental Distance: 4-6 cm Respiratory: Lungs clear, Normal breath sounds and No respiratory distress Cardiovascular: Regular rate Exam Exam Vital Signs: Vital Signs x48h Temp Pulse Pulse Resp BP BP BP 09/28/24 11:13 36.7 C 73 18 130/71 09/28/24 09:26 36.6 C 69 18 121/62 09/28/24 08:43 36.3 C L 70 20 129/69 09/28/24 08:15 65 20 126/67 09/28/24 07:16 36.6 C 66 20 117/73 Pulse Ox 09/28/24 11:13 96 09/28/24 09:26 97 09/28/24 08:43 95 09/28/24 08:15 96 09/28/24 07:16 96 Plan Plan Anesthesia Type: General and Total IV Consent for Procedure(s) Verified and Reviewed: Yes Code Status: Attempt Resuscitation ASA Classification ASA classification: 3-Severe systemic disease Is this case an emergency?: Yes
--- NOTE | 2024-09-28 11:49 | CONSULTATION NOTE ---
Referring Provider Name of Referring Provider:: Juan Consult Date: 09/28/24 Chief Complaint Chief Complaint Chief Complaint: Black loose stool x 1 week History of Present Illness History of Present Illness HPI Comment/Other: Reagan is a 63 year old male who has had 7 days of black, liquid stool. He felt fatigued and came to the ED for evaluation and was found to have a significant anemia. he was admitted to the Medical Hospitalist Service for blood transfusion and I was asked to consider endoscopic evaluation. He underwent CS in January 2024 where several tiny polyps were identified and removed. 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 Reagan denies prior UGI bleeding. He denies the use of aspirin or Ibuprofen. He is not taking a DOAC , Coumadin, or antiplatelet medicaltion. [facility] Active Problems All Active Problems Symptomatic anemia (Acute) Acute upper GI bleed (Acute) Anemia (Acute) GIB (gastrointestinal bleeding) (Acute) HTN (hypertension) (Acute) HLD (hyperlipidemia) (Acute) Seizure (Acute) CVA (cerebral vascular accident) (Acute) Leukocytosis (Acute) Multiple rib fractures (Acute) Hypokalemia (Acute) Fall from slip, trip, or stumble (Acute) Fracture of left proximal ulna (Acute) Metatarsal fracture (Acute) Toe fracture, left (Acute) Cellulitis of hand (Acute) Eczema (Acute) Allergic reaction (Acute) Eczema of both hands (Acute) Rash and nonspecific skin eruption (Acute) Weakness of left arm (Acute) Weakness (Acute) Head injury (Acute) Muscle spasm (Acute) Surgical History Surgical History S/P cholecystectomy Social History Social History Smoking Status: Never smoker Second hand tobacco smoke exposure: No Do you dip or chew tobacco?: No Do you vape?: No Patient requests smoking cessation consult: No Initiate information on smoking cessation: No Living arrangement: At home Living Condition: With spouse/s.o. Relationship: Level: Dependent Home Mobility Equipment: Wheelchair and Lift Do you feel safe in your home environment?: Yes Suffered physical, verbal, emotional, or financial abuse?: No History of Abuse: No Frequency: Occasional Substance Use: denies use POLST Patient has POLST: Yes POLST Status: Full Code Meds/Allgy Home Medications Ambulatory Orders Medication Instructions Recorded Confirmed cholecalciferol (vitamin D3) 50 2,000 unit PO DAILY 09/28/24 mcg (2,000 unit) capsule (Vitamin D3) hydrochlorothiazide 25 mg tablet 12.5 mg PO DAILY 07/0509/28/24 lisinopril 40 mg tablet 40 mg PO DAILY 08/25/1210/17 metoprolol succinate 100 mg 100 mg PO BID 08/25/1210/17 tablet,extended release 24 hr omeprazole 20 mg capsule,delayed 20 mg PO DAILY 09/28/24 release levetiracetam 250 mg tablet 750 mg PO BID 03/17/1510/17 clobetasol 0.05 % topical ointment 15 g topical DAILY PRN PSORIASIS 04/22/18 09/28/24 folic acid 1 mg tablet 1 mg PO MOWEFRSA 09/17/20 pravastatin 40 mg tablet 40 mg PO HS 09/17/20 5 donepezil 5 mg tablet 5 mg PO DAILY #30 tabs 10/0909/28/24 amlodipine 10 mg tablet (Norvasc) 10 mg PO DAILY 09/2309/28/24 ondansetron 4 mg disintegrating 4 mg translingual Q6H PRN Nausea / 04/23/23 09/28/24 tablet Vomiting #10 tabs Melatonin 5 mg PO HS 10/18/23 09/28/24 clonazepam 0.25 mg disintegrating 0.25 mg PO DAILY 09/28/24 tablet cyanocobalamin (vitamin B-12) 1,000 mcg PO DAILY 10/1709/28/24 1,000 mcg capsule docusate sodium 100 mg capsule 100 mg PO BID 10/18/23 09/28/24 (Stool Softener) sertraline 100 mg tablet 100 mg PO DAILY 10/18/2310/17 bisacodyl 10 mg rectal suppository 10 mg [place] DAILY PRN constipation 10/24/24 06/06/25 (Dulcolax (bisacodyl)) mineral oil (Fleet Mineral Oil 118 ml [place] DAILY PRN con stipation 02/16/24 09/28/24 enema) polyethylene glycol 3350 17 17 g PO DAILY PRN constipa tion 02/16/24 09/28/24 gram/dose oral powder (ClearLax) sennosides 8.6 mg capsule (senna) 17.2 mg PO DAILY PRN constipation 02/16/24 09/28/24 doxepin 6 mg tablet 6 mg PO QPM 09/28/24 5 magnesium oxide 400 mg PO QPM 09/28/2409/28 potassium chloride 20 mEq 20 meq PO BID 09/28/2409/28 tablet,extended release(part/cryst) Allergies Allergies Allergy/AdvReac Type Severity Reaction Status Date / Time ceftriaxone sodium * (From Allergy Intermediate Hives Verified 09/28/24 07:35 Rocephin) Results Lab Results 09/28/24 07:32 09/28/24 07:32 Other Lab Results: Lab Results x24hrs 09/28/24 09/28/24 Range/Units 08:00 07:32 WBC 7.4 (4.8-10.8) x10^3/uL RBC 2.57 L (4.70-6.10) 10^6/uL Hgb 6.4 L* (14.0-18.0) g/dL Hct 21.8 L (42.0-52.0) % MCV 84.8 (80.0-94.0) fL MCH 24.9 L (27.0-31.0) pg MCHC 29.4 L (32.0-36.0) g/dL RDW 17.4 H (12.0-15.0) % Plt Count 188 (130-450) 10^3/uL MPV 9.8 (7.4-11.4) fL Neut # (Auto) 5.1 (1.5-6.6) 10^3/uL Lymph # (Auto) 1.5 (1.5-3.5) 10^3/uL [place] # (Auto) 0.6 (0.0-1.0) 10^3/uL Eos # (Auto) 0.2 (0.0-0.7) 10^3/uL Baso # (Auto) 0.0 (0.0-0.1) 10^3/uL Absolute Nucleated RBC 0.02 x10^3/uL Nucleated RBC % 0.3 /100WBC PT 12.7 H (9.9-12.6) secs INR 1.1 (0.8-1.2) APTT 26.4 (24.9-33.3) secs Sodium 141 (135-145) mmol/L Potassium 4.1 (3.5-4.5) mmol/L Chloride 106 (101-111) mmol/L Carbon Dioxide 32 (21-32) mmol/L Anion Gap 3.0 L (6-13) BUN 33 H (6-20) mg/dL Creatinine 0.9 (0.6-1.3) mg/dL Estimated GFR (MDRD) 86 L (>89) Glucose 113 H (74-104) mg/dL Calcium 8.8 (8.5-10.3) mg/dL Total Bilirubin 0.2 (0.2-1.0) mg/dL AST 11 (10-42) IU/L ALT 13 (10-60) IU/L Alkaline Phosphatase 59 (42-121) IU/L Total Protein 5.7 L (6.4-8.9) g/dL Albumin 3.3 (3.2-5.5) g/dL Globulin 2.4 (2.1-4.2) g/dL Albumin/Globulin Ratio 1.4 (1.0-2.2) Lipase 17 (11-82) U/L Urine Color YELLOW Urine Clarity CLEAR (CLEAR) Urine pH 6.0 (5.0-7.5) PH Ur Specific [place] 1.020 (1.002-1.030) Urine Protein NEGATIVE (NEGATIVE) mg/dL Urine Glucose (UA) NEGATIVE (NEGATIVE) mg/dL Urine Ketones NEGATIVE (NEGATIVE) mg/dL Urine Occult Blood NEGATIVE (NEGATIVE) Urine Nitrite NEGATIVE (NEGATIVE) Urine Bilirubin NEGATIVE (NEGATIVE) Urine Urobilinogen 0.2 (NORMAL) (NORMAL) E.U./dL Ur Leukocyte Esterase NEGATIVE (NEGATIVE) Ur Microscopic Review NOT INDICATED Urine Culture Comments NOT INDICATED Blood Type A POSITIVE Antibody Screen NEGATIVE Crossmatch IS Only See Detail Review of Systems Status of ROS: 10 or more systems reviewed and unremarkable except as noted in history and below Exam Exam Vital Signs: Vital Signs x48h Temp Pulse Pulse Resp BP BP BP 09/28/24 11:13 36.7 C 73 18 130/71 09/28/24 09:26 36.6 C 69 18 121/62 09/28/24 08:43 36.3 C L 70 20 129/69 09/28/24 08:15 65 20 126/67 09/28/24 07:16 36.6 C 66 20 117/73 Pulse Ox 09/28/24 11:13 96 09/28/24 09:26 97 09/28/24 08:43 95 09/28/24 08:15 96 09/28/24 07:16 96 Constitutional normal general appearance and no apparent distress HENMT normocephalic, head/scalp atraumatic and hearing grossly normal bilaterally Eyes PERRL and EOMs intact bilaterally Weakness right obicularis muscle Neck/C-Spine trachea midline Lymph no lymphadenopathy noted Chest inspection of chest normal and palpation of chest normal Respiratory breath sounds equal bilaterally, normal respiratory effort, clear to auscultation bilaterally and no wheezes Cardiovascular normal heart rate noted and regular rhythm noted Gastrointestinal abdomen normal to inspection, abdomen soft to palpation, nontender to palpation, nondistended and normoactive bowel sounds Genitourinary no CVA tenderness Extremities normal to inspection Neurology Left sided weakness upper and lower extremity Psychiatry oriented x3, thought process normal, cooperative and affect normal Skin skin color normal and no rash Conclusion/Plan Problem List (1) Acute upper GI bleed: Plan: Schedule for EGD later today; NPO in the meantime Consent: EGD Reagan has been counseled for the procedure, it's indications, risks, benefits and expected outcome as well as alternative therapies. We specifically discussed risks associated with anesthesia and insertion of the endoscope into the UGI tract which includes bleeding and/or injury to the esophagus which may require surgical intervention. Reagan understands, agrees, and consents to the proposed operative strategy and requests that we proceed with the procedure as outlined in our discussion. Tyler Colvin MD, [facility] General Surgery Service (2) Symptomatic anemia: Plan: Blood transfusion today (3) HTN (hypertension): (4) HLD (hyperlipidemia): (5) Seizure: (6) CVA (cerebral vascular accident): Lab Results 09/28/24 07:32 09/28/24 07:32
[2024-09-28] MEDS ORDERED: PROPOFOL 200 MG/20 ML VIAL IVP ONE (12:11)
[2024-09-28] MEDS ORDERED: LIDOCAINE-MPF 2% 5 ML VIAL ONE (12:11)
--- NOTE | 2024-09-28 13:03 | PROVIDER PROGRESS NOTE ---
Progress Note Progress Note Progress Note: General Surgery Brief Procedure Note (see "Provation" for details) Preop Diagnosis: Melena Postop Diagnosis: Melena due to a bi-lobed 20 mm pedunculated polyp on the greater curve mid-body of stomach. No active bleeding but stigmata of recent bleed evident. Snare polypectomy with clip closure of the mucosa defect. No complications. EBL 0 Procedure: EGD with snare polypectomy and endoclip closure of mucosa defect. Recommendation: 1) Mylanta 30 ml PO Q6h x 5 doses] 2) PPI for 6 weeks 3) Await pathology report for further recommendations Tyler Colvin MD, FACS General Surgery Service
[2024-09-28] MEDS: MAG HYDROX/AL HYDROX/SIMETH 30 ML UDC PO SCH (14:02)
[2024-09-28] MEDS: LACTATED RINGERS 1,000 ML IV SCH (14:07)
[2024-09-28 14:56] LABS: HCT - HEMATOCRIT 23.2 % (42.0-52.0)
[2024-09-28 15:07] LABS: HGB - HEMOGLOBIN 6.9 g/dL (14.0-18.0)
--- NOTE | 2024-09-28 16:28 | ANESTHESIA POST OP EVALUATION ---
Anesthesia Post Eval Post Anesthesia Eval Vitals: Last Vital Signs Temp 36.7 C 09/28/24 15:15 Pulse 74 09/28/24 15:15 Resp 18 09/28/24 15:15 BP 124/71 09/28/24 15:15 Pulse Ox 96 09/28/24 15:15 CV Function Including HR & BP: Stable Pain Control: Satisfactory Nausea & Vomiting: Negative Mental Status: Baseline Respiratory Status: Airway Patent Hydration Status: Satisfactory Anesthesia Complications: None
[2024-09-28] MEDS: METOPROLOL SUCCINATE 50 MG TABLET PO SCH (20:47)
[2024-09-28] MEDS: MELATONIN 3 MG TABLET PO SCH (20:48)
[2024-09-28] MEDS: levETIRAcetam 250 MG TABLET PO SCH (20:48)
[2024-09-28] MEDS: DOXEPIN 10 MG CAPSULE PO SCH (21:08)
[2024-09-28] MEDS ORDERED: COD LIVER OIL/ZINC OXIDE 113 GM TUBE TOP PRN (22:19)
[2024-09-28 22:40] LABS: HCT - HEMATOCRIT 24.4 % (42.0-52.0); HGB - HEMOGLOBIN 7.4 g/dL (14.0-18.0)
[2024-09-29] MEDS: traZODone 50 MG TABLET PO PRN (01:23)
[2024-09-29 05:36] LABS: HCT - HEMATOCRIT 25.8 % (42.0-52.0); HGB - HEMOGLOBIN 7.8 g/dL (14.0-18.0); MEAN CORPUSCULAR HEMOGLOBIN 25.7 pg (27.0-31.0); MEAN CORPUSCULAR HGB CONC 30.2 g/dL (32.0-36.0); MEAN CORPUSCULAR VOLUME 84.9 fL (80.0-94.0); MEAN PLATELET VOLUME 9.6 fL (7.4-11.4); RED BLOOD COUNT 3.04 10^6/uL (4.70-6.10); RED CELL DISTRIBUTION WIDTH 16.9 % (12.0-15.0); WHITE BLOOD COUNT 7.9 x10^3/uL (4.8-10.8)
[2024-09-29 05:50] LABS: CALCIUM 8.2 mg/dL (8.5-10.3); CREATININE 0.8 mg/dL (0.6-1.3); POTASSIUM 3.7 mmol/L (3.5-4.5)
--- NOTE | 2024-09-29 08:02 | Discharge Summary ---
"Discharge Summary Admit Date: 09/28/24 Discharge Date: 09/29/24 Discharging Provider: Dr. Fani Martinez Primary Care Provider: lOga Veras Code Status: Attempt Resuscitation Discharge Facility Name: [facility] DIAGNOSES Admission Diagnoses: Acute upper GI bleed Symptomatic anemia Hypertension Hyperlipidemia Seizure CVA Depression Discharge Diagnoses with Status of Each Condition: Acute upper GI bleedpatient's hemoglobin steadily declined from 11.1 on 07/17- 6.4 on admission. Patient was also having dark stools. EGD was completed with a mucosal tear noted and stigmata of recent bleeding. Surgical clip was placed. He received 2 units packed red blood cells. Advised to continue Protonix 40 mg twice daily for 6 weeks as well as 4 more doses of Mylanta on discharge. Advised to follow-up with surgeon as needed. Symptomatic anemiaresolved. Hypertensionhold antihypertensives on discharge as patient has normotensive till low blood pressure while here. Hyperlipidemiacontinue statin. Seizure disordercontinue Keppra CVAstable, continue home medications. Depressioncontinue home medications. HPI History of Present Illness: Patient is a 63-year-old male with a history of a chronic SMA dissection and aneurysm who presented for dark stools for about a week. He recently presented to the emergency room on 09/20 for dark stools from [facility]; at this time, he was sent home, given a referral for the general surgeon, who he actually did see on 09/25. They were planning on doing an outpatient EGD and colonoscopy on 10/03. However, he continued to have dark stools. He endorses some lightheadedness, dizziness. He is not on anticoauglation, antiplatelets, NSAIDs. He does not drink any alcohol. He denies any nausea, vomiting, abdominal pain. He has chronic weakness of his left side from a stroke about ten years ago. In the ER, patient was normotensive with blood pressure 117/73, heart rate was 66, he was afebrile, saturating 96% on room air. Lab work showed a hemoglobin of 6.4. About a week ago, it was 9.3. His BMP was largely unremarkable. CT abdomen/pelvis done 09/20 did show a SMA aneurysm and dissection, unchanged from 2023. The is already working on a vascular surgery referral. He was admitted for acute GI bleed. General surgery saw the patient, and plan is to go to the OR for endoscopy today. CONSULTS | PROCEDURES Consultations: General surgery Procedures: CT abdomen/pelvis, EGD HOSPITAL COURSE Hospital Course: Patient is a 63-year-old male with history of chronic SMA dissection and aneurysm who presented for dark stools, and worsening anemia as low as 6.4. He completed the EGD with general surgery while he was here, and this revealed mucosal tear with a clip placed to clear it there is no active bleeding, but there was stigmata of recent bleeding. You received 2 units of PRBCs with stabilization of hemoglobin. He is tolerating diet well. He had a bowel movement that was not dark while here. He will need 6 weeks of Protonix 40 mg twice daily. Advise close follow-up with his primary care provider and the vascular surgeon on discharge. Him and his both know that he has this SMA dissection, aneurysm, they already have a vascular surgery appointment set up. He is stable for discharge back home to his facility. ALLERGIES Allergies Allergy/AdvReac Type Severity Reaction Status Date / Time ceftriaxone sodium * (From Allergy Intermediate Hives Verified 09/28/24 07:35 Rocephin) MEDICATIONS Ambulatory Orders Medication Instructions Recorded Confirmed cholecalciferol (vitamin D3) 50 2,000 unit PO DAILY 09/28/24 mcg (2,000 unit) capsule (Vitamin D3) hydrochlorothiazide 25 mg tablet 12.5 mg PO DAILY 07/0509/28/24 Held on 09/29/24. Instructions: Resume on 10/13/24. Follow up with PCP and resume when they say it's ok to. lisinopril 40 mg tablet 40 mg PO DAILY 08/25/1210/17 Held on 09/29/24. Instructions: Resume on 10/13/24. Follow up with PCP and resume when they say it's ok to. metoprolol succinate 100 mg 100 mg PO BID 08/25/1210/17 tablet,extended release 24 hr omeprazole 20 mg capsule,delayed 20 mg PO DAILY 09/28/24 release levetiracetam 250 mg tablet 750 mg PO BID 03/17/1510/17 clobetasol 0.05 % topical ointment 15 g topical DAILY PRN PSORIASIS 04/22/18 09/28/24 folic acid 1 mg tablet 1 mg PO MOWEFRSA 09/17/20 pravastatin 40 mg tablet 40 mg PO HS 09/17/20 5 donepezil 5 mg tablet 5 mg PO DAILY #30 tabs 10/0909/28/24 amlodipine 10 mg tablet (Norvasc) 10 mg PO DAILY 09/2309/28/24 Held on 09/29/24. Instructions: Resume on 10/13/24. Follow up with PCP and resume when they say it's ok to. ondansetron 4 mg disintegrating 4 mg translingual Q6H PRN Nausea / 04/23/23 09/28/24 tablet Vomiting #10 tabs Melatonin 5 mg PO HS 10/18/23 09/28/24 clonazepam 0.25 mg disintegrating 0.25 mg PO DAILY 09/28/24 tablet cyanocobalamin (vitamin B-12) 1,000 mcg PO DAILY 10/1709/28/24 1,000 mcg capsule docusate sodium 100 mg capsule 100 mg PO BID 10/18/23 09/28/24 (Stool Softener) sertraline 100 mg tablet 100 mg PO DAILY 10/18/2310/17 bisacodyl 10 mg rectal suppository 10 mg NC DAILY PRN constipation 02/16/24 09/28/24 (Dulcolax (bisacodyl)) mineral oil (Fleet Mineral Oil 118 ml NC DAILY PRN con stipation 02/16/24 09/28/24 enema) polyethylene glycol 3350 17 17 g PO DAILY PRN constipa tion 02/16/24 09/28/24 gram/dose oral powder (ClearLax) sennosides 8.6 mg capsule (senna) 17.2 mg PO DAILY PRN constipation 02/16/24 09/28/24 doxepin 6 mg tablet 6 mg PO QPM 09/28/24 5 magnesium oxide 400 mg PO QPM 09/28/2409/28 potassium chloride 20 mEq 20 meq PO BID 09/28/2409/28 tablet,extended release(part/cryst) aluminum-mag hydroxide-simethicone 5 ml PO QID indiges tion 1 day #20 09/29/24 400 mg-400 mg-40 mg/5 mL oral susp mL (Mylanta Maximum Strength) pantoprazole 40 mg tablet,delayed 40 mg PO BID 6 weeks #84 tabs 09/29/24 release (Protonix) PHYSICAL EXAM AT DISCHARGE Vital Signs: Vital Signs x48h Temp Pulse Resp BP Pulse Ox 09/29/24 07:40 98.6 F 72 18 116/63 92 09/29/24 04:56 98.2 F 73 16 115/69 94 General Appearance: positive No acute distress and Alert; negative Anxious Eyes Bilateral: positive Normal inspection, PERRL and EOMI ENT: positive ENT inspection nml, Pharynx nml and No signs of dehydration Neck: positive Nml inspection, Thyroid nml and No JVD Respiratory: positive Chest non-tender, No respiratory distress and Breath sounds nml Cardiovascular: positive Regular rate & rhythm, No murmur and No gallop Peripheral Pulses: positive 2+ Abdomen: positive Non-tender, No organomegaly, Nml bowel sounds and No distention Back: positive Nml inspection; negative CVA tenderness (R) or CVA tenderness (L) Skin: positive Color nml, No rash and Warm Extremities: positive Non-tender, Nml appearance, No pedal edema and Other (Left hand with chronic contracture, left arm 4-5 to extension and flexion. Left lower extremity 4-5 to flexion extension. Right lower extremity right upper extremity 5 out of 5 in strength. ) Neurologic/Psychiatric: positive Oriented x3 and Mood/affect nml LABS 09/29/24 05:20 09/29/24 05:20 DIAGNOSTIC IMAGING Diagnostic Imaging Results: Final report reviewed FOLLOW UP Follow Up: Follow up with PCP. Follow up with neurology. Follow up with vascular surgery. Follow up with surgery PRN. TIME SPENT Time Spent in Discharge (Minutes): 35 Discharge Plan Discharge Patient Disposition: 01 Home, Self Care Condition: Stable Prescriptions: New pantoprazole [Protonix] 40 mg tablet,delayed release (DR/EC) 40 mg PO BID 42 Days Qty: 84 0RF alum-mag hydroxide-simeth [Mylanta Maximum Strength] 400-400-40 mg/5 mL suspension 5 ml PO QID 1 Days Qty: 20 0RF Continued metoprolol succinate 100 MG tablet extended release 24 hr 100 mg PO BID omeprazole 20 MG capsule,delayed release(DR/EC) 20 mg PO DAILY cholecalciferol (vitamin D3) [Vitamin D3] 2,000 UNIT capsule 2,000 unit PO DAILY levetiracetam 250 MG tablet 750 mg PO BID Patient Comments: 750 bid clobetasol 15 GM ointment 15 g topical DAILY PRN (Reason: PSORIASIS) pravastatin 40 MG tablet 40 mg PO HS folic acid 1 MG tablet 1 mg PO MOWEFR Rx Instructions: FOUR TIMES WEEKLY ON TUE, , TUE, SAT donepezil 5 MG tablet 5 mg PO DAILY Qty: 30 0RF ondansetron 4 MG tablet,disintegrating 4 mg translingual Q6H PRN (Reason: Nausea / Vomiting) Qty: 10 0RF clonazepam 0.25 MG tablet,disintegrating 0.25 mg PO DAILY sertraline 100 MG tablet 100 mg PO DAILY docusate sodium [Stool Softener] 100 MG capsule 100 mg PO BID cyanocobalamin (vitamin B-12) 1,000 MCG capsule 1,000 mcg PO DAILY Melatonin 5 MG tablet 5 mg PO HS bisacodyl [Dulcolax (bisacodyl)] 10 mg suppository 10 mg NC DAILY PRN (Reason: constipation) mineral oil [Fleet Mineral Oil] Enema 118 ml NC DAILY PRN (Reason: constipation) Rx Instructions: discard any unused portion polyethylene glycol 3350 [ClearLax] 17 gram/dose powder 17 g PO DAILY PRN (Reason: constipation) senna 8.6 mg capsule 17.2 mg PO DAILY PRN (Reason: constipation) doxepin 6 mg tablet 6 mg PO QPM magnesium oxide 400 mg magnesium capsule 400 mg PO QPM potassium chloride 20 mEq tablet,ER particles/crystals 20 meq PO BID Held hydrochlorothiazide 25 MG tablet 12.5 mg PO DAILY Hold Instructions: Resume on 10/13/24. Follow up with PCP and resume when they say it's ok to. lisinopril 40 MG tablet 40 mg PO DAILY Hold Instructions: Resume on 10/13/24. Follow up with PCP and resume when they say it's ok to. amlodipine [Norvasc] 10 MG tablet 10 mg PO DAILY Hold Instructions: Resume on 10/13/24. Follow up with PCP and resume when they say it's ok to. Diet: Soft Health Concerns: You came in because you were having dark stools. Your blood levels were also dropping. We completed an EGD, we took a camera and looked from above. This showed a polyp, as well as stigmata of recent bleeding. A surgical clip was placed to close the defect. Please continue taking pantoprazole 40 mg twice a day for 6 weeks. You also require Mylanta for a few more doses in the next day. Please continue to follow-up with the surgeon as needed. I understand that you are following up with the vascular surgery in the outpatient setting for your SMA artery aneurysm. Please continue to follow-up with them. Please follow-up with your primary care provider in about a week as well and have them recheck your blood levels. Please advance your diet slowly from the clear liquids to full liquids to soft diet. We are glad you are feeling better. Thanks for letting us take care of you. Print Language: Telugu Patient Instructions: EGD (Upper Endoscopy): Post-op, Surg Dc Stand Alone Forms: PCP List"
[2024-09-29] MEDS: SERTRALINE 50 MG TABLET PO SCH (08:39)
[2024-09-29] MEDS: clonazePAM 0.5 MG TABLET PO SCH (08:39)
[2024-09-29] MEDS: CHOLECALCIFEROL 25 MCG TABLET PO SCH (08:40)
[2024-09-29] MEDS: DONEPEZIL 5 MG TABLET PO SCH (08:40)
[2024-09-29 11:31] VITALS: BP 122/72; TEMP 97.7; O2SAT 95
[2024-09-29] MEDS ORDERED: PRAVASTATIN 40 MG TABLET PO SCH (21:00)
== END 2024-09-29 14:10 | disposition home or self-care (01) ==
LOC: ED 07:12 → MS2 07:12
PROVIDERS: ADMIT Internal Medicine; ATTEND Internal Medicine
DX: I10 Essential (primary) hypertension; D64.9 Anemia, unspecified; K31.7 Polyp of stomach and duodenum; E78.5 Hyperlipidemia, unspecified; K25.4 Chronic or unspecified gastric ulcer with hemorrhage